=== PATIENT | female | born 1950 | race Caucasian/White ===

== ENCOUNTER 2017-09-15 10:00 | Outpatient (RCR) | payer MEDICARE ==
--- NOTE | 2017-07-09 13:16 | ONCOLOGY FOLLOW UP NOTE ---
EVENT DATE: July 07, 2017 CHIEF COMPLAINT Fatigue, weakness. HISTORY OF PRESENT ILLNESS Lucy is a very pleasant 66-year-old female who I met for the first time on June 25, during her hospitalization at the [facility] in [place], [place]. She was admitted at that time with encephalopathy. She was noted to have a large mass in the right frontal lobe on brain MRI dated June 13, 2017. This appeared to extend into the corpus callosum. There is a mass in the left parietal lobe and a mass in the right cerebellum. Primary differential consideration initially was glioblastoma multiforme, multifocal. There was also a small cystic lesion noted in the right occipital lobe that was suspicious for a fourth focus of tumor. She subsequently underwent a CT scan of the chest, abdomen and pelvis on June 14. This revealed a 15 x 13 mm nodule in the left upper lobe, with consideration for a primary pulmonary malignancy or metastatic disease. There were a few additional pulmonary micro nodules within the left upper lobe and nodular densities along the inferior right major fissure. There borderline prominent mediastinal and hilar lymph nodes. There were small right and trace left pleural effusions, but no evidence of metastatic disease outside of the chest. 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 The patient had a port placed during that hospitalization, she was newly diagnosed with atrial fibrillation at that time, as well. She did have a fairly extended length of stay, and due to the need for further physical therapy and recuperation, she was transferred recently to the extended care floor at [facility]. During that time, she has been undergoing whole brain radiation, and she reports that she has three days left. She has not been up and around much. She denies pain and fever, however. Her appetite has been pretty good. Staff has noted occasional confusion. REVIEW OF SYSTEMS Difficult, but otherwise negative, and all systems were reviewed. PAST MEDICAL HISTORY 1. Diabetes mellitus, type 2. 2. Hypertension. 3. Obstructive sleep apnea. 4. History of smoking. PAST SURGICAL HISTORY Patient is status post hysterectomy. SOCIAL HISTORY Patient is currently , and she lives in [place] with her . She was smoking at the time of her admission to the [facility], roughly two packs per day, and had done so for about 50 years. She had been drinking about 10 glasses of wine per week. There is no history of illicit drug use. FAMILY HISTORY There is a history of myocardial infarction in both her mother and her father. CURRENT MEDICATIONS 1. Vitamin E. 2. Vitamin C. 3. Garlic tablet. 4. Multivitamin. 5. Metoprolol. 6. Metformin. 7. Lisinopril. 8. Levothyroxine. 9. Loperamide. 10. Cardura. 11. Breo Ellipta. ALLERGIES STATINS AND HMG-COA REDUCTASE INHIBITORS. VITAL SIGNS Patient is afebrile, vital signs are stable. PHYSICAL EXAMINATION GENERAL: Patient is alert and oriented times three, in no apparent distress sitting in the hospital room chair. She is quite pleasant and interactive. HEENT: Exam reveals anicteric sclerae. NEUROLOGIC: Exam is grossly nonfocal, although I did not test her gait today. SKIN: Exam reveals no concerning rash or lesions. The rest of the physical exam is deferred for extensive discussion today. LABS, IMAGING, PATHOLOGY See history of present illness. ASSESSMENT AND PLAN Metastatic small cell lung carcinoma. I had a good visit with Lucy at bedside today. We were accompanied by the cancer center staff, as well as the patient' s hospitalist, and her . We spent a good deal of time discussing how things having going during her convalescence. She does seem to be making some progress functionally. She has three more days of whole brain radiation left. There are potential plans for her to return home tomorrow. We spent a great deal of time today discussing palliative chemotherapy, which had been the plan at the time of her discharge from [facility] in [place], [place]. We likely will move forward with palliative carboplatin and etoposide , and we did discuss any concerns about distance between [place] and [place], and the schedule needed to follow this chemotherapy protocol. There are no particular concerns in this regard, with the exception of bad weather and road conditions. The patient's performance status does seem to be improving to the point where she can tolerate chemotherapy. She will begin chemotherapy in the next one to two weeks. She has already had a port placed. Her chemotherapy will be palliative in nature. We discussed the priorities of longevity and improved/maintained quality of life, and she has expressed understanding. I will plan to see her back in the next month when I return to [facility]. The patient and her had several further questions for me today, and I believe I answered all of their questions to their satisfaction. STACEY
--- NOTE | 2017-07-12 13:39 | ONC Progress Note - NP.Halsey ---
Patient History Date of Service Jul 12, 2017 Reason For Visit/HPI Patient is seen in the clinic today for education prior to starting chemotherapy with the top aside and carboplatin for her stage IV small cell lung cancer. Patient was found to have brain metastasis and completed radiation therapy for whole brain treatment today. Patient reports that she is confused regarding her medications at home and has asked for assistance through the clinic. She reports having mild back discomfort thought to be related from lying on the radiation treatment table and inactivity. She will try to do more physical activity and has been referred for physical therapy. Problem List (1) Brain metastases (2) Small cell lung cancer (3) HTN (hypertension) (4) DM (diabetes mellitus) (5) Hypothyroidism (6) Prolonged QT interval (7) PAROXYSMAL ATRIAL FIBRILLATION Oncology History I'm days a pleasant 66-year-old female who was hospitalized at [facility] in [facility] on 06/25/2017. She was admitted at that time for encephalopathy. She was noted to have a large mass in the right frontal lobe on the brain MRI dated 06/13/2017. This appeared to extend into the corpus colostrum. There is a mass in the left parietal lobe and a mass in the right cerebellum. There is also a small cystic lesion noted in the right septal lobe that was suspicious for a 4th focus of tumor. She underwent a CT scan of the chest abdomen and pelvis on June 14. This revealed a 15 x 13 mm nodule in the left upper lobe, with consideration for a primary pulmonary malignancy or metastatic disease. There were a few additional pulmonary micro nodules within the left upper lobe and nodular densities along the inferior right major fissure. There borderline prominent mediastinal and hilar lymph nodes. There were small right and trace left pleural effusions, but no evidence of metastatic disease outside of the chest. 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 Patient had a port placed during hospitalization and was diagnosed with atrial fibrillation at that time. She had an extended lengthy stay due to the need for physical therapy. She was then transferred to [facility] [place], [place]. Repleted radiation therapy whole brain treatment starting on 06-29 with completion on 07/12/2017 to a therapeutic dose of 3000 cGy. Patient was on dexamethasone 12 mg 10 days with the tapering dose to 8 mg 10 days and further tapering of 4 mg 10 days. Psychosocial History Social History Patient is currently , she lives in [facility] with her . 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 Alcohol History She had been drinking about 10 glasses of wine per week prior to her diagnosis Recreational Drug History There is no history of illicit drug use Smoking History: No (patient stopped smoking that they're diagnosis of lung cancer May 2017) Smoking Status: Current: Every Day Smoker, Heavy Tobacco Smoker Medications and Allergies Active Scripts Nicotine (NICOTINE PATCH) 1 Each Patch.td24, 14 MG TD QDAY, #30 PATCH.24H 1 Refill Prov:MILTON SMITH MD 07/07/17 Metoprolol Tartrate (METOPROLOL TARTRATE) 50 Mg Tab, 50 MG PO BID for Blood Pressure, #60 TAB 1 Refill Prov:MILTON SMITH MD 07/07/17 Levetiracetam (LEVETIRACETAM) 500 Mg Tablet, 500 MG PO Q12H, #60 TAB 1 Refill Prov:MILTON SMITH MD 07/07/17 Insulin Lispro (HUMALOG) 100 Unit/1 Ml Vial, 2-10 UNIT SUBQ SS, #1 VIAL 1 Refill For blood glucose: 150-200, give 2 units 201-250, give 4 units 251-300, give 6 units 301-350, give 8 units 351 or greater, give 10 units For blood glucose over 400, give 10 units and call your healthcare provider. for blood sugar less than 50, drink juice and call your healthcare provider. Prov:MILTON SMITH MD 07/07/17 Insulin Glargine,Hum.rec.anlog (LANTUS SOLOSTAR) 100 Unit/1 Ml Insuln.pen, 16 UNIT SUBQ QHS, #1 BOX Prov:MILTON SMITH MD 07/07/17 Hydralazine Hcl (HYDRALAZINE HCL) 25 Mg Tablet, 100 MG PO TID for Blood Pressure , #120 TAB 1 Refill Prov:MILTON SMITH MD 07/07/17 Doxazosin Mesylate (DOXAZOSIN MESYLATE) 2 Mg Tablet, 8 MG PO QHS for Blood Pressure, #120 TAB 1 Refill Prov:MILTON SMITH MD 07/07/17 Dexamethasone (DEXAMETHASONE) 1 Mg Tab, 2 MG PO QDAY, #20 TAB Take until otherwise instructed by Cancer Center. Prov:MILTON SMITH MD 07/07/17 Dexamethasone (DEXAMETHASONE) 1 Mg Tab, 2 MG PO Q12H@0600,1800, #40 TAB Take from 07/10 through end of day 07/19 then taper. Prov:MILTON SMITH MD 07/07/17 Dexamethasone (DEXAMETHASONE) 1 Mg Tab, 2 MG PO Q8H, #10 TAB Take through 07/09 then taper. Prov:MILTON SMITH MD 07/07/17 Amlodipine Besylate (AMLODIPINE BESYLATE) 5 Mg Tablet, 10 MG PO QDAY for Blood Pressure, #30 TAB 1 Refill Prov:MILTON SMITH MD 07/07/17 Reported Medications Ubidecarenone (COQ-10) 100 Mg Capsule, 200 MG PO BID, CAPSULE 07/07/17 Turmeric Root Extract (Turmeric) 538 Mg Capsule, 500 MG PO DAILY 07/07/17 Triamcinolone Acetonide 0.1% Oint 15 Gm Tube (TRIAMCINOLONE ACETONIDE 0.1% 15 GM TUBE) 15 Gm Oint...g., 15 GM TP BID Y for PRN, TUBE 05/19/17 Oxygen (OXYGEN) Inha, 3.5 L INH, L 3.5 L CPAP 05/19/17 Oxygen (OXYGEN) Inha, 3 L INH, L 05/19/17 Vitamin E Mixed (VITAMIN E) Unknown Strength Tablet, PO QDAY 05/19/17 Ascorbic Acid (VITAMIN C) Unknown Strength Tablet, PO DAILY, TAB 05/19/17 Garlic (GARLIC) 1 Each Tablet, 1 EACH PO DAILY 05/19/17 Multivitamin (DAILY MULTIPLE VITAMIN) 1 Each Tablet, 1 TAB PO DAILY 05/19/17 Metformin Hcl (METFORMIN HCL) 500 Mg Tablet, 2 TAB PO BID, TAB 05/19/17 Lisinopril (LISINOPRIL) 20 Mg Tablet, 40 MG PO QDAY, TAB 05/19/17 Levothyroxine Sodium (LEVOTHYROXINE SODIUM) 50 Mcg Tablet, 50 MCG PO QDAY, TAB 05/19/17 Loperamide HCl (Imodium A-D) Unknown Strength Capsule, PRN 05/19/17 Estropipate (ESTROPIPATE) 1.5 Mg Tablet, 1.5 MG PO QDAY for 90 Days Take 1 pill by mouth daily for 90 days 05/19/17 Discontinued Reported Medications Metoprolol Tartrate (METOPROLOL TARTRATE) 100 Mg Tablet, 1 TAB PO BID for 90 Days, TAB Take 1 pill by mouth twice daily for 90 days 05/19/17 Doxazosin Mesylate (CARDURA) 4 Mg Tablet, 4 MG PO QHS for 90 Days Take for 1 pill at bedtime for 90 days 05/19/17 Fluticasone/Vilanterol 100/25 Mcg/Inh (BREO ELLIPTA 100/25 MCG) 1 Each Aer.pow.ba, 1 INH INH PRN, INH 05/19/17 Allergies: Coded Allergies: Kmphwkd-Kcl-Qqc Reductase Inhibitor (Verified Allergy, Unknown, 05/19/17) Review of System/Physical Exam Review of Systems All Systems Reviewed/Normal: Yes, Except as Noted Hematologic: Positive for Fatigue, Positive for Weakness Neurologic: Other (patient has some generalized confusion and difficulty with thought process and memory recall) Physical Exam Vital Signs Temperature: Pulse: BP Systolic: BP Diastolic: Respiratory Rate: O2 SAT: O2 Delivery: Height (inches) 67.00 Weight lb: 212 Weight oz: Weight Kg (Maury): Pain: ECOG Score: 2 General: Stable, Well Developed, Well Nourished, Not In Acute Distress Psychiatric: Mood appears normal, Affect appears normal, Other (evidence of thought process confusion and memory recall. Patient repeats her questions multiple times.) Chemo Education Chemotherapy Education: Patient is seen today for education regarding chemotherapy with a top deciding carboplatin for her stage IV small cell lung cancer with known evidence of metastatic disease to the brain status post radiation therapy whole brain area The treatment schedule and associated appointments were discussed and reviewed. A print out will be given to the patient. The intent for treatment is palliative Consent for treatment was completed prior to receiving treatment. Mechanism of action and associated side effects of the top aside and carboplatin and premedications were discussed. The patient is at increased risk for infection related to bone marrow suppression with chemotherapy. Signs and symptoms of infection were reviewed with recommendation of calling the clinic if fever, chills or a temperature of 100.5 or greater is experienced. Regular monitoring of blood work will be completed. The patient is at increased risk of nausea and vomiting related to chemotherapy. Home antiemetics were reviewed with a schedule of when to take them. Script (s) for Zofran were sent electronically to [facility]. Patient was not prescribed Ativan at this time due to her confusion. Increased bowel movements or diarrhea may occur. The use of Imodium was reviewed and encouraged to have on hand. Dehydration from decreased intake, nausea or diarrhea could also occur. Side effects of dehydration were reviewed and hydration will be given as needed. Self-care strategies to minimize any symptoms from treatment were taught and written material was given for further review at home. The strategies included : dietary modifications for nausea, diarrhea, fatigue and/or mouth sores, exercise and resting for fatigue, hydration for dehydration, and skin care for dry skin reactions. In addition, safety measures for IV chemotherapy to prevent teratogenic side effects to others was reviewed in detail to include good hand washing, double flushing, and what to do during sexual intercourse. Education book was given to patient to review at home. At this time patient is undecided of when to start treatment. She has the option of starting next Wednesday or the following Wednesday. She will call the clinic and schedule. The above information will be reviewed with the patient and family members as needed. Assessment and Plan Assessment & Plan Patient is a pleasant 66-year-old female who was diagnosed with metastatic small cell lung carcinoma in May 2017. Patient completed whole brain radiation therapy to 3000 cGy on 07/12/2017. Patient continues on a tapering dose of steroids. She was started on insulin due to elevated blood sugars thought to be related to dexamethasone. She also has a sliding scale. Patient was educated regarding sliding scale and had a use a glucometer last Wednesday, however reports that they couldn't get the glucometer to work. She is going to have a provider in [facility] help her with this. She reports that she is confused on her medications and when to take them and how to take them. A print out was given to her reviewing her medications. It was suggested that she bring all of her medications into the clinic and a calendar could be made for her, she did not do this today. She reports that she may ask for assistance by a provider in [facility] where she will drive back to [place] in the next day or 2. Her sister in law is with her today. She may be able to help her with her medications. Patient is scheduled to start chemotherapy with the top aside and carboplatin given on days 1, 2 and 3 every 21 days. Patient was given the option to start next Wednesday or the following Wednesday, July 28, she will call the clinic. Education regarding side effects, management of side effects, treatment plan, and schedule was reviewed with patient and [id number] today. Patient verbalized understanding and [id number] verbalized understanding. Patient signed consent. I do believe that patient will need further education after receiving chemotherapy and possibly ongoing education due to her confusion at this time and ability to remember things. I believe all questions were answered to their satisfaction today. I personally spent a total of 45 minutes. Of that 40 minutes was counseling/ coordination of patient's care. See my note above for details. Copies to: MARSHALL WHITTAKER MD, NANCY J BRICK AND TILE MAKING MACHINE OPERATOR-BC, ONC Jul 12, 2017 13:39
--- NOTE | 2017-07-14 15:36 | Oncology Note ---
Patient was called on 07-13-18 x 2 and a message was left and again today with a message left to inquire if she received assistance with her medications and sliding scale of her insulin. She had told the nurses that she was confused regarding her medications. I had reviewed them with her and printed out her medications and Keena GALINDO underlined each one on Wednesday the . I then met with her on Wednesday the and reviewed the medications and recommended that she go to the [facility] and have them assist her with a calendar since she did not bring in her medications to the clinic in [place]. I had also offered to see her in the [place] clinic with all her medications at any time, she just needed to call the clinic and be placed on the schedule. I have been unable to contact her and have left messages. ZEINA FONTAINE TANDEM MILL ROLLER-BC, ONC Jul 14, 2017 15:36
[2017-07-28 10:15] LABS: PLATELET COUNT, AUTOMATED 356 K/uL (150-450)
[2017-07-28 10:21] VITALS: BP 149/67
[2017-07-28] MEDS: LIDOCAINE/SOD BICARB 8.4% SYR ID PRN (10:30)
[2017-07-28] MEDS: NS(*) 0.9% 500 ML BAG 500 ML IV PRN (10:30)
[2017-07-28] MEDS: HEPARIN FLSH (PORT) 500 UN/5ML IVP PRN (10:30)
[2017-07-28] MEDS: DEXAMETHASONE SOD PHOS 10MG/ML IVP PRN (11:30)
[2017-07-29] MEDS: DEXAMETHASONE SOD PHOS 10MG/ML IVP PRN (10:23)
[2017-07-29 10:42] VITALS: BP 138/60
[2017-07-29] MEDS: NS(*) 0.9% 500 ML BAG 500 ML IV PRN (10:44)
[2017-07-29] MEDS: LIDOCAINE/SOD BICARB 8.4% SYR ID PRN (10:44)
[2017-07-29] MEDS: HEPARIN FLSH (PORT) 500 UN/5ML IVP PRN (10:45)
--- NOTE | 2017-07-29 11:12 | ONC Progress Note - NP.Halsey ---
Patient History Date of Service Jul 29, 2017 Reason For Visit/HPI Patient is seen in the clinic with her for cycle 1 day 2 of chemotherapy with etoposide and carboplatin for her stage IV small cell lung cancer. Patient has completed radiation therapy to the whole brain for metastasis. Patient was hospitalized on extended care throughout her radiation therapy treatment. She was discharged at home on oral steroids with a tapering dose. Patient was started on insulin due to elevated blood sugar levels possibly related to steroid therapy. Patient continues on insulin long-acting at night and a sliding scale in the morning. She reports that her levels have ranged from 120 up to 313. Patient has completed Decadron taper and is no longer on Decadron therapy with the exception of premedications prior to chemotherapy. Patient was also discharged on several new medications for her blood pressure such as cardura and and hydralazine. Spouse reports that patient has run out of both of these prescriptions and has not been on them for approximately 2 days. Blood pressure today is 138/60. I will recommend patient to hold these medications as she is following with Dr. Maynard on August 02. She will be in the clinic tomorrow for chemotherapy and we can monitor her blood pressure tomorrow as well. Overall patient is feeling relatively well today she denies any nausea or vomiting, she had diarrhea yesterday but did not take Imodium. She has no diarrhea today. She was tired after her cycle 1 of chemotherapy but reports that she tolerated it well. She has no shortness of breath. Patient continues on oxygen continuous. She has some mild discomfort in her back and she does have a wound on her bottom. I have written an order for wound consult and they should visit with her today. Problem List (1) Wound abscess (2) Hypothyroidism (3) HTN (hypertension) (4) DM (diabetes mellitus) (5) Prolonged QT interval (6) PAROXYSMAL ATRIAL FIBRILLATION (7) Small cell lung cancer (8) Brain metastases Oncology History Lucy is a pleasant 66-year-old female who was hospitalized at [facility] in [facility] on 06/25/2017. She was admitted at that time for encephalopathy. She was noted to have a large mass in the right frontal lobe on the brain MRI dated 06/13/2017. This appeared to extend into the corpus colostrum. There is a mass in the left parietal lobe and a mass in the right cerebellum. There is also a small cystic lesion noted in the right septal lobe that was suspicious for a 4th focus of tumor. She underwent a CT scan of the chest abdomen and pelvis on June 14. This revealed a 15 x 13 mm nodule in the left upper lobe, with consideration for a primary pulmonary malignancy or metastatic disease. There were a few additional pulmonary micro nodules within the left upper lobe and nodular densities along the inferior right major fissure. There borderline prominent mediastinal and hilar lymph nodes. There were small right and trace left pleural effusions, but no evidence of metastatic disease outside of the chest. 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 Patient had a port placed during hospitalization and was diagnosed with atrial fibrillation at that time. She had an extended lengthy stay due to the need for physical therapy. She was then [place] [facility] [place] Repleted radiation therapy whole brain treatment starting on 06-29 with completion on 07/12/2017 to a therapeutic dose of 3000 cGy. Patient was on dexamethasone 12 mg 10 days with the tapering dose to 8 mg 10 days and further tapering of 4 mg 10 days. Chemotherapy with carboplatin and etoposide started on 07/28/2017 given on days 1, 2, 3 every 21 day cycle Psychosocial History Social History Patient is currently , she lives in [facility] with her . 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 Alcohol History She had been drinking about 10 glasses of wine per week prior to her diagnosis Recreational Drug History There is no history of illicit drug use Smoking History: No (patient stopped smoking that they're diagnosis of lung cancer May 2017) Smoking Status: Current: Every Day Smoker, Heavy Tobacco Smoker Medications and Allergies Active Scripts Ondansetron (ZOFRAN ODT) 8 Mg Tab.rapdis, 8 MG PO Q12H, #30 TAB 1 Refill Prov:ZEINA FONTAINE-BC, ONC 07/29/17 Nicotine (NICOTINE PATCH) 1 Each Patch.td24, 14 MG TD QDAY, #30 PATCH.24H 1 Refill Prov:ZEINA FONTAINE-CARMEN, ONC 07/29/17 Levetiracetam (LEVETIRACETAM) 500 Mg Tablet, 500 MG PO Q12H, #60 TAB 1 Refill Prov:ZEINA FONTAINE-CARMEN, ONC 07/29/17 Metoprolol Tartrate (METOPROLOL TARTRATE) 50 Mg Tab, 50 MG PO BID for Blood Pressure, #60 TAB 1 Refill Prov:MILTON APPLE MD 07/07/17 Insulin Lispro (HUMALOG) 100 Unit/1 Ml Vial, 2-10 UNIT SUBQ SS, #1 VIAL 1 Refill For blood glucose: 150-200, give 2 units 201-250, give 4 units 251-300, give 6 units 301-350, give 8 units 351 or greater, give 10 units For blood glucose over 400, give 10 units and call your healthcare provider. for blood sugar less than 50, drink juice and call your healthcare provider. Prov:MILTON APPLE MD 07/07/17 Insulin Glargine,Hum.rec.anlog (LANTUS SOLOSTAR) 100 Unit/1 Ml Insuln.pen, 16 UNIT SUBQ QHS, #1 BOX Prov:MILTON APPLE MD 07/07/17 Reported Medications Ubidecarenone (COQ-10) 100 Mg Capsule, 200 MG PO BID, CAPSULE 07/07/17 Turmeric Root Extract (Turmeric) 538 Mg Capsule, 500 MG PO DAILY 07/07/17 Triamcinolone Acetonide 0.1% Oint 15 Gm Tube (TRIAMCINOLONE ACETONIDE 0.1% 15 GM TUBE) 15 Gm Oint...g., 15 GM TP BID Y for PRN, TUBE 05/19/17 Oxygen (OXYGEN) Inha, 3.5 L INH, L 3.5 L CPAP 05/19/17 Oxygen (OXYGEN) Inha, 3 L INH, L 05/19/17 Vitamin E Mixed (VITAMIN E) Unknown Strength Tablet, PO QDAY 05/19/17 Ascorbic Acid (VITAMIN C) Unknown Strength Tablet, PO DAILY, TAB 05/19/17 Garlic (GARLIC) 1 Each Tablet, 1 EACH PO DAILY 05/19/17 Multivitamin (DAILY MULTIPLE VITAMIN) 1 Each Tablet, 1 TAB PO DAILY 05/19/17 Metformin Hcl (METFORMIN HCL) 500 Mg Tablet, 2 TAB PO BID, TAB 05/19/17 Lisinopril (LISINOPRIL) 20 Mg Tablet, 40 MG PO QDAY, TAB 05/19/17 Levothyroxine Sodium (LEVOTHYROXINE SODIUM) 50 Mcg Tablet, 50 MCG PO QDAY, TAB 05/19/17 Loperamide HCl (Imodium A-D) Unknown Strength Capsule, PRN 05/19/17 Estropipate (ESTROPIPATE) 1.5 Mg Tablet, 1.5 MG PO QDAY for 90 Days Take 1 pill by mouth daily for 90 days 05/19/17 Discontinued Scripts Hydralazine Hcl (HYDRALAZINE HCL) 25 Mg Tablet, 100 MG PO TID for Blood Pressure , #120 TAB 1 Refill Prov:MILTON APPLE MD 07/07/17 Doxazosin Mesylate (DOXAZOSIN MESYLATE) 2 Mg Tablet, 8 MG PO QHS for Blood Pressure, #120 TAB 1 Refill Prov:MILTON APPLE MD 07/07/17 Dexamethasone (DEXAMETHASONE) 1 Mg Tab, 2 MG PO QDAY, #20 TAB Take until otherwise instructed by Cancer Center. Prov:MILTON APPLE MD 07/07/17 Dexamethasone (DEXAMETHASONE) 1 Mg Tab, 2 MG PO Q12H@0600,1800, #40 TAB Take from 07/10 through end of day 07/19 then taper. Prov:MILTON APPLE MD 07/07/17 Dexamethasone (DEXAMETHASONE) 1 Mg Tab, 2 MG PO Q8H, #10 TAB Take through 07/09 then taper. Prov:MILTON APPLE MD 07/07/17 Amlodipine Besylate (AMLODIPINE BESYLATE) 5 Mg Tablet, 10 MG PO QDAY for Blood Pressure, #30 TAB 1 Refill Prov:MILTON APPLE MD 07/07/17 Allergies: Coded Allergies: Slnqhaf-Pcf-Djz Reductase Inhibitor (Verified Allergy, Unknown, 05/19/17) Review of System/Physical Exam Review of Systems All Systems Reviewed/Normal: Yes, Except as Noted Respiratory: Positive for Shortness of Breath Gastrointestinal: Diarrhea Hematologic: Positive for Fatigue, Positive for Weakness Musculoskeletal: Positive for Muscle Pain, Positive for Bone Pain Neurologic: Other (patient appears to be able to comprehend however is often confused) Skin: Positive for Other (wound on her bottom) Physical Exam Vital Signs Temperature: 97.4 Pulse: 63 BP Systolic: 138 BP Diastolic: 60 Respiratory Rate: 16 O2 SAT: 97 O2 Delivery: Height (inches) 67.00 Weight lb: 212 Weight oz: Weight Kg (Maury): Pain: 0 ECOG Score: 2 (Patient requires assistance with ambulation, decision making, and home medications.) General: Stable, Well Developed, Well Nourished, Not In Acute Distress HEENT: No Trauma, No Icterus, No Mucositis, No Oral Thrush Neck: Supple Lungs: Clear to Auscultation (all lung alvarez are distant) Heart: Regular Rate, Regular Rhythm, No Gallops Abdomen: Soft and Nontender, No Hepatosplenomegaly, No Masses Extremities: No Edema Lymphadenopathy: No Cervical Psychiatric: Mood appears normal, Affect appears normal, Other Skin: No Skin Rashes, Other (wound was not assessed as wound care management will evaluate and treat) Diagnostic Studies Diagnostic Studies Laboratory Laboratory Tests 07/28/17 10:10 Laboratory Tests 07/28/17 10:10: White Blood Count 11.2, Red Blood Count 3.51, Hemoglobin 11.9, Hematocrit 34.4, Mean Corpuscular Volume 98.0, Mean Corpuscular Hemoglobin 34.0, Mean Corpuscular Hemoglobin Concent 34.7, Red Cell Distribution Width 13.5, Platelet Count 356, Mean Platelet Volume 6.9, Neutrophils (%) (Auto) , Lymphocytes (%) ( Auto) , Monocytes (%) (Auto) , Eosinophils (%) (Auto) , Basophils (%) (Auto) , Nucleated RBC Relative Count (auto) , Neutrophils # (Auto) , Lymphocytes # (Auto ) , Monocytes # (Auto) , Eosinophils # (Auto) , Basophils # (Auto) , Nucleated RBC Absolute Count (auto) , Neutrophils % (Manual) 69, Band Neutrophils % 0, Lymphocytes % (Manual) 16, Atypical Lymphocytes % 0, Monocytes % (Manual) 8, Eosinophils % (Manual) 0, Basophils % (Manual) 0, Metamyelocytes % 2, Myelocytes % 5, Peripheral Blood Smear Yes, Sodium Level 128, Potassium Level 4.3, Chloride Level 92, Carbon Dioxide Level 27, Blood Urea Nitrogen 16, Creatinine 0.50, Glomerular Filtration Rate Calc > 60.0, Random Glucose 101, Calcium Level 9.6, Total Bilirubin 0.7, Aspartate Amino Transf (AST/SGOT) 27, Alanine Aminotransferase (ALT/SGPT) 95, Alkaline Phosphatase 103, Total Protein 5.9, Albumin 3.4 Assessment and Plan Assessment & Plan 1. Patient is a pleasant 66-year-old female who was diagnosed with metastatic small cell lung carcinoma in May 2017. Patient completed whole brain radiation therapy to 3000 cGy on 07/12/2017. She started chemotherapy with etoposide and carboplatin given on days 12 and 3 every 21 days yesterday. She is here today for cycle 1 day 2. She is tolerating treatment at this time well without any side effects. She does have Zofran at home for nausea. Patient will have a repeat MRI of the brain and is requesting to have that done in [place] with an open MRI due to her claustrophobia approximately one month out from treatment and will follow with radiation oncology to review those results. Patient will continue with weekly CBC and CMP for monitoring for neutropenia. She will return in 21 days for cycle 2 of chemotherapy. 2. Hypertension. Patient previously was on metoprolol, lisinopril, and Dr. Apple had added hydralazine 3 times a day and Cardura daily at bedtime for management while patient was in the hospital. Patient has not had these 2 medications in the last 2-3 days. Blood pressure is currently 138/60. Patient will be in the clinic tomorrow for an blood pressure will be monitored again. I did not refill these prescriptions as patient is following with August 02 and can discuss if patient should continue. 3. Diabetes. Patient previously on oral metformin 500 mg twice daily. Well on Decadron patient was started on insulin at night and a sliding scale during the day. Her levels have ranged between 120 and up to 313. Patient is no longer on Decadron therapy other than every 21 days used as a premed prior to chemotherapy. Patient will follow with primary care regarding management of insulin. 4. Wound care. Patient has a wound on her bottom and an order for wound care management and evaluation has been sent. They should follow with the patient today. 5. Back pain. Patient has lower back pain. Currently she reports that her symptoms remain stable pain is a 3 out of 10. Patient does take Tylenol as needed. 6. Neutropenia. Patient is currently receiving chemotherapy and if her absolute neutrophil count drops below 1000 she may receive Neulasta. We will continue to monitor labs weekly. Patient will follow with primary care on Wednesday. I personally spent a total of 35 minutes. Of that 35 minutes was counseling/ coordination of patient's care. See my note above for details. Copies to: TARAN MAYNARD MD, NANCY J [employer], ONC Jul 29, 2017 11:12
[2017-07-29 17:15] VITALS: BP 145/59
[2017-07-30] MEDS: NS(*) 0.9% 500 ML BAG 500 ML IV PRN (09:30)
[2017-07-30] MEDS: LIDOCAINE/SOD BICARB 8.4% SYR ID PRN (09:30)
[2017-07-30] MEDS: DEXAMETHASONE SOD PHOS 10MG/ML IVP PRN (10:01)
[2017-07-30 10:11] VITALS: BP 123/57
[2017-07-30] MEDS: HEPARIN FLSH (PORT) 500 UN/5ML IVP PRN (12:10)
[2017-09-08 13:54] LABS: PLATELET COUNT, AUTOMATED 317 K/uL (150-450)
--- NOTE | 2017-09-08 14:08 | ONC Progress Note - NP.Halsey ---
Patient History Date of Service Sep 08, 2017 Reason For Visit/HPI Patient is seen in the clinic today with her for follow-up. She completed 1 cycle of carboplatin and eat top aside given on , 07/29 and 11/2016. Patient had previously completed whole brain radiation for metastasis and was hospitalized during her radiation treatment on extended care. Post discharge she was on tapering dose of steroids and insulin due to her elevated blood sugars related to steroid therapy. Post chemotherapy patient was noted to have ulcerations on her bottom that were not healing requiring wound care management. Patient then was placed in the [facility] to provide daily wound care management. Patient was discharged from the [facility] approximately 1 week ago under the care of her . He reports over the last week that she has been able to assist with fixing simple meals, getting up to go to the bathroom with minimal assistance, and holding a conversation relatively well however she did have word retrieval recall difficulty. In addition she had episodes of not knowing who she was, where she was, inability to answer questions or to give a full sentence. These episodes would come and go. She has spent quite a bit of time sleeping. She has been able to sort Cris ornaments yesterday and is prepared to decorating the tree tomorrow. Unfortunately upon her arrival today she was unable to get out of the car safely , her legs became weak and she slid down to her bottom. The nurses from the cancer center were able to assist her up and put her in a wheelchair. It is reported that she did not hit any part of her body and that there was no area that experienced trauma. In 1st seeing her in the exam room she was very quiet and lethargic, unable to tell me her name, date of , or who her was but she did smile at him indicating that she didn't know him. After leaving the room to order lab draw and coming back into the room she was much more alert and oriented and could tell me who her was by his name. He still could not tell me her name or date of . In review with her this is much of how she has been with the off and on changes over the last 4 weeks. But overall he feels that she is improving in strength and inability. Problem List (1) Brain metastases (2) Small cell lung cancer Oncology History Lucy is a pleasant 66-year-old female who was hospitalized at [facility] in [facility] on 06/25/2017. She was admitted at that time for encephalopathy. She was noted to have a large mass in the right frontal lobe on the brain MRI dated 06/13/2017. This appeared to extend into the corpus colostrum. There is a mass in the left parietal lobe and a mass in the right cerebellum. There is also a small cystic lesion noted in the right septal lobe that was suspicious for a 4th focus of tumor. She underwent a CT scan of the chest abdomen and pelvis on June 14. This revealed a 15 x 13 mm nodule in the left upper lobe, with consideration for a primary pulmonary malignancy or metastatic disease. There were a few additional pulmonary micro nodules within the left upper lobe and nodular densities along the inferior right major fissure. There borderline prominent mediastinal and hilar lymph nodes. There were small right and trace left pleural effusions, but no evidence of metastatic disease outside of the chest. 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 Patient had a port placed during hospitalization and was diagnosed with atrial fibrillation at that time. She had an extended lengthy stay due to the need for physical therapy. She was then transferred to [facility] extended care. Repeated radiation therapy whole brain treatment starting on 06-29 with completion on 07/12/2017 to a therapeutic dose of 3000 cGy. Patient was on dexamethasone 12 mg 10 days with the tapering dose to 8 mg 10 days and further tapering of 4 mg 10 days then further tapered and discontinued Chemotherapy with carboplatin and etoposide started on 07/28/2017 given on days 1, 2, 3 every 21 day cycle Psychosocial History Social History Patient is currently , she lives in [facility] with her . 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 Alcohol History She had been drinking about 10 glasses of wine per week prior to her diagnosis Recreational Drug History There is no history of illicit drug use Smoking History: No Smoking Status: Current: Every Day Smoker, Heavy Tobacco Smoker Medications and Allergies Active Scripts Levalbuterol Hcl (LEVALBUTEROL HCL) 1.25 Mg/3 Ml Vial.neb, 1.25 MG NEB Q2HR Y for SHORTNESS OF BREATH for 30 Days, Prov:STEPH GUNDERSON MD 08/18/17 Paroxetine Hcl (PAROXETINE HCL) 20 Mg Tablet, 20 MG PO QDAY for 30 Days, Prov:STEPH GUNDERSON MD 08/18/17 Sodium Chloride (SALINE NASAL SPRAY) 30 Ml [place], 0 ML NA PRN Y for dryness for 30 Days, SPRAY Prov:STEPH GUNDERSON MD 08/18/17 Pantoprazole Sodium (PANTOPRAZOLE SODIUM) 40 Mg Tablet.dr, 40 MG PO BID for 30 Days, Prov:STEPH GUNDERSON MD 08/18/17 Melatonin (MELATONIN) 3 Mg Tablet, 3 MG PO QHS for 30 Days, Prov:STEPH GUNDERSON MD 08/18/17 Hydrochlorothiazide (HYDROCHLOROTHIAZIDE) 25 Mg Tablet, 25 MG PO QDAY for 30 Days, Prov:STEPH GUNDERSON MD 08/18/17 Dexamethasone (DEXAMETHASONE) 1 Mg Tab, 2 MG PO DAILY for 7 Days, TAB stop after 7 days Prov:STEPH GUNDERSON MD 08/18/17 Acetaminophen (ACETAMINOPHEN) 500 Mg Tablet, 1000 MG PO Q8H Y for PAIN for 1 Day , Prov:STEPH GUNDERSON MD 08/18/17 Insulin Glargine,Hum.rec.anlog (LANTUS SOLOSTAR) 100 Unit/1 Ml Insuln.pen, 30 UNIT SUBQ QHS for 30 Days, Prov:STEPH GUNDERSON MD 08/18/17 Levetiracetam (LEVETIRACETAM) 500 Mg Tablet, 500 MG PO Q12H, #60 TAB 1 Refill Prov:ZEINA FONTAINE MANAGER BOOK-BC, ONC 07/29/17 Metoprolol Tartrate (METOPROLOL TARTRATE) 50 Mg Tab, 50 MG PO BID for Blood Pressure, #60 TAB 1 Refill Prov:MILTON APPLE MD 07/07/17 Insulin Lispro (HUMALOG) 100 Unit/1 Ml Vial, 2-10 UNIT SUBQ SS, #1 VIAL 1 Refill For blood glucose: 150-200, give 2 units 201-250, give 4 units 251-300, give 6 units 301-350, give 8 units 351 or greater, give 10 units For blood glucose over 400, give 10 units and call your healthcare provider. for blood sugar less than 50, drink juice and call your healthcare provider. Prov:MILTON APPLE MD 07/07/17 Reported Medications Oxygen (OXYGEN) Inha, 3.5 L INH, L 3.5 L CPAP 05/19/17 Multivitamin (DAILY MULTIPLE VITAMIN) 1 Each Tablet, 1 TAB PO DAILY 05/19/17 Levothyroxine Sodium (LEVOTHYROXINE SODIUM) 50 Mcg Tablet, 50 MCG PO QDAY, TAB 05/19/17 Loperamide HCl (Imodium A-D) Unknown Strength Capsule, PRN 05/19/17 Estropipate (ESTROPIPATE) 1.5 Mg Tablet, 1.5 MG PO QDAY for 90 Days Take 1 pill by mouth daily for 90 days 05/19/17 Allergies: Coded Allergies: Ribheli-Gsb-Zcy Reductase Inhibitor (Verified Allergy, Unknown, 05/19/17) Review of System/Physical Exam Review of Systems Constitutional: Positive for Appetite/Weight Change (reported to be stable) Cardiovascular: Denies Edema, Denies Palpitations Respiratory: Denies Cough, Denies Expectoration, Denies Hemoptysis, Denies Shortness of Breath HEENT: No Nasal Discharge, No Sore Throat, No Mouth Ulcers Gastrointestinal: Diarrhea (episodes of diarrhea with occasional incontinence, no episodes of bleeding), No Nausea, No Vomitting, No Constipation, No Swallowing Difficulties, No Abdominal Pain Genitourinary: Denies Hematuria, Positive for Other (no evidence of bleeding) Endocrine: Positive for Diabetes Hematologic: Positive for Fatigue, Positive for Weakness, Denies Bruising, Denies Bleeding Musculoskeletal: Denies Muscle Pain, Denies Joint Pain, Denies Bone Pain Psychiatric: Other (houses with her today), No Anxiety, No Depression Skin: Positive for Other (wound on her bottom is not completely healed at this time), Denies Skin Rash, Denies Lumps, Denies Erythema Physical Exam Vital Signs Temperature: 98.6 Pulse: 55 BP Systolic: 123 BP Diastolic: 57 Respiratory Rate: 16 O2 SAT: 96 O2 Delivery: Height (inches) 67.00 Weight lb: 214 Weight oz: Weight Kg (Maury): Pain: 0 ECOG Score: 3 General: Stable, Well Developed, Well Nourished HEENT: No Mucositis, No Oral Thrush Neck: Supple Heart: Regular Rate, Regular Rhythm Abdomen: Soft and Nontender, No Hepatosplenomegaly Extremities: No Cyanosis, No Edema, Other (patient is unable to lift her finger to her nose, she has 1+ laundry folder of the hands bilaterally added 3+ strength. She can move her feet although is unable to coordinate to put her feet on 2 the wheelchair for rest without assistance. She is unsafe to ambulate on her own. I did not have her stand and assess her ambulation.) Lymphadenopathy: No Cervical Psychiatric: Mood appears normal, Affect appears normal, Other (patient is not alert and oriented to person place or time. She is lethargic off and on. She has significant difficulty with word retrieval. She can answer yes and no questions however it is difficult to detect if they are correct answers or incorrect answers) Skin: No Skin Rashes, Other (wound was not assessed as wound care management will evaluate and treat) Diagnostic Studies Diagnostic Studies Laboratory Item Value Date Time White Blood Count 6.5 k/uL 09/08/17 1340 Red Blood Count 2.57 M/uL L 09/08/17 1340 Hemoglobin 8.5 g/dL *L 09/08/17 1340 Hematocrit 24.9 % *L 09/08/17 1340 Mean Corpuscular Volume 96.5 fL H 09/08/17 1340 Red Cell Distribution Width 17.7 % H 09/08/17 1340 Neutrophils # (Auto) 4.5 K/uL 09/08/17 1340 Sodium Level 135 mmol/L L 09/08/17 1340 Creatinine 1.60 mg/dl H 09/08/17 1340 Alkaline Phosphatase 219 U/L H 09/08/17 1340 Albumin 3.4 g/dl L 09/08/17 1340 Laboratory Tests 07/28/17 10:10: Neutrophils % (Manual) 69, Band Neutrophils % 0, Lymphocytes % (Manual) 16, Atypical Lymphocytes % 0, Monocytes % (Manual) 8, Eosinophils % (Manual) 0, Basophils % (Manual) 0, Metamyelocytes % 2, Myelocytes % 5, Peripheral Blood Smear Yes 09/08/17 13:40: Assessment and Plan Assessment & Plan 1. Patient is a pleasant 66-year-old female who was diagnosed with metastatic small cell lung carcinoma in May 2017. Patient completed whole brain radiation therapy to 3000 cGy on 07/12/2017. She started chemotherapy with etoposide and carboplatin given on days 1 2 and 3 every 21 days on to 2016. She tolerated treatment relatively well with minimal side effects. Patient has not completed further treatment due to being placed in a [facility] facility for wound care management. She did have a repeat MRI of the brain which showed stable disease to resolution and no evidence of new disease. This report should be printed and in her paper chart. 2. Hypertension. Patient previously was on metoprolol, lisinopril, and Dr. Apple had added hydralazine 3 times a day and Cardura daily at bedtime for management while patient was in the hospital. Blood pressure is being managed by primary care. It was low today at 97/41. We will continue to monitor with her follow-up visits. 3. Diabetes. Patient previously on oral metformin 500 mg twice daily. Well on Decadron patient was started on insulin at night and a sliding scale during the day. Her levels have ranged between 120 and up to 313. Patient is no longer on Decadron therapy other than every 21 days used as a premed prior to chemotherapy. Spouse reports the patient is no longer on insulin therapy other then the long-acting once a day. This is managed by primary care. 4. Wound care. Patient has received wound care management to her bottom with improvement over the last 2 weeks. Patient has been in the [facility] facility. It is reported that she continues to have 2 small areas that are not completely healed but the is able to manage those at home. These were not assessed today. 5. Back pain. Patient has lower back pain. Currently she reports that her symptoms remain stable pain is a 3 out of 10. Patient does take Tylenol as needed. 6. Hemoglobin of 8.5 noted on labs today. I will repeat labs in 1 week and evaluate. Patient and spouse deny any episodes of bleeding. Patient may require blood transfusion. Plan: Patient will follow in 1 week with a CBC and CMP Patient will follow with Dr. Burkett in September. Chemotherapy will remain on hold until patient's symptoms recover and her wound is totally healed. Discussion regarding hospice care has not been initiated at this time. I did discuss with that we would not do chemotherapy until patient's cognition and performance status improved if it was going to improve. He verbalized understanding. Patient will need monthly port flushes for port maintenance Follow with primary care as scheduled for medication management I personally spent a total of 35 minutes. Of that 30 minutes was counseling/ coordination of patient's care. See my note above for details. Copies to: GHADA CASTILLO MD, NANCY J MANAGER BOOK-BC, ONC Sep 08, 2017 14:08
[~2017-09-15] VITALS: Ht 170.2 cm; Wt 91.7 kg
[~2017-09-15 10:00] MED LIST: ACET-2043 PO; ALTEPLASE RECOMB 2 MG VIAL IVP PRN; AMLO-96 PO; ASCO-182 PO; ASPI-1471 PO; CARBOPLATIN IVPB ONE; CYCL10TA29 PO; DEX1 PO; DEXTROSE 5%(*) 100 ML BAG 100 ML IVPB PRN; DOXA2TAB58 PO; DOXA4TAB57 PO; ESTR1.2525 PO; ETOPOSIDE IV ONE; FLUT1AER INH; FOSAPREPITANT DIM 150 MG/5 ML 150 MG in NS(*) 0.9% 250 ML BAG 245 ML IVPB PRN; GARL1CAP15 PO; GARL1TAB9 PO; HYDR-2966 PO; HYDR25TA66 PO; INSU100I30 SUBQ; INSU100V24 SUBQ; LEVA1.2513 NEB; LEVE500T73 PO; LEVO50TA86 PO; LISI-374 PO; LISI20TA29 PO; LOPE2CAP15; MAG355OR20 PO; MELA3TAB31 PO; METF-410 PO; METF-420 PO; METO-253 PO; METO-257 PO; MULT-865 PO; NICO1PAT87 TD; NICOTINE 14 MG/24 HR PATCH TD SCH; NS 0.9% IV ONE; NS 0.9% IVPB ONE; NS(*) 0.9% 100 ML BAG 100 ML IVPB PRN; ONDA8TAB94 PO; OXYGENHOME INH; PALONOSETRON 0.25 MG/5 ML VIAL IVP PRN; PANT40TA65 PO; PARO-46 PO; PATCH REMOVAL 1 EA TP SCH; SIMV-59 PO; SODI30SP6; TRIA15OI20 TP; TURM538C PO; UBID100C48 PO; VIT1TABL PO; VITA-200 PO; VITA100T4 PO; WATER STERILE 10 ML VIAL IVP PRN; [UNRECOGNIZED DRUG - CODE] PO
[2017-09-15 10:44] LABS: PLATELET COUNT, AUTOMATED 273 K/uL (150-450)
--- NOTE | 2017-09-15 13:08 | ONC Progress Note - NP.Halsey ---
Patient History Date of Service Sep 15, 2017 Reason For Visit/HPI Patient is seen in the clinic today with her for follow-up. She completed 1 cycle of carboplatin and etoposide given on , 07/29 and 2016. Since that time she has been in the shelter for wound care management and upon discharge had been significantly confused. Last week she was unable to ambulate initially and did not know person or place. After some time, her ability changed completely and she could ambulate and answer questions. She is back for review of CBC today because her Hgb was low. Fortunately it is improved today and she does not need a transfusion. Her reports that she is scheduled to follow with primary care provider tomorrow to review insulin medication, blood pressure medication and to start with physical therapy. Today she is alert and oriented to person and place, date. She has been up fixing a simple lunch over the last three days. Her wound on her bottom is almost healed. She is interested in restarting chemotherapy after [place] and New Years. Her Hgb will have to recover. Oncology History Lucy is a pleasant 66-year-old female who was hospitalized at [facility] in [facility] on 06/25/2017. She was admitted at that time for encephalopathy. She was noted to have a large mass in the right frontal lobe on the brain MRI dated 06/13/2017. This appeared to extend into the corpus colostrum. There is a mass in the left parietal lobe and a mass in the right cerebellum. There is also a small cystic lesion noted in the right septal lobe that was suspicious for a 4th focus of tumor. She underwent a CT scan of the chest abdomen and pelvis on June 14. This revealed a 15 x 13 mm nodule in the left upper lobe, with consideration for a primary pulmonary malignancy or metastatic disease. There were a few additional pulmonary micro nodules within the left upper lobe and nodular densities along the inferior right major fissure. There borderline prominent mediastinal and hilar lymph nodes. There were small right and trace left pleural effusions, but no evidence of metastatic disease outside of the chest. 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 Patient had a port placed during hospitalization and was diagnosed with atrial fibrillation at that time. She had an extended lengthy stay due to the need for physical therapy. She was then [facility] to [facility] extended care. Repeated radiation therapy whole brain treatment starting on 06-29 with completion on 07/12/2017 to a therapeutic dose of 3000 cGy. Patient was on dexamethasone 12 mg 10 days with the tapering dose to 8 mg 10 days and further tapering of 4 mg 10 days then further tapered and discontinued Chemotherapy with carboplatin and etoposide started on 07/28/2017 given on days 1, 2, 3 every 21 day cycle x 1 cycle and then treatment has been held d/t wound management, shelter placement, confusion and fatigue, Low H&H. Psychosocial History Social History Patient is currently , she lives in [facility] with her . 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 Alcohol History She had been drinking about 10 glasses of wine per week prior to her diagnosis Recreational Drug History There is no history of illicit drug use Smoking History: No Smoking Status: Current: Every Day Smoker, Heavy Tobacco Smoker Medications and Allergies Active Scripts Levalbuterol Hcl (LEVALBUTEROL HCL) 1.25 Mg/3 Ml Vial.neb, 1.25 MG NEB Q2HR Y for SHORTNESS OF BREATH for 30 Days, Prov:STEPH GUNDERSON MD 08/18/17 Paroxetine Hcl (PAROXETINE HCL) 20 Mg Tablet, 20 MG PO QDAY for 30 Days, Prov:STEPH GUNDERSON MD 08/18/17 Sodium Chloride (SALINE NASAL SPRAY) 30 Ml [place], 0 ML NA PRN Y for dryness for 30 Days, SPRAY Prov:STEPH GUNDERSON MD 08/18/17 Pantoprazole Sodium (PANTOPRAZOLE SODIUM) 40 Mg Tablet.dr, 40 MG PO BID for 30 Days, Prov:STEPH GUNDERSON MD 08/18/17 Melatonin (MELATONIN) 3 Mg Tablet, 3 MG PO QHS for 30 Days, Prov:STEPH GUNDERSON MD 08/18/17 Hydrochlorothiazide (HYDROCHLOROTHIAZIDE) 25 Mg Tablet, 25 MG PO QDAY for 30 Days, Prov:STEPH GUNDERSON MD 08/18/17 Dexamethasone (DEXAMETHASONE) 1 Mg Tab, 2 MG PO DAILY for 7 Days, TAB stop after 7 days Prov:STEPH GUNDERSON MD 08/18/17 Acetaminophen (ACETAMINOPHEN) 500 Mg Tablet, 1000 MG PO Q8H Y for PAIN for 1 Day , Prov:STEPH GUNDERSON MD 08/18/17 Insulin Glargine,Hum.rec.anlog (LANTUS SOLOSTAR) 100 Unit/1 Ml Insuln.pen, 30 UNIT SUBQ QHS for 30 Days, Prov:STEPH GUNDERSON MD 08/18/17 Levetiracetam (LEVETIRACETAM) 500 Mg Tablet, 500 MG PO Q12H, #60 TAB 1 Refill Prov:ZEINA FONTAINE OYSTER GROWER-BC, ONC 07/29/17 Metoprolol Tartrate (METOPROLOL TARTRATE) 50 Mg Tab, 50 MG PO BID for Blood Pressure, #60 TAB 1 Refill Prov:MILTON APPLE MD 07/07/17 Insulin Lispro (HUMALOG) 100 Unit/1 Ml Vial, 2-10 UNIT SUBQ SS, #1 VIAL 1 Refill For blood glucose: 150-200, give 2 units 201-250, give 4 units 251-300, give 6 units 301-350, give 8 units 351 or greater, give 10 units For blood glucose over 400, give 10 units and call your healthcare provider. for blood sugar less than 50, drink juice and call your healthcare provider. Prov:MILTON APPLE MD 07/07/17 Reported Medications Oxygen (OXYGEN) Inha, 3.5 L INH, L 3.5 L CPAP 05/19/17 Multivitamin (DAILY MULTIPLE VITAMIN) 1 Each Tablet, 1 TAB PO DAILY 05/19/17 Levothyroxine Sodium (LEVOTHYROXINE SODIUM) 50 Mcg Tablet, 50 MCG PO QDAY, TAB 05/19/17 Loperamide HCl (Imodium A-D) Unknown Strength Capsule, PRN 05/19/17 Estropipate (ESTROPIPATE) 1.5 Mg Tablet, 1.5 MG PO QDAY for 90 Days Take 1 pill by mouth daily for 90 days 05/19/17 Allergies: Coded Allergies: Humdkoz-Hyj-Qoe Reductase Inhibitor (Verified Allergy, Unknown, 05/19/17) Review of System/Physical Exam Review of Systems All Systems Reviewed/Normal: Yes, Except as Noted Constitutional: Positive for Appetite/Weight Change (improved) Hematologic: Positive for Fatigue, Positive for Weakness Psychiatric: Other (confusion off and on) Skin: Positive for Other (wound on her bottom is not completely healed at this time- home care daily ), Denies Skin Rash, Denies Lumps, Denies Erythema Physical Exam Vital Signs Temperature: 98.6 Pulse: 55 BP Systolic: 123 BP Diastolic: 57 Respiratory Rate: 16 O2 SAT: 96 O2 Delivery: Height (inches) 67.00 Weight lb: 214 Weight oz: Weight Kg (Maury): Pain: 0 ECOG Score: 2 General: Stable, Well Developed, Well Nourished, Not In Acute Distress Lungs: Clear to Auscultation Heart: Regular Rate, Regular Rhythm Abdomen: Soft and Nontender, No Hepatosplenomegaly Lymphadenopathy: No Cervical Psychiatric: Mood appears normal, Affect appears normal, Other (some confusion. Patient is very convincing that she is alert and oriented. ) Skin: No Skin Rashes, Other (wound on her bottom grade 1 with erythema 2cm from central ulceration. ) Diagnostic Studies Diagnostic Studies Laboratory Laboratory Tests 09/15/17 10:26 Laboratory Tests 07/28/17 10:10: Neutrophils % (Manual) 69, Band Neutrophils % 0, Lymphocytes % (Manual) 16, Atypical Lymphocytes % 0, Monocytes % (Manual) 8, Eosinophils % (Manual) 0, Basophils % (Manual) 0, Metamyelocytes % 2, Myelocytes % 5, Peripheral Blood Smear Yes 09/15/17 10:26: White Blood Count 7.8, Red Blood Count 2.62, Hemoglobin 8.7, Hematocrit 25.4, Mean Corpuscular Volume 96.8, Mean Corpuscular Hemoglobin 33.0, Mean Corpuscular Hemoglobin Concent 34.1, Red Cell Distribution Width 17.3, Platelet Count 273, Mean Platelet Volume 6.6, Neutrophils (%) (Auto) 73.5, Lymphocytes (% ) (Auto) 17.5, Monocytes (%) (Auto) 5.6, Eosinophils (%) (Auto) 2.0, Basophils ( %) (Auto) 1.4, Nucleated RBC Relative Count (auto) 0.0, Neutrophils # (Auto) 5.7 , Lymphocytes # (Auto) 1.4, Monocytes # (Auto) 0.4, Eosinophils # (Auto) 0.2, Basophils # (Auto) 0.1, Nucleated RBC Absolute Count (auto) 0.00, Sodium Level 134, Potassium Level 4.5, Chloride Level 102, Carbon Dioxide Level 23, Blood Urea Nitrogen 11, Creatinine 0.90, Glomerular Filtration Rate Calc > 60.0, Random Glucose 104, Calcium Level 9.5, Total Bilirubin 0.6, Aspartate Amino Transf (AST/SGOT) 30, Alanine Aminotransferase (ALT/SGPT) 42, Alkaline Phosphatase 160, Total Protein 6.3, Albumin 3.2 Assessment and Plan Assessment & Plan 1. Patient is a pleasant 66-year-old female who was diagnosed with metastatic small cell lung carcinoma in May 2017. Patient completed whole brain radiation therapy to 3000 cGy on 07/12/2017. She started chemotherapy with etoposide and carboplatin given on days 1 2 and 3 every 21 days on 2016. She tolerated treatment relatively well with minimal side effects. Patient has not completed further treatment due to being placed in a shelter facility for wound care management. She did have a repeat MRI of the brain which showed stable disease to resolution and no evidence of new disease. This report should be printed and in her paper chart. 2. Hypertension. Patient previously was on metoprolol, lisinopril, and Dr. Apple had added hydralazine 3 times a day and Cardura daily at bedtime for management while patient was in the hospital. Blood pressure is being managed by primary care. It was low today last week at 97/41 and today 132/65. We will continue to monitor with her follow-up visits. 3. Diabetes. Patient previously on oral metformin 500 mg twice daily. Well on Decadron patient was started on insulin at night and a sliding scale during the day. Her levels have ranged between 120 and up to 313. Patient is no longer on Decadron therapy other than every 21 days used as a premed prior to chemotherapy. Spouse reports the patient is no longer on insulin therapy other then the long-acting once a day. This is managed by primary care. Blood sugars are ranging 150. Insulin is 1-2 units daily. 4. Wound care. Patient has received wound care management to her bottom with improvement. Patient has been in the shelter facility. She continues to have a grade 1 ulceration x 2 and erythema surrounding. 5. Back pain. Patient has lower back pain. Currently she reports that her symptoms remain stable pain is a 2 out of 10. Patient does take Tylenol as needed. 6. Hemoglobin of 8.5 last week and 8.7 today. I will repeat labs prior her next office visit with Dr. Tipton in September. Plan: CBC and CMP in 3 weeks. Patient will follow with Dr. Burkett in September. Chemotherapy will remain on hold until patient's symptoms recover and her wound is totally healed. Discussion regarding hospice care has not been initiated at this time. I did discuss with that we would not do chemotherapy until patient's cognition and performance status improved if it was going to improve. He verbalized understanding. Patient would like to resume treatment. Patient will need monthly port flushes for port maintenance Follow with primary care as scheduled for medication management I personally spent a total of 25 minutes. Of that 20 minutes was counseling/ coordination of patient's care. See my note above for details. Copies to: GHADA CASTILLO MD, NANCY J OYSTER GROWER-BC, ONC Sep 15, 2017 13:08
[2017-09-15] MEDS: HEPARIN FLSH (PORT) 500 UN/5ML IVP PRN (15:46)
[2017-09-15] MEDS: LIDOCAINE/SOD BICARB 8.4% SYR ID PRN (15:47)
[2017-09-15 15:56] VITALS: BP 132/65
== END 2017-10-04 ==
LOC: ONC 10:00
PROVIDERS: ATTEND Internal Medicine Medical Oncology
DX: Z51.11 Encounter for antineoplastic chemotherapy (principal); D70.1 Agranulocytosis secondary to cancer chemotherapy; C34.90 Malignant neoplasm of unspecified part of unspecified bronchus or lung; C79.31 Secondary malignant neoplasm of brain; L89.309 Pressure ulcer of unspecified buttock, unspecified stage; I10 Essential (primary) hypertension; E11.9 Type 2 diabetes mellitus without complications; M54.5 Low back pain; Z99.81 Dependence on supplemental oxygen; Z87.891 Personal history of nicotine dependence; Z92.3 Personal history of irradiation; Z79.4 Long term (current) use of insulin
CPT/HCPCS: 36591; 85025; 96125; 96367; 96375; 96413; 96415; A9270; G0463; J1100; J1453; J1642; J2469; J7040; J7050; J9045; J9181; 82040; 82247; 82310; 82374; 82435; 82565; 82947; 84075; 84132; 84155; 84295; 84450; 84460; 84520; 99212

== ENCOUNTER 2017-12-22 10:28 | Outpatient (RCR) | payer MEDICARE ==
[2017-10-06 12:52] VITALS: BP 95/45
[2017-10-06 13:06] VITALS: BP 95/45
[2017-10-06 13:08] LABS: PLATELET COUNT, AUTOMATED 335 K/uL (150-450)
[2017-10-06] MEDS: NS(*) 0.9% 500 ML BAG 500 ML IV PRN (14:04)
[2017-10-06] MEDS: LIDOCAINE/SOD BICARB 8.4% SYR ID PRN (14:05)
[2017-10-06] MEDS: HEPARIN FLSH (PORT) 500 UN/5ML IVP PRN (14:06)
[2017-10-06 16:35] VITALS: BP 123/52
--- NOTE | 2017-10-06 16:43 | RADIOLOGY IMAGING REPORT ---
[place] [facility] [place] Lucy Peralta : 1950 MR: [id number] V: [id number] EXAM DATE: ORDERING PHYSICIAN: SIS ALANIZ TECHNOLOGIST: Location: [facility] Patient: Lucy Peralta : 1950 Visit/Account:[id number] Date of Sevice: 10/06/2017 EXAMINATION: CT chest, abdomen, and pelvis with IV contrast HISTORY: History of CA. Cough. TECHNIQUE: Axial CT images of the chest, abdomen, and pelvis were obtained with IV contrast, with c oronal and sagittal 2D reconstructed images. One of the following dose optimization techniques was utilized in the performance of this exam: Autom ated exposure control; adjustment of the mA and/or kV according to the patient's size; or use of an i terative reconstruction technique. Specific details can be referenced in the facility's radiology C T exam operational policy. Contrast: 75 mL of IV Isovue-370. COMPARISON: 06/14/2017 from [facility]. FINDINGS: Chest: Lungs and pleura: Stable nodule along the posterior margin of the left upper lobe abutting the fissu re, measuring 1.3 x 1.5 cm (series 6, image 198). The previously noted 2-3 mm nodule located more sup eriorly in the left upper lobe is no longer visualized. No other discrete pulmonary nodule or mass on either side. The central airways are patent. Prior bilateral pleural effusions have resolved, as has the prior nodularity along the right major fissure which may have been related to fluid in the fissu re. No pleural effusion on the current exam. No pneumothorax. Mediastinum and veronica: Small hiatal hernia. Heart, aorta, and great vessels: Normal caliber thoracic aorta. Vascular calcifications, including c oronary artery calcifications. Normal heart size. No pericardial effusion. Right IJ central venous po rt, with tip near the cavoatrial junction. Chest lymph node assessment: No enlarged hilar or mediastinal lymph nodes. Previously noted borderli ne precarinal and left hilar lymph nodes have decreased in size measuring 7 mm at the precarinal leve l and 7 mm at the left hilum. No new or progressive adenopathy. Bones: No acute osseous findings or suspicious focal osseous lesions. Scattered degenerative changes along the spine. Chest wall: Negative. Lower neck: Negative. Abdomen/pelvis: Liver: Negative. Gallbladder and bile ducts: Negative. Spleen: Negative. Pancreas: Negative. Adrenal glands: Negative. Kidneys: Negative. No hydronephrosis or urinary calculi. Bowel and peritoneum: The small bowel and colon are unremarkable. No localized bowel wall thickening . No free fluid or free intraperitoneal air. Pelvic structures: Hysterectomy. No adnexal mass by CT. Lymph node assessment: Negative. Vessels: Scattered vascular calcifications. Normal caliber abdominal aorta. Musculoskeletal: Degenerative changes along the lumbar spine, greatest at the lumbosacral interspac e. No suspicious focal osseous lesions by CT. Body wall: Negative. IMPRESSION: 1. Stable 1.5 cm nodule in the left upper lobe posteriorly abutting the fissure. 2. No other evidence of new or progressive malignancy in the chest, abdomen, or pelvis. 3i. Prior small pleural effusions have resolved and previously noted borderline left hilar and medias tinal lymph nodes have decreased in size. Report Dictated By: Jamshid Brown MD at 10/06/2017 4:16 PM Report E-Signed By: Jamshid Brown MD at 10/06/2017 4:39 PM WSN:[id number]
--- NOTE | 2017-10-06 20:53 | ONCOLOGY FOLLOW UP NOTE ---
EVENT DATE: October 06, 2017 REASON FOR FOLLOWUP Metastatic small cell lung carcinoma. CHIEF COMPLAINT Fatigue, weakness in her legs. INTERIM HISTORY Lucy returns to clinic for a follow-up visit today. She is accompanied by her . Since our last outpatient visit, the patient in general has not been doing particularly well. She has had hospitalizations, as well as rehabilitation stays. She has had ongoing weakness, fatigue, and periodic confusion that has been fairly difficult to anticipate and manage. She has been seen several times by Lindsey Bhagat, nurse practitioner. She has received only one cycle of palliative chemotherapy (carboplatin and etoposide given in early July). After her chemotherapy, she began to have more significant problems with the general symptoms noted above. Since that time, chemotherapy has been held, and she has been receiving supportive care to the best of our ability, as she lives in [place]. Today, the patient complains of ongoing fatigue and weakness in her legs. Her endurance is not particularly good. She is able to get around in the house, but she does get tired quickly. She reports some ongoing pain in her neck and upper back. This tends to get worse when she is up and around, as opposed to at rest. She reports no chest pain or productive cough. She does get winded with exertion. Her appetite has been fair. She reports that her legs at times feel weak, but she has not recently had any traumatic falls. Lucy expresses understanding that today's visit is to discuss whether or not chemotherapy should be a part of her ongoing treatment plan, or whether best supportive care would be a better option. She and her are here to discuss this further. REVIEW OF SYSTEMS Otherwise negative, and all systems are reviewed. PAST MEDICAL HISTORY 1. Diabetes mellitus, type 2. 2. Hypertension. 3. Obstructive sleep apnea. 4. History of smoking. ONCOLOGY HISTORY Please see history of present illness. PAST SURGICAL HISTORY Patient is status post hysterectomy. SOCIAL HISTORY Patient is currently , and she lives in [place] with her . She was smoking at the time of her admission to the [facility], roughly two packs per day, and had done so for about 50 years. She had been drinking about 10 glasses of wine per week. There is no history of illicit drug use. FAMILY HISTORY There is a history of myocardial infarction in both her mother and her father. CURRENT MEDICATIONS 1. Levalbuterol. 2. Paroxetine. 3. Saline nasal spray. 4. Protonix. 5. Melatonin. 6. Hydrochlorothiazide. 7. Dexamethasone. 8. Acetaminophen. 9. Insulin. 10. Levetiracetam. 11. Metoprolol. 12. Multivitamin. 13. Levothyroxine. 14. Loperamide. 15. Estropipate. ALLERGIES STATINS, HMG-COA REDUCTASE INHIBITORS. VITAL SIGNS Temperature is 98.2, blood pressure 95/45, heart rate is 56, respirations 16, oxygen saturation is 93% on room air. Weight is 86 kg. PHYSICAL EXAMINATION GENERAL: Patient is alert and oriented times three, in no apparent distress sitting in her wheelchair. She is in good spirits today, and she is more interactive than I have seen her at any point in the past. HEENT: Exam reveals anicteric sclerae. No significant oropharyngeal lesions. NEUROLOGIC: Exam is grossly nonfocal, although I did not test her gait today. EXTREMITIES: Edema of the bilateral lower extremities, but no clubbing or cyanosis. SKIN: Exam reveals no concerning rash or lesions. LABORATORY STUDIES Reviewed per the [facility] record. She remains with a moderate anemia. IMAGING MRI of the brain performed recently in [place] reveals significant improvement in the appearance of her prior met metastatic lesions in the brain, but with a small, but improved, persistent lesion in the right cerebellum. She has had no follow-up CT scan to assess response to prior chemotherapy. ASSESSMENT AND PLAN Extensive stage small cell lung carcinoma. I had a lengthy and in-depth visit with Lucy and her today. Symptomatically, it does seem that she has made a bit of progress from prior. Her performance status is still borderline, however. She seems to have somewhat of a different opinion about receiving further chemotherapy than her . She at this point is not entirely opposed to entertaining the idea of trying chemotherapy again, but she does appreciate the level of toxicity and complexity that came along with her first cycle. Her on the other hand does seem to be quite in favor of having her try chemotherapy again. We discussed conceptually the idea of performance status and how arguably her performance status does stand a chance to improve with chemotherapy, given the nature of the cancer. There is also a chance that she had clinical benefit/response from only one cycle of chemotherapy, but she has not yet had a follow-up CT scan to confirm or refute this. I have recommended that she have a CT scan of the chest, abdomen and pelvis to reassess the status of her small cell cancer. The findings on her prior MRI of the brain post radiation therapy are indeed encouraging. Beyond being sure that she is at least minimally medically fit to consider chemotherapy, I do think it will be important for her and her family members, namely her , to try to gain common ground on what is best for her moving forward. The patient understands that the ultimate decision to try chemotherapy again, if reasonable based on her clinical status, is her choice, but that ideally it would be quite beneficial for her and her family members to be of like mind. They agreed to discuss things amongst themselves. I will plan to have the patient follow up in the next one to two weeks. She will work with Physical Therapy ongoing in the meantime to try to regain some strength. If her CT scan shows some improvement, and she has had no worsening in her performance status, I do think we can consider dose reduced chemotherapy, technically her second cycle. I do think a substantial reduction in dose will be needed, and I likely would reduce the doses of both carboplatin and etoposide by 50%. The patient and her had several further questions for me today, and I believe I answered all of their questions to their satisfaction about the potential prospect of chemotherapy in the near future. We moved on to also discuss that involving hospice will be quite mobley if the decision is made to not receive chemotherapy. We discussed hospice services in detail. We will try to help the patient and her family look into what types of services are available to them in [place]. I spent a total of 45 minutes of time face to face with the patient and her today, and 40 minutes of this was spent in direct counseling and coordination of care. STACEY
[2017-10-20 13:55] VITALS: BP 103/59
--- NOTE | 2017-10-20 15:45 | ONC Progress Note - NP.Halsey ---
Patient History Date of Service Oct 20, 2017 Reason For Visit/HPI Patient is seen in the clinic today with her for review of recent CT scan for review of her metastatic small cell lung carcinoma. Since the last visit patient has participated in physical therapy and reports that she is able to walk across the small room using a cane unassisted. She continues to feel weak and fatigued and has occasional episodes of confusion. Recent wound on her buttock is reported to be almost completely healed. She is no longer receiving wound care management. He continues to have stable pain in her back and neck which has been long-standing. Does tire quickly. Patient followed with Dr. Alaniz on 10/06/2017 and from that visit to today shares that she is getting stronger and feeling better. CT scan of the chest abdomen and pelvis was reviewed with patient today in detail and films were reviewed. The report indicates that she has a stable 1.5 cm nodule in the left upper lobe, no evidence of new or progressive malignancy in the chest abdomen or pelvis, small pleural effusions have resolved and borderline left hilar and mediastinal lymph nodes have decreased in size. She denies any cough. She is eating well. She does have a fullness in her ears bilaterally. Problem List (1) Small cell lung cancer (2) Brain metastases Oncology History Lucy is a pleasant 66-year-old female who was hospitalized at [facility] in [facility] on 06/25/2017. She was admitted at that time for encephalopathy. She was noted to have a large mass in the right frontal lobe on the brain MRI dated 06/13/2017. This appeared to extend into the corpus colostrum. There is a mass in the left parietal lobe and a mass in the right cerebellum. There is also a small cystic lesion noted in the right septal lobe that was suspicious for a 4th focus of tumor. She underwent a CT scan of the chest abdomen and pelvis on June 14. This revealed a 15 x 13 mm nodule in the left upper lobe, with consideration for a primary pulmonary malignancy or metastatic disease. There were a few additional pulmonary micro nodules within the left upper lobe and nodular densities along the inferior right major fissure. There borderline prominent mediastinal and hilar lymph nodes. There were small right and trace left pleural effusions, but no evidence of metastatic disease outside of the chest. 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 Patient had a port placed during hospitalization and was diagnosed with atrial fibrillation at that time. She had an extended lengthy stay due to the need for physical therapy. She was then transferred to [facility]. Repeated radiation therapy whole brain treatment starting on 06-29 with completion on 07/12/2017 to a therapeutic dose of 3000 cGy. Patient was on dexamethasone 12 mg 10 days with the tapering dose to 8 mg 10 days and further tapering of 4 mg 10 days then further tapered and discontinued Chemotherapy with carboplatin and etoposide started on 07/28/2017 given on days 1, 2, 3 every 21 day cycle x 1 cycle and then treatment has been held d/t wound management, alf placement, confusion and fatigue, Low H&H. Reinitiation of chemotherapy with carboplatin and etoposide scheduled for 2017 at a 50% dose reduction Psychosocial History Social History Patient is currently , and she lives in [place] with her . She was smoking at the time of her admission to the [facility], roughly two packs per day, and had done so for about 50 years. She had been drinking about 10 glasses of wine per week. There is no history of illicit drug use. Smoking History: Yes Smoking Status: Current: Every Day Smoker, Heavy Tobacco Smoker Medications and Allergies Active Scripts Levalbuterol Hcl (LEVALBUTEROL HCL) 1.25 Mg/3 Ml Vial.neb, 1.25 MG NEB Q2HR Y for SHORTNESS OF BREATH for 30 Days, Prov:STEPH GUNDERSON MD 08/18/17 Paroxetine Hcl (PAROXETINE HCL) 20 Mg Tablet, 20 MG PO QDAY for 30 Days, Prov:STEPH GUNDERSON MD 08/18/17 Sodium Chloride (SALINE NASAL SPRAY) 30 Ml [place], 0 ML NA PRN Y for dryness for 30 Days, SPRAY Prov:STEPH GUNDERSON MD 08/18/17 Pantoprazole Sodium (PANTOPRAZOLE SODIUM) 40 Mg Tablet.dr, 40 MG PO BID for 30 Days, Prov:STEPH GUNDERSON MD 08/18/17 Melatonin (MELATONIN) 3 Mg Tablet, 3 MG PO QHS for 30 Days, Prov:STEPH GUNDERSON MD 08/18/17 Hydrochlorothiazide (HYDROCHLOROTHIAZIDE) 25 Mg Tablet, 25 MG PO QDAY for 30 Days, Prov:STEPH GUNDERSON MD 08/18/17 Dexamethasone (DEXAMETHASONE) 1 Mg Tab, 2 MG PO DAILY for 7 Days, TAB stop after 7 days Prov:STEPH GUNDERSON MD 08/18/17 Acetaminophen (ACETAMINOPHEN) 500 Mg Tablet, 1000 MG PO Q8H Y for PAIN for 1 Day , Prov:STEPH GUNDERSON MD 08/18/17 Insulin Glargine,Hum.rec.anlog (LANTUS SOLOSTAR) 100 Unit/1 Ml Insuln.pen, 30 UNIT SUBQ QHS for 30 Days, Prov:STEPH GUNDERSON MD 08/18/17 Levetiracetam (LEVETIRACETAM) 500 Mg Tablet, 500 MG PO Q12H, #60 TAB 1 Refill Prov:ZEINA FONTAINE LIFE SCIENTIST-BC, ONC 07/29/17 Metoprolol Tartrate (METOPROLOL TARTRATE) 50 Mg Tab, 50 MG PO BID for Blood Pressure, #60 TAB 1 Refill Prov:MILTON SMITH MD 07/07/17 Insulin Lispro (HUMALOG) 100 Unit/1 Ml Vial, 2-10 UNIT SUBQ SS, #1 VIAL 1 Refill For blood glucose: 150-200, give 2 units 201-250, give 4 units 251-300, give 6 units 301-350, give 8 units 351 or greater, give 10 units For blood glucose over 400, give 10 units and call your healthcare provider. for blood sugar less than 50, drink juice and call your healthcare provider. Prov:MILTON SMITH MD 07/07/17 Reported Medications Oxygen (OXYGEN) Inha, 3.5 L INH, L 3.5 L CPAP 05/19/17 Multivitamin (DAILY MULTIPLE VITAMIN) 1 Each Tablet, 1 TAB PO DAILY 05/19/17 Levothyroxine Sodium (LEVOTHYROXINE SODIUM) 50 Mcg Tablet, 50 MCG PO QDAY, TAB 05/19/17 Loperamide HCl (Imodium A-D) Unknown Strength Capsule, PRN 05/19/17 Estropipate (ESTROPIPATE) 1.5 Mg Tablet, 1.5 MG PO QDAY for 90 Days Take 1 pill by mouth daily for 90 days 05/19/17 Allergies: Coded Allergies: Yikrgqg-Wqo-Euy Reductase Inhibitor (Verified Allergy, Unknown, 05/19/17) Review of System/Physical Exam Review of Systems All Systems Reviewed/Normal: Yes, Except as Noted Respiratory: Positive for Shortness of Breath HEENT: Other (fullness in the ears bilaterally) Hematologic: Positive for Fatigue Musculoskeletal: Positive for Bone Pain (active pain) Skin: Positive for Other (alopecia) Physical Exam Vital Signs Temperature: 97.0 Pulse: 98 BP Systolic: 103 BP Diastolic: 59 Respiratory Rate: 16 O2 SAT: 92 O2 Delivery: Height (inches) 67.00 Weight lb: 214 Weight oz: Weight Kg (Maury): Pain: 5 ECOG Score: 2 (Patient is currently in a wheelchair) General: Stable, Well Developed, Well Nourished, Not In Acute Distress HEENT: No Mucositis, Other (your exam completed with noted bilateral ear wax without blockage of the ear canal) Neck: Supple Lungs: Clear to Auscultation Heart: Regular Rate, Regular Rhythm, No Gallops Abdomen: Soft and Nontender, No Hepatosplenomegaly, No Masses Extremities: No Edema, Other (patient is weak, bilateral lower extremity) Psychiatric: Mood appears normal, Affect appears normal, Other (spouse is with her today and they commonly discussed the pros and cons of chemotherapy.) Skin: No Skin Rashes, No Bruising, No Purpura, Other Diagnostic Studies Diagnostic Studies Laboratory Laboratory Tests 10/06/17 13:02 Laboratory Tests 10/06/17 13:02: White Blood Count 5.7, Red Blood Count 2.77, Hemoglobin 9.2, Hematocrit 27.2, Mean Corpuscular Volume 98.1, Mean Corpuscular Hemoglobin 33.1, Mean Corpuscular Hemoglobin Concent 33.7, Red Cell Distribution Width 17.3, Platelet Count 335, Mean Platelet Volume 6.8, Neutrophils (%) (Auto) 59.4, Lymphocytes (% ) (Auto) 27.1, Monocytes (%) (Auto) 9.4, Eosinophils (%) (Auto) 1.4, Basophils ( %) (Auto) 2.7, Nucleated RBC Relative Count (auto) 0.0, Neutrophils # (Auto) 3.4 , Lymphocytes # (Auto) 1.6, Monocytes # (Auto) 0.5, Eosinophils # (Auto) 0.1, Basophils # (Auto) 0.2, Nucleated RBC Absolute Count (auto) 0.00, Sodium Level 136, Potassium Level 4.3, Chloride Level 104, Carbon Dioxide Level 21, Blood Urea Nitrogen 13, Creatinine 0.90, Glomerular Filtration Rate Calc > 60.0, Random Glucose 99, Calcium Level 9.0, Total Bilirubin 0.5, Aspartate Amino Transf (AST/SGOT) 64, Alanine Aminotransferase (ALT/SGPT) 48, Alkaline Phosphatase 149, Total Protein 6.6, Albumin 3.3 Assessment and Plan Assessment & Plan Patient has an history of extensive stage small cell lung cancer with metastatic disease to the brain. Patient is status post treatment to the brain with radiation therapy. MRI of the brain completed at the imaging center in [facility] on 08/27/2017 indicated significant interval improvement of hemorrhagic metastatic lesions involving the right frontal lobe and anterior medial left occipital lobe. Improved but persistent small enhancing lesions of the right cerebellar hemisphere. No new metastatic disease when compared to previous exam. CT chest abdomen and pelvis completed on 10/06/2017 shows stable 1.5 cm nodule of the left upper lobe and no evidence of new or progressive disease. Patient would like to resume chemotherapy in approximately 2 weeks. Pros and cons of treatment were discussed and reviewed with patient and spouse today. Patient feels like she would like to try to see if she can control the disease at this time. She is encouraged with the proposed 50% dose reduction of chemotherapy. She reports that previously she tolerated chemotherapy without significant side effects other than neutropenia leading to hospitalization. At this time patient is not wanting to seek care with hospice or end-of-life. She verbalized understanding and that her disease may not be curable and that hospice may be appropriate in the future. Patient will continue with physical therapy although she reports that it causes fatigue she is getting stronger. Plan of care: Patient have a repeat MRI in November for continued evaluation of node metastatic disease. She will follow with radiation oncology to review. Obtain new orders for chemotherapy of carboplatin and etoposide at a 50% dose reduction. Schedule patient to start chemotherapy in 2 weeks per their request. Continue physical therapy. Follow with provider with cycle 2 of chemotherapy. I personally spent a total of 30 minutes. Of that 30 minutes was counseling/ coordination of patient's care. See my note above for details. Copies to: SIS ALANIZ MD, NANCY J LIFE SCIENTIST-BC, ONC Oct 20, 2017 15:45
[2017-11-10 11:56] VITALS: BP 108/41
[2017-11-10] MEDS: LIDOCAINE/SOD BICARB 8.4% SYR ID PRN (12:12)
[2017-11-10] MEDS: NS(*) 0.9% 500 ML BAG 500 ML IV PRN (12:13)
--- NOTE | 2017-11-10 13:11 | ONC Progress Note - NP.Halsey ---
Patient History Date of Service Nov 10, 2017 Reason For Visit/HPI Patient is seen in the clinic today with her scheduled for cycle 1 of Etoposide and Carboplatin 50% dose reduced. Today she reports loss of appetite and has had a 10 pound weight loss since her last office visit, ringing in the ears, she has had a sore throat, cough 2 weeks with expectation, she was started on amoxicillin 5 days ago 875 mg twice daily through primary care provider with minimal change in her symptoms, diarrhea 1-2 times daily currently taking Imodium 2-3 tablets daily for management, occasional headaches and weakness and fatigue. Patient shares that she fell 2-3 weeks ago and hit her head a couple times. Occasionally she has some double vision but feels that this is resolving. She has bruising on her coccyx and her right wrist has continued pain and limited mobility. She was scheduled to follow with Dr. Panda radiation oncology yesterday but did not come to her appointment. She is scheduled for an MRI of brain for ongoing monitoring in November. Problem List (1) Brain metastases (2) Small cell lung cancer Oncology History Lucy is a pleasant 66-year-old female who was hospitalized at [facility] in [facility] on 06/25/2017. She was admitted at that time for encephalopathy. She was noted to have a large mass in the right frontal lobe on the brain MRI dated 06/13/2017. This appeared to extend into the corpus colostrum. There is a mass in the left parietal lobe and a mass in the right cerebellum. There is also a small cystic lesion noted in the right septal lobe that was suspicious for a 4th focus of tumor. She underwent a CT scan of the chest abdomen and pelvis on June 14. This revealed a 15 x 13 mm nodule in the left upper lobe, with consideration for a primary pulmonary malignancy or metastatic disease. There were a few additional pulmonary micro nodules within the left upper lobe and nodular densities along the inferior right major fissure. There borderline prominent mediastinal and hilar lymph nodes. There were small right and trace left pleural effusions, but no evidence of metastatic disease outside of the chest. 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 Patient had a port placed during hospitalization and was diagnosed with atrial fibrillation at that time. She had an extended lengthy stay due to the need for physical therapy. She was then transferred to [facility]. Repeated radiation therapy whole brain treatment starting on 06-29 with completion on 07/12/2017 to a therapeutic dose of 3000 cGy. Patient was on dexamethasone 12 mg 10 days with the tapering dose to 8 mg 10 days and further tapering of 4 mg 10 days then further tapered and discontinued Chemotherapy with carboplatin and etoposide started on 07/28/2017 given on days 1, 2, 3 every 21 day cycle x 1 cycle and then treatment has been held d/t wound management, longterm placement, confusion and fatigue, Low H&H. MRI of the brain completed on 08/27/2017 shows significant interval improvement in metastatic lesions involving the right frontal lobe and anterior medial left occipital lobe. There is improved but persistent small enhancing lesion in the right cerebellar hemisphere. No new metastatic disease. Reinitiation of chemotherapy with carboplatin and etoposide scheduled for 2017 at a 50% dose reduction was postponed due to URI. Psychosocial History Social History Patient is currently , and she lives in [place] with her . She was smoking at the time of her admission to the [facility], roughly two packs per day, and had done so for about 50 years. She had been drinking about 10 glasses of wine per week. There is no history of illicit drug use. Smoking History: Yes Smoking Status: Current: Every Day Smoker, Heavy Tobacco Smoker Medications and Allergies Active Scripts Levalbuterol Hcl (LEVALBUTEROL HCL) 1.25 Mg/3 Ml Vial.neb, 1.25 MG NEB Q2HR Y for SHORTNESS OF BREATH for 30 Days, Prov:STEPH GUNDERSON MD 08/18/17 Paroxetine Hcl (PAROXETINE HCL) 20 Mg Tablet, 20 MG PO QDAY for 30 Days, Prov:STEPH GUNDERSON MD 08/18/17 Sodium Chloride (SALINE NASAL SPRAY) 30 Ml [place], 0 ML NA PRN Y for dryness for 30 Days, SPRAY Prov:STEPH GUNDERSON MD 08/18/17 Pantoprazole Sodium (PANTOPRAZOLE SODIUM) 40 Mg Tablet.dr, 40 MG PO BID for 30 Days, Prov:STEPH GUNDERSON MD 08/18/17 Melatonin (MELATONIN) 3 Mg Tablet, 3 MG PO QHS for 30 Days, Prov:STEPH GUNDERSON MD 08/18/17 Hydrochlorothiazide (HYDROCHLOROTHIAZIDE) 25 Mg Tablet, 25 MG PO QDAY for 30 Days, Prov:STEPH GUNDERSON MD 08/18/17 Dexamethasone (DEXAMETHASONE) 1 Mg Tab, 2 MG PO DAILY for 7 Days, TAB stop after 7 days Prov:STEPH GUNDERSON MD 08/18/17 Acetaminophen (ACETAMINOPHEN) 500 Mg Tablet, 1000 MG PO Q8H Y for PAIN for 1 Day , Prov:STEPH GUNDERSON MD 08/18/17 Insulin Glargine,Hum.rec.anlog (LANTUS SOLOSTAR) 100 Unit/1 Ml Insuln.pen, 30 UNIT SUBQ QHS for 30 Days, Prov:SETPH GUNDERSON MD 08/18/17 Levetiracetam (LEVETIRACETAM) 500 Mg Tablet, 500 MG PO Q12H, #60 TAB 1 Refill Prov:ZEINA FONTAINE CLERICAL ASSIGNER-BC, ONC 07/29/17 Metoprolol Tartrate (METOPROLOL TARTRATE) 50 Mg Tab, 50 MG PO BID for Blood Pressure, #60 TAB 1 Refill Prov:MILTON SMITH MD 07/07/17 Insulin Lispro (HUMALOG) 100 Unit/1 Ml Vial, 2-10 UNIT SUBQ SS, #1 VIAL 1 Refill For blood glucose: 150-200, give 2 units 201-250, give 4 units 251-300, give 6 units 301-350, give 8 units 351 or greater, give 10 units For blood glucose over 400, give 10 units and call your healthcare provider. for blood sugar less than 50, drink juice and call your healthcare provider. Prov:MILTON SMITH MD 07/07/17 Reported Medications Oxygen (OXYGEN) Inha, 3.5 L INH, L 3.5 L CPAP 05/19/17 Multivitamin (DAILY MULTIPLE VITAMIN) 1 Each Tablet, 1 TAB PO DAILY 05/19/17 Levothyroxine Sodium (LEVOTHYROXINE SODIUM) 50 Mcg Tablet, 50 MCG PO QDAY, TAB 05/19/17 Loperamide HCl (Imodium A-D) Unknown Strength Capsule, PRN 05/19/17 Estropipate (ESTROPIPATE) 1.5 Mg Tablet, 1.5 MG PO QDAY for 90 Days Take 1 pill by mouth daily for 90 days 05/19/17 Allergies: Coded Allergies: Xrzlmrl-Heg-Ssz Reductase Inhibitor (Verified Allergy, Unknown, 05/19/17) Review of System/Physical Exam Review of Systems All Systems Reviewed/Normal: Yes, Except as Noted Constitutional: Positive for Appetite/Weight Change (decreased appetite with weight loss), Positive for Recent Infection (currently on amoxicillin 875 mg 5 days) Respiratory: Positive for Cough, Positive for Expectoration, Positive for Shortness of Breath, Positive for Wheezing, Positive for Other HEENT: Tinnitus, Sore Throat Gastrointestinal: Diarrhea (taking Imodium 2-3 tablets daily) Hematologic: Positive for Fatigue, Positive for Weakness Musculoskeletal: Positive for Joint Pain, Positive for Bone Pain (right wrist status post fall 2 weeks ago) Skin: Positive for Other (alopecia) Physical Exam Vital Signs Temperature: 97.3 Pulse: 64 BP Systolic: 108 BP Diastolic: 41 Respiratory Rate: 16 O2 SAT: 90 O2 Delivery: Height (inches) 67.00 Weight lb: 214 Weight oz: Weight Kg (Maury): Pain: 8 ECOG Score: 2 General: Stable, Well Developed, Well Nourished, Not In Acute Distress, Other ( patient is weak and fatigued, has difficulty repositioning in the chair. She has a loose productive cough which increases with deep breathing) HEENT: No Trauma, No Conjunctivitis, No Mucositis, No Oral Thrush Neck: Supple Lungs: Not Clear to Auscultation (bilateral inspiratory wheezing and right upper and lower expiratory rhales) Heart: Regular Rate, Regular Rhythm, No Gallops, No Murmurs Abdomen: Soft and Nontender, No Hepatosplenomegaly, Other (bowel sounds are active) Extremities: No Cyanosis, No Clubbing, No Edema, Other (tenderness in the right wrist with decreased range of motion in all directions, mild edema over the lateral aspect of the wrist, tenderness to palpation) Lymphadenopathy: No Cervical Psychiatric: Mood appears normal, Affect appears normal, Other (spouse is with her today) Skin: No Skin Rashes, No Bruising, No Purpura, Other Diagnostic Studies Diagnostic Studies Laboratory Laboratory Tests 11/10/17 11:50 Laboratory Tests 10/06/17 13:02: Red Blood Count 2.77, Mean Corpuscular Volume 98.1, Mean Corpuscular Hemoglobin 33.1, Mean Corpuscular Hemoglobin Concent 33.7, Red Cell Distribution Width 17.3 , Mean Platelet Volume 6.8, Monocytes (%) (Auto) 9.4, Eosinophils (%) (Auto) 1.4 , Basophils (%) (Auto) 2.7, Nucleated RBC Relative Count (auto) 0.0, Monocytes # (Auto) 0.5, Eosinophils # (Auto) 0.1, Basophils # (Auto) 0.2, Nucleated RBC Absolute Count (auto) 0.00 11/10/17 11:50: White Blood Count 10.8, Hemoglobin 10.1, Hematocrit 30.2, Platelet Count 295, Neutrophils (%) (Auto) 72.9, Lymphocytes (%) (Auto) 16.2, Neutrophils # (Auto) 7.9, Lymphocytes # (Auto) 1.7, Sodium Level 131, Potassium Level 5.0, Chloride Level 103, Carbon Dioxide Level 16, Blood Urea Nitrogen 20, Creatinine 1.10, Glomerular Filtration Rate Calc 49.4, Random Glucose 92, Calcium Level 8.4, Total Bilirubin 0.4, Aspartate Amino Transf (AST/SGOT) 30, Alanine Aminotransferase (ALT/SGPT) 34, Alkaline Phosphatase 120, Total Protein 6.5, Albumin 3.0 Radiology MRI of the brain on 08/27/2017 reviewed today. Wrist to view completed today is a normal image. Chest x-ray completed today shows no finding of infiltrate, lymphadenopathy or pleural effusion, no findings of a fracture, right internal jugular vein port catheter tip is near the cavoatrial junction. Assessment and Plan Assessment & Plan Patient has an history of extensive stage small cell lung cancer with metastatic disease to the brain. Patient is status post treatment to the brain with radiation therapy. MRI of the brain completed at the imaging center in [facility] on 08/27/2017 indicated significant interval improvement of hemorrhagic metastatic lesions involving the right frontal lobe and anterior medial left occipital lobe. Improved but persistent small enhancing lesions of the right cerebellar hemisphere. No new metastatic disease when compared to previous exam. CT chest abdomen and pelvis completed on 10/06/2017 shows stable 1.5 cm nodule of the left upper lobe and no evidence of new or progressive disease. MRI of the brain completed on 08/27/2017 shows significant interval improvement in metastatic lesions involving the right frontal lobe and anterior medial left occipital lobe. There is improved but persistent small enhancing lesion in the right cerebellar hemisphere. No new metastatic disease. Patient is scheduled to resume chemotherapy at a 50% dose reduction with carboplatin and Etoposide. She presents today with cough, sore throat, diarrhea , recent fall, currently on antibiotics, sore wrist. White count is elevated at 10.8 with an absolute neutrophil count of 7900. Chest x-ray today shows no evidence of new disease and no pneumonia please see above for documentation. Wrist x-ray is unremarkable. After reviewing with patient I believe it is in her best interest to postpone chemotherapy for 2 weeks to allow time for her current upper respiratory symptoms to resolve and diarrhea to resolve. Patient agrees with plan of care and will complete prescribed antibiotics. Previous discussion regarding end-of-life care with hospice has been reviewed. Patient verbalized understanding that disease is not curable and that hospice may be appropriate in the future. At this time she would like to continue with chemotherapy. Plan: Patient is due for a repeat MRI for continued evaluation. She was scheduled to see Dr. Panda yesterday but did not make the appointment. Chemotherapy with carboplatin and etoposide at a 50% dose reduction to start in 2 weeks. Continue physical therapy. Follow with provider with cycle 2 of chemotherapy. I personally spent a total of 30 minutes. Of that 30 minutes was counseling/ coordination of patient's care. See my note above for details. Copies to: GHADA CASTILLO MD, NANCY J CLERICAL ASSIGNER-BC, ONC Nov 10, 2017 13:11
--- NOTE | 2017-11-10 13:52 | RADIOLOGY IMAGING REPORT ---
FACILITY: [facility] [place] PATIENT NAME: Lucy Peralta : 1950 MR: [id number] V: [id number] EXAM DATE: ORDERING PHYSICIAN: ZEINA FONTAINE TECHNOLOGIST: [place] [facility] [place] P[place] : 1950 Visit/Account:[id number] Date of Sevice: 11/10/2017 CHEST PA AND LAT HISTORY: Cough. COMPARISON: Chest x-ray August 12, 2017. FINDINGS: Cardiomediastinal contours: Normal Lungs and pleura: There is no finding of an infiltrate, lymphadenopathy or pleural effusion. Bones/soft tissues: There are no findings of a fracture. Catheters: The right internal jugular vein chest port catheter tip is at or near the cavoatrial junct ion. IMPRESSION: 1. No active disease in chest. 2. Stable position of right internal jugular vein chest port. Report Dictated By: Herson England MD at 11/10/2017 1:47 PM Report E-Signed By: Herson England MD at 11/10/2017 1:48 PM WSN:[email or web address]
--- NOTE | 2017-11-10 13:58 | RADIOLOGY IMAGING REPORT ---
FACILITY: [facility] PATIENT NAME: Lucy Peralta : 1950 MR: [id number] V: [id number] EXAM DATE: ORDERING PHYSICIAN: ZEINA FONTAINE TECHNOLOGIST: Location: [facility] Patient: Lucy Peralta : 1950 Visit/Account:[id number] Date of Sevice: 11/10/2017 WRIST RIGHT 2 VIEW History: Right wrist pain. Patient status post fall. Comparison study: None. Findings: There is no fracture or dislocation involving the right wrist. There are no findings of c hondrocalcinosis to suggest arthropathy. IMPRESSION: Normal images of the right wrist. Report Dictated By: Herson England MD at 11/10/2017 1:48 PM Report E-Signed By: Herson England MD at 11/10/2017 1:52 PM WSN:[id number]
[2017-11-10 14:49] VITALS: BP 115/58
[2017-11-10] MEDS: HEPARIN FLSH (PORT) 500 UN/5ML IVP PRN (14:51)
[2017-11-24 10:42] VITALS: BP 123/50
[2017-11-24] MEDS: NS(*) 0.9% 500 ML BAG 500 ML IV PRN (10:48)
[2017-11-24] MEDS: LIDOCAINE/SOD BICARB 8.4% SYR ID PRN (10:48)
[2017-11-24] MEDS: HEPARIN FLSH (PORT) 500 UN/5ML IVP PRN (10:49)
[2017-11-24] MEDS: DEXAMETHASONE SOD PHOS 10MG/ML IVP PRN (12:24)
[2017-11-24 15:43] VITALS: BP 117/52
[2017-11-25 11:01] VITALS: BP 143/61
[2017-11-25] MEDS: NS(*) 0.9% 500 ML BAG 500 ML IV PRN (11:16)
[2017-11-25] MEDS: LIDOCAINE/SOD BICARB 8.4% SYR ID PRN (11:16)
[2017-11-25] MEDS: DEXAMETHASONE SOD PHOS 10MG/ML IVP PRN (11:22)
[2017-11-25 13:22] VITALS: BP 153/69
[2017-11-25] MEDS: HEPARIN FLSH (PORT) 500 UN/5ML IVP PRN (13:41)
[2017-11-26] MEDS: DEXAMETHASONE SOD PHOS 10MG/ML IVP PRN (11:46)
[2017-11-26] MEDS: LIDOCAINE/SOD BICARB 8.4% SYR ID PRN (11:46)
[2017-11-26] MEDS: NS(*) 0.9% 500 ML BAG 500 ML IV PRN (11:47)
[2017-11-26 11:49] VITALS: BP 97/53
[2017-11-26 14:05] VITALS: BP 132/60
[2017-11-26] MEDS: HEPARIN FLSH (PORT) 500 UN/5ML IVP PRN (14:12)
[2017-12-15 11:46] VITALS: BP 103/74
--- NOTE | 2017-12-16 18:35 | ONCOLOGY FOLLOW UP NOTE ---
EVENT DATE: December 15, 2017 REASON FOR FOLLOWUP Extensive stage small cell lung carcinoma. CHIEF COMPLAINT Fatigue, right ear pain, hearing loss. INTERIM HISTORY Lucy returns to clinic for a follow-up visit today. She is accompanied by her . Since our last visit, she has received her second (delayed) cycle of palliative carboplatin and etoposide for her small cell lung cancer. She had a 50% dose reduction in both carboplatin and etoposide infusions. Overall, the chemotherapy with the dose reduction seemed to go much better than her first attempt several months ago. She has nonetheless had a difficult time. She reports ongoing fatigue and generalized weakness. She does walk around the house using her walker, but she is not getting out of the house much at all. She is in a wheelchair today for convenience. She reports ongoing right ear pain, and she has been taking Augmentin for about a week. The ear has been draining, as well. She has not noticed a lot of improvement with the Augmentin. She denies fever. She has had no sore throat or dysphagia. She denies sinus congestion. She has had no new shortness of breath or chest pain. She does have an occasional modestly productive cough without hemoptysis. Her appetite is good, and her weight has been relatively stable. She has had no new bowel or bladder symptoms. REVIEW OF SYSTEMS Otherwise negative, and all systems were reviewed. PAST MEDICAL HISTORY 1. Diabetes mellitus, type 2. 2. Hypertension. 3. Obstructive sleep apnea. 4. History of smoking. PAST SURGICAL HISTORY Patient is status post hysterectomy. SOCIAL HISTORY Patient is currently , and she lives in [place] with her . She was [facility], roughly two packs per day, and had done so for about 50 years. She had been drinking about 10 glasses of wine per week. There is no history of illicit drug use. FAMILY HISTORY There is a history of myocardial infarction in both her mother and her father. CURRENT MEDICATIONS 1. Levalbuterol. 2. Paroxetine. 3. Saline nasal spray. 4. Protonix. 5. Melatonin. 6. Hydrochlorothiazide. 7. Dexamethasone. 8. Acetaminophen. 9. Insulin. 10. Levetiracetam. 11. Metoprolol. 12. Multivitamin. 13. Levothyroxine. 14. Loperamide. 15. Estropipate. 16. Augmentin. VITAL SIGNS Temperature is 97, blood pressure 103/74, heart rate is 90, respirations 16, oxygen saturation is 94% on room air. Weight is 77.3 kg. PHYSICAL EXAMINATION GENERAL: Patient is alert and oriented times three, in no apparent distress sitting in the exam room chair. She is quite pleasant and interactive. HEENT: Exam reveals anicteric sclerae. She has a normal tympanic membrane on the left, but on the right there is clear drainage and what appears to be some pus behind the tympanic membrane. She has no palpable cervical lymphadenopathy. NEUROLOGIC: Exam is grossly nonfocal, although she is generally weak and I did not test her gait today. EXTREMITIES: Exam reveals some edema of the bilateral lower extremities, but no erythema or tenderness to palpation. LABORATORY STUDIES Reviewed per the [facility] record. IMAGING Recent MRI of the brain shows further improvement in previously treated metastatic lesions and no new lesions in the brain. ASSESSMENT AND PLAN Extensive stage small cell lung cancer. Lucy has received her second cycle of palliative carboplatin and etoposide, all of her chemotherapy with 50% dose reduction. In general, it does seem that she tolerated the chemotherapy much better than she had her first cycle, which was full dose. Unfortunately, she does appear to have an otitis media that has not responded well to Augmentin. I have written her a prescription for cefuroxime today. I tried to contact her primary care provider today, Dr. English, but I was unsuccessful. I have informed the patient to call Dr. English if she does not have improvement in her symptoms in the next few days. I do think we need to delay her chemotherapy due to this infection. We will have her return to clinic in about one week for reassessment. If there is no further improvement with the antibiotic change, we may have to have her visit with ENT. In general, her performance status has been remarkably stable, although she is not at all active. She is maintaining her weight and hydration. Pain seems to be controlled, and nausea was not particularly problematic with her chemo. If we do move forward with chemotherapy in the next one to two weeks, we will continue with carboplatin and etoposide at a 50% dose reduction. I will plan to see her back in clinic in the next month here at my [facility] clinic. STACEY
[~2017-12-22] VITALS: Ht 170.2 cm; Wt 77.3 kg
[~2017-12-22 10:28] MED LIST changes: +D5W VISIV IV ONE; +HYDR100T5 PO; +IOPAMIDOL 76% 75 ML INFUS BTL 75 ML ONE; -NICOTINE 14 MG/24 HR PATCH TD SCH; +NS 0.9% 50 ML VIAL 50 ML ONE; -NS 0.9% IV ONE; -PATCH REMOVAL 1 EA TP SCH; +PEGFILGRASTIM 6 MG/0.6 ML KIT SUBQ ONE
[2017-12-22 10:47] VITALS: BP 80/56
[2017-12-22] MEDS ORDERED: CEFU250T11 PO (10:50)
[2017-12-22] MEDS ORDERED: CORED RIGHT EAR (13:40)
[2017-12-22] MEDS ORDERED: CEF300 PO (13:40)
[2017-12-22] MEDS ORDERED: CEFT1VIA57 IM (14:41)
--- NOTE | 2017-12-22 19:16 | ONCOLOGY FOLLOW UP NOTE ---
EVENT DATE: December 22, 2017 REASON FOR FOLLOWUP Extensive stage small cell lung carcinoma, concern for otitis media. CHIEF COMPLAINT Fatigue, right ear pain and drainage. INTERIM HISTORY Lucy returns to clinic for a follow-up visit today. She is accompanied by her . Since our last visit, she has been feeling about the same. She had taken the antibiotic that I prescribed a week ago, but her right ear continues to hurt, and it continues to drain. The hearing in her left ear has improved after "popping" her ear. She has had ongoing decrease in hearing in the right ear, however. She reports no fever. She denies shortness of breath at rest. She does have some ongoing joint aches and pains. She has had no new/ productive cough, no hemoptysis. Her appetite has actually been fairly good, and her weight has been stable. She reports no new bowel or bladder symptoms. REVIEW OF SYSTEMS Otherwise negative, and all systems were reviewed. PAST MEDICAL HISTORY 1. Diabetes mellitus, type 2. 2. Hypertension. 3. Obstructive sleep apnea. 4. History of smoking. PAST SURGICAL HISTORY Patient is status post hysterectomy. SOCIAL HISTORY Patient is currently , and she lives in [place] with her . She was smoking at the time of her admission to the [facility], roughly two packs per day, and had done so for about 50 years. She had been drinking about 10 glasses of wine per week. There is no history of illicit drug use. FAMILY HISTORY There is a history of myocardial infarction in both her mother and her father. CURRENT MEDICATIONS 1. Levalbuterol. 2. Paroxetine. 3. Saline nasal spray. 4. Protonix. 5. Melatonin. 6. Hydrochlorothiazide. 7. Dexamethasone. 8. Acetaminophen. 9. Insulin. 10. Levetiracetam. 11. Metoprolol. 12. Multivitamin. 13. Levothyroxine. 14. Loperamide. 15. Estropipate. 16. Ceftin. VITAL SIGNS Temperature is 97.0, blood pressure 80/56, heart rate is 64, respirations 16, oxygen saturation is 95% on room air. PHYSICAL EXAMINATION GENERAL: Patient is alert and oriented times three, in no apparent distress sitting in her wheelchair. She is in good spirits and quite interactive. HEENT: Exam reveals anicteric sclerae. NEUROLOGIC: Exam is grossly nonfocal, although I did not test her gait today. SKIN: Exam reveals no concerning rash or lesion. EXTREMITIES: Exam reveals some edema of the lower extremities, without erythema or tenderness to palpation. LABORATORY STUDIES AND IMAGING Reviewed per the [facility] record. ASSESSMENT AND PLAN 1. Extensive stage small cell lung carcinoma. I had a good visit with Lucy and her today. Symptomatically she continues to do fairly well, all things considered. She does continue to have right ear pain and drainage, and I am concerned that she is not responding to her second antibiotic now. She has received both Augmentin and Ceftin. As discussed, I would be in favor of having her continue with palliative chemotherapy, but I am concerned for this persistent otitis media. I did speak with Dr. Brown's nurse in the ENT clinic today. Dr. Brown has been kind enough to add the patient on to his busy schedule at 1:00 p.m. We will be sure that Lucy makes it there for that appointment. As discussed with the patient and her today, plans for further chemotherapy will depend on findings at the time of her ENT evaluation. Presumably, she will be ready to proceed with chemotherapy in one week. If her performance status and labs allow, and if the infection seems to be on its way to clearing, I would be in favor of her receiving dose-reduced carboplatin and etoposide, as she had during her most recent cycle. I will plan to see the patient back in my clinic during my next visit to [facility]. 2. Hypotension. The patient is asymptomatic in this regard today. We reviewed her medications. She is on several antihypertensives. I have recommended that she stop her lisinopril for now, and we will recheck her blood pressure when she returns in one week. The patient agrees to do so. MTDD
[2018-01-03] MEDS ORDERED: CIPDEXPT RIGHT EAR (14:42)
[2018-01-03] MEDS ORDERED: CEFT1VIA57 IM ×2 (15:27→15:30)
== END 2018-01-03 ==
LOC: ONC 10:28
PROVIDERS: ATTEND Internal Medicine Medical Oncology
DX: Z51.11 Encounter for antineoplastic chemotherapy (principal); C34.90 Malignant neoplasm of unspecified part of unspecified bronchus or lung; D70.1 Agranulocytosis secondary to cancer chemotherapy; C79.31 Secondary malignant neoplasm of brain; R53.83 Other fatigue; L89.309 Pressure ulcer of unspecified buttock, unspecified stage; I10 Essential (primary) hypertension; G47.33 Obstructive sleep apnea (adult) (pediatric); E11.9 Type 2 diabetes mellitus without complications; D64.9 Anemia, unspecified; R53.1 Weakness; R60.0 Localized edema; M54.2 Cervicalgia; M54.5 Low back pain; Z99.81 Dependence on supplemental oxygen; Z87.891 Personal history of nicotine dependence; Z92.3 Personal history of irradiation; Z79.4 Long term (current) use of insulin; Z92.21 Personal history of antineoplastic chemotherapy; Z79.899 Other long term (current) drug therapy; M25.531 Pain in right wrist
CPT/HCPCS: 71046; 71260; 73100; 74177; 85025; 85027; 96360; 96367; 96372; 96375; 96413; 96417; G0463; J1100; J1453; J1642; J2469; J2505; J7040; J7050; J7060; J9045; J9181; Q9967; 72193; 74160; 82040; 82247; 82310; 82374; 82435; 82565; 82947; 84075; 84132; 84155; 84295; 84450; 84460; 84520; 99212

== ENCOUNTER → 2018-01-12 | Outpatient (CLI) | payer MEDICARE ==
[~2018-01-12] MED LIST changes: -ALTEPLASE RECOMB 2 MG VIAL IVP PRN; -CARBOPLATIN IVPB ONE; +CEF300 PO; +CEFT1VIA57 IM; +CEFU250T11 PO; +CIPDEXPT RIGHT EAR; +CIPR-214 PO; +CORED RIGHT EAR; -D5W VISIV IV ONE; -DEXTROSE 5%(*) 100 ML BAG 100 ML IVPB PRN; -ETOPOSIDE IV ONE; -FOSAPREPITANT DIM 150 MG/5 ML 150 MG in NS(*) 0.9% 250 ML BAG 245 ML IVPB PRN; -IOPAMIDOL 76% 75 ML INFUS BTL 75 ML ONE; -NS 0.9% 50 ML VIAL 50 ML ONE; -NS 0.9% IVPB ONE; -NS(*) 0.9% 100 ML BAG 100 ML IVPB PRN; -PALONOSETRON 0.25 MG/5 ML VIAL IVP PRN; -PEGFILGRASTIM 6 MG/0.6 ML KIT SUBQ ONE; -WATER STERILE 10 ML VIAL IVP PRN
== END ==
LOC: LAB 13:37
PROVIDERS: ATTEND Otolaryngology
DX: H66.90 Otitis media, unspecified, unspecified ear (principal); B96.20 Unspecified Escherichia coli [E. coli] as the cause of diseases classified elsewhere
CPT/HCPCS: 87071; 87077; 87186

== ENCOUNTER 2018-01-27 15:08 | Emergency (ER) | payer MEDICARE ==
[~2018-01-27 15:08] MED LIST changes: +SULF-198 PO; +TOBROD RIGHT EAR
--- NOTE | 2018-01-27 16:01 | ER Report ---
History and Physical Time Seen By MD: 15:30 HPI/ROS CHIEF COMPLAINT: Fall, head injury, slurring speech HISTORY OF PRESENT ILLNESS: Patient is a 67-year-old female coming by EMS, who presents the ED with complaint of fall last night and slurring speech today. Patient states that she was walking with a cane in her house and stumbled and hit her head. She states that she hit the top of her head and noticed a bruise. She states that it was painful but states that is no longer painful now. She was having a little bit of neck pain when she fell asleep last night. She denies any chest or pelvis pain. She denies any other pain. She denies any numbness, tingling, nausea, vomiting, vision changes. This morning her called EMS because he was noticing that she was having some slurring speech and slight confusion. EMS did come and evaluate the patient and noted that her blood sugar was in the 30s and did give her an amp of D50 and her speech improved. She was taken to the ER for further evaluation. 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 She is on palliative chemotherapy. Patient states that she had to delay her chemotherapy treatment due to a ear infection of her right ear. She did see ENT yesterday for this and has been placed on antibiotics. She states that she does not take her blood sugars usually prior to giving herself insulin. She states that she did not check her blood sugar yesterday but did give herself insulin last night. Patient states that she had half of a chocolate milkshake today but has had no other food. REVIEW OF SYSTEMS: Constitutional: No fever, no chills. Eyes: No discharge. ENT: See history of present illness. No sore throat. Cardiovascular: No chest pain, no palpitations. Respiratory: No cough, no shortness of breath. Gastrointestinal: No abdominal pain, no vomiting. Genitourinary: No hematuria. Musculoskeletal: See history of present illness. No back pain. Skin: No rashes. Neurological: See history of present illness. Allergies: Coded Allergies: Lmbcueh-Ipx-Whu Reductase Inhibitor (Verified Allergy, Unknown, 01/27/18) Home Meds Active Scripts Tobramycin/Dexamethasone (TOBRADEX EYE DROPS) 5 Ml Susp, 4 DROP RIGHT EAR BID for 14 Days, #1 BOT 1 Refill Prov:JAMSHID CABRERA JR, MD 01/26/18 Sulfamethoxazole/Trimet 800-160 Mg Tab (BACTRIM DS TABLET) 1 Each Tablet, 1 TAB PO Q12H for 14 Days, #28 TAB Prov:JAMSHID CABRERA JR, MD 01/26/18 Ciprofloxacin Hcl (CIPROFLOXACIN HCL) 500 Mg Tablet, 1 TAB PO BID, #28 TAB Prov:JAMSHID CABRERA JR, MD 01/13/18 Ciprofloxacin/Dexamethasone 0.3%-0.1% Otic Gunderson (CIPRODEX 0.3%-0.1% OTIC SUSP) 7.5 Ml Soln, 5 DROP RIGHT EAR BID for 14 Days, #1 BOT 1 Refill Prov:JAMSHID CABRERA JR, MD 01/13/18 Levalbuterol Hcl (LEVALBUTEROL HCL) 1.25 Mg/3 Ml Vial.neb, 1.25 MG NEB Q2HR Y for SHORTNESS OF BREATH for 30 Days, Prov:STEPH GUNDERSON MD 08/18/17 Paroxetine Hcl (PAROXETINE HCL) 20 Mg Tablet, 20 MG PO QDAY for 30 Days, Prov:STEPH GUNDERSON MD 08/18/17 Sodium Chloride (SALINE NASAL SPRAY) 30 Ml [place], 0 ML NA PRN Y for dryness for 30 Days, SPRAY Prov:STEPH GUNDERSON MD 08/18/17 Pantoprazole Sodium (PANTOPRAZOLE SODIUM) 40 Mg Tablet.dr, 40 MG PO BID for 30 Days, Prov:STEPH GUNDERSON MD 08/18/17 Melatonin (MELATONIN) 3 Mg Tablet, 3 MG PO QHS for 30 Days, Prov:STEPH GUNDERSON MD 08/18/17 Hydrochlorothiazide (HYDROCHLOROTHIAZIDE) 25 Mg Tablet, 25 MG PO QDAY for 30 Days, Prov:STEPH GUNDERSON MD 08/18/17 Dexamethasone (DEXAMETHASONE) 1 Mg Tab, 2 MG PO DAILY for 7 Days, TAB stop after 7 days Prov:STEPH GUNDERSON MD 08/18/17 Acetaminophen (ACETAMINOPHEN) 500 Mg Tablet, 1000 MG PO Q8H Y for PAIN for 1 Day , Prov:STEPH GUNDERSON MD 08/18/17 Insulin Glargine 100 Un/Ml Pen (LANTUS SOLOSTAR PEN) 100 Unit/1 Ml Insuln.pen, 30 UNIT SUBQ QHS for 30 Days, Prov:STEPH GUNDERSON MD 08/18/17 Levetiracetam (LEVETIRACETAM) 500 Mg Tablet, 500 MG PO Q12H, #60 TAB 1 Refill Prov:ZEINA FONTAINE [employer]-BC, ONC 07/29/17 Metoprolol Tartrate (METOPROLOL TARTRATE) 50 Mg Tab, 50 MG PO BID for Blood Pressure, #60 TAB 1 Refill Prov:MILTON SMITH MD 07/07/17 Insulin Lispro 100 Un/Ml Vial (HUMALOG 100 U/ML VIAL) 100 Unit/1 Ml Vial, 2-10 UNIT SUBQ SS, #1 VIAL 1 Refill For blood glucose: 150-200, give 2 units 201-250, give 4 units 251-300, give 6 units 301-350, give 8 units 351 or greater, give 10 units For blood glucose over 400, give 10 units and call your healthcare provider. for blood sugar less than 50, drink juice and call your healthcare provider. Prov:MILTON SMITH MD 07/07/17 Reported Medications Cefuroxime Axetil (CEFUROXIME) 250 Mg Tablet, 250 MG PO BID, #20 TAB 12/22/17 Lisinopril (LISINOPRIL) 40 Mg Tablet, 40 MG PO QDAY, TAB 11/25/17 Hydralazine Hcl (HYDRALAZINE HCL) 100 Mg Tablet, 100 MG PO QDAY, TAB 11/25/17 Oxygen (OXYGEN) Inha, 3.5 L INH, L 3.5 L CPAP 05/19/17 Multivitamin (DAILY MULTIPLE VITAMIN) 1 Each Tablet, 1 TAB PO DAILY 05/19/17 Levothyroxine Sodium (LEVOTHYROXINE SODIUM) 50 Mcg Tablet, 50 MCG PO QDAY, TAB 05/19/17 Loperamide HCl (Imodium A-D) Unknown Strength Capsule, PRN 05/19/17 Estropipate (ESTROPIPATE) 1.5 Mg Tablet, 1.5 MG PO QDAY for 90 Days Take 1 pill by mouth daily for 90 days 05/19/17 Discontinued Reported Medications Lisinopril (LISINOPRIL) 20 Mg Tablet, 20 MG PO QDAY, TAB 11/25/17 Reviewed Nurses Notes: Yes Old Medical Records Reviewed: Yes Hx Smoking: Yes Smoking Status: Former Smoker Hx Substance Use Disorder: No Hx Alcohol Use: Yes Constitutional Vital Sign - Last 24 Hours 01/27/18 01/27/18 01/27/18 01/27/18 15:28 15:56 16:00 16:08 Temp 98.7 Pulse 61 64 Resp 14 B/P (MAP) 157/73 157/81 (106) 157/73 (101) Pulse Ox 100 100 O2 Delivery Nasal Cannula 01/27/18 01/27/18 01/27/18 01/27/18 16:16 16:23 16:30 16:35 Pulse 61 67 Resp 14 B/P (MAP) 147/56 (86) Pulse Ox 100 100 O2 Flow Rate 2.0 01/27/18 01/27/18 01/27/18 01/27/18 17:00 17:05 17:20 17:30 Pulse 59 64 B/P (MAP) 141/51 (81) 144/64 (90) Pulse Ox 100 100 01/27/18 01/27/18 01/27/18 01/27/18 17:35 17:50 18:00 18:05 Pulse 68 70 69 Resp 13 16 17 B/P (MAP) 129/104 (112) Pulse Ox 100 100 98 01/27/18 01/27/18 01/27/18 18:20 18:30 18:35 Pulse 78 61 B/P (MAP) 126/96 (106) Pulse Ox 100 Intake and Output 01/27/18 01/27/18 01/28/18 15:00 23:00 07:00 Output Total 525 ml Balance -525 ml Physical Exam General Appearance: The patient is alert, has no immediate need for airway protection and no signs of toxicity. Patient appears to be in no acute distress. Eyes: Pupils equal and round no pallor or injection. EOMs are full bilaterally. ENT, Mouth: Mucous membranes are moist. Respiratory: There are no retractions, lungs are clear to auscultation. Cardiovascular: Regular rate and rhythm. Gastrointestinal: Abdomen is soft and non tender, no masses, bowel sounds normal. Neurological: Cranial Nerves 2-12 intact. Skin: There is slight ecchymosis noted on the left humerus area. This area is tender to palpation. Musculoskeletal: Neck is supple non tender. C-collar is on. There is pain with palpation of the left humerus. Brachial radial pulses are 2+ with normal capillary refill. Normal sensation. Full range of motion with some pain. DIFFERENTIAL DIAGNOSIS: After history and physical exam differential diagnosis was considered for head injury including but not limited to concussion, skull fracture, intraparenchymal contusion, subarachnoid, subdural and epidural hematoma. Medical Decision Making Data Points Result Diagram: 01/27/18 1700 01/27/18 1638 Laboratory Hematology Test 01/27/18 16:38 01/27/18 17:00 01/27/18 18:01 Sodium Level 135 mmol/L (137-145) Potassium Level 5.1 mmol/L (3.5-5.0) Chloride Level 105 mmol/L (98-107) Carbon Dioxide Level 17 mmol/L (22-31) Blood Urea Nitrogen 10 mg/dl (7-18) Creatinine 1.00 mg/dl (0.52-1.04) Glomerular Filtration Rate Calc 55.0 Random Glucose 54 mg/dl (75-110) Calcium Level 9.3 mg/dl (8.4-10.2) Total Bilirubin 0.2 mg/dl (0.2-1.3) Aspartate Amino Transf (AST/SGOT) 34 U/L (0-35) Alanine Aminotransferase (ALT/SGPT) 21 U/L (0-56) Alkaline Phosphatase 85 U/L (0-126) Troponin I < 0.012 ng/ml Total Protein 6.1 gm/dl (6.3-8.2) Albumin 3.3 g/dl (3.5-5.0) Red Blood Count 2.47 M/uL (4.17-5.56) Mean Corpuscular Volume 106.6 fL (80.0-96.0) Mean Corpuscular Hemoglobin 36.3 pg (26.0-33.0) Mean Corpuscular Hemoglobin Concent 34.0 g/dL (32.0-36.0) Red Cell Distribution Width 15.2 % (11.5-14.5) Mean Platelet Volume 7.3 fL (7.2-11.1) Neutrophils (%) (Auto) 71.4 % (39.4-72.5) Lymphocytes (%) (Auto) 20.3 % (17.6-49.6) Monocytes (%) (Auto) 6.3 % (4.1-12.4) Eosinophils (%) (Auto) 1.1 % (0.4-6.7) Basophils (%) (Auto) 0.9 % (0.3-1.4) Nucleated RBC Relative Count (auto) 0.0 /100WBC Neutrophils # (Auto) 5.2 K/uL (2.0-7.4) Lymphocytes # (Auto) 1.5 K/uL (1.3-3.6) Monocytes # (Auto) 0.5 K/uL (0.3-1.0) Eosinophils # (Auto) 0.1 K/uL (0.0-0.5) Basophils # (Auto) 0.1 K/uL (0.0-0.1) Nucleated RBC Absolute Count (auto) 0.00 K/uL Peripheral Blood Smear No Y/N Whole Blood Glucose 51 mg/DL (75-110) Chemistry Test 01/27/18 16:38 01/27/18 17:00 01/27/18 18:01 Glomerular Filtration Rate Calc 55.0 Calcium Level 9.3 mg/dl (8.4-10.2) Total Bilirubin 0.2 mg/dl (0.2-1.3) Aspartate Amino Transf (AST/SGOT) 34 U/L (0-35) Alanine Aminotransferase (ALT/SGPT) 21 U/L (0-56) Alkaline Phosphatase 85 U/L (0-126) Troponin I < 0.012 ng/ml Total Protein 6.1 gm/dl (6.3-8.2) Albumin 3.3 g/dl (3.5-5.0) White Blood Count 7.2 k/uL (4.5-11.0) Red Blood Count 2.47 M/uL (4.17-5.56) Hemoglobin 8.9 g/dL (12.0-16.0) Hematocrit 26.3 % (34.0-47.0) Mean Corpuscular Volume 106.6 fL (80.0-96.0) Mean Corpuscular Hemoglobin 36.3 pg (26.0-33.0) Mean Corpuscular Hemoglobin Concent 34.0 g/dL (32.0-36.0) Red Cell Distribution Width 15.2 % (11.5-14.5) Platelet Count 247 K/uL (150-450) Mean Platelet Volume 7.3 fL (7.2-11.1) Neutrophils (%) (Auto) 71.4 % (39.4-72.5) Lymphocytes (%) (Auto) 20.3 % (17.6-49.6) Monocytes (%) (Auto) 6.3 % (4.1-12.4) Eosinophils (%) (Auto) 1.1 % (0.4-6.7) Basophils (%) (Auto) 0.9 % (0.3-1.4) Nucleated RBC Relative Count (auto) 0.0 /100WBC Neutrophils # (Auto) 5.2 K/uL (2.0-7.4) Lymphocytes # (Auto) 1.5 K/uL (1.3-3.6) Monocytes # (Auto) 0.5 K/uL (0.3-1.0) Eosinophils # (Auto) 0.1 K/uL (0.0-0.5) Basophils # (Auto) 0.1 K/uL (0.0-0.1) Nucleated RBC Absolute Count (auto) 0.00 K/uL Peripheral Blood Smear No Y/N Whole Blood Glucose 51 mg/DL (75-110) EKG/Imaging EKG Interpretation 12 lead EKG: Rhythm: Normal sinus rhythm, rate 65 bpm, bifascicular block ST segments: No acute ST changes identified. There is some T-wave inversion in V1-V3. Imaging CT Head: IMPRESSION: 1. No evidence of intracranial hemorrhage or skull fracture. 2. By CT the known mass in the inferior right frontal lobe is stable to slightly decreased in size from the most recent prior outside brain MRI, with partial calcification. No CT evidence of any new or progressive intracranial mass. 3. Mild parenchymal atrophy with chronic small vessel ischemic change. 4. New bilateral mastoid effusions with opacification of the middle ear cavities may relate to otitis media. No visualized temporal bone fracture. There is stable chronic opacification of the left sphenoid sinus. Report Dictated By: Jamshid Cbarera MD at 01/27/2018 5:24 PM Report E-Signed By: Jasmhid Cabrera MD at 01/27/2018 5:[address] C-Spine: IMPRESSION: 1. No acute osseous findings in the cervical spine. 2. Chronic degenerative changes, with moderate facet arthropathy along the mid and upper left-sided cervical facet joints. Report Dictated By: Jamshid Cabrera MD at 01/27/2018 5:40 PM Report E-Signed By: Jamshid Cabrera MD at 01/27/2018 5:43 PM CXR: IMPRESSION: Left lingular mass. No evidence of acute infiltrate or pleural effusion. Report Dictated By: Juliano López at 01/27/2018 4:42 PM Report E-Signed By: Juliano López at 01/27/2018 4:49 PM Left Humerus Xrays: IMPRESSION: No acute osseous injury Report Dictated By: Juliano López at 01/27/2018 4:49 PM Report E-Signed By: Juliano López at 01/27/2018 4:57 PM ED Course/Re-evaluation ED Course Will obtain labs, EKG, CT of the head and C-spine and chest x-ray, left humerus x-ray. Discussed all labs and imaging with patient. She does have some anemia with a hemoglobin of 8.9 which appears to be patient for her when looking through her lab work. This may be secondary to her chemotherapy treatments. So, she does have some slight hyperkalemia which again might be secondary to her chemotherapy but appears actually improved from her previous lab work. Given her history it appears that she likely did have a hypoglycemic episode that caused her slight sinus Pietsch. She has no significant intracranial hemorrhage although she does have brain metastasis which appears to be stable. She is being treated for otitis media by ENT and was just seen yesterday. She is on antibiotics for this. This was also noted on her CT of her head. She does have some hyperglycemia noted in her labs and will give her a meal today and recheck her blood sugar to ensure that this is improving. 01/27/2018 7:13:15 pm - recheck glucose is some.. Patient has been monitored for over 4 hours in the Emergency Department has not had another hypoglycemic episode. She has been given a meal which she just ate without any issue. Decision to Disposition Date: January 27, 2018 Decision to Disposition Time: 19:03 Depart Departure Latest Vital Signs Vital Signs Date Time Temp Pulse Resp B/P (MAP) Pulse Ox O2 Delivery O2 Flow Rate FiO2 01/27/18 18:35 61 100 01/27/18 18:30 126/96 (106) 01/27/18 18:05 17 01/27/18 16:16 2.0 01/27/18 15:28 98.7 Nasal Cannula Impression: Primary Impression: Hypoglycemia Additional Impressions: Small cell lung cancer Brain metastases Bilateral otitis media Anemia Condition: Improved Disposition: HOME OR SELF-CARE Patient Instructions: Hypoglycemia in a Person with Diabetes (ED) Additional Instructions: Stay well-hydrated. Monitor blood glucose closely. Make sure to check her blood glucose before giving herself insulin. If your glucose is in the normal range do not give herself insulin. Follow-up with primary care provider in one to 2 days. Should have your potassium and anemia rechecked. If having any worsening or concerning symptoms he may return to the emergency department. Problem Qualifiers Additional Impressions: Bilateral otitis media Otitis media type: suppurative Chronicity: unspecified Qualified Codes: H66.43 - Suppurative otitis media, unspecified, bilateral Anemia Anemia type: unspecified type Qualified Codes: D64.9 - Anemia, unspecified BRIANA PHILIP PA-C January 27, 2018 16:01
--- NOTE | 2018-01-27 16:14 | EKG ---
FACILITY: PATIENT NAME: TREVER CHUA : [id number] MR: [id number] V: [id number] EXAM DATE: ORDERING PHYSICIAN: BRIANA PHILIP TECHNOLOGIST: Qamar Pan Reason : Blood Pressure : / mmHG Vent. Rate : 065 BPM Atrial Rate : 326 BPM P-R Int : 000 ms QRS Dur : 140 ms QT Int : 428 ms P-R-T Axes : 000 -64 021 degrees QTc Int : 445 ms Atrial fibrillation Right bundle branch block Abnormal ECG Confirmed by VITO SMITH ([id number]) on 01/27/2018 4:49:29 PM Referred By: Confirmed By:VITO SMITH
[2018-01-27] MEDS ORDERED: EMS NS 0.9%(*) 1000 ML BAG 1,000 ML IV ONE ×2 (16:20)
--- NOTE | 2018-01-27 16:53 | RADIOLOGY IMAGING REPORT ---
FACILITY: [facility] - [place] PATIENT NAME: Lucy Peralta : 1950 MR: [id number] V: [id number] EXAM DATE: ORDERING PHYSICIAN: BRIANA PHILIP TECHNOLOGIST: Location: [facility] Patient: Lucy Peralta : 1950 Visit/Account:[id number] Date of Sevice: 01/27/2018 Study: CHEST SINGLE AP Indication: Pain Comparison study: November 10, 2017 Findings: Single AP supine chest demonstrates the presence of an implanted port within the right ches t. The tip the catheter is at the cavoatrial junction. There is an ovoid density overlying the tip of the left third rib. This finding was seen on a previou s CT scan dated 06/14/2017 and represents a parenchymal mass. There is no evidence of pleural effusion or pneumothorax. There is no evidence of acute infiltrate. IMPRESSION: Left lingular mass. No evidence of acute infiltrate or pleural effusion. Report Dictated By: Juliano López at 01/27/2018 4:42 PM Report E-Signed By: Juliano López at 01/27/2018 4:49 PM WSN:[id number]
--- NOTE | 2018-01-27 17:01 | RADIOLOGY IMAGING REPORT ---
FACILITY: [facility] - [place] PATIENT NAME: Lucy Peralta : 1950 MR: [id number] V: [id number] EXAM DATE: ORDERING PHYSICIAN: BRIANA PHILIP TECHNOLOGIST: Location: [facility] - [place] Patient: Lucy Peralta : 1950 Visit/Account:[id number] Date of Sevice: 01/27/2018 HUMERUS LEFT HISTORY: trauma, h/o lung CA COMPARISON: None FINDINGS: No humeral shaft fracture. No persistent radiopaque foreign body. There is no evidence of lytic or blastic bony lesion. The visualized soft tissues are unremarkable. IMPRESSION: No acute osseous injury Report Dictated By: Juliano López at 01/27/2018 4:49 PM Report E-Signed By: Juliano López at 01/27/2018 4:57 PM WSN:[id number]
[2018-01-27 17:06] LABS: PLATELET COUNT, AUTOMATED 247 K/uL (150-450)
--- NOTE | 2018-01-27 17:44 | RADIOLOGY IMAGING REPORT ---
[place] [facility] [place] NAME: Lucy Peralta : 1950 MR: [id number] V: [id number] EXAM DATE: ORDERING PHYSICIAN: BRIANA PHILIP TECHNOLOGIST: Location: [facility] [place] Patient: Lucy Peralta : 1950 Visit/Account:[id number] Date of Sevice: 01/27/2018 EXAMINATION: CT head without IV contrast HISTORY: Fall. Head and neck injury. Metastatic small cell lung cancer. TECHNIQUE: Axial CT images of the head were obtained from the vertex to the skull base without IV c ontrast, with coronal and sagittal 2D reconstructed images. One of the following dose optimization techniques was utilized in the performance of this exam: Autom ated exposure control; adjustment of the mA and/or kV according to the patient's size; or use of an i terative reconstruction technique. Specific details can be referenced in the facility's radiology C T exam operational policy. COMPARISON: MR brain without and with contrast 11/30/2017 from [facility]. CT head without contrast 06/18/2017 from [facility]. FINDINGS: Allowing for differences in modality, the residual mass in the inferior right frontal lobe is stable to slightly decreased in size, measuring approximately 2.7 x [address] There is partial calcifica tion of this mass. Prior mass lesions in the medial left parietal lobe and in the right cerebellum ar e not well visualized on this CT examination. There is mild age-appropriate parenchymal volume loss, with patchy low attenuation throughout the maricel p white matter, compatible with chronic small vessel ischemic change. Intracranial vascular calcifica tions. No evidence of intracranial hemorrhage or new mass effect. No midline shift or extra-axial fluid serge ections. Cain-white differentiation is maintained. The basal cisterns are patent. Stable expansion and chronic opacification of the left sphenoid sinus containing mildly hyperdense ma terial. There is mild mucosal thickening throughout the ethmoid air cells. The maxillary sinuses are unopacified. There is new opacification of mastoid air cells bilaterally with opacification of the ri ght middle ear cavity and partial opacification of the left middle ear cavity. No visualized skull fracture. Old laura hole along the superior right parietal calvarium. IMPRESSION: 1. No evidence of intracranial hemorrhage or skull fracture. 2. By CT the known mass in the inferior right frontal lobe is stable to slightly decreased in size fr om the most recent prior outside brain MRI, with partial calcification. No CT evidence of any new or progressive intracranial mass. 3. Mild parenchymal atrophy with chronic small vessel ischemic change. 4. New bilateral mastoid effusions with opacification of the middle ear cavities may relate to otitis media. No visualized temporal bone fracture. There is stable chronic opacification of the left sphen oid sinus. Report Dictated By: Jamshid Brown MD at 01/27/2018 5:24 PM Report E-Signed By: Jamshid Brown MD at 01/27/2018 5:40 PM WSN:[id number]
--- NOTE | 2018-01-27 17:47 | RADIOLOGY IMAGING REPORT ---
FACILITY[place] [facility] [place] NAME: Lucy Peralta : 1950 MR: [id number] V: [id number] EXAM DATE: ORDERING PHYSICIAN: BRIANA PHILIP TECHNOLOGIST: [place] [facility] [place] : 1950 Visit/Account:[id number] Date of Sevice: 01/27/2018 EXAMINATION: CT cervical spine without IV contrast HISTORY: Fall. TECHNIQUE: Thin axial CT images of the cervical spine were obtained without IV contrast, with sagit gwendolyn and coronal 2D reconstructed images. One of the following dose optimization techniques was utilized in the performance of this exam: Autom ated exposure control; adjustment of the mA and/or kV according to the patient's size; or use of an i terative reconstruction technique. Specific details can be referenced in the facility's radiology C T exam operational policy. COMPARISON: None. FINDINGS: The cervical spine is negative for acute fracture or subluxation. Vertebral body height is maintained . Chronic degenerative changes in the cervical spine. Disc spaces are relatively well preserved, with m ild anterior endplate osteophyte formation at C4-C5 through C6-C7. There is moderate facet arthropath y along the mid and upper left-sided cervical facet joints. There is mild chronic appearing anterolisthesis of C3 on C4 measuring 2 mm, and of C4 on C5 measuring 2 mm, related to the posterior facet arthropathy. The dens is intact. The C1 ring is intact, with normal alignment at the craniocervical junction. IMPRESSION: 1. No acute osseous findings in the cervical spine. 2. Chronic degenerative changes, with moderate facet arthropathy along the mid and upper left-sided c ervical facet joints. Report Dictated By: Jamshid Brown MD at 01/27/2018 5:40 PM Report E-Signed By: Jamshid Brown MD at 01/27/2018 5:43 PM WSN:[id number]
[2018-01-27 18:30] VITALS: BP 126/96
[2018-01-27] MEDS ORDERED: HYDR100T5 PO (20:55)
[2018-01-27] MEDS ORDERED: INSU100I30 SQ (20:55)
== END 2018-01-27 19:29 | disposition home or self-care (01) ==
LOC: ER 15:36
DX: E11.649 Type 2 diabetes mellitus with hypoglycemia without coma (principal); D64.9 Anemia, unspecified; C34.90 Malignant neoplasm of unspecified part of unspecified bronchus or lung; C79.31 Secondary malignant neoplasm of brain; H66.93 Otitis media, unspecified, bilateral; W19.XXXA Unspecified fall, initial encounter; I45.10 Unspecified right bundle-branch block; R94.31 Abnormal electrocardiogram [ECG] [EKG]; I48.91 Unspecified atrial fibrillation
CPT/HCPCS: 36416; 70450; 71045; 72125; 82040; 82247; 82310; 82374; 82435; 82565; 82947; 82948; 84075; 84132; 84155; 84295; 84450; 84460; 84484; 84520; 85025; 93005; 99284

== ENCOUNTER → 2018-02-16 | Outpatient (CLI) | payer MEDICARE ==
[~2018-02-16] MED LIST changes: +INSU100I30 SQ; -METF-410 PO; +METF-411 PO; -METF-420 PO; +METF-421 PO
--- NOTE | 2018-02-16 15:10 | RADIOLOGY IMAGING REPORT ---
FACILITY: [facility] PATIENT NAME: Lucy Peralta : 1950 MR: [id number] V: [id number] EXAM DATE: ORDERING PHYSICIAN: MABEL CABRERA TECHNOLOGIST: Location: [facility] Patient: Lucy Peralta : 1950 Visit/Account:[id number] Date of Sevice: 02/16/2018 EXAMINATION: CT Temporal Bone without IV contrast HISTORY: Right mastoiditis. Brain cancer. TECHNIQUE: Non-IV enhanced high-resolution sub-millimeter axial scans were obtained through both tem poral bones, reformatted in the coronal and sagittal plane. Exam is optimized for bone detail and is not intended for soft tissue evaluation of the posterior fossa. The rest of the brain was not imaged. One of the following dose optimization techniques was utilized in the performance of this exam: Autom ated exposure control; adjustment of the mA and/or kV according to the patient's size; or use of an i terative reconstruction technique. Specific details can be referenced in the facility's radiology C T exam operational policy. COMPARISON: Brain MRI dated 06/17/2017. FINDINGS: RIGHT TEMPORAL BONE: Mastoid segment / EAC: Completely opacified right mastoid air cells. Multiple small areas of thinnin g or dehiscence of the mastoid roof. Tympanic Membrane / Middle ear: Partially opacified tympanic cavity with no definite osseous erosion. Inner ear: Cochlea / vestibule / semicircular canals: Negative. IAC: Negative. Vestibular / cochlear aqueducts: Negative. Petrous apex: Negative. ICA / jugular bulb: Negative. Visualized skull base: Negative. LEFT TEMPORAL BONE: Mastoid segment / EAC: Completely opacified mastoid air cells with multiple small lucencies in the ma stoid roof. Tympanic Membrane / Middle ear: Partially opacified tympanic cavity with no definite osseous erosion. Inner ear: Cochlea / vestibule / semicircular canals: Negative. IAC: Negative. Vestibular / cochlear aqueducts: Negative. Petrous apex: Negative. ICA / jugular bulb: Negative. Visualized skull base: Negative. Visualized brain/soft tissues/paranasal sinuses: Opacified and expanded sphenoid sinus suspicious for mucocele. 5 mm focus of thinning or dehiscence along the superior lateral wall of the left sphenoid sinus. 1 cm defect in the floor of the sella turcica, possibly secondary to prior surgery. Stable appearance of the skull base compared with 01/27/2018. Mild mucosal thickening in the ethmoid air cell s. Stable brain parenchymal calcifications in the right frontal lobe. IMPRESSION: 1. Completely opacified bilateral mastoid air cells with partially opacified tympanic cavities. The re are multiple small lucencies in the bilateral mastoid roof which could represent thinning or dehis cence. Consider CSF leak. Otherwise no definite bone destruction to suggest an aggressive infection or tumor. 2. Stable appearance of the skull base and sphenoid sinus compared with prior exams. Report Dictated By: Matt Perkins MD at 02/16/2018 2:59 PM Report E-Signed By: Matt Perkins MD at 02/16/2018 3:08 PM WSN:[id number]
== END ==
LOC: CT 11:56
PROVIDERS: ATTEND Otolaryngology
DX: H70.91 Unspecified mastoiditis, right ear (principal)
CPT/HCPCS: 70480

== ENCOUNTER 2018-03-11 14:30 | Outpatient (RCR) | payer MEDICARE ==
[2018-03-01 14:31] VITALS: BP 104/60
[2018-03-01] MEDS: ERTAPENEM(*) 1 GM VIAL 1 GM in NS(*) 0.9% 100 ML BAG 100 ML IVPB PRN (14:38)
[2018-03-01 14:57] LABS: PLATELET COUNT, AUTOMATED 248 K/uL (150-450)
[2018-03-01] MEDS: HEPARIN FLSH (PORT) 500 UN/5ML IVP PRN (15:12)
[2018-03-01 15:16] VITALS: BP 123/64
[2018-03-02] MEDS: NS(*) 0.9% 100 ML BAG 100 ML IVPB PRN (14:32)
[2018-03-02] MEDS: ERTAPENEM(*) 1 GM VIAL 1 GM in NS(*) 0.9% 100 ML BAG 100 ML IVPB PRN (14:33)
[2018-03-02 14:34] VITALS: BP 125/66
[2018-03-03] MEDS: NS(*) 0.9% 100 ML BAG 100 ML IVPB PRN (13:23)
[2018-03-03] MEDS: ERTAPENEM(*) 1 GM VIAL 1 GM in NS(*) 0.9% 100 ML BAG 100 ML IVPB PRN (13:26)
[2018-03-03 13:27] VITALS: BP 137/62
[2018-03-03 13:59] VITALS: BP 132/62
[2018-03-03] MEDS: HEPARIN FLSH (PORT) 500 UN/5ML IVP PRN (14:13)
[2018-03-04 13:31] VITALS: BP 133/58
[2018-03-04] MEDS: ERTAPENEM(*) 1 GM VIAL 1 GM in NS(*) 0.9% 100 ML BAG 100 ML IVPB PRN (13:37)
[2018-03-04] MEDS: NS(*) 0.9% 100 ML BAG 100 ML IVPB PRN (13:37)
[2018-03-04 14:17] VITALS: BP 135/65
[2018-03-04] MEDS: HEPARIN FLSH (PORT) 500 UN/5ML IVP PRN (14:23)
[2018-03-05] MEDS: ERTAPENEM(*) 1 GM VIAL 1 GM in NS(*) 0.9% 100 ML BAG 100 ML IVPB PRN (14:15)
[2018-03-05] MEDS: NS(*) 0.9% 100 ML BAG 100 ML IVPB PRN (14:15)
[2018-03-05 14:30] VITALS: BP 117/57
[2018-03-05 15:10] VITALS: BP 114/71
[2018-03-06] MEDS: NS(*) 0.9% 100 ML BAG 100 ML IVPB PRN (14:14)
[2018-03-06] MEDS: ERTAPENEM(*) 1 GM VIAL 1 GM in NS(*) 0.9% 100 ML BAG 100 ML IVPB PRN (14:14)
[2018-03-06 14:30] VITALS: BP 128/67
[2018-03-06 15:15] VITALS: BP 136/66
[2018-03-07] MEDS: ERTAPENEM(*) 1 GM VIAL 1 GM in NS(*) 0.9% 100 ML BAG 100 ML IVPB PRN (14:17)
[2018-03-07] MEDS: NS(*) 0.9% 100 ML BAG 100 ML IVPB PRN (14:18)
[2018-03-07 14:26] VITALS: BP 128/66
[2018-03-07] MEDS: HEPARIN FLSH (PORT) 500 UN/5ML IVP PRN (15:36)
[2018-03-08] MEDS: ERTAPENEM(*) 1 GM VIAL 1 GM in NS(*) 0.9% 100 ML BAG 100 ML IVPB PRN (13:44)
[2018-03-08 13:45] VITALS: BP 164/79
[2018-03-08 14:12] LABS: PLATELET COUNT, AUTOMATED 282 K/uL (150-450)
[2018-03-08] MEDS: HEPARIN FLSH (PORT) 500 UN/5ML IVP PRN (15:08)
[2018-03-09 14:06] VITALS: BP 150/70
[2018-03-09] MEDS: NS(*) 0.9% 100 ML BAG 100 ML IVPB PRN (14:20)
[2018-03-09] MEDS: LIDOCAINE/SOD BICARB 8.4% SYR ID PRN (14:20)
[2018-03-09] MEDS: ERTAPENEM(*) 1 GM VIAL 1 GM in NS(*) 0.9% 100 ML BAG 100 ML IVPB PRN (14:21)
[2018-03-09] MEDS: HEPARIN FLSH (PORT) 500 UN/5ML IVP PRN (15:01)
[2018-03-09 15:05] VITALS: BP 149/60
[2018-03-10] MEDS: ERTAPENEM(*) 1 GM VIAL 1 GM in NS(*) 0.9% 100 ML BAG 100 ML IVPB PRN (14:28)
[2018-03-10 14:33] VITALS: BP 143/74
[2018-03-10] MEDS: HEPARIN FLSH (PORT) 500 UN/5ML IVP PRN (15:53)
[2018-03-11] MEDS: NS(*) 0.9% 100 ML BAG 100 ML IVPB PRN ×2 (13:57→15:12)
[~2018-03-11 14:30] MED LIST changes: +ALTEPLASE RECOMB 2 MG VIAL IVP PRN; +DEXTROSE 5%(*) 100 ML BAG 100 ML IVPB PRN; +NS(*) 0.9% 500 ML BAG 500 ML IV PRN; +WATER FOR INJ,STERILE 20 ML IVP PRN
[2018-03-11 15:03] VITALS: BP 119/99
[2018-03-11] MEDS: LIDOCAINE/SOD BICARB 8.4% SYR ID PRN (15:07)
[2018-03-11] MEDS: ERTAPENEM(*) 1 GM VIAL 1 GM in NS(*) 0.9% 100 ML BAG 100 ML IVPB PRN (15:13)
== END 2018-03-16 15:45 | disposition home or self-care (01) ==
LOC: SPU 14:30
PROVIDERS: ATTEND Internal Medicine
DX: H65.00 Acute serous otitis media, unspecified ear (principal); H70.90 Unspecified mastoiditis, unspecified ear
CPT/HCPCS: 85025; 85651; 86140; 96365; J1335; J1642; J7050; 82040; 82247; 82310; 82374; 82435; 82565; 82947; 84075; 84132; 84155; 84295; 84450; 84460; 84520

== ENCOUNTER 2018-03-12 11:20 | Inpatient (IN) | payer MEDICARE ==
[~2018-03-12] VITALS: Ht 170.2 cm; Wt 79.5 kg
[~2018-03-12 11:20] MED LIST changes: -ALTEPLASE RECOMB 2 MG VIAL IVP PRN; -DEXTROSE 5%(*) 100 ML BAG 100 ML IVPB PRN; -NS(*) 0.9% 500 ML BAG 500 ML IV PRN; -WATER FOR INJ,STERILE 20 ML IVP PRN
--- NOTE | 2018-03-12 11:23 | ER Report ---
History and Physical Time Seen By MD: 11: HPI/ROS CHIEF COMPLAINT: Altered mental status HISTORY OF PRESENT ILLNESS: Patient is a 67-year-old female with history of small cell lung cancer with metastasis to the brain here with progressive altered mental status for the past week. Patient is disoriented to time of evaluation, history is provided by patient's . Patient reportedly has been receiving ertapenem daily for an ear infection at the cancer center however due to altered mental status she was sent to the emergency department for evaluation. Patient is afebrile at time of evaluation. In the past she hadn' t presented with similar symptoms and was found hypoglycemic however today she has a blood sugar of 109 on evaluation. She also has a history of reported falls the last of which was approximately 2 days ago. Review of systems Limited due to patient's mental status. REVIEW OF SYSTEMS: Unable to obtain due to patient's mental status Allergies: Coded Allergies: Qzmnggh-Azh-Kzh Reductase Inhibitor (Verified Allergy, Unknown, 03/12/18) Home Meds Active Scripts Paroxetine Hcl (PAROXETINE HCL) 20 Mg Tablet, 20 MG PO QDAY for 30 Days, Prov:STEPH GUNDERSON MD 08/18/17 Dexamethasone (DEXAMETHASONE) 1 Mg Tab, 2 MG PO DAILY for 7 Days, TAB stop after 7 days Prov:STEPH GUNDERSON MD 08/18/17 Acetaminophen (ACETAMINOPHEN) 500 Mg Tablet, 1000 MG PO Q8H Y for PAIN for 1 Day , Prov:STEPH GUNDERSON MD 08/18/17 Metoprolol Tartrate (METOPROLOL TARTRATE) 50 Mg Tab, 50 MG PO BID for Blood Pressure, #60 TAB 1 Refill Prov:MILTON SMITH MD 07/07/17 Reported Medications Hydralazine Hcl (HYDRALAZINE HCL) 100 Mg Tablet, 100 MG PO TID, TAB 01/27/18 Lisinopril (LISINOPRIL) 40 Mg Tablet, 40 MG PO QDAY, TAB 11/25/17 Oxygen (OXYGEN) Inha, 3.5 L INH, L 3.5 L CPAP 05/19/17 Multivitamin (DAILY MULTIPLE VITAMIN) 1 Each Tablet, 1 TAB PO DAILY 05/19/17 Loperamide HCl (Imodium A-D) Unknown Strength Capsule, PRN 05/19/17 Estropipate (ESTROPIPATE) 1.5 Mg Tablet, 1.5 MG PO QDAY for 90 Days Take 1 pill by mouth daily for 90 days 05/19/17 Past Medical/Surgical History Cardiac ablation, hypertension, hyperlipidemia, COPD, reflux gastritis, back pain, diabetes, small cell lung cancer with metastasis to the brain, pituitary tumor removal Hx Smoking: Yes Smoking Status: Former Smoker Hx Substance Use Disorder: No Hx Alcohol Use: Yes Constitutional Vital Sign - Last 24 Hours 03/12/18 03/12/18 03/12/18 03/12/18 11:20 11:30 11:35 11:40 Temp 98.3 Pulse 82 100 86 Resp 16 21 15 B/P (MAP) 140/88 140/68 (92) Pulse Ox 94 98 94 O2 Delivery Room Air 03/12/18 03/12/18 03/12/18 03/12/18 11:45 11:50 11:55 12:00 Pulse 91 82 91 Resp 8 15 16 B/P (MAP) 152/89 (110) Pulse Ox 96 92 94 03/12/18 03/12/18 03/12/18 03/12/18 12:05 12:10 12:40 12:55 Pulse 90 77 95 85 Resp 18 14 B/P (MAP) 181/80 (113) Pulse Ox 93 93 88 88 03/12/18 03/12/18 03/12/18 03/12/18 13:00 13:10 13:15 13:30 Pulse 105 90 93 B/P (MAP) 181/76 (111) 158/75 (102) Pulse Ox 95 92 92 03/12/18 03/12/18 03/12/18 03/12/18 13:45 13:50 14:00 14:05 Pulse 91 83 77 B/P (MAP) 184/95 (124) Pulse Ox 88 92 93 03/12/1818 18 03/12/18 14:20 14:25 14:30 14:40 Pulse 89 79 82 B/P (MAP) 162/73 (102) Pulse Ox 90 94 92 18 18 03/12/18 14:55 15:00 15:10 Pulse 76 103 B/P (MAP) 165/77 (106) Pulse Ox 92 96 Physical Exam General Appearance: Confused, disoriented, no acute distress Eyes: Pupils equal and round no pallor or injection. ENT, Mouth: Mucous membranes are moist. Respiratory: There are no retractions, lungs are clear to auscultation. Cardiovascular: Regular rate and rhythm. Gastrointestinal: Abdomen is soft and non tender, no masses, bowel sounds normal. Neurological: + Confused, no extremity weakness, patient moving all extremities spontaneously Skin: Warm and dry, no rashes. Musculoskeletal: Neck is supple non tender. Extremities are nontender, nonswollen and have full range of motion. DIFFERENTIAL DIAGNOSIS: After history and physical exam differential diagnosis was considered for intracranial hemorrhage, metastatic mass effect, electrolyte imbalance, concussion, hypoglycemia, infection Medical Decision Making Data Points Result Diagram: 03/13/18 0531 03/13/18 0531 Laboratory Hematology Test 03/12/18 11:33 03/12/18 13:12 Blood Gas Puncture Site Left radial Blood Gas Patient Temperature 98.3 DEGREES Arterial Blood pH 7.50 (7.35-7.45) Arterial Blood Partial Pressure CO2 29 mmHg (32-37) Arterial Blood Partial Pressure O2 56 mmHg (60-80) Arterial Blood HCO3 23 mmol/L (20-26) Arterial Blood Oxygen Saturation 92 % (92-100) Arterial Blood Base Excess -1.0 mmol/L Gordon Test Acceptable Carboxyhemoglobin 1.0 % (< 5.0) Oxygen Liters/Minute Room air Magnesium Level 1.7 mg/dl (1.7-2.2) Total Bilirubin 0.4 mg/dl (0.2-1.3) Aspartate Amino Transf (AST/SGOT) 29 U/L (0-35) Alanine Aminotransferase (ALT/SGPT) 39 U/L (0-56) Alkaline Phosphatase 82 U/L (0-126) Ammonia < 9 UMOL/L (9-33) Troponin I 0.041 ng/ml Total Protein 6.2 g/dl (6.3-8.2) Albumin 3.4 g/dl (3.5-5.0) Serum Alcohol < 10 mg/dl Urine Color Yellow Urine Clarity Clear Urine pH 6.0 pH (4.8-9.5) Urine Specific [place] 1.011 Urine Protein Negative mg/dL (NEGATIVE) Urine Glucose (UA) Negative mg/dL (NEGATIVE) Urine Ketones Trace mg/dL (NEGATIVE) Urine Blood Negative (NEGATIVE) Urine Nitrite Negative (NEGATIVE) Urine Bilirubin Negative (NEGATIVE) Urine Urobilinogen Negative mg/dL (0.2-1.9) Urine Leukocyte Esterase Negative (NEGATIVE) Urine RBC <1 /HPF (0-2/HPF) Urine WBC 1 /HPF (0-5/HPF) Urine Squamous Epithelial Cells Moderate /LPF (</=FEW) Urine Bacteria Negative /HPF (NONE-FEW) Urine Hyaline Casts Few /LPF (NONE-FEW) Urine Mucus None /HPF (NONE-FEW) Chemistry Test 03/12/18 11:33 03/12/18 13:12 Blood Gas Puncture Site Left radial Blood Gas Patient Temperature 98.3 DEGREES Arterial Blood pH 7.50 (7.35-7.45) Arterial Blood Partial Pressure CO2 29 mmHg (32-37) Arterial Blood Partial Pressure O2 56 mmHg (60-80) Arterial Blood HCO3 23 mmol/L (20-26) Arterial Blood Oxygen Saturation 92 % (92-100) Arterial Blood Base Excess -1.0 mmol/L Gordon Test Acceptable Carboxyhemoglobin 1.0 % (< 5.0) Oxygen Liters/Minute Room air Magnesium Level 1.7 mg/dl (1.7-2.2) Total Bilirubin 0.4 mg/dl (0.2-1.3) Aspartate Amino Transf (AST/SGOT) 29 U/L (0-35) Alanine Aminotransferase (ALT/SGPT) 39 U/L (0-56) Alkaline Phosphatase 82 U/L (0-126) Ammonia < 9 UMOL/L (9-33) Troponin I 0.041 ng/ml Total Protein 6.2 g/dl (6.3-8.2) Albumin 3.4 g/dl (3.5-5.0) Serum Alcohol < 10 mg/dl Urine Color Yellow Urine Clarity Clear Urine pH 6.0 pH (4.8-9.5) Urine Specific [place] 1.011 Urine Protein Negative mg/dL (NEGATIVE) Urine Glucose (UA) Negative mg/dL (NEGATIVE) Urine Ketones Trace mg/dL (NEGATIVE) Urine Blood Negative (NEGATIVE) Urine Nitrite Negative (NEGATIVE) Urine Bilirubin Negative (NEGATIVE) Urine Urobilinogen Negative mg/dL (0.2-1.9) Urine Leukocyte Esterase Negative (NEGATIVE) Urine RBC <1 /HPF (0-2/HPF) Urine WBC 1 /HPF (0-5/HPF) Urine Squamous Epithelial Cells Moderate /LPF (</=FEW) Urine Bacteria Negative /HPF (NONE-FEW) Urine Hyaline Casts Few /LPF (NONE-FEW) Urine Mucus None /HPF (NONE-FEW) Toxicology Test 03/12/18 11:33 Serum Alcohol < 10 mg/dl Urinalysis Test 03/12/18 13:12 Urine Color Yellow Urine Clarity Clear Urine pH 6.0 pH (4.8-9.5) Urine Specific [place] 1.011 Urine Protein Negative mg/dL (NEGATIVE) Urine Glucose (UA) Negative mg/dL (NEGATIVE) Urine Ketones Trace mg/dL (NEGATIVE) Urine Blood Negative (NEGATIVE) Urine Nitrite Negative (NEGATIVE) Urine Bilirubin Negative (NEGATIVE) Urine Urobilinogen Negative mg/dL (0.2-1.9) Urine Leukocyte Esterase Negative (NEGATIVE) Urine RBC <1 /HPF (0-2/HPF) Urine WBC 1 /HPF (0-5/HPF) Urine Squamous Epithelial Cells Moderate /LPF (</=FEW) Urine Bacteria Negative /HPF (NONE-FEW) Urine Hyaline Casts Few /LPF (NONE-FEW) Urine Mucus None /HPF (NONE-FEW) ED Course/Re-evaluation ED Course Patient is a 67-year-old female here with history of metastatic lung cancer to the brain, recent falls, recent infection of the ear on ertapenem daily. Patient reportedly has had progressive altered mental status with past week per patient's . Today the patient seemed more confused which prompted ED evaluation. Patient's blood glucose was 109 time of evaluation. Patient was noted to have several unwitnessed falls, the last of which was [address] head showed no acute intracranial findings. Review of systems was limited due to patient's mental status however she seemed to be in no acute distress. I discussed the findings with the patient's who requested further inpatient care and evaluation. I discussed the patient with Dr. Galan who accepted the patient to his service. Patient was stable at time of admission. Decision to Disposition Date: Mar 12, 2018 Decision to Disposition Time: 15:00 Depart Departure Latest Vital Signs Vital Signs Date Time Temp Pulse Resp B/P (MAP) Pulse Ox O2 Delivery O2 Flow Rate FiO2 03/12/18 15:10 103 96 03/12/18 15:00 165/77 (106) 03/12/18 12:10 14 03/12/18 11:20 98.3 Room Air Impression: Primary Impression: Altered mental state Additional Impressions: Small cell lung cancer Brain metastases Condition: Condition Unchanged Disposition: Admitted from ER Problem Qualifiers AURELIA MOROCHO DO Mar 12, 2018 11:23
[2018-03-12] MEDS ORDERED: NS(*) 0.9% 1000 ML BAG 1,000 ML IV ONE (11:40)
[2018-03-12 12:04] LABS: PLATELET COUNT, AUTOMATED 262 K/uL (150-450)
--- NOTE | 2018-03-12 13:07 | RADIOLOGY IMAGING REPORT ---
FACILITY: [facility] - [place] PATIENT NAME: Lucy Peralta : 1950 MR: [id number] V: [id number] EXAM DATE: ORDERING PHYSICIAN: AURELIA MOROCHO TECHNOLOGIST: Location: [facility] [place] Patient: Lucy Peralta : 1950 Visit/Account:[id number] Date of Sevice: 03/12/2018 CHEST PA AND LAT HISTORY: Altered mental status COMPARISON: Chest x-ray 01/27/2018 FINDINGS: Cardiomediastinal contours: Normal Lungs and pleura: Normal Bones/soft tissues: Stable right internal jugular Port-A-Cath with its tip at the cavoatrial junction . Other findings: None significant IMPRESSION: 1. No acute cardiopulmonary disease. No change. Report Dictated By: Shoaib Santoyo MD at 03/12/2018 1:00 PM Report E-Signed By: Shoaib Santoyo MD at 03/12/2018 1:02 PM WSN:[email or web address]
--- NOTE | 2018-03-12 13:33 | RADIOLOGY IMAGING REPORT ---
FACILITY: [facility] - [place] PATIENT NAME: Lucy Peralta : 1950 MR: [id number] V: [id number] EXAM DATE: ORDERING PHYSICIAN: AURELIA MOROCHO TECHNOLOGIST: Location: [facility] - [place] Patient: Lucy Peralta : 1950 Visit/Account:[id number] Date of Sevice: 03/12/2018 HEAD W/O CONTRAST COMPARISON: Noncontrast brain CT 06/16/2017 from [facility] HISTORY: AMS. History of intracranial masses suspicious for metastases, areas mass biopsy obtained f rom the radiology record. TECHNIQUE: Noncontrast axial CT brain with coronal and sagittal reformats. One of the following dose optimization techniques was utilized in the performance of this exam: automated exposure control; a djustment of the mA and/or kV according to patient size; or use of iterative reconstruction technique . Specific details can be referenced in the facility's radiology CT exam operational policy. CONTRAST: None. CT BRAIN FINDINGS: CSF SPACES: Ventricles, cisterns, and sulci are appropriate for age. No hydrocephalus, extra-axial hemorrhage, or mass. No midline shift. CEREBRUM: Relatively confluent low-density throughout the cerebral white matter bilaterally, new fro m previous and presumably due to whole brain radiation. Partially calcified right inferior frontal ma ss measuring about 1.4 x 2.3 cm, significantly smaller than May 2017 where it was closer to 3.4 x 5.4 cm in size. This is probably a treated or partially treated metastasis. On the prior study the re were masses in the left occipital lobe and left basal ganglia. At the sites today there is only va poncho residual intermediate attenuation suggesting treated or nearly completely treated tumor. No new m asses are seen. No acute-appearing large vessel territory infarct appreciated by noncontrast CT. Ther e is no acute parenchymal hemorrhage. CEREBELLUM: No edema, hemorrhage, mass, acute infarction, or significant atrophy. Chronic CSF densit y focus in the right cerebellum, consistent with remote infarct. Tonsils are not low-lying. BRAINSTEM: No edema, hemorrhage, mass, acute infarction, or significant atrophy. Normal morphology and density. CALVARIUM: No lytic or blastic bone lesions. The mastoid air cells are opacified bilaterally. A righ t parietal laura hole is present with overlying plate. SINUSES: Limited views. Frontal sinuses are aplastic. There is mild ethmoid sinus mucosal thickening bilaterally. There is complete opacification of the sphenoid sinuses bilaterally. ORBITS: Limited views are unremarkable. OTHER: Negative. IMPRESSION: 1. No acute-appearing intracranial process to account for altered mental status. 2. Significant decreased size of a partially calcified right frontal lobe mass, probably a treated o r partially treated metastasis. 3. No definite residual intracranial masses elsewhere. 4. Diffuse, confluent cerebral white matter low-density bilaterally, probably related to interval ra diation therapy. Report Dictated By: Rikki Norris at 03/12/2018 1:09 PM Report E-Signed By: Rikki Norris at 03/12/2018 1:29 PM WSN:[id number]
--- NOTE | 2018-03-12 13:51 | RADIOLOGY IMAGING REPORT ---
FACILITY: [facility] PATIENT NAME: Lucy Peralta : 1950 MR: [id number] V: [id number] EXAM DATE: ORDERING PHYSICIAN: AURELIA MOROCHO TECHNOLOGIST: Location: [facility] - [place] Patient: Lucy Peralta : 1950 Visit/Account:[id number] Date of Sevice: 03/12/2018 EXAMINATION: CT Cervical spine without intravenous contrast Comparison: 01/26/2018 History: Fall. History of cancer. Procedure: Multiplanar noncontrast cervical spine CT. One of the following dose optimization techniques was utilized in the performance of this exam: Autom ated exposure control; adjustment of the mA and/or kV according to the patient's size; or use of an i terative reconstruction technique. Specific details can be referenced in the facility's radiology C T exam operational policy. FINDINGS: Visualized brain: As discussed on the head CT from the same day. Chronic opacification of the mastoid air cells. Alignment: Within normal limits and unchanged. Cranio-cervical junction: Within normal limits. Vertebral bodies: No vertebral body fracture. Posterior neural arch: Facet alignment is within normal limits with mild to moderate multilevel facet arthropathy. 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 C5 bifid spinous process with a nondisplaced fracture of the left process; although more conspicuous on today's study, this was like ly present on the prior study and is favored to be a subacute injury. No acute posterior neural arch fracture is identified. Disc spaces: Mild degenerative change most notably at C4-C5 and C5-C6. No definite spinal canal narro wing is identified although there is mild to moderate narrowing of the C3-C4 left neural foramina due to facet arthropathy and uncovertebral joint hypertrophy. Hardware: None. Soft tissues: No acute findings. Carotid atherosclerosis. Visualized upper chest: No acute findings. IMPRESSION: 1. No cervical spine acute fracture or malalignment. 2. C5 spinous process subacute nondisplaced fracture. 3. Cervical degenerative change as described above. 4. Carotid atherosclerosis. Report Dictated By: Ant Tipton MD at 03/12/2018 1:39 PM Report E-Signed By: Ant Tipton MD at 03/12/2018 1:47 PM WSN:[email or web address]
[2018-03-12] MEDS ORDERED: ERTAPENEM(*) 1 GM VIAL 1 GM in NS(*) 0.9% 100 ML ADDVANT BAG 100 ML IVPB ONE (14:10)
[2018-03-12 16:25] VITALS: BP 182/86
--- NOTE | 2018-03-12 16:25 | History & Physical ---
History of Present Illness Chief Complaint Altered Mental Status History of Present Illness Mrs. Stevenson is a 67-year-old female with PMH of HTN, Dyslipidemia, COPD former smoker and alcohol use, DM-II on Metformin 1gm bid, GERD, Chronic Back Pain, Pituitary Tumor and history of small cell lung cancer with metastasis to the brain s/p two rounds of Chemotherapy and Radiation by Dr. Tipton presented with progressive altered mental status for the past week. Patient was afebrile and disoriented in the ER, informations were gathered from patient's . Patient reportedly has been receiving ertapenem 1gm IVPB daily for total 21 days for an inner ear infection at the cancer center however due to altered mental status she was sent to the emergency department for evaluation. She has had hypoglycemic event in the past but her blood sugar was 109 on evaluation. She also has a history of reported falls and the last of which was approximately 2 days ago. Review of systems Limited due to patient's mental status. I discussed the case with the ER-MD and admitted the patient for further evaluation and management. I have discussed the case with her at length and got most of the information. History Home Meds Active Scripts Paroxetine Hcl (PAROXETINE HCL) 20 Mg Tablet, 20 MG PO QDAY for 30 Days, Prov:STEPH GUNDERSON MD 08/18/17 Dexamethasone (DEXAMETHASONE) 1 Mg Tab, 2 MG PO DAILY for 7 Days, TAB stop after 7 days Prov:STEPH GUNDERSON MD 08/18/17 Acetaminophen (ACETAMINOPHEN) 500 Mg Tablet, 1000 MG PO Q8H Y for PAIN for 1 Day , Prov:STEPH GUNDERSON MD 08/18/17 Metoprolol Tartrate (METOPROLOL TARTRATE) 50 Mg Tab, 50 MG PO BID for Blood Pressure, #60 TAB 1 Refill Prov:MILTON SMITH MD 07/07/17 Reported Medications Hydralazine Hcl (HYDRALAZINE HCL) 100 Mg Tablet, 100 MG PO TID, TAB 01/27/18 Lisinopril (LISINOPRIL) 40 Mg Tablet, 40 MG PO QDAY, TAB 11/25/17 Oxygen (OXYGEN) Inha, 3.5 L INH, L 3.5 L CPAP 05/19/17 Multivitamin (DAILY MULTIPLE VITAMIN) 1 Each Tablet, 1 TAB PO DAILY 05/19/17 Loperamide HCl (Imodium A-D) Unknown Strength Capsule, PRN 05/19/17 Estropipate (ESTROPIPATE) 1.5 Mg Tablet, 1.5 MG PO QDAY for 90 Days Take 1 pill by mouth daily for 90 days 05/19/17 Allergies: Coded Allergies: Uxkoozt-Amj-Onz Reductase Inhibitor (Verified Allergy, Unknown, 03/12/18) Hx Smoking: Yes Smoking Status: Former Smoker Caffeine Intake: Coffee Caffeine/Cups Per Day: 1 cup per day Hx Alcohol Use: Yes Hx Substance Use Disorder: No Social Drug Use: Never Review of Systems Constitutional: Other (I could not obtain much ROS) Exam Vital Signs Vital Signs Date Time Temp Pulse Resp B/P (MAP) Pulse Ox O2 Delivery O2 Flow Rate FiO2 03/12/18 15:40 80 91 03/12/18 15:30 152/71 (98) 03/12/18 12:10 14 03/12/18 11:20 98.3 Room Air General Appearance: No Acute Distress, Afebrile, Other (not fully oriented) Neuro: No Gross deficits Eyes: PERRLA Neck: No Masses Cardiovascular: Normal Rhythm & Peripheral Pulses Respiratory: No Respiratory Distress Chest: Other (R-chest port) GI: Abd Soft and Non-Tender : No CVA Tenderness Extremities: Soft and Non Tender, Warm, Edema (pedal) Medical Decision Making Data Points Result Diagram: 03/12/18 1133 03/12/18 1133 Pre-Admit Course ED Medications reviewed Medical Record Review: Yes Assessment and Plan Problems: (1) Altered mental state Status: Acute Assessment & Plan: Her AMS could be due to her underlying metastatic Lung Cancer with brain mets, other possibility could be Meningitis from her inner ear infection. I will admit her for further evaluation and management. I will resume her Ertapenem 1gm Iv q daily for the next 8 days to complete the 21 days course Neuro watch q 4 h I will start IVF NS at 100ml/h I will get THS, BMP and CBC in am I will start Oxygen to keep O2 sat >90% I will start Lovenox 40mg SQ for DVTP (2) Small cell lung cancer Status: Chronic Assessment & Plan: She will follow Dr. Tipton after the completion of her antibiotic course of 21 days for her inner ear infection (3) HTN (hypertension) Status: Chronic Assessment & Plan: I will resume her BP meds including Hydralazine, Metoprolol and Lisinopril (4) DM (diabetes mellitus) Status: Chronic Assessment & Plan: I will resume her Metformin 1gm po bid I will start Accu check q AC and HS I will start level II sliding scale with regular insulin I will start Diabetic diet Time Spent on Plan of Care: > 30 min Copies to: NEGAR MARTIN MD; MABEL CABRERA JR, MD; SIS ALANIZ MD; GHADA CASTILLO MD Venous Thromboembolism VTE Risk Physician Assess for VTE Risk: Yes Patient's VTE Risk: High VTE Diagnostic Test 2 Days Prior to Admit: No Antithrombotics Is Pt On Any Antithrombotics?: No Exam Sepsis Risk: No Definite Risk Problem Qualifiers (1) Altered mental state: Altered mental status type: disorientation Qualified Codes: R41.0 - Disorientation, unspecified (2) HTN (hypertension): Hypertension type: essential hypertension Qualified Codes: I10 - Essential ( primary) hypertension (3) DM (diabetes mellitus): Diabetes mellitus type: type 2 SUMEET MCKEON MD Mar 12, 2018 16:25
[2018-03-12] MEDS ORDERED: ONDANSETRON 4 MG/2 ML VIAL IVP PRN (16:30)
[2018-03-12] MEDS ORDERED: INSULIN HUMAN REGULAR SLIDING SCALE SC PRN (16:35)
[2018-03-12] MEDS ORDERED: metFORMIN HCL 500 MG TAB PO SCH (17:30)
[2018-03-12] MEDS: metFORMIN HCL 500 MG TAB PO SCH (17:45)
[2018-03-12] MEDS ORDERED: cloNIDine HCL 0.2 MG TDSY TD ONE (18:20)
[2018-03-12] MEDS: NS(*) 0.9% 1000 ML BAG 1,000 ML IV PRN (18:39)
[2018-03-12 20:12] VITALS: BP 162/76
[2018-03-12] MEDS ORDERED: hydrALAZINE HCL 25 MG TAB PO SCH (21:00)
[2018-03-13] VITALS (8 sets, daily range): BP systolic 141–197; BP diastolic 60–91; Ht 170.2 cm; Wt 79.5 kg
[2018-03-13] MEDS: hydrALAZINE HCL 20 MG/ML VIAL IVP PRN ×2 (01:52→06:03)
[2018-03-13] MEDS: NS(*) 0.9% 1000 ML BAG 1,000 ML IV PRN ×2 (03:51→19:33)
[2018-03-13 06:20] LABS: PLATELET COUNT, AUTOMATED 254 K/uL (150-450)
[2018-03-13] MEDS ORDERED: LISINOPRIL 20 MG TAB PO SCH (09:00)
[2018-03-13] MEDS ORDERED: ENOXAPARIN 40 MG/0.4ML SYR SC SCH (09:00)
[2018-03-13] MEDS: METOPROLOL TART 50 MG TAB PO SCH ×2 (09:48→21:40)
[2018-03-13] MEDS: metFORMIN HCL 500 MG TAB PO SCH ×2 (09:48→16:56)
--- NOTE | 2018-03-13 11:59 | Medical Nutrition Therapy ---
Nutrition Anthropometrics Height (Inches): 67.00 Height (Calculated Centimeters: 170.847018 Weight (Pounds): 167 Weight (Calculated Kilograms): 76.005 Vinicius Nutrition Score: Probably Inadequate Vinicius Nutrition Risk Score: 14 Dietary Referral Nutrition Risk Factors: Unplanned Loss >10lbs Nutrition Risk Comment: TASTE HAS BEEN POOR Physical Findings Physical Appearance: Overweight BMI 25-29 Skin Appearance Skin Appearance: Edema Edema Location Modifier: Right Edema Location: Foot Type of Edema: Degree of Edema: Gastrointestinal Symptoms GI Symtoms: Tube Present: Bowel Sounds: Recent Bowel Pattern: Stool Characteristics: Nutrition/Food History Decreased Appetite Nutritional Diagnosis Nutritional Risk Acuity 2: Head/Neck/GI Cancer Nutritional Risk Acuity 3: Weight Loss, Cancer Past Medical History: HTN, DM-II, ZENAIDA, Obesity, Hypothyroidism, UE-DVT, A.Fib, 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 Energy Requirement: 1974 (Dickey-St Jeor: Actual BW X 1.5) Protein Requirement: 76 (Actual BW Kg X 1.0) Fluid Requirement: 1974 Diet Type: Diabetic Nutrition Intervention: Cont diet as ordered Diet Comment To RSA: ADD PROTEIN POWDER TO APPROPRIATE FOODS Nutrition Monitoring & Eval Nutrition Goals: Eat 75-100% Meal RD Patient Assessment Time: [address] Assessment Type: RD Assessment Patient Nutrition Acuity: 2-Moderate Follow Up Date: Mar 16, 2018 Nutritional Comment: Pt admitted with altered mental state. Medical history of lung cancer with brain mets on chemo. Glu 111, Alb 3.4, Low H/H, Low Na/K. Metformin 1000 mg BID and Lispro SSI for T2DM treatment in hospital. Pt overwt with BMI of 26.1. Wt loss during cancer treatment - approx 51# - wt on 08/18/17 was 218# and now 167#. Receiving Diabetes diet with no reports of intake. -ELIEL VALDOVINOS Mar 13, 2018 11:59
--- NOTE | 2018-03-13 12:10 | Hospitalist Progress Note ---
Subjective Progress Notes Subjective This patient was admitted for altered mental status. She had no acute changes overnight. Patient Complains of: Cardiovascular: No: Chest Pain Respiratory: No: Shortness of Breath Physical Exam Vital Signs Date Time Temp Pulse Resp B/P (MAP) Pulse Ox O2 Delivery O2 Flow Rate FiO2 03/13/18 07:37 98.2 95 20 148/60 (89) 98 Nasal Cannula 0.5 Intake and Output 03/14/18 07:00 Intake Total 0 ml Balance 0 ml Intake Oral 0 ml # Voids 2 Cardiovascular: Regular Rate and Rhythm Result Diagram: 03/13/1853003/13/18530 Assessment and Plan Problems: (1) Altered mental state Status: Acute Assessment & Plan: She did present with altered mental status. A CT scan of the head was negative for acute pathology. It was noted that her metastatic tumor in the frontal lobe was decreased in size and she also has findings consistent with radiation therapy. She does appear to be at baseline today. (2) Otitis media Assessment & Plan: This has been on ongoing issue for her. She is followed by Dr. Brown and is receiving care home treatment with ertapenem. (3) Small cell lung cancer Status: Chronic Assessment & Plan: She is followed by Dr. Burkett in the Cancer Center. (4) HTN (hypertension) Status: Chronic Assessment & Plan: She is on chronic treatment with hydralazine, metoprolol, and lisinopril. (5) DM (diabetes mellitus) Status: Chronic Assessment & Plan: She is on chronic treatment with metformin. We have also placed her on sliding scale level #2. Exam Sepsis Risk: No Definite Risk Problem Qualifiers (1) Altered mental state: Altered mental status type: disorientation Qualified Codes: R41.0 - Disorientation, unspecified (2) HTN (hypertension): Hypertension type: essential hypertension Qualified Codes: I10 - Essential ( primary) hypertension (3) DM (diabetes mellitus): Diabetes mellitus type: type 2 ANISH WASHINGTON DO Mar 13, 2018 12:10
[2018-03-13] MEDS ORDERED: ERTAPENEM(*) 1 GM VIAL 1 GM in NS(*) 0.9% 100 ML ADDVANT BAG 100 ML IVPB SCH (14:00)
[2018-03-14] VITALS (74 sets, daily range): BP systolic 71–132; BP diastolic 34–89
[2018-03-14] MEDS ORDERED: LORazepam 2 MG/ML VIAL IVP ONE ×2 (00:35→00:50)
[2018-03-14] MEDS ORDERED: NS 0.9% IVPB ONE (01:00)
[2018-03-14] MEDS ORDERED: LORazepam 2 MG/ML VIAL IVP PRN (01:00)
[2018-03-14] MEDS ORDERED: FOSPHENYTOIN IVPB ONE (01:00)
[2018-03-14] MEDS ORDERED: [UNRECOGNIZED DRUG - OTHER] IVPB ONE (01:00)
--- NOTE | 2018-03-14 01:10 | Miscellaneous Provider Note ---
Miscellaneous Provider Note Note This patient developed seizure activity tonight. She had a seizure that lasted approximately 1 minute and abated before intervention could be taken. She was post ictal after this first event, but developed another seizure shortly thereafter. This episode also lasted approximately 1 minute. Ativan was administered after the second seizure. She has also been started on a fosphenytoin load. She does have a metastatic lesion to the frontal lobe, which is likely contributing to her seizures, but she may require a CT scan to evaluate for bleeding of other acute issues. We will load her on the Dilantin and consider imaging once she has been seizure free for a period of time. ANISH WASHINGTON DO Mar 14, 2018 01:10
[2018-03-14] MEDS ORDERED: NS(*) 0.9% 100 ML BAG 100 ML ONE (01:26)
[2018-03-14] MEDS: NS(*) 0.9% 1000 ML BAG 1,000 ML IV PRN ×3 (01:49→18:56)
[2018-03-14] MEDS ORDERED: ATROPINE SUL 0.1MG/ML 10ML SYR ONE (02:42)
--- NOTE | 2018-03-14 03:02 | Miscellaneous Provider Note ---
Miscellaneous Provider Note Note This patient developed bradycardia and hypotension several hours after her last seizure. She has been treated with atropine, which did increase her heart rate and blood pressure slightly. An EKG has been ordered. She will transfer to the ICU for further management. A CT scan of the head has also been ordered for the morning. ANISH WASHINGTON DO Mar 14, 2018 03:02
--- NOTE | 2018-03-14 03:21 | EKG ---
FACILITY: [facility] - [place] PATIENT NAME: TREVER CHUA : [id number] MR: [id number] V: [id number] EXAM DATE: ORDERING PHYSICIAN: ANISH WASHINGTON TECHNOLOGIST: RANJANA Test Reason : BRADYCARDIA Blood Pressure : / mmHG Vent. Rate : 043 BPM Atrial Rate : 125 BPM P-R Int : 000 ms QRS Dur : 162 ms QT Int : 482 ms P-R-T Axes : 000 -73 013 degrees QTc Int : 407 ms Junctional rhythm Right bundle branch block Left anterior fascicular block Bifascicular block Abnormal ECG Confirmed by ANISH WASHINGTON ([id number]) on 03/14/2018 6:18:39 AM Referred By: Confirmed By:ANISH WASHINGTON
[2018-03-14] MEDS ORDERED: ATROPINE SULFATE IVP ONE (03:40)
--- NOTE | 2018-03-14 05:26 | RADIOLOGY IMAGING REPORT ---
FACILITY: [facility] PATIENT NAME: Lucy Peralta : 1950 MR: [id number] V: [id number] EXAM DATE: ORDERING PHYSICIAN: ANISH WASHINGTON TECHNOLOGIST: Location: [facility] - [place] Patient: Lucy Peralta : 1950 Visit/Account:[id number] Date of Sevice: 03/14/[address]: Indication: Altered mental status and seizure. Technique: Contiguous axial sections were obtained from the base to the vertex without contrast enhan cement. One of the following dose optimization techniques was utilized in the performance of this exam: Autom ated exposure control; adjustment of the mA and/or kV according to the patient's size; or use of an i terative reconstruction technique. Specific details can be referenced in the facility's radiology CT exam operational policy. Comparison: 03/12/2018 Findings: There is no evidence of acute hemorrhage. A focal area of dystrophic calcification in the r ight frontal lobe appears stable. There is generalized cortical atrophy and periventricular white mat ter disease, without significant change. No new focal areas of decreased or increased attenuation are clearly identified. The size, shape, and configuration of the ventricular system are stable. There is no mass effect or m idline shift. There are stable postoperative changes in the right parietal bone. No acute skeletal deformity is shreyas ntified. There is persistent opacification of the paranasal sinuses and mastoid air cells. Impression: No acute process or significant change. Report Dictated By: Kenan Mendez MD at 03/14/2018 5:14 AM Report E-Signed By: Kenan Mendez MD at 03/14/2018 5:21 AM WSN:[id number]
[2018-03-14] MEDS: DOPamine/DEXTRO(*) 1600 MCG/ML 250 ML IV PRN ×2 (06:00→15:40)
[2018-03-14 06:18] LABS: PLATELET COUNT, AUTOMATED 253 K/uL (150-450)
[2018-03-14] MEDS ORDERED: MAGNESIUM SUL* 2 GM/50 ML IVPB 50 ML IVPB ONE (06:40)
[2018-03-14] MEDS: PANTOPRAZOLE SOD 40 MG IV VIAL IVP SCH (09:28)
[2018-03-14] MEDS: levETIRAcetam(*)500 MG/5 ML VI 500 MG in NS(*) 0.9% 100 ML BAG 100 ML IV SCH ×2 (09:36→21:33)
--- NOTE | 2018-03-14 10:41 | Hospitalist Progress Note ---
Subjective Progress Notes Subjective She is still very somnolent. No further seizure activity. Physical Exam Vital Signs Date Time Temp Pulse Resp B/P (MAP) Pulse Ox O2 Delivery O2 Flow Rate FiO2 03/14/18 08:15 72 11 115/46 (69) 96 Oxy Mask 6.0 03/14/18 07:15 98.6 Intake and Output 03/15/18 06:59 Intake Total 64 ml Output Total 15 ml Balance 49 ml IV Total 64 ml Output Urine Total 15 ml General Appearance: No Acute Distress, Other (Asleep comfortably) Neuro: Other (Awakens to painful stimuli, but not following commands.) Eyes: PERRLA ENT: Moist Mucous Membranes, Other (TM clear bilaterally. TM with possible pinpoint hole on right.) Cardiovascular: Regular Rate and Rhythm Respiratory: Clear to Auscultation Extremities: No Edema Result Diagram: 03/14/1861003/14/18610 Assessment and Plan Problems: (1) Seizure Status: Acute Assessment & Plan: She had 2 seizures yesterday. She was loaded with Fosphenytoin, but then became hypotensive and bradycardic, so was started on Dopamine. Keppra to be started IV and will stop Fosphenytoin. Repeat head CT was unchanged. Ertapenem does carry an increased seizure risk, so it has been stopped. (2) Altered mental state Status: Acute Assessment & Plan: She did present with altered mental status, which was likely related to being post-ictal from seizures. A CT scan of the head was negative for acute pathology. It was noted that her metastatic tumor in the frontal lobe was decreased in size and she also has findings consistent with radiation therapy. She did appear to be at baseline yesterday prior to the seizures. (3) Otitis media Status: Acute Assessment & Plan: Exudative type on the right and with concern of mastoiditis. Culture from the ear in December grew E. Coli. This has been on ongoing issue for her. She is followed by Dr. Brown and is receiving what appears to be a 21 day treatment with ertapenem. Today, there is no erythema or discharge from the TM. Dr. Perez (ID) recommended no further antibiotics at this time because there doesn't appear to be signs of infection and she has had almost 2 weeks of infection. (4) Small cell lung cancer Status: Chronic Assessment & Plan: She is followed by Dr. Burkett in the Cancer Center. (5) HTN (hypertension) Status: Chronic Assessment & Plan: She is on chronic treatment with hydralazine, metoprolol, and lisinopril. (6) DM (diabetes mellitus) Status: Chronic Assessment & Plan: She is on chronic treatment with metformin. We have also placed her on sliding scale level #2. Exam Sepsis Risk: No Definite Risk Problem Qualifiers (1) Altered mental state: Altered mental status type: disorientation Qualified Codes: R41.0 - Disorientation, unspecified (2) HTN (hypertension): Hypertension type: essential hypertension Qualified Codes: I10 - Essential ( primary) hypertension (3) DM (diabetes mellitus): Diabetes mellitus type: type 2 STEPH GUNDERSON MD Mar 14, 2018 10:40
--- NOTE | 2018-03-14 11:22 | Antimicrobial Stewardship Note ---
Antimicrobial Stewardship Note Note Antimicrobial Stewardship Note: TOPHER is a 67 yo F with a history of extensive stage small cell lung cancer (known brain mets s/p whole brain XRT), mastoiditis/R-ear infection on ertapenem, who presented with altered mental status and seizures. afebrile, WBC wnl, hypotension, bradycardia 01/12/18- R Otitis Media - grew ESBL e.coli, sensitive to ertapenem - failed multiple courses of antibiotics outpatient 1. Seizures- known brain mets, ertapenem can lower seizure threshold -- given ativan and loaded with fosphenytoin- resulting in hypotension and bradycardia, atropine given, started dopamine drip. Switched to keppra secondary to hypotension/bradycardia. 2. Otitis Media - On Ertapenem as an outpatient, due to seizure and lowering of seizure threshold, d/c ertapenem. Pt received 13 days of ertapenem and upon Dr. Hopkins's recommendation, all antibiotics stopped. Will follow WBC, temp, otoscopic exam done by MD. 3. Hypotension/Bradycardia- On dopamine drip, titrate to MAP of 65, was hypertensive on admission and received clonidine patch and hydralazine, became hypotensive and bradycardic s/p fosphenytoin load, despite slow infusion. Clonidine patch removed 03/14/18. Will monitor vitals and urine output. Efren Chavez, PharmD, EFREN BURT Mar 14, 2018 11:16
[2018-03-14] MEDS: INSULIN HUM LISPRO 100 UN/ML 3 ML VIAL SUBQ PRN (12:12)
[2018-03-14] MEDS ORDERED: FOSPHENYTOIN IVPB SCH (13:00)
[2018-03-14] MEDS ORDERED: [UNRECOGNIZED DRUG - OTHER] IVPB SCH (13:00)
[2018-03-14] MEDS ORDERED: NS 0.9% IVPB SCH (13:00)
--- NOTE | 2018-03-14 19:12 | RADIOLOGY IMAGING REPORT ---
FACILITY: [facility] - [place] PATIENT NAME: Lucy Peralta : 1950 MR: [id number] V: [id number] EXAM DATE: ORDERING PHYSICIAN: STEPH GUNDERSON TECHNOLOGIST: Location: [facility] Patient: Lucy Peralta : 1950 Visit/Account:[id number] Date of Sevice: 03/14/2018 Examination: CHEST SINGLE AP Comparison: 03/12/2018 and earlier. History: Hypoxia. Findings: Cardiac and hilar contour size is prominent but unchanged. Infusion port position is unchan ged. Aortic atherosclerosis. Mild chronic interstitial thickening. No new or enlarging consolidation or evidence of acute peribron chial inflammation. No pneumothorax, edema, or effusion. Osseous structures are intact. IMPRESSION: No evidence of acute cardiopulmonary disease. Report Dictated By: Ant Tipton MD at 03/14/2018 7:07 PM Report E-Signed By: Ant Tipton MD at 03/14/2018 7:08 PM WSN:[id number]
[2018-03-14 21:50] LABS: PLATELET COUNT, AUTOMATED 264 K/uL (150-450)
--- NOTE | 2018-03-14 22:48 | Miscellaneous Provider Note ---
Miscellaneous Provider Note Note The patient continues to be very somnolent. She had an episode of desaturation and was put on BIPAP. Once on BIPAP, her O2 requirements have come down considerably. After being on BIPAP, she does seem more conversant and followed some commands. She does cough and has a gag reflex. She continues to require Dopamine to maintain pressures. Item Value Date Time White Blood Count 10.7 k/uL 03/14/182136 Neutrophils (%) (Auto) 80.4 % H 03/14/182136 Neutrophils (%) (Auto) 80.3 % H 03/14/18610 White Blood Count 9.0 k/uL 03/14/18610 Arterial Blood pH 7.27 L 03/14/181899 Arterial Blood Partial Pressure CO2 46 mmHg H 03/14/181899 Arterial Blood Partial Pressure O2 238 mmHg *H 03/14/181899 Arterial Blood pH 7.26 L 03/14/182004 Arterial Blood Partial Pressure CO2 45 mmHg H 03/14/182004 Arterial Blood Partial Pressure O2 52 mmHg L 03/14/182004 Arterial Blood pH 7.32 L 03/14/182136 Arterial Blood Partial Pressure CO2 35 mmHg 03/14/182136 Arterial Blood Partial Pressure O2 80 mmHg 03/14/182136 Total Bilirubin 0.4 mg/dl 03/14/182136 Aspartate Amino Transf (AST/SGOT) 31 U/L 03/14/182136 Alanine Aminotransferase (ALT/SGPT) 30 U/L 03/14/182136 Alkaline Phosphatase 80 U/L 03/14/182136 Lactate 0.7 mmol/L 03/14/182136 C-Reactive Protein 6.2 mg/dl H 03/14/182136 The etiology of AMS, requirement for pressor support, and low tidal volumes seems to be related to the infusion of fosphenytoin and likely exacerbated by the Ativan. She is afebrile. WBC is wnl. CXR is clear. Her CRP is elevated and it was normal 6 days ago. Will recheck in the morning. CT of the head early this morning was unchanged from admission (which showed improvement in the size of all the brain mets). She might need a LP and brain MRI if symptoms don't improve. I have tried to call her on two occasions this evening but he did not answer. I left messages to call the ICU. We don't have any other numbers to contact. STEPH GUNDERSON MD Mar 14, 2018 22:48
[2018-03-15] VITALS (62 sets, daily range): BP systolic 87–151; BP diastolic 30–76
[2018-03-15] MEDS: DOPamine/DEXTRO(*) 1600 MCG/ML 250 ML IV PRN (03:30)
[2018-03-15 05:20] LABS: PLATELET COUNT, AUTOMATED 238 K/uL (150-450)
[2018-03-15] MEDS: NS(*) 0.9% 1000 ML BAG 1,000 ML IV PRN ×2 (05:24→14:04)
[2018-03-15 08:32] LABS: INR 1.07
[2018-03-15] MEDS: PANTOPRAZOLE SOD 40 MG IV VIAL IVP SCH (09:00)
[2018-03-15] MEDS: levETIRAcetam(*)500 MG/5 ML VI 500 MG in NS(*) 0.9% 100 ML BAG 100 ML IV SCH ×2 (09:02→20:38)
--- NOTE | 2018-03-15 11:12 | Hospitalist Progress Note ---
Subjective Progress Notes Subjective She will respond to tactile stimuli and will try to open her eyes to verbal stimuli. No fever. She has tolerated the BiPAP fairly well. Physical Exam Vital Signs Date Time Temp Pulse Resp B/P (MAP) Pulse Ox O2 Delivery O2 Flow Rate FiO2 03/15/18 10:37 57 03/15/18 10:30 25 114/43 (66) 99 Bi-PAP 25.0 03/15/18 07:00 97.9 03/15/18 05:15 1.0 Intake and Output 03/16/18 06:59 Intake Total 120 ml Output Total 100 ml Balance 20 ml IV Total 120 ml Output Urine Total 100 ml General Appearance: Other (somnolent on BiPAP, but does arouse to verbal and tactile stimuli) Neuro: Other (she does move all four extremities) Eyes: PERRLA ENT: Other (BiPAP full-face mask in place) Cardiovascular: Regular Rate and Rhythm Respiratory: Other (few scattered rhonchi) GI: Soft and Non-Tender (BS present) Extremities: Warm, Perfused Result Diagram: 03/15/18 0510 03/15/18 05 Item Value Date Time Prothrombin Time 14.0 seconds 03/15/18 0820 Prothromb Time International Ratio 1.07 03/15/18 0820 C-Reactive Protein 8.3 mg/dl H 03/15/18 0510 Albumin 2.8 g/dl L 03/15/18 0510 Total Protein 5.3 g/dl L 03/15/18 0510 Alkaline Phosphatase 71 U/L 03/15/18 0510 Alanine Aminotransferase (ALT/SGPT) 24 U/L 03/15/18 0510 Aspartate Amino Transf (AST/SGOT) 24 U/L 03/15/18 0510 Magnesium Level 2.1 mg/dl 03/15/18 0510 Calcium Level 7.8 mg/dl L 03/15/18 0510 Assessment and Plan Problems: (1) Seizure Status: Acute Assessment & Plan: She had 2 seizures after admission. She was loaded with Fosphenytoin, but then became hypotensive and bradycardic, so was started on Dopamine. She has now been switched to IV Keppra. Repeat head CT was unchanged. Ertapenem does carry an increased seizure risk, so it has been stopped. Will get LP for CSF analysis to evaluate for potential infectious causes or possibly small cell involvement. (2) Altered mental state Status: Acute Assessment & Plan: She did present with altered mental status, which may be related to being post-ictal from seizures. A CT scan of the head was negative for acute pathology. It was noted that her metastatic tumor in the frontal lobe was actually decreased in size and she also has findings consistent with radiation therapy. She did appear to be at/near her baseline prior to the seizures. She is still quite somnolent, but slightly improved on BiPAP. Will get LP as noted above. (3) Otitis media Status: Acute Assessment & Plan: Exudative type on the right and with concern of mastoiditis. Culture from the ear in December grew E. Coli. This has been on ongoing issue for her. She is followed by Dr. Brown and has been receiving what appears to be a 21 day treatment with ertapenem. Currently, there is no erythema or discharge from the TM. Dr. Perez (ID) recommended no further antibiotics at this time because there doesn't appear to be signs of infection and she has had almost 2 weeks of treatment. It is possible the ertapenem may have lowered her seizure threshold. (4) Small cell lung cancer Status: Chronic Assessment & Plan: She is followed by Dr. Burkett in the [facility]. (5) HTN (hypertension) Status: Chronic Assessment & Plan: She is on chronic treatment with hydralazine, metoprolol, clonidine, and lisinopril. These are currently all on hold due to hypotension. (6) DM (diabetes mellitus) Status: Chronic Assessment & Plan: She is on chronic treatment with metformin (on hold). We have placed her on sliding scale level #2. Exam Sepsis Risk: No Definite Risk Problem Qualifiers (1) Altered mental state: Altered mental status type: disorientation Qualified Codes: R41.0 - Disorientation, unspecified (2) HTN (hypertension): Hypertension type: essential hypertension Qualified Codes: I10 - Essential ( primary) hypertension (3) DM (diabetes mellitus): Diabetes mellitus type: type 2 VITO SMITH MD Mar 15, 2018 11:12
[2018-03-15] MEDS ORDERED: LORazepam 2 MG/ML VIAL IVP ONE (13:30)
[2018-03-15] MEDS: NS 0.9% IVPB SCH (16:28)
[2018-03-15] MEDS: ACYCLOVIR IVPB SCH (16:28)
[2018-03-15] MEDS: D5 1/2 NS(*) 1000 ML BAG 1,000 ML IV PRN (18:36)
[2018-03-16] VITALS (47 sets, daily range): BP systolic 105–170; BP diastolic 42–75
[2018-03-16] MEDS: NS 0.9% IVPB SCH ×4 (00:11→23:38)
[2018-03-16] MEDS: ACYCLOVIR IVPB SCH ×4 (00:11→23:38)
[2018-03-16] MEDS: D5 1/2 NS(*) 1000 ML BAG 1,000 ML IV PRN ×2 (05:38→15:51)
[2018-03-16 06:00] LABS: PLATELET COUNT, AUTOMATED 208 K/uL (150-450)
--- NOTE | 2018-03-16 06:50 | RADIOLOGY IMAGING REPORT ---
FACILITY: [facility] - [place] PATIENT NAME: Lucy Peralta : 1950 MR: [id number] V: [id number] EXAM DATE: ORDERING PHYSICIAN: VITO SMITH TECHNOLOGIST: Location: [facility] - [place] Patient: Lucy Peralta : 1950 Visit/Account:[id number] Date of Sevice: 03/16/2018 EXAMINATION: Chest radiograph HISTORY: Hypoxia COMPARISON: March 14, 2018, March 12, 2018, chest CT October 06, 2017 FINDINGS: The cardiac silhouette is normal in size. Unchanged right chest wall port with catheter tip in the lo wer SVC. No pneumothorax. Nodule projecting over the left lower lung measures 2.3 cm, this measures up to 1.5 cm on the October 06, [address] Otherwise clear lungs. No osseous abnormality. IMPRESSION: 2.3 cm left lower lung nonspecific nodule has increased in size compared to October 06, 2017 CT nory rison allowing for technique differences. A malignant nodule cannot be excluded given interval change. Recommend chest CT for further characterization to allow for more accurate comparison to prior chest CT. Report Dictated By: Melvin Shoemaker MD at 03/16/2018 6:43 AM Report E-Signed By: Melvin Shoemaker MD at 03/16/2018 6:47 AM [id number]
[2018-03-16] MEDS: KCL 20 MEQ/50 ML PREMIX 50 ML IVPB SCH ×2 (07:43→09:59)
--- NOTE | 2018-03-16 08:56 | Medical Nutrition Therapy ---
Nutrition Anthropometrics Height (Inches): 67.00 Height (Calculated Centimeters: 170.715840 Weight (Pounds): 177 Weight (Calculated Kilograms): 80.513 Vinicius Nutrition Score: Very Poor Vinicius Nutrition Risk Score: 13 Dietary Referral Nutrition Risk Factors: Unplanned Loss >10lbs Nutrition Risk Comment: TASTE HAS BEEN POOR Physical Findings Physical Appearance: Overweight BMI 25-29 Skin Appearance Skin Appearance: Edema Edema Location Modifier: Right Edema Location: Foot Type of Edema: Degree of Edema: Gastrointestinal Symptoms GI Symtoms: Tube Present: Bowel Sounds: Recent Bowel Pattern: Stool Characteristics: Nutritional Diagnosis Nutritional Risk Acuity 2: Head/Neck/GI Cancer Nutritional Risk Acuity 3: Weight Loss, Cancer Past Medical History: HTN, DM-II, ZENAIDA, Obesity, Hypothyroidism, UE-DVT, A.Fib, 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 Energy Requirement: 1974 (Mcintosh-St Jeor: Actual BW X 1.5) Protein Requirement: 76 (Actual BW Kg X 1.0) Fluid Requirement: 1974 Diet Type: Diabetic Nutrition Intervention: Cont diet as ordered Diet Comment To RSA: ADD PROTEIN POWDER TO APPROPRIATE FOODS Nutritional Support Current Enteral / Parental: Tube Feeding Tube Feeding Supplement Streng: Full Rate: Initial rate 30ml, increase rate 10ml Q6 hrs final rate 80ml Current Duration: 24 Current Calories: 2035 Current Protein: 85 Total Current Calories: 2035kcal Recommended Enteral / Parental: Tube Feeding Recommended Tube Feeding Formu: Glucerna 1cal/ml-Diabetic Tube Feeding Supplement Streng: Full Recommended Rate: initial rate 30cc, increase rate by 10cc eveyr 6 hr for 24hr Recommended Goal Rate: 80 Recommended Duration: 24 (24) Recommended Calories: 1920 Recommended Protein: 80 Total Recommended Calories: 1920 kcal Nutrition Monitoring & Eval RD Patient Assessment Time: [address] Assessment Type: RD Assessment Patient Nutrition Acuity: 2-Moderate Follow Up Date: Mar 19, 2018 Nutritional Comment: Pt admitted with altered mental state. Medical history of lung cancer with brain mets on chemo. Glu 111, Alb 3.4, Low H/H, Low Na/K. Metformin 1000 mg BID and Lispro SSI for T2DM treatment in hospital. Pt overwt with BMI of 26.1. Wt loss during cancer treatment - approx 51# - wt on 08/18/17 was 218# and now 167#. Receiving Diabetes diet with no reports of intake. -DRT 03/16 During the past few days pt has been experiencing seizures. Pt is being treated with IV Keppra. Pt has tolerated the BiPAP fairly well. Pt diet has changed from NPO to Jevity 1 tube feed. Tube feed will be begin at initial rate 30ml and increase 10ml every 6 hours, with final rate 80ml. Tube feeding will be full strength for the duration of 24 hours, providing 2035kcal and 85g protein. Tube feeding will meet 103% of the pt total calories and 111% protein. Pt bloog sugars have remained WNR, however pt may benefit from Glucerna tube feed, which will provide 1920 calories and 80g protein. Glucerna will meet 97% of her calorie needs and 95% protein. Notable labs at this time indicate low Na (133) and K+ (3). Pt has had 3# wt gain since yesterday, wt gain could be related to fluid retention. Will continue to monitor pt progress, labs and tube fed. -SIMEON GONZALEZ Mar 16, 2018 08:49
[2018-03-16] MEDS: levETIRAcetam(*)500 MG/5 ML VI 500 MG in NS(*) 0.9% 100 ML BAG 100 ML IV SCH ×2 (09:43→21:01)
[2018-03-16] MEDS: PANTOPRAZOLE SOD 40 MG IV VIAL IVP SCH (09:43)
--- NOTE | 2018-03-16 11:18 | Hospitalist Progress Note ---
Subjective Progress Notes Subjective More interactive this morning. No problems overnight. Physical Exam Vital Signs Date Time Temp Pulse Resp B/P (MAP) Pulse Ox O2 Delivery O2 Flow Rate FiO2 03/16/18 10:30 98.6 97 16 157/64 (95) 94 Oxy Mask 0.5 03/16/18 01:30 25.0 Intake and Output 03/17/18 06:59 Intake Total 312 ml Output Total 600 ml Balance -288 ml IV Total 312 ml Output Urine Total 600 ml # Bowel Movements 1 General Appearance: No Acute Distress Neuro: Other (Eyes closed, but opens eyes to voice. Answering questions. Knows she is in the hospital. Doesn't know date.) Cardiovascular: Regular Rate and Rhythm Respiratory: Clear to Auscultation Result Diagram: 03/16/1851403/16/18514 Assessment and Plan Problems: (1) Seizure Status: Acute Assessment & Plan: She had 2 seizures after admission. She was loaded with Fosphenytoin, but then became hypotensive and bradycardic, so was started on Dopamine (which was stopped on 03/15 at 1700). She has now been switched to IV Keppra. Repeat head CT was unchanged. Ertapenem does carry an increased seizure risk, so it has been stopped. LP for CSF analysis done on 03/15 to evaluate for potential infectious causes or possibly small cell involvement. CSF was normal except an elevated protein. Now on acyclovir until PCR results come back. (2) Altered mental state Status: Acute Assessment & Plan: She did present with altered mental status, which may be related to being post-ictal from seizures. A CT scan of the head was negative for acute pathology. It was noted that her metastatic tumor in the frontal lobe was actually decreased in size and she also has findings consistent with radiation therapy. She did appear to be at/near her baseline prior to the seizures. She was still quite somnolent, but improving on BiPAP. See above. (3) Anemia Status: Acute Assessment & Plan: No evidence of bleeding. Will check another Hgb today. (4) Otitis media Status: Acute Assessment & Plan: Exudative type on the right and with concern of mastoiditis. Culture from the ear in December grew E. Coli. This has been on ongoing issue for her. She is followed by Dr. Brown and has been receiving what appears to be a 21 day treatment with ertapenem. Currently, there is no erythema or discharge from the TM. Dr. Perez (ID) recommended no further antibiotics at this time because there doesn't appear to be signs of infection and she has had almost 2 weeks of treatment. It is possible the ertapenem may have lowered her seizure threshold. (5) Small cell lung cancer Status: Chronic Assessment & Plan: She is followed by Dr. Burkett in the [facility]. (6) HTN (hypertension) Status: Chronic Assessment & Plan: She is on chronic treatment with hydralazine, metoprolol, clonidine, and lisinopril. These are currently all on hold due to hypotension. (7) DM (diabetes mellitus) Status: Chronic Assessment & Plan: She is on chronic treatment with metformin (on hold). We have placed her on sliding scale level #2. Exam Sepsis Risk: No Definite Risk Problem Qualifiers (1) Altered mental state: Altered mental status type: disorientation Qualified Codes: R41.0 - Disorientation, unspecified (2) HTN (hypertension): Hypertension type: essential hypertension Qualified Codes: I10 - Essential ( primary) hypertension (3) DM (diabetes mellitus): Diabetes mellitus type: type 2 STEPH GUNDERSON MD Mar 16, 2018 11:17
[2018-03-16 13:16] LABS: PLATELET COUNT, AUTOMATED 223 K/uL (150-450)
--- NOTE | 2018-03-16 17:30 | EKG ---
FACILITY: [facility] - [place] PATIENT NAME: TREVER CHUA : [id number] MR: [id number] V: [id number] EXAM DATE: ORDERING PHYSICIAN: STEPH GUNDERSON TECHNOLOGIST: Test Reason : TACHYCARDIA Blood Pressure : / mmHG Vent. Rate : 107 BPM Atrial Rate : 107 BPM P-R Int : 174 ms QRS Dur : 152 ms QT Int : 396 ms P-R-T Axes : 086 266 001 degrees QTc Int : 528 ms Sinus tachycardia Right bundle branch block Abnormal ECG When compared with ECG of 14-MAR-2018 02:31, Sinus rhythm has replaced Junctional rhythm Vent. rate has increased BY 64 BPM Inverted T waves have replaced nonspecific T wave abnormality in Anterior leads QT has lengthened Confirmed by STEPH GUNDERSON ([id number]) on 03/16/2018 5:54:24 PM Referred By: SARAH Confirmed By:STEPH GUNDERSON
[2018-03-16] MEDS: INSULIN HUM LISPRO 100 UN/ML 3 ML VIAL SUBQ PRN (18:06)
[2018-03-16] MEDS: METOPROLOL TART 50 MG TAB PO SCH (21:01)
[2018-03-17] VITALS (24 sets, daily range): BP systolic 125–187; BP diastolic 56–104
[2018-03-17 05:40] LABS: PLATELET COUNT, AUTOMATED 214 K/uL (150-450)
[2018-03-17] MEDS: ACETAMINOPHEN 325 MG TAB PO PRN ×2 (06:17→13:45)
[2018-03-17] MEDS: NS 0.9% IVPB SCH ×3 (08:17→23:30)
[2018-03-17] MEDS: ACYCLOVIR IVPB SCH ×3 (08:17→23:30)
[2018-03-17] MEDS: METOPROLOL TART 50 MG TAB PO SCH ×2 (08:43→20:37)
--- NOTE | 2018-03-17 09:21 | SLP BEDSIDE SWALLOW EVALUATION ---
INITIAL SPEECH THERAPY EVALUATION REPORT Cognitive Communication Assessment Patient Name: Marguerite Brown Date of Evaluation: 03/17/2018 Patient : 1950 Clinician: Candida Zhou M.S., [facility] Treatment Dx: dysphagia BACKGROUND The pt is a 67 year old female who presented to the ED on 03/12 with altered mental status. Pt w/ complex medical hx, including small cell lung cancer w/ metastasis to the brain, COPD, HTN, DM II, GERD, repeated falls, otitis media w / concern for mastoiditis, and pituitary tumor. She has experienced two seizures s/p admission to [facility], and continues w/ AMS. CT head scan was negative for acute pathology. The pt was referred for ST assessment to analyze swallow structure and function in order to assist in making appropriate diet recommendations with decreased risk for respiratory compromise. Primary Medical Diagnosis: Seizure, small cell lung cancer w/ brain mets Pain Scale (0-10): Patient w/ no reports of pain. Appears comfortable. LOC / Participation: Intermittently alert, pleasantly confused, cooperative. Follows instructions: Yes; increased difficulty noted w/ multi-level commands. Orientation: oriented to self, disoriented to location, temporal, and situational concepts. Some possible hallucinations noted (talking to "cat"). SPEECH Articulation of speech sounds at word, sentence, and conversational level is imprecise with slurred consonant production. This may be related to altered mental status and medication regimen. Further assessment is warranted if speech sound errors continue. COGNITIVE LINGUISTIC ASSESSMENT Pt was inappropriate for participation in formal assessment measures at this time. She remains highly disoriented with variable level of alertness, confabulatory comments, and difficulty responding to direct questions. Further assessment may be warranted if underlying cognitive communicative deficits persist following clearance in altered mental status. DISCOURSE SKILLS Functional Not Functional Intermittent INITIATION: Gains attention X Greets others X Asks questions X TOPIC : Responds to Qs X Clarification X Elaboration X EYE CONTACT X CONVERSATION: Interrupts X Speaking turns X NONVERBAL: Nods to acknowledge X Gets attention X DYSPHAGIA Sialorrhea: No Xerostomia: No Hygiene: WFL Supplemental Oxygen Use: No O2 use during evaluation procedures. Respiratory Rate: Normal COPD Dx: Yes. Former smoker. Pain with Swallow: Lingual pain 2/2 lesion resulting from bite down during seizure. Oropharyngeal Structure and Function: Oromotor exam was notable for slowed, laborious movements, decreased coordination, and mild, generalized weakness of oral musculature. Pt w/ full dentition. Hyolaryngeal elevation and excursion were mildly delayed and diminished to palpation. Administered PO trials of thin liquids via straw, pureed solids, mixed consistencies, and soft solids. Pt was also observed w/ medication administration paired w/ thin liquids via straw. Pt unable to self-feed d/t weakness and discoordination w/ difficulty grasping cups and utensils and inability to accurately deliver material to opened oral cavity. Oral phase was characterized by disorganized mastication, incomplete bolus formation, and delayed a-p transit. Pt appeared to initiate swallow prior to complete mastication of material. Minimal post-swallow residue was also observed. Pharyngeally, pt exhibited 1-2 second swallow delay and single cough following trial of soft solids. This may be 2/2 incomplete mastication of material, w/ pt reports of solid textures sticking in throat. Remainder of PO trials were tolerated w/ no overt s/sx of aspiration, including large, successive sips of thin liquids via straw. Small pill was administered via RN and chased w/ thin liquids; tolerated w/ no significant difficulty. Some belching was noted throughout evaluation procedures, in addition to motions toward esophageal hiatus. Pt w/ pmhx of GERD. Overall, pt presents with mild to moderate oropharyngeal dysphagia largely 2/2 generalized weakness, decreased organization and coordination of oropharyngeal musculature, and decreased timing of swallow sequence. Prognosis for improvement is good as altered mental status subsides. Aspiration Risk: minimally elevated risk 2/2 altered mental status and cough response with soft solid textures. Provided education to RN w/ pt present re: diet modification recommendations, minimization of environmental distractions, and need for supervision/feeding w/ meals. 1. Diet: dysphagia II, thin liquids. 2. Medications: Whole, ok with thin liquids as tolerated. 3. Compensatory Techniques: upright positioning during PO intake, small bites/ sips, one at a time, minimize environmental distractions. 4. Supervision with meals/snacks: 1:1 supervision. Pt requires total assistance for feeding. RECOMMENDATIONS 1. ST daily to analyze diet tolerance, provide compensatory strategy training for minimization of aspiration risk, and determine diet upgrades as appropriate. 2. Further cognitive linguistic and speech assessment as appropriate. PROGNOSIS: Good. High PLOF. PLAN OF CARE Short Term Goals 1. Patient and caregivers will receive ongoing education re: safe swallow precautions, diet modification recommendations, and compensatory techniques, and will provide verbal/visual demonstration of comprehension with 80% accuracy , min cues. 2. Patient will participate in food/liquid trials with ST to advance diet as indicated for safe oral intake. 3. Patient will complete further cognitive linguistic assessment to assist in discharge planning and develop recommendations for safer eturn to prior living environment. Mcfp Goals 1. The patient will safely and efficiently tolerate regular diet and thin liquids with independent implementation of safe swallow strategies and minimized s/s of dysphagia. Thank you for this referral. Please call [phone] Candida Zhou M.S., [facility] [*] STACE[place]
[2018-03-17] MEDS: PANTOPRAZOLE SOD 40 MG IV VIAL IVP SCH (09:37)
[2018-03-17] MEDS: levETIRAcetam(*)500 MG/5 ML VI 500 MG in NS(*) 0.9% 100 ML BAG 100 ML IV SCH ×2 (09:40→20:37)
[2018-03-17] MEDS: KCL 20 MEQ/50 ML PREMIX 50 ML IV SCH ×2 (10:40→12:13)
--- NOTE | 2018-03-17 11:23 | Hospitalist Progress Note ---
Subjective Progress Notes Subjective The patient is awake and alert this am. She denies pain. Physical Exam Vital Signs Date Time Temp Pulse Resp B/P (MAP) Pulse Ox O2 Delivery O2 Flow Rate FiO2 03/17/18 08:00 77 03/17/18 08:00 98.0 14 177/80 (112) 94 Room Air 03/17/18 03:31 0.5 03/16/18 01:30 25.0 Intake and Output 03/18/18 07:00 Intake Total 0 ml Output Total 350 ml Balance -350 ml Intake Oral 0 ml Output Urine Total 350 ml General Appearance: Alert, Awake, No Acute Distress Neuro: Other (Some difficulty with word finding and understanding during interview.) Eyes: PERRLA Cardiovascular: Regular Rate and Rhythm Respiratory: Clear to Auscultation GI: Soft and Non-Tender Extremities: Warm, Perfused Psych: Appropriate Mood & Affect Result Diagram: 03/17/18 0510 03/17/18 0510 Item Value Date Time Lactate Dehydrogenase 335 U/L 03/17/18 0510 Iron Level 29 ug/dl L 03/17/18 0510 Total Iron Binding Capacity 150 ug/dl L 03/17/18 0510 Percent Iron Saturation 19.3 % 03/17/18 0510 C-Reactive Protein 15.1 mg/dl H 03/17/18 0510 Total Bilirubin 0.3 mg/dl 03/17/18 0510 Aspartate Amino Transf (AST/SGOT) 19 U/L 03/17/18 0510 Alanine Aminotransferase (ALT/SGPT) 24 U/L 03/17/18 0510 Alkaline Phosphatase 80 U/L 03/17/18 0510 Total Protein 4.6 g/dl L 03/17/18 0510 Albumin 2.4 g/dl L 03/17/18 0510 Calcium Level 8.3 mg/dl L 03/17/18 0510 Absolute Reticulocyte Count 0.0273 10^6/uL 03/17/18 0510 Percent Reticulocyte Count 1.08 % 03/17/18 0510 Corrected Reticulocyte % 0.65 % 03/17/18 0510 Assessment and Plan Problems: (1) Seizure Status: Acute Assessment & Plan: She had 2 seizures after admission. She was loaded with Fosphenytoin, but then became hypotensive and bradycardic, so was started on Dopamine (which was stopped on 03/15 at 1700). She is now on IV Keppra. Repeat head CT was unchanged. Ertapenem does carry an increased seizure risk, so it has been stopped. LP for CSF analysis done on 03/15 to evaluate for potential infectious causes or possibly small cell involvement. CSF was normal except an elevated protein. CSF culture no growth to date. CSF pathology nondiagnostic. Now on acyclovir until PCR results come back. (2) Altered mental state Status: Acute Assessment & Plan: She did present with altered mental status, which may be related to being post-ictal from seizures. A CT scan of the head was negative for acute pathology. It was noted that her metastatic tumor in the frontal lobe was actually decreased in size and she also has findings consistent with radiation therapy. She was initially somnolent due to medications and her postictal state. She appears to be at/near her baseline at this point. (3) Anemia Status: Acute Assessment & Plan: No evidence of bleeding. Anemia work up in progress. Hemoglobin improved today. (4) Otitis media Status: Acute Assessment & Plan: Exudative type on the right and with concern of mastoiditis. Culture from the ear in December grew E. Coli. This has been on ongoing issue for her. She is followed by Dr. Brown and has been receiving what appears to be a 21 day treatment with ertapenem. Currently, there is no erythema or discharge from the TM and no tenderness over her mastoid bone. Dr. Perez (ID) recommended no further antibiotics at this time because there doesn't appear to be signs of infection and she has had almost 2 weeks of treatment. It is possible the ertapenem may have lowered her seizure threshold. (5) Small cell lung cancer Status: Chronic Assessment & Plan: She is followed by Dr. Burkett in the [facility]. (6) HTN (hypertension) Status: Chronic Assessment & Plan: She is on chronic treatment with hydralazine, metoprolol, clonidine, and lisinopril. She is currently on metoprolol, hydralazine and lisinopril with hold parameters. Continue to monitor and adjust as needed. (7) DM (diabetes mellitus) Status: Chronic Assessment & Plan: She is on chronic treatment with metformin (on hold). We have placed her on sliding scale level #2. Time Spent on Plan of Care: < 30 min Exam Sepsis Risk: No Definite Risk Problem Qualifiers (1) Altered mental state: Altered mental status type: disorientation Qualified Codes: R41.0 - Disorientation, unspecified (2) HTN (hypertension): Hypertension type: essential hypertension Qualified Codes: I10 - Essential ( primary) hypertension (3) DM (diabetes mellitus): Diabetes mellitus type: type 2 MILTON SMITH MD Mar 17, 2018 11:22
[2018-03-17] MEDS: D5 1/2 NS(*) 1000 ML BAG 1,000 ML IV PRN (12:15)
[2018-03-17] MEDS: hydrALAZINE HCL 25 MG TAB PO SCH ×2 (13:45→20:38)
[2018-03-18] VITALS (15 sets, daily range): BP systolic 115–192; BP diastolic 47–88
[2018-03-18 05:46] LABS: PLATELET COUNT, AUTOMATED 234 K/uL (150-450)
[2018-03-18] MEDS: ACYCLOVIR IVPB SCH (07:49)
[2018-03-18] MEDS: NS 0.9% IVPB SCH (07:49)
[2018-03-18] MEDS: hydrALAZINE HCL 25 MG TAB PO SCH ×3 (09:33→20:53)
[2018-03-18] MEDS: levETIRAcetam 500 MG TAB PO SCH ×2 (09:33→20:51)
[2018-03-18] MEDS: METOPROLOL TART 50 MG TAB PO SCH ×2 (09:33→20:51)
[2018-03-18] MEDS: LISINOPRIL 20 MG TAB PO SCH (09:33)
[2018-03-18] MEDS: PANTOPRAZOLE SOD 40 MG TABEC PO SCH (09:33)
--- NOTE | 2018-03-18 10:20 | Hospitalist Progress Note ---
Subjective Progress Notes Subjective This patient was admitted for weakness, but then she had seizures and hypotension. She had no acute changes overnight. Patient Complains of: Cardiovascular: No: Chest Pain Respiratory: No: Shortness of Breath Physical Exam Vital Signs Date Time Temp Pulse Resp B/P (MAP) Pulse Ox O2 Delivery O2 Flow Rate FiO2 03/18/18 08:27 77 03/18/18 08:27 96 Oxy Mask 1.0 03/18/18 08:00 98.0 15 175/72 (106) 03/16/18 01:30 25.0 Neuro: No Gross deficits Cardiovascular: Regular Rate and Rhythm Respiratory: Clear to Auscultation Extremities: No Edema Integumentary: No Cyanosis Result Diagram: 03/18/18 0535 03/18/18 0535 Item Value Date Time Gram Stain - Final Resulted 03/15/18 1345 Cerebrospinal Fluid Assessment and Plan Problems: (1) Seizure Status: Acute Assessment & Plan: She had 2 seizures after admission. She was loaded with Fosphenytoin, but then became hypotensive and bradycardic. She is now on treatment with Keppra, and has remained seizure free. She did have a spinal tap and her CSF culture was negative. (2) Altered mental state Status: Acute Assessment & Plan: She did present with altered mental status, which may be related to being post-ictal from seizures. A CT scan of the head was negative for acute pathology. It was noted that her metastatic tumor in the frontal lobe was actually decreased in size and she also has findings consistent with radiation therapy. (3) Anemia Status: Acute Assessment & Plan: She has had a chronic anemia over the last year. Iron studies seem to indicate that this is an anemia of chronic disease. (4) Otitis media Status: Acute Assessment & Plan: Exudative type on the right and with concern of mastoiditis. Culture from the ear in December grew E. Coli. This has been on ongoing issue for her. She is followed by Dr. Brown and has been receiving what appears to be a 21 day treatment with ertapenem. Currently, there is no erythema or discharge from the TM and no tenderness over her mastoid bone. Dr. Perez (ID) recommended no further antibiotics at this time. (5) Small cell lung cancer Status: Chronic Assessment & Plan: She is [facility]. (6) HTN (hypertension) Status: Chronic Assessment & Plan: She is on chronic treatment with hydralazine, metoprolol, clonidine, and lisinopril. She is currently on metoprolol, hydralazine and lisinopril with hold parameters. (7) DM (diabetes mellitus) Status: Chronic Assessment & Plan: She is on chronic treatment with metformin (on hold). We have placed her on sliding scale level #2. Exam Sepsis Risk: No Definite Risk Problem Qualifiers (1) Altered mental state: Altered mental status type: disorientation Qualified Codes: R41.0 - Disorientation, unspecified (2) HTN (hypertension): Hypertension type: essential hypertension Qualified Codes: I10 - Essential ( primary) hypertension (3) DM (diabetes mellitus): Diabetes mellitus type: type 2 ANISH WASHINGTON DO Mar 18, 2018 10:20
[2018-03-18] MEDS: INSULIN HUM LISPRO 100 UN/ML 3 ML VIAL SUBQ PRN (12:13)
[2018-03-18] MEDS: D5 1/2 NS(*) 1000 ML BAG 1,000 ML IV PRN (13:38)
[2018-03-19 05:41] LABS: PLATELET COUNT, AUTOMATED 236 K/uL (150-450)
[2018-03-19 07:50] VITALS: BP 142/93
[2018-03-19] MEDS: levETIRAcetam 500 MG TAB PO SCH ×2 (09:10→20:55)
[2018-03-19] MEDS: PANTOPRAZOLE SOD 40 MG TABEC PO SCH (09:10)
[2018-03-19] MEDS: METOPROLOL TART 50 MG TAB PO SCH ×2 (09:11→20:55)
[2018-03-19] MEDS: LISINOPRIL 20 MG TAB PO SCH (09:11)
[2018-03-19] MEDS: hydrALAZINE HCL 25 MG TAB PO SCH ×3 (09:11→20:54)
[2018-03-19 11:06] VITALS: BP 167/77
--- NOTE | 2018-03-19 11:25 | Hospitalist Progress Note ---
Subjective Progress Notes Subjective She is awake and alert. She converses very well. She is unsure as to day and date. She is able to correctly state her date of . Physical Exam Vital Signs Date Time Temp Pulse Resp B/P (MAP) Pulse Ox O2 Delivery O2 Flow Rate FiO2 03/19/18 11:06 97.8 70 18 167/77 (107) 97 Room Air 03/18/18 21:02 0.5 03/16/18 01:30 25.0 Intake and Output 03/20/18 07:00 Intake Total 236 ml Balance 236 ml Intake Oral 236 ml # Bowel Movements 1 General Appearance: Alert, Awake Neuro: Other (generalized weakness, but no obvious focal deficits) ENT: Other (cushingoid facies/right external canal and TM appear grossly normal and left has some adherent cerumen) Cardiovascular: Regular Rate and Rhythm Respiratory: Clear to Auscultation GI: Soft and Non-Tender Extremities: Warm, Perfused Integumentary: Generalized Fragile Skin Result Diagram: 03/19/18 0502 03/19/18 0502 Assessment and Plan Problems: (1) Seizure Status: Acute Assessment & Plan: She had 2 seizures after admission. She was loaded with Fosphenytoin, but then became hypotensive and bradycardic. She is now on treatment with Keppra, and has remained seizure free. She did have a spinal tap and her CSF culture was negative. (2) Altered mental state Status: Acute Assessment & Plan: She did present with altered mental status, which may be related to being post-ictal from seizures. A CT scan of the head was negative for acute pathology. It was noted that her metastatic tumor in the frontal lobe was actually decreased in size and she also has findings consistent with radiation therapy. She is much improved today as compared to when I saw her last (03/15). She is still rather weak and will probably need some ongoing rehabilitative therapy. (3) Anemia Status: Acute Assessment & Plan: She has had a chronic anemia over the last year. Iron studies seem to indicate that this is an anemia of chronic disease. (4) Otitis media Status: Acute Assessment & Plan: Exudative type on the right and with concern of mastoiditis. Culture from the ear in December grew E. Coli. This has been on ongoing issue for her. She is followed by Dr. Brown and had been receiving what appears to be a 21 day treatment with ertapenem. Currently, there is no erythema or discharge from the TM and no tenderness over her mastoid bone. Dr. Perez (ID) recommended no further antibiotics at this time. (5) Small cell lung cancer Status: Chronic Assessment & Plan: She is followed by Dr. Burkett in the [facility]. (6) HTN (hypertension) Status: Chronic Assessment & Plan: She is on chronic treatment with hydralazine, metoprolol, clonidine, and lisinopril. She is currently on metoprolol, hydralazine and lisinopril with hold parameters. (7) DM (diabetes mellitus) Status: Chronic Assessment & Plan: She is on chronic treatment with metformin (on hold). We have placed her on sliding scale level #2. Exam Sepsis Risk: No Definite Risk Problem Qualifiers (1) Altered mental state: Altered mental status type: disorientation Qualified Codes: R41.0 - Disorientation, unspecified (2) HTN (hypertension): Hypertension type: essential hypertension Qualified Codes: I10 - Essential ( primary) hypertension (3) DM (diabetes mellitus): Diabetes mellitus type: type 2 VITO SMITH MD Mar 19, 2018 11:25
--- NOTE | 2018-03-19 11:31 | Medical Nutrition Therapy ---
Nutrition Anthropometrics Height (Inches): 67.00 Height (Calculated Centimeters: 170.534854 Weight (Pounds): 180 Weight (Calculated Kilograms): 81.647 Vinicius Nutrition Score: Probably Inadequate Vinicius Nutrition Risk Score: 16 Dietary Referral Nutrition Risk Factors: Unplanned Loss >10lbs Nutrition Risk Comment: TASTE HAS BEEN POOR Physical Findings Physical Appearance: Overweight BMI 25-29 Skin Appearance Skin Appearance: Edema Edema Location Modifier: Right Edema Location: Foot Type of Edema: Degree of Edema: Gastrointestinal Symptoms GI Symtoms: Tube Present: Bowel Sounds: Recent Bowel Pattern: Stool Characteristics: Nutritional Diagnosis Nutritional Risk Acuity 2: Head/Neck/GI Cancer Nutritional Risk Acuity 3: Weight Loss, Cancer Past Medical History: HTN, DM-II, ZENAIDA, Obesity, Hypothyroidism, UE-DVT, A.Fib, 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 Energy Requirement: 1974 (Cotton-St Jeor: Actual BW X 1.5) Protein Requirement: 76 (Actual BW Kg X 1.0) Fluid Requirement: 1974 Diet Type: Dysphagia Stage 3 Nutrition Intervention: Cont diet as ordered Diet Comment To RSA: ADD PROTEIN POWDER TO APPROPRIATE FOODS Nutrition Monitoring & Eval RD Patient Assessment Time: [address] Assessment Type: RD Re-Assessment Patient Nutrition Acuity: 2-Moderate Follow Up Date: Mar 23, 2018 Nutritional Comment: Pt admitted with altered mental state. Medical history of lung cancer with brain mets on chemo. Glu 111, Alb 3.4, Low H/H, Low Na/K. Metformin 1000 mg BID and Lispro SSI for T2DM treatment in hospital. Pt overwt with BMI of 26.1. Wt loss during cancer treatment - approx 51# - wt on 08/18/17 was 218# and now 167#. Receiving Diabetes diet with no reports of intake. -DRT 03/16 During the past few days pt has been experiencing seizures. Pt is being treated with IV Keppra. Pt has tolerated the BiPAP fairly well. Pt diet has changed from NPO to Jevity 1 tube feed. Tube feed will be begin at initial rate 30ml and increase 10ml every 6 hours, with final rate 80ml. Tube feeding will be full strength for the duration of 24 hours, providing 2035kcal and 85g protein. Tube feeding will meet 103% of the pt total calories and 111% protein. Pt bloog sugars have remained WNR, however pt may benefit from Glucerna tube feed, which will provide 1920 calories and 80g protein. Glucerna will meet 97% of her calorie needs and 95% protein. Notable labs at this time indicate low Na (133) and K+ (3). Pt has had 3# wt gain since yesterday, wt gain could be related to fluid retention. Will continue to monitor pt progress, labs and tube fed. -MT 03/19 [employer] eval indicated need for dysphagia 2 diet. Currently recieving speech therapy daily and diet was advanced to dysphagia 3 on 03/18. Intake ranging from 75-100% of most meals and suppl, with occasional refusal of meals. Notable labs include very low H/H, Na 134, BUN 6, glc 109-157, CRP 16.4 (03/18), Vit B12 146 (03/17), phos 2.4 (03/16), Mg 1.8 (03/17). Wt is 179# which is up 5.5# from admission. Will cont to monitor and encourage intake.-LISBETH ST Mar 19, 2018 11:31
[2018-03-19 14:35] VITALS: BP 155/81
[2018-03-19 19:03] VITALS: BP 184/79
[2018-03-19 23:13] VITALS: BP 157/77
[2018-03-20 03:40] VITALS: BP 142/44
[2018-03-20 07:02] LABS: PLATELET COUNT, AUTOMATED 258 K/uL (150-450)
[2018-03-20 07:39] VITALS: BP 121/60
[2018-03-20 08:43] VITALS: BP 136/65
[2018-03-20] MEDS: levETIRAcetam 500 MG TAB PO SCH ×2 (09:49→20:38)
[2018-03-20] MEDS: PANTOPRAZOLE SOD 40 MG TABEC PO SCH (09:49)
[2018-03-20] MEDS: LISINOPRIL 20 MG TAB PO SCH (09:50)
[2018-03-20] MEDS: METOPROLOL TART 50 MG TAB PO SCH ×2 (09:50→20:38)
[2018-03-20] MEDS: hydrALAZINE HCL 25 MG TAB PO SCH ×3 (09:51→20:38)
--- NOTE | 2018-03-20 10:52 | Hospitalist Progress Note ---
Subjective Progress Notes Subjective No concerns from the patient. Staff reporting that the patient slept a lot of the day, yesterday. Physical Exam Vital Signs Date Time Temp Pulse Resp B/P (MAP) Pulse Ox O2 Delivery O2 Flow Rate FiO2 03/20/18 09:59 93 Nasal Cannula 0.5 03/20/18 08:43 98.1 66 16 136/65 (88) Intake and Output 03/21/18 07:00 Intake Total 236 ml Balance 236 ml Intake Oral 236 ml General Appearance: Alert, Awake, No Acute Distress Neuro: No Gross deficits (Knows year and why she is in the hospital. She was off one month.) Result Diagram: 03/20/1851503/20/18515 Assessment and Plan Problems: (1) Seizure Status: Acute Assessment & Plan: She had 2 seizures after admission. She was loaded with Fosphenytoin, but then became hypotensive and bradycardic. Ertapenem was stopped (which she had been receiving as an outpatient). She is now on treatment with Keppra, and has remained seizure free. She did have a spinal tap and her CSF culture was negative. (2) Altered mental state Status: Acute Assessment & Plan: She did present with altered mental status, which may be related to being post-ictal from seizures. A CT scan of the head was negative for acute pathology. It was noted that her metastatic tumor in the frontal lobe was actually decreased in size and she also has findings consistent with radiation therapy. She improving daily. She is still rather weak and will probably need some ongoing rehabilitative therapy. (3) Anemia Status: Acute Assessment & Plan: Improving. She has had a chronic anemia over the last year. Iron studies seem to indicate that this is an anemia of chronic disease. (4) Otitis media Status: Acute Assessment & Plan: Exudative type on the right and with concern of mastoiditis. Culture from the ear in December grew E. Coli. This has been on ongoing issue for her. She is followed by Dr. Brown and had been receiving what appears to be a 21 day treatment with ertapenem. Currently, there is no erythema or discharge from the TM and no tenderness over her mastoid bone. Dr. Perez (ID) recommended no further antibiotics at this time. However, her CRP continues to increase and it was normal on 03/08. Will follow. (5) Small cell lung cancer Status: Chronic Assessment & Plan: She is followed by [facility]ett [facility]. (6) HTN (hypertension) Status: Chronic Assessment & Plan: She is on chronic treatment with hydralazine, metoprolol, clonidine, and lisinopril. She is currently on metoprolol, hydralazine and lisinopril with hold parameters. (7) DM (diabetes mellitus) Status: Chronic Assessment & Plan: She is on chronic treatment with metformin (on hold). We have placed her on sliding scale level #2. Exam Sepsis Risk: No Definite Risk Problem Qualifiers (1) Altered mental state: Altered mental status type: disorientation Qualified Codes: R41.0 - Disorientation, unspecified (2) HTN (hypertension): Hypertension type: essential hypertension Qualified Codes: I10 - Essential ( primary) hypertension (3) DM (diabetes mellitus): Diabetes mellitus type: type 2 STEPH GUNDERSON MD Mar 20, 2018 10:52
[2018-03-20 13:59] VITALS: BP 150/71
[2018-03-20 14:40] VITALS: BP 150/71
[2018-03-20 20:33] VITALS: BP 143/67
[2018-03-21 03:29] VITALS: BP 115/48
[2018-03-21 07:24] VITALS: BP 149/62
[2018-03-21] MEDS: PANTOPRAZOLE SOD 40 MG TABEC PO SCH (08:48)
[2018-03-21] MEDS: levETIRAcetam 500 MG TAB PO SCH (08:48)
[2018-03-21] MEDS: METOPROLOL TART 50 MG TAB PO SCH (08:49)
[2018-03-21] MEDS: hydrALAZINE HCL 25 MG TAB PO SCH (08:49)
[2018-03-21] MEDS: LISINOPRIL 20 MG TAB PO SCH (08:50)
[2018-03-21 08:54] VITALS: BP 154/67
[2018-03-21] MEDS ORDERED: VANCOMYCIN HCL 125 MG CAPSULE PO SCH (09:00)
--- NOTE | 2018-03-21 09:55 | Hospitalist Progress Note ---
Subjective Progress Notes Subjective This patient was admitted for altered mental status. She had no acute events overnight. Patient Complains of: Cardiovascular: No: Chest Pain Respiratory: No: Shortness of Breath Physical Exam Vital Signs Date Time Temp Pulse Resp B/P (MAP) Pulse Ox O2 Delivery O2 Flow Rate FiO2 03/21/18 08:54 66 154/67 (96) 03/21/18 07:25 97 Nasal Cannula 0.5 03/21/18 07:24 97.5 14 Intake and Output 03/22/18 07:00 # Voids 1 # Bowel Movements 1 Cardiovascular: Regular Rate and Rhythm Respiratory: Clear to Auscultation Extremities: No Edema Integumentary: No Cyanosis Result Diagram: 03/20/1851503/20/18515 Item Value Date Time Clostridium Difficile Toxin A & B Negative 03/20/181999 Clostridium difficile Antigen Positive 03/20/181999 Assessment and Plan Problems: (1) Seizure Status: Acute Assessment & Plan: She had 2 seizures after admission. She was loaded with Fosphenytoin, but then became hypotensive and bradycardic. Ertapenem was stopped (which she had been receiving as an outpatient). She is now on treatment with Keppra, and has remained seizure free. She did have a spinal tap and her CSF culture was negative. (2) Altered mental state Status: Acute Assessment & Plan: She did present with altered mental status, which may be related to being post-ictal from seizures. A CT scan of the head was negative for acute pathology. It was noted that her metastatic tumor in the frontal lobe was actually decreased in size and she also has findings consistent with radiation therapy. (3) Anemia Status: Acute Assessment & Plan: She has had a chronic anemia over the last year. Iron studies seem to indicate that this is an anemia of chronic disease. (4) Otitis media Status: Acute Assessment & Plan: Exudative type on the right and with concern of mastoiditis. Culture from the ear in December grew E. Coli. This has been on ongoing issue for her. She is followed by Dr. Brown and had been receiving what appears to be a 21 day treatment with ertapenem. Currently, there is no erythema or discharge from the TM and no tenderness over her mastoid bone. Dr. Perez (ID) recommended no further antibiotics at this time. (5) Small cell lung cancer Status: Chronic Assessment & Plan: She is followed by Dr[facility]ett [facility]. (6) HTN (hypertension) Status: Chronic Assessment & Plan: She is on chronic treatment with hydralazine, metoprolol, clonidine, and lisinopril. She is currently on metoprolol, hydralazine and lisinopril with hold parameters. (7) DM (diabetes mellitus) Status: Chronic Assessment & Plan: She is on chronic treatment with metformin (on hold). We have placed her on sliding scale level #2. (8) C. difficile diarrhea Assessment & Plan: She has been having diarrhea over the last several days. Testing for C. difficile was positive for antigen, but negative for toxin. She has been started on oral vancomycin and repeat C. difficile testing has been ordered. Exam Sepsis Risk: No Definite Risk Problem Qualifiers (1) Altered mental state: Altered mental status type: disorientation Qualified Codes: R41.0 - Disorientation, unspecified (2) HTN (hypertension): Hypertension type: essential hypertension Qualified Codes: I10 - Essential ( primary) hypertension (3) DM (diabetes mellitus): Diabetes mellitus type: type 2 ANISH WASHINGTON DO Mar 21, 2018 09:55
[2018-03-21] MEDS ORDERED: HEPARIN FLSH (PORT) 500 UN/5ML ONE (10:27)
--- NOTE | 2018-03-21 10:43 | Hospitalist Depart ---
Discharge Summary Reason for Hosp/Final Diag: (1) Seizure Status: Acute Hospital Course & Plan: She had 2 seizures after admission. She was loaded with Fosphenytoin, but then became hypotensive and bradycardic. Ertapenem was stopped (which she had been receiving as an outpatient). She is now on treatment with Keppra, and has remained seizure free. She did have a spinal tap and her CSF culture was negative. (2) Altered mental state Status: Acute Hospital Course & Plan: She did present with altered mental status, which may be related to being post-ictal from seizures. A CT scan of the head was negative for acute pathology. It was noted that her metastatic tumor in the frontal lobe was actually decreased in size and she also has findings consistent with radiation therapy. (3) Anemia Status: Acute Hospital Course & Plan: She has had a chronic anemia over the last year. Iron studies seem to indicate that this is an anemia of chronic disease. (4) Otitis media Status: Acute Hospital Course & Plan: Exudative type on the right and with concern of mastoiditis. Culture from the ear in December grew E. Coli. This has been on ongoing issue for her. She is followed by Dr. Brown and had been receiving what appears to be a 21 day treatment with ertapenem. Currently, there is no erythema or discharge from the TM and no tenderness over her mastoid bone. Dr. Perez (ID) recommended no further antibiotics at this time. (5) Small cell lung cancer Status: Chronic Hospital Course & Plan: She is followed by [facility]ett [facility]. (6) HTN (hypertension) Status: Chronic Hospital Course & Plan: She is on chronic treatment with hydralazine, metoprolol, clonidine, and lisinopril. She is currently on metoprolol, hydralazine and lisinopril with hold parameters. (7) DM (diabetes mellitus) Status: Chronic Hospital Course & Plan: She is on chronic treatment with metformin (on hold). We have placed her on sliding scale level #2. (8) C. difficile diarrhea Hospital Course & Plan: She has been having diarrhea over the last several days. Testing for C. difficile was positive for antigen, but negative for toxin. She has been started on oral vancomycin and repeat C. difficile testing has been ordered. Departure Latest Vital Signs Vital Signs 6/20/18 03/21/18 03/21/18 03/21/18 03/21/18 01:30 07:24 07:25 08:54 10:17 Temp 97.5 Pulse 66 Resp 14 B/P (MAP) 154/67 (96) Pulse Ox 97 O2 Delivery Nasal Cannula O2 Flow Rate 0.5 FiO2 25.0 Weight (Pounds): 175 Weight (Ounces): 3.0 Result Diagram: 03/20/1851503/20/18515 Condition: Improved Discharge: [facility] PT/OT Follow Up For: PT Evaluation and Treat, OT Evaluation and Treat Discharge Instructions Home Meds Active Scripts Paroxetine Hcl (PAROXETINE HCL) 20 Mg Tablet, 20 MG PO QDAY for 30 Days, Prov:STEPH GUNDERSON MD 08/18/17 Dexamethasone (DEXAMETHASONE) 1 Mg Tab, 2 MG PO DAILY for 7 Days, TAB stop after 7 days Prov:STEPH GUNDERSON MD 08/18/17 Acetaminophen (ACETAMINOPHEN) 500 Mg Tablet, 1000 MG PO Q8H Y for PAIN for 1 Day , Prov:STEPH GUNDERSON MD 08/18/17 Metoprolol Tartrate (METOPROLOL TARTRATE) 50 Mg Tab, 50 MG PO BID for Blood Pressure, #60 TAB 1 Refill Prov:MILTON SMITH MD 07/07/17 Reported Medications Hydralazine Hcl (HYDRALAZINE HCL) 100 Mg Tablet, 100 MG PO TID, TAB 01/27/18 Lisinopril (LISINOPRIL) 40 Mg Tablet, 40 MG PO QDAY, TAB 11/25/17 Oxygen (OXYGEN) Inha, 3.5 L INH, L 3.5 L CPAP 05/19/17 Multivitamin (DAILY MULTIPLE VITAMIN) 1 Each Tablet, 1 TAB PO DAILY 05/19/17 Loperamide HCl (Imodium A-D) Unknown Strength Capsule, PRN 05/19/17 Estropipate (ESTROPIPATE) 1.5 Mg Tablet, 1.5 MG PO QDAY for 90 Days Take 1 pill by mouth daily for 90 days 05/19/17 Diet: Diabetic Activity: As Tolerated, With Walker Special Instructions: Dysphagia Stage 3 Diet Takes pills one at a time with water Ulceration to L tongue Venous Thromboembolism Antithrombotics Is Pt On Any Antithrombotics?: No Problem Qualifiers (1) Altered mental state: Altered mental status type: disorientation Qualified Codes: R41.0 - Disorientation, unspecified (2) HTN (hypertension): Hypertension type: essential hypertension Qualified Codes: I10 - Essential ( primary) hypertension (3) DM (diabetes mellitus): Diabetes mellitus type: type 2 ANISH WASHINGTON DO Mar 21, 2018 10:43
== END 2018-03-21 10:45 | DRG 101 ==
LOC: ER 11:29 → INTOOBSV 15:18 → MED 15:18 → OBSVTOIN 03-14 → ICU 03-14 03:03 → MED 03-18 14:35
PROVIDERS: ADMIT Specialist; ATTEND Specialist
PROC: 009U3ZX Drainage of Spinal Canal, Percutaneous Approach, Diagnostic (ICD-10-PCS; principal; 2018-03-15)
DX: R56.9 Unspecified convulsions (principal); C79.31 Secondary malignant neoplasm of brain; C34.90 Malignant neoplasm of unspecified part of unspecified bronchus or lung; A04.72 Enterocolitis due to Clostridium difficile, not specified as recurrent; T42.0X5A Adverse effect of hydantoin derivatives, initial encounter; Y92.230 Patient room in hospital as the place of occurrence of the external cause; I95.2 Hypotension due to drugs; R00.1 Bradycardia, unspecified; D63.0 Anemia in neoplastic disease; I10 Essential (primary) hypertension; E11.9 Type 2 diabetes mellitus without complications; H66.91 Otitis media, unspecified, right ear; H70.91 Unspecified mastoiditis, right ear; E78.5 Hyperlipidemia, unspecified; J44.9 Chronic obstructive pulmonary disease, unspecified; K21.9 Gastro-esophageal reflux disease without esophagitis; D64.9 Anemia, unspecified; G89.29 Other chronic pain; Z79.4 Long term (current) use of insulin; Z87.891 Personal history of nicotine dependence; Z92.21 Personal history of antineoplastic chemotherapy; Z92.3 Personal history of irradiation; Z88.8 Allergy status to other drugs, medicaments and biological substances; Z99.81 Dependence on supplemental oxygen
CPT/HCPCS: 36415; 36416; 36600; 70450; 71045; 71046; 72125; 80320; 81001; 82040; 82140; 82247; 82310; 82330; 82374; 82375; 82435; 82565; 82607; 82746; 82803; 82945; 82947; 82948; 83010; 83540; 83550; 83605; 83615; 83630; 83735; 84075; 84100; 84132; 84155; 84157; 84295; 84443; 84450; 84460; 84484; 84520; 85025; 85045; 85610; 86140; 87045; 87070; 87205; 87324; 87327; 87449; 87529; 87899; 88104; 89050; 93005; 94660; 97162; 97166; A4353; C9113; G0378; J0133; J0360; J0461; J1265; J1335; J1642; J1650; J1953; J2060; J3475; J3480; J7030; J7050; Q2009

== ENCOUNTER 2018-03-21 10:45 | Inpatient (IN) | payer MEDICARE ==
[2018-03-13 11:36] VITALS: Ht 170.2 cm; Wt 78.0 kg
[~2018-03-21] VITALS: Ht 170.2 cm; Wt 78.0 kg
--- NOTE | 2018-03-21 12:10 | PT ECF NOTE ---
Type of Note: Initial Note Primary Medical Diagnosis: Altered Mental Status, Seizures Physical Therapy Evaluation Date:03/11/18 SUBJECTIVE: Prior Hospitalization: 03/12/18-03/21/18 Prior Level of Function: Valerie with RW Prior Living Status: Single level house, Spouse Community Services: Support adequate, pt resides in [place], [place] and utilizes services of the [facility] Home Accessibility: 2 Stairs Equipment Owned: Front wheeled walker Medical Complications/Past Medical History: HTN, Dyslipidemia, COPD former smoker and alcohol use, DM-II on Metformin 1gm bid, GERD, Chronic Back Pain, Pituitary Tumor and history of small cell lung cancer with metastasis to the brain s/p two rounds of Chemotherapy and Radiation by Dr. Tipton Psychosocial Support: Supportive Pain Scale (0-10): No pain at rest, mild pain of L) foot with ambulation OBJECTIVE: Strength: Right Lower Extremity: DF: 4/5 Knee flexion: 4/5 Knee extension: 4/5 Hip flexion: 3+/5 Left Lower Extremity: DF: 4/5 Knee flexion: 4/5 Knee extension: 4/5 Hip flexion: 3+/5 ROM: WNL Sensation: WNL Other Neuro findings: Non noted Bed Mobility: Pt up in chair, not tested with initial evaluation Transfers: MinAx1 with RW, verbal cues for sequencing Gait: CGA 2x30' with RW Stairs: NT Gait Speed (0.6m/second cannot function independently): 0.18 m/sec ASSESSMENT: PT/OT ECF co eval complete. Pt requires verbal cues to push up from chair instead of pulling up on walker as well as foot placement prior to initiating STS transfer. Pt able to rise to stand with Luisito x1 with cues required to reach back prior to sitting. Pt's main complaint is pain of the dorsum of the L) foot with ambulation. Pt tolerated ambulation 2x30' with use of RW and chair follow. Pt demonstrates fair dynamic balance with turns in room and no LOB noticed. Gait speed measured as 0.18 m/sec, indicating need for interventions to reduce fall risk. Pt is appropriate to ambulate to/from bathroom with nursing staff as tolerated. Pt will benefit from skilled PT services in order to increase independence with functional mobility and decrease need of assistance from others to increase safety with d/c home. Problem List/Current Limitations: Pain Decreased activity reginaldo Decreased strength Decreased balance Generalized weakness Decreased problem solving Short Term Goals: 1: Pt to complete bed mobility with Valerie and HOB flat. 2: Pt to complete transfers with Valerie and least restrictive AD 3: Pt to ambulate 150' with SBA and least restrictive AD 4: Pt to asc/desc 2 stairs with railing and SBA 5: Pt to demonstrate increased gait speed to indicate an improvement in function. Financial Systems Director Goals: Pt to d/c home with assistance from and increased independence Patient Goals: "I want to go home and walk with my walker" Rehabilitation Prognosis: Good Barriers for Discharge: Deconditioning, multiple co-morbidities PLAN: The patient will benefit from skilled physical therapy services 5 times per week for 2 weeks including: Therapeutic Exercise Therapeutic Activities Transfer Training Gait Training Stair Training Manual Therapy Safety Training Neuromuscular Re-educ. Pt/Caregiver Training Bed Mobility Thank you for this referral. If you have any questions, concerns, or comments about this report or plan, please contact me at . Mari Bishop, PT, DPT MTDD
[2018-03-21] MEDS ORDERED: INSULIN HUM LISPRO 100 UN/ML 3 ML VIAL SUBQ PRN (12:18)
[2018-03-21] MEDS ORDERED: ACETAMINOPHEN 325 MG TAB PO PRN (12:18)
--- NOTE | 2018-03-21 12:25 | OT ECF NOTE ---
Type of Note: Initial Note Primary Medical Diagnosis: [facility] Occupational Therapy Evaluation Date: 03-21-18 SUBJECTIVE: Prior Hospitalization: [facility] medical/ICU from 03/12/18 to 03/21/18. Prior Level of Function: Assistance from spouse for some ADL's and cooking. Prior Living Status: Single level house Spouse Community Services: Support adequate Home Accessibility: All needs on one level Equipment Owned: Front wheeled walker Rollator Cane Bath Chair Medical Complications/Past Medical History: Please refer to chart for extensive medical history. Psychosocial Support: Supportive . Pain Scale (0-10): 2/10 in dorsal aspect of left foot. OBJECTIVE: Strength: MMT: Right Left Shoulder Flexion [*] [*] Elbow Flexion [*] [*] Wrist Extension [*] [*] Nursery Worker [*] [*] (5= normal, 4= good, 3= fair, 2= poor, 1= trace) ROM: WFL Functional Transfer: Assistive Device: Front wheeled walker Gait belt Transfer Ability: Minimum assistance 2-person assist- (to perform sit to stand transfer) ADL: Upper body dressing: Assistive device: Upper body dressing ability: N/T Lower body dressing: Assistive device: Lower body dressing ability: N/T Toileting: Assistive device: Toileting ability: N/T Grooming/hygiene: Assistive device: Grooming ability: N/T Bathing: Assistive device: Bathing ability: N/T Standardized Assessment: Fabiola Index of Activities of Daily Living- Pt. scored 10/20 on this Index upon initial evaluation. ASSESSMENT: Pt. is a 67 year old female diagnosed presenting to ER with altered mental status and history of: HTN, Dyslipidemia, COPD former smoker and alcohol use, DM-II on Metformin 1gm bid, GERD, Chronic Back Pain, Pituitary Tumor and history of small cell lung cancer with metastasis to the brain s/p two rounds of Chemotherapy and Radiation. Pt. was admitted to [facility] medical on and was transferred to ICU following two seizures. Pt. resides in [place], [place], with her supportive and was d/c to [facility] for further rehab to increase independence in transfers and ADL's prior to returning home. Prior to [facility] admission, pt. required some assistance with ADL and cooking activities at home. Pt. does rely upon her for transportation to all doctors appointments in [place]. Problem List/Current Limitations: Pain Decreased activity reginaldo Decreased strength Short Term Goals: 1. Pt. to perform toileting activities with Mod I. 2. Pt. to perform showering activities with Min A. 3. Pt. to improve Fabiola Index of ADL score by 2 points. 4. Pt. to perform g/h activities with [place]. 5. Pt. to perform dressing activities with Min A. Control Equipment Electrician Goals: Return to home. Patient Goals: Return to home. Rehabilitation Prognosis: Good Barriers to Discharge: Medical prognosis PLAN: The patient will benefit from skilled occupational therapy services 5 times per week for 2 weeks including: Ther ex ADL training Safety training Ther act IADL training Transfer training Adaptive equip training Bed mobility Thank you for this referral. If you have any questions, concerns, or comments about this report or plan, please contact me at . Maxine Clark OTR/L Occupational Therapist STACEY
[2018-03-21] MEDS: VANCOMYCIN HCL 125 MG CAPSULE PO SCH ×3 (13:39→21:05)
[2018-03-21 14:40] VITALS: BP 176/62
[2018-03-21] MEDS: hydrALAZINE HCL 25 MG TAB PO SCH ×2 (14:43→21:05)
--- NOTE | 2018-03-21 15:46 | Consultant Pharmacy Review ---
Special Forces Officer Review Medication Review Do All Mecications have a Diag: Yes Beers Criteria Medication 2014 Sliding Scale Insulin: Slidin Scale Insulin (DM TYPE 2) Proton Pump Inhibitors: Pantoprazole (HX OF REFLUX) Other General Cautions No drug interactions at this time. Patient is on several antihypertensives with administration parameters. Patient is also taking Vanco PO for c-diff infection. Pneumococcal Vaccine HX Pneumo Vac ([id number]): Yes Notified? Notified?: No KARINA FERGUSON Mar 21, 2018 15:46
--- NOTE | 2018-03-21 15:56 | Medical Nutrition Therapy ---
Nutrition Anthropometrics Height (Inches): 67 Weight (Pounds): 177 BMI: 28 Vinicius Nutrition Score: Vinicius Nutrition Risk Score: Dietary Referral Nutrition Risk Factors: Unplanned Loss >10lbs Nutrition Risk Comment: TASTE HAS BEEN POOR Physical Findings Physical Appearance: Overweight BMI 25-29 Skin Appearance Skin Appearance: Edema Edema Location Modifier: Edema Location: Type of Edema: Degree of Edema: Gastrointestinal Symptoms GI Symtoms: Tube Present: Bowel Sounds: Recent Bowel Pattern: Stool Characteristics: Nutritional Diagnosis Nutritional Risk Acuity 2: Head/Neck/GI Cancer Nutritional Risk Acuity 3: Weight Loss, Cancer Past Medical History: HTN, DM-II, ZENAIDA, Obesity, Hypothyroidism, UE-DVT, A.Fib, 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 Energy Requirement: 1557 (Hariss Bendict Adj BMI >27.5) Protein Requirement: 80 (1kg/kg Act. BW ) Fluid Requirement: 2406 (30ml/kg ) Diet Type: Dysphagia Stage 3 Nutrition Intervention: Encourage intake, HS snack, Incr diet as tolerated Diet Comment To RSA: OFFER NUTRITION SUPPLEMENT AND ADD PROTEIN POWDER TO APPROPRIATE FOODS Nutrition Monitoring & Eval Nutrition Goals: Eat 50-100% Meal RD Patient Assessment Time: [address] Assessment Type: RD Assessment Patient Nutrition Acuity: 2-Moderate Follow Up Date: Mar 29, 2018 Nutritional Comment: 03/21 Pt was transferred from med/surg to [facility] for weakness, altered mental status and seizures. Pt is working with PT to regain her strength. Pt is on dysphagia 3 diet with no intake wt was (218) in Jul 2017. Unknown causes of wt loss during that duration. Possible cause could be pt was diagnosed with small cell lung cancer. Provide documented since floor transfer. Per nurses note pt has had 10% wt loss. Pt had stated wt (175) and stated she had lost 10# in the past month. Pt was (167) upon admitting and discharged at (175) her usual wt. Pt did have +1 edema. Pt nutrition supplement to ensure pt meets calories needs, along with adding protein powered to appropriate foods. Pt has low alb (2.3), Vitamin B12 (146), BUN (6), and Na (134). Will continue to monitor pt progress, labs and encourage intake. -SIMEON GONZALEZ Mar 21, 2018 12:36
[2018-03-21 20:30] VITALS: BP 120/58
[2018-03-21] MEDS: METOPROLOL TART 50 MG TAB PO SCH (20:58)
[2018-03-21] MEDS: levETIRAcetam 500 MG TAB PO SCH (21:05)
[2018-03-22 07:35] VITALS: BP 142/84
[2018-03-22] MEDS: LISINOPRIL 20 MG TAB PO SCH (09:30)
[2018-03-22] MEDS: levETIRAcetam 500 MG TAB PO SCH ×2 (09:30→21:15)
[2018-03-22] MEDS: VANCOMYCIN HCL 125 MG CAPSULE PO SCH ×4 (09:31→21:15)
[2018-03-22] MEDS: METOPROLOL TART 50 MG TAB PO SCH ×2 (09:31→21:14)
[2018-03-22] MEDS: PANTOPRAZOLE SOD 40 MG TABEC PO SCH (09:34)
[2018-03-22] MEDS: hydrALAZINE HCL 25 MG TAB PO SCH ×3 (09:34→21:15)
[2018-03-22 13:17] VITALS: BP 156/86
[2018-03-22 16:45] VITALS: BP 158/78
[2018-03-23 08:40] VITALS: BP 117/72
[2018-03-23] MEDS: METOPROLOL TART 50 MG TAB PO SCH ×2 (09:00→20:53)
[2018-03-23] MEDS: LISINOPRIL 20 MG TAB PO SCH (09:00)
[2018-03-23] MEDS: hydrALAZINE HCL 25 MG TAB PO SCH ×3 (09:00→20:53)
[2018-03-23] MEDS: levETIRAcetam 500 MG TAB PO SCH ×2 (09:51→20:53)
[2018-03-23] MEDS: PANTOPRAZOLE SOD 40 MG TABEC PO SCH (09:51)
[2018-03-23] MEDS: VANCOMYCIN HCL 125 MG CAPSULE PO SCH ×4 (09:51→20:53)
[2018-03-23 13:36] VITALS: BP 138/76
--- NOTE | 2018-03-23 15:10 | Hospitalist Progress Note ---
Physical Exam Vital Signs Date Time Temp Pulse Resp B/P (MAP) Pulse Ox O2 Delivery O2 Flow Rate FiO2 03/23/18 13:36 138/76 (96) 03/23/18 11:06 93 Room Air 03/23/18 08:40 98.6 66 18 Intake and Output 03/24/18 07:00 Intake Total 560 ml Balance 560 ml Intake Oral 560 ml # Voids 1 # Bowel Movements 4 Assessment and Plan Problems: (1) Seizure Status: Acute Assessment & Plan: She had 2 seizures after admission. She was loaded with Fosphenytoin, but then became hypotensive and bradycardic. Ertapenem was stopped (which she had been receiving as an outpatient). She is now on treatment with Keppra, and has remained seizure free. She did have a spinal tap and her CSF culture was negative. Her Paxil has been held as it can be associated with seizures rarely. (2) Altered mental state Status: Acute Assessment & Plan: She did present with altered mental status, which may be related to being post-ictal from seizures. A CT scan of the head was negative for acute pathology. It was noted that her metastatic tumor in the frontal lobe was actually decreased in size and she also has findings consistent with radiation therapy. (3) Anemia Status: Acute Assessment & Plan: She has had a chronic anemia over the last year. Iron studies seem to indicate that this is an anemia of chronic disease. (4) Otitis media Status: Acute Assessment & Plan: Exudative type on the right and with concern of mastoiditis. Culture from the ear in December grew E. Coli. This has been on ongoing issue for her. She is followed by Dr. Brown and had been receiving what appears to be a 21 day treatment with ertapenem. Currently, there is no erythema or discharge from the TM and no tenderness over her mastoid bone. Dr. Perez (ID) recommended no further antibiotics at this time. (5) Small cell lung cancer Status: Chronic Assessment & Plan: She is followed by Dr. Burkett in the Cancer Center. (6) HTN (hypertension) Status: Chronic Assessment & Plan: She is on chronic treatment with hydralazine, metoprolol, clonidine, and lisinopril. She is currently on metoprolol, hydralazine and lisinopril with hold parameters. BPs have been reasonable overall with a few high readings and she has missed many doses due to the BP parameters. Continue to monitor. (7) DM (diabetes mellitus) Status: Chronic Assessment & Plan: She is on chronic treatment with metformin which has been held. Her blood sugars have been mostly controlled. We have placed her on sliding scale level #2. She has only required 2 u per SS since transfer to [facility]. (8) C. difficile diarrhea Status: Acute Assessment & Plan: She developed diarrhea and testing for C. difficile was positive. She was started on oral vancomycin. Time Spent on Plan of Care: < 30 min Problem Qualifiers (1) HTN (hypertension): Hypertension type: essential hypertension Qualified Codes: I10 - Essential ( primary) hypertension MILTON SMITH MD Mar 23, 2018 15:10
[2018-03-23 16:25] VITALS: BP 140/60
[2018-03-24] MEDS: LISINOPRIL 20 MG TAB PO SCH (09:00)
[2018-03-24 09:55] VITALS: BP 122/70
[2018-03-24] MEDS: levETIRAcetam 500 MG TAB PO SCH ×2 (10:03→20:22)
[2018-03-24] MEDS: PANTOPRAZOLE SOD 40 MG TABEC PO SCH (10:03)
[2018-03-24] MEDS: hydrALAZINE HCL 25 MG TAB PO SCH ×3 (10:03→20:05)
[2018-03-24] MEDS: METOPROLOL TART 50 MG TAB PO SCH ×2 (10:03→20:05)
[2018-03-24] MEDS: VANCOMYCIN HCL 125 MG CAPSULE PO SCH ×4 (10:05→20:22)
[2018-03-24 14:24] VITALS: BP 142/70
[2018-03-24 17:20] VITALS: BP 110/50
[2018-03-24 20:06] VITALS: BP 110/48
[2018-03-25] MEDS: LISINOPRIL 20 MG TAB PO SCH (09:00)
[2018-03-25 10:23] VITALS: BP 128/72
[2018-03-25] MEDS: METOPROLOL TART 50 MG TAB PO SCH ×2 (10:45→20:17)
[2018-03-25] MEDS: levETIRAcetam 500 MG TAB PO SCH ×2 (10:45→20:16)
[2018-03-25] MEDS: hydrALAZINE HCL 25 MG TAB PO SCH ×3 (10:45→20:17)
[2018-03-25] MEDS: VANCOMYCIN HCL 125 MG CAPSULE PO SCH ×4 (10:45→20:17)
[2018-03-25] MEDS: PANTOPRAZOLE SOD 40 MG TABEC PO SCH (10:45)
--- NOTE | 2018-03-25 14:00 | HISTORY AND PHYSICAL ---
DATE OF ADMISSION: March 21, 2018 Reason for Hosp/Final Diag: (1) Seizure Status: Acute Hospital Course & Plan: She had 2 seizures after admission. She was loaded with Fosphenytoin, but then became hypotensive and bradycardic. Ertapenem was stopped (which she had been receiving as an outpatient). She is now on treatment with Keppra, and has remained seizure free. She did have a spinal tap and her CSF culture was negative. (2) Altered mental state Status: Acute Hospital Course & Plan: She did present with altered mental status, which may be related to being post-ictal from seizures. A CT scan of the head was negative for acute pathology. It was noted that her metastatic tumor in the frontal lobe was actually decreased in size and she also has findings consistent with radiation therapy. (3) Anemia Status: Acute Hospital Course & Plan: She has had a chronic anemia over the last year. Iron studies seem to indicate that this is an anemia of chronic disease. (4) Otitis media Status: Acute Hospital Course & Plan: Exudative type on the right and with concern of mastoiditis. Culture from the ear in December grew E. Coli. This has been on ongoing issue for her. She is followed by Dr. Brown and had been receiving what appears to be a 21 day treatment with ertapenem. Currently, there is no erythema or discharge from the TM and no tenderness over her mastoid bone. Dr. Perez (ID) recommended no further antibiotics at this time. (5) Small cell lung cancer Status: Chronic Hospital Course & Plan: She is followed by Dr. Burkett in the Cancer Center. (6) HTN (hypertension) Status: Chronic Hospital Course & Plan: She is on chronic treatment with hydralazine, metoprolol, clonidine, and lisinopril. She is currently on metoprolol, hydralazine and lisinopril with hold parameters. (7) DM (diabetes mellitus) Status: Chronic Hospital Course & Plan: She is on chronic treatment with metformin (on hold). We have placed her on sliding scale level #2. (8) C. difficile diarrhea Hospital Course & Plan: She has been having diarrhea over the last several days. Testing for C. difficile was positive for antigen, but negative for toxin. She has been started on oral vancomycin and repeat C. difficile testing has been ordered. Departure Latest Vital Signs Vital Signs 03/16/18 03/21/18 03/21/18 03/21/18 03/21/18 01:30 07:24 07:25 08:54 10:17 Temp 97.5 Pulse 66 Resp 14 B/P (MAP) 154/67 (96) Pulse Ox 97 O2 Delivery Nasal Cannula O2 Flow Rate 0.5 FiO2 25.0 Weight (Pounds): 175 Weight (Ounces): 3.0 Result Diagram: 03/20/1851503/20/18515 Condition: Improved [facility] Follow Up For: PT Evaluation and Treat, OT Evaluation and Treat Discharge Instructions Home Meds Active Scripts Paroxetine Hcl (PAROXETINE HCL) 20 Mg Tablet, 20 MG PO QDAY for 30 Days, Prov:STEPH GUNDERSON MD 08/18/17 Dexamethasone (DEXAMETHASONE) 1 Mg Tab, 2 MG PO DAILY for 7 Days, TAB stop after 7 days Prov:STEPH GUNDERSON MD 08/18/17 Acetaminophen (ACETAMINOPHEN) 500 Mg Tablet, 1000 MG PO Q8H Y for PAIN for 1 Day , Prov:STEPH GUNDERSON MD 08/18/17 Metoprolol Tartrate (METOPROLOL TARTRATE) 50 Mg Tab, 50 MG PO BID for Blood Pressure, #60 TAB 1 Refill Prov:MILTON SMITH MD 07/07/17 Reported Medications Hydralazine Hcl (HYDRALAZINE HCL) 100 Mg Tablet, 100 MG PO TID, TAB 01/27/18 Lisinopril (LISINOPRIL) 40 Mg Tablet, 40 MG PO QDAY, TAB 11/25/17 Oxygen (OXYGEN) Inha, 3.5 L INH, L 3.5 L CPAP 05/19/17 Multivitamin (DAILY MULTIPLE VITAMIN) 1 Each Tablet, 1 TAB PO DAILY 05/19/17 Loperamide HCl (Imodium A-D) Unknown Strength Capsule, PRN 05/19/17 Estropipate (ESTROPIPATE) 1.5 Mg Tablet, 1.5 MG PO QDAY for 90 Days Take 1 pill by mouth daily for 90 days 05/19/17 Diet: Diabetic Activity: As Tolerated, With Walker Special Instructions: Dysphagia Stage 3 Diet Takes pills one at a time with water Ulceration to L tongue Venous Thromboembolism Antithrombotics Is Pt On Any Antithrombotics?: No Problem Qualifiers (1) Altered mental state: Altered mental status type: disorientation Qualified Codes: R41.0 - Disorientation, unspecified (2) HTN (hypertension): Hypertension type: essential hypertension Qualified Codes: I10 - Essential ( primary) hypertension (3) DM (diabetes mellitus): Diabetes mellitus type: type 2 ANISH WASHINGTON DO Mar 21, 2018 10:43 <Electronically signed by ANISH WASHINGTON DO> D/ [id number] LEAH/PAT CC: H&P ADDENDUM The above issues are resolving. Patient requires senior living care and/or skilled rehabilitation. Patient is ready for transfer to [facility]. Any change in condition is described below. STACEY
[2018-03-25 16:37] VITALS: BP 128/58
[2018-03-25 20:10] VITALS: BP 130/54
[2018-03-26] MEDS: LISINOPRIL 20 MG TAB PO SCH (10:20)
[2018-03-26] MEDS: levETIRAcetam 500 MG TAB PO SCH ×2 (10:20→21:40)
[2018-03-26] MEDS: PANTOPRAZOLE SOD 40 MG TABEC PO SCH (10:20)
[2018-03-26] MEDS: VANCOMYCIN HCL 125 MG CAPSULE PO SCH ×4 (10:20→21:40)
[2018-03-26] MEDS: METOPROLOL TART 50 MG TAB PO SCH ×2 (10:20→21:40)
[2018-03-26] MEDS: hydrALAZINE HCL 25 MG TAB PO SCH ×3 (10:21→21:40)
[2018-03-26 13:30] VITALS: BP 134/52
[2018-03-26 17:00] VITALS: BP 168/62
[2018-03-26 20:40] VITALS: BP 136/62
[2018-03-27 01:27] VITALS: BP 158/64
[2018-03-27] MEDS: PANTOPRAZOLE SOD 40 MG TABEC PO SCH (10:00)
[2018-03-27] MEDS: VANCOMYCIN HCL 125 MG CAPSULE PO SCH ×4 (10:01→21:38)
[2018-03-27] MEDS: METOPROLOL TART 50 MG TAB PO SCH ×2 (10:02→21:38)
[2018-03-27] MEDS: levETIRAcetam 500 MG TAB PO SCH ×2 (10:02→21:38)
[2018-03-27] MEDS: LISINOPRIL 20 MG TAB PO SCH (10:02)
[2018-03-27] MEDS: hydrALAZINE HCL 25 MG TAB PO SCH ×3 (10:03→21:38)
[2018-03-27 12:08] VITALS: BP 130/66
[2018-03-27] MEDS ORDERED: PANT40TA65 PO (13:30)
[2018-03-27] MEDS ORDERED: VANC125C3 PO (13:30)
[2018-03-27] MEDS ORDERED: HYDR100T5 PO (13:30)
[2018-03-27] MEDS ORDERED: LEVE500T73 PO (13:30)
--- NOTE | 2018-03-27 13:31 | Hospitalist Depart ---
Discharge Summary Reason for Hosp/Final Diag: (1) Seizure Status: Acute Hospital Course & Plan: The patient was admitted with altered mental status. She had 2 seizures after admission. She was loaded with Fosphenytoin, but then became hypotensive and bradycardic. Ertapenem was stopped (which she had been receiving as an outpatient) due to seizure threshold lowering propensity. She was then placed on treatment with Keppra, and remained seizure free. She did have a spinal tap and her CSF studies and culture were negative. Her Paxil was discontinued as it can rarely (<1%) be associated with seizures. (2) Altered mental state Status: Acute Hospital Course & Plan: She did present with altered mental status, which was felt to be related to being post-ictal from seizures. A CT scan of the head was negative for acute pathology. It was noted that her metastatic tumor in the frontal lobe was actually decreased in size and she also had findings consistent with radiation therapy. (3) Anemia Status: Acute Hospital Course & Plan: She has had a chronic anemia over the last year. Iron studies indicate that this is an anemia of chronic disease. (4) Otitis media Status: Acute Hospital Course & Plan: The patient had an exudative type otitis media on the right and with concern of mastoiditis. Culture from the ear in December grew E. Coli. This had been on ongoing issue for her. She had been followed by Dr. Brown and had been receiving what appeared to be a 21 day treatment with ertapenem. There was no erythema or discharge from the TM and no tenderness over her mastoid bone during her inpatient stay. Dr. Perez (ID) recommended no further antibiotics. (5) Small cell lung cancer Status: Chronic Hospital Course & Plan: The patient has known metastatic small cell carcinoma. She is followed by Dr. Burkett in the Cancer Center. (6) HTN (hypertension) Status: Chronic Hospital Course & Plan: She had been on chronic treatment with hydralazine, metoprolol and lisinopril as an outpatient. She was continued on metoprolol, hydralazine (decreased to 50mg tid) and lisinopril with hold parameters during her hospital stay. BPs were reasonable overall on this regimen. (7) DM (diabetes mellitus) Status: Chronic Hospital Course & Plan: She had been on chronic treatment with metformin and insulin which were held during her hospital stay. Her blood sugars were nicely controlled on no medications. She was placed on sliding scale insulin, level #2 , and only required 2 units of insulin while on ECF. (8) C. difficile diarrhea Status: Acute Hospital Course & Plan: She developed diarrhea and testing for C. difficile was positive. She was treated with oral vancomycin. Departure Weight (Pounds): 172 Weight (Ounces): 8.0 Item Value Date Time Clostridium Difficile Toxin A & B Positive 03/21/18 1535 Clostridium difficile Antigen Positive 03/21/18 1535 Whole Blood Glucose 85 mg/DL 03/26/18 1017 Whole Blood Glucose 122 mg/DL H 03/26/18 1336 Whole Blood Glucose 92 mg/DL 03/26/18 1731 Whole Blood Glucose 111 mg/DL H 03/26/18 2139 Whole Blood Glucose 86 mg/DL 03/27/18 0757 Condition: Improved Discharge: Home, Self Care Time Spent: < 30 min Discharge Instructions Home Meds Active Scripts Pantoprazole Sodium (PANTOPRAZOLE SODIUM) 40 Mg Tablet.dr, 40 MG PO QDAY, #30 TAB Prov:MILTON SMITH MD 03/27/18 Levetiracetam (LEVETIRACETAM) 500 Mg Tablet, 500 MG PO BID, #60 TAB Prov:MILTON SMITH MD 03/27/18 Vancomycin Hcl (VANCOMYCIN HCL) 125 Mg Capsule, 125 MG PO QID, #12 CAPSULE Prov:MILTON SMITH MD 03/27/18 Hydralazine Hcl (HYDRALAZINE HCL) 100 Mg Tablet, 50 MG PO TID, #45 TAB Prov:MILTON SMITH MD 03/27/18 Dexamethasone (DEXAMETHASONE) 1 Mg Tab, 2 MG PO DAILY for 7 Days, TAB stop after 7 days Prov:STEPH GUNDERSON MD 08/18/17 Acetaminophen (ACETAMINOPHEN) 500 Mg Tablet, 1000 MG PO Q8H Y for PAIN for 1 Day , Prov:STEPH GUNDERSON MD 08/18/17 Metoprolol Tartrate (METOPROLOL TARTRATE) 50 Mg Tab, 50 MG PO BID for Blood Pressure, #60 TAB 1 Refill Prov:MILTON SMITH MD 07/07/17 Reported Medications Levothyroxine Sodium (LEVOTHYROXINE SODIUM) 50 Mcg Tablet, 1 TAB PO DAILY 03/27/18 Lisinopril (LISINOPRIL) 40 Mg Tablet, 40 MG PO QDAY, TAB 11/25/17 Oxygen (OXYGEN) Inha, 3.5 L INH, L 3.5 L CPAP 05/19/17 Multivitamin (DAILY MULTIPLE VITAMIN) 1 Each Tablet, 1 TAB PO DAILY 05/19/17 Loperamide HCl (Imodium A-D) Unknown Strength Capsule, PRN 05/19/17 Estropipate (ESTROPIPATE) 1.5 Mg Tablet, 1.5 MG PO QDAY for 90 Days Take 1 pill by mouth daily for 90 days 05/19/17 Discontinued Reported Medications Insulin Glargine 100 Un/Ml Pen (LANTUS SOLOSTAR PEN) 100 Unit/1 Ml Insuln.pen 03/27/18 Metformin Hcl (METFORMIN HCL) 1,000 Mg Tablet 03/27/18 Hydralazine Hcl (HYDRALAZINE HCL) 100 Mg Tablet, 100 MG PO TID, TAB 01/27/18 Discontinued Scripts Paroxetine Hcl (PAROXETINE HCL) 20 Mg Tablet, 20 MG PO QDAY for 30 Days, Prov:STEPH GUNDERSON MD 08/18/17 Follow up Referrals: Oncology @ [facility] Diet: Regular Activity: As Tolerated Special Instructions: Follow up with the Cancer Center as previously recommended. Follow up with Dr. Castillo in 1-2 weeks. Copies to: GHADA CASTILLO MD Problem Qualifiers (1) HTN (hypertension): Hypertension type: essential hypertension Qualified Codes: I10 - Essential ( primary) hypertension MILTON SMITH MD Mar 27, 2018 13:31
[2018-03-27] MEDS ORDERED: METF-421 (14:17)
[2018-03-27] MEDS ORDERED: LEVO50TA86 PO (14:30)
[2018-03-27] MEDS ORDERED: INSU100I30 (14:37)
[2018-03-27 20:20] VITALS: BP 120/52
[2018-03-28] MEDS ORDERED: LEVOTHYROXINE SOD 0.05 MG TAB PO SCH (06:00)
[2018-03-28 08:01] VITALS: BP 130/74
[2018-03-28] MEDS: METOPROLOL TART 50 MG TAB PO SCH (09:27)
[2018-03-28] MEDS: PANTOPRAZOLE SOD 40 MG TABEC PO SCH (09:27)
[2018-03-28] MEDS: VANCOMYCIN HCL 125 MG CAPSULE PO SCH (09:27)
[2018-03-28] MEDS: LISINOPRIL 20 MG TAB PO SCH (09:27)
[2018-03-28] MEDS: levETIRAcetam 500 MG TAB PO SCH (09:27)
[2018-03-28] MEDS: hydrALAZINE HCL 25 MG TAB PO SCH (09:28)
--- NOTE | 2018-03-28 11:00 | PT ECF NOTE ---
Type of Note: Discharge Summary Primary Medical Diagnosis: Altered Mental Status, Seizures Physical Therapy Discharge Date: 03/28/18 SUBJECTIVE: Prior Hospitalization: 03/12/18-03/21/18 Prior Level of Function: Mika with RW Prior Living Status: Single level house, Spouse Community Services: Support adequate, pt resides in [place], [place] and utilizes services of the [facility] Home Accessibility: 2 Stairs Equipment Owned: Front wheeled walker, gait belt, bed rail Medical Complications/Past Medical History: HTN, Dyslipidemia, COPD former smoker and alcohol use, DM-II on Metformin 1gm bid, GERD, Chronic Back Pain, Pituitary Tumor and history of small cell lung cancer with metastasis to the brain s/p two rounds of Chemotherapy and Radiation by Dr. Tipton Psychosocial Support: Supportive Pain Scale (0-10): No pain at rest OBJECTIVE: Strength: (not re-tested at time of d/c as the patient elected to d/c home prior to final PT visit) Right Lower Extremity: DF: 4/5 Knee flexion: 4/5 Knee extension: 4/5 Hip flexion: 3+/5 Left Lower Extremity: DF: 4/5 Knee flexion: 4/5 Knee extension: 4/5 Hip flexion: 3+/5 ROM: WNL Sensation: WNL Other Neuro findings: Non noted Bed Mobility: Mika with bed rail Transfers: SBA with RW Gait: SBA with RW x350' with RW Stairs: up/down platform stair with RW and SBA Gait Speed (0.6m/second cannot function independently): NT at time of discharge, as the patient elected to d/c home prior to final PT visits ASSESSMENT: The patient was made good progress towards functional goals and is likely near her baseline level of functional mobility. It is recommended that she utilize a RW for all functional mobility and have her present for stair negotiation. PT recommends that the patient continue with skilled OP PT upon d/c home as there is no [facility] services available in [place], [place]. The patient and her spouse are agreeable to this recommendation. Problem List/Current Limitations: Decreased activity reginaldo Decreased strength Decreased balance Generalized weakness Decreased problem solving Short Term Goals: (partially met as noted below) 1: Pt to complete bed mobility with Mika and HOB flat. (met) 2: Pt to complete transfers with Mika and least restrictive AD 3: Pt to ambulate 150' with SBA and least restrictive AD (met) 4: Pt to asc/desc 2 stairs with railing and SBA (met) 5: Pt to demonstrate increased gait speed to indicate an improvement in function. Alf Goals: Pt to d/c home with assistance from and increased independence (met) Patient Goals: "I want to go home and walk with my walker" (met) Rehabilitation Prognosis: Good Barriers for Discharge: Deconditioning, multiple co-morbidities PLAN: The patient will discharge home with assistance from spouse and use of RW. It is recommended that she utilize OP PT services upon d/c home. Thank you for this referral. If you have any questions, concerns, or comments about this report or plan, please contact me at . Mari Bishop, PT, DPT MTDD
--- NOTE | 2018-03-28 11:12 | OT ECF NOTE ---
Type of Note: Discharge Note Primary Medical Diagnosis: [facility] Occupational Therapy Evaluation Date: 03-21-18 SUBJECTIVE: Prior Hospitalization: [facility] medical/ICU from 03/12/18 to 03/21/18. Prior Level of Function: Assistance from spouse for some ADL's and cooking. Prior Living Status: Single level house Spouse Community Services: Support adequate Home Accessibility: All needs on one level Equipment Owned: Front wheeled walker Rollator Cane Bath Chair Medical Complications/Past Medical History: Please refer to chart for extensive medical history. Psychosocial Support: Supportive . Pain Scale (0-10): 2/10 in dorsal aspect of left foot. OBJECTIVE: Strength: MMT: Right Left Shoulder Flexion [*] [*] Elbow Flexion [*] [*] Wrist Extension [*] [*] Commercial Leasing Agent [*] [*] (5= normal, 4= good, 3= fair, 2= poor, 1= trace) ROM: WFL Functional Transfer: Assistive Device: Front wheeled walker Transfer Ability: Modified Independent ADL: Upper body dressing: Assistive device: None Upper body dressing ability: Independent Lower body dressing: Assistive device: Slab Lifting Engineer Lower body dressing ability: Set-up/SBA Toileting: Assistive device: Raised toilet seat Toileting ability: Modified Independent Grooming/hygiene: Assistive device: None Grooming ability: Modified Independent Bathing: Assistive device: Shower chair Bathing ability: SBA Standardized Assessment: Fabiola Index of Activities of Daily Living- Pt. scored 10/20 on this Index upon initial evaluation. 19/20 upon discharge (03/28/18). ASSESSMENT: Pt. is a 67 year old female diagnosed presenting to ER with altered mental status and history of: HTN, Dyslipidemia, COPD former smoker and alcohol use, DM-II on Metformin 1gm bid, GERD, Chronic Back Pain, Pituitary Tumor and history of small cell lung cancer with metastasis to the brain s/p two rounds of Chemotherapy and Radiation. Pt. was admitted to [facility] medical on and was transferred to ICU following two seizures. Pt. resides in [place], with her supportive and was d/c to [facility] for further rehab to increase independence in transfers and ADL's prior to returning home. Prior to [facility] admission, pt. required some assistance with ADL and cooking activities at home. Pt. does rely upon her for transportation to all doctors appointments in [place]. Pt has met all skilled OT goals. Problem List/Current Limitations: Pain Decreased activity tolerance Decreased strength Short Term Goals: 1. Pt. to perform toileting activities with Mod I. GOAL MET 2. Pt. to perform showering activities with Min A.GOAL MET 3. Pt. to improve Fabiola Index of ADL score by 2 points.GOAL MET 4. Pt. to perform g/h activities with [place]. GOAL MET 5. Pt. to perform dressing activities with Min A. GOAL MET Detention Goals: Return to home. Patient Goals: Return to home. Rehabilitation Prognosis: Good Barriers to Discharge: Medical prognosis PLAN: The patient will discharge home with continued assist from spouse for ADLs /IADLs. Physical therapy recommending outpatient PT. Thank you for this referral. If you have any questions, concerns, or comments about this report or plan, please contact me at . Yasmine Zhou MS, OTR/L Occupational Therapist [facility]
== END 2018-03-28 10:30 | disposition home or self-care (01) | DRG 101 ==
LOC: ECF 10:45
PROVIDERS: ADMIT Family Medicine; ATTEND Family Medicine
DX: R56.9 Unspecified convulsions (principal); C79.31 Secondary malignant neoplasm of brain; C34.90 Malignant neoplasm of unspecified part of unspecified bronchus or lung; A04.72 Enterocolitis due to Clostridium difficile, not specified as recurrent; D64.9 Anemia, unspecified; D63.0 Anemia in neoplastic disease; I10 Essential (primary) hypertension; E11.9 Type 2 diabetes mellitus without complications; H70.91 Unspecified mastoiditis, right ear; H66.91 Otitis media, unspecified, right ear; Z79.4 Long term (current) use of insulin; Z87.891 Personal history of nicotine dependence; Z92.21 Personal history of antineoplastic chemotherapy; Z88.8 Allergy status to other drugs, medicaments and biological substances
CPT/HCPCS: 36416; 82948; 87324; 87449; 97161; 97165

== ENCOUNTER → 2018-04-19 | Outpatient (CLI) | payer MEDICARE ==
[2018-03-13 11:36] VITALS: BMI 26.1
[~2018-04-19] MED LIST changes: +INSU100I30; +IOPAMIDOL 76% 100 ML INFUS BTL 100 ML ONE; +METF-421; -SIMV-59 PO; +SIMV-63 PO; +VANC125C3 PO
--- NOTE | 2018-04-19 15:16 | RADIOLOGY IMAGING REPORT ---
FACILITY: [facility] PATIENT NAME: Lucy Peralta : 1950 MR: [id number] V: [id number] EXAM DATE: ORDERING PHYSICIAN: SIS ALANIZ TECHNOLOGIST: Location: [facility] Patient: Lucy Peralta : 1950 Visit/Account:[id number] Date of Sevice: 04/19/2018 EXAMINATION: Head CT without IV contrast Head CT with IV contrast HISTORY: Lung and brain cancer follow-up TECHNIQUE: Contiguous axial images were obtained from the skull base to the vertex before and after IV contrast. Sagittal and coronal reformatted images are also submitted. Dose Lowering Technique One of the following dose optimization techniques was utilized in the performance of this exam: Autom ated exposure control; adjustment of the mA and/or kV according to the patient's size; or use of an i terative reconstruction technique. Specific details can be referenced in the facility's radiology C T exam operational policy. CONTRAST: 75 mL of IV Isovue-370 COMPARISON: March 14, 2018 FINDINGS: Brain volume: Mild diffuse cortical atrophy Ventricles: Normal. Acute ischemic changes: None. Hemorrhage: None. Masses / edema: Again noted is the partially calcified mass in the right frontal lobe. This is seen to better advantage on today's postcontrast images when compared to the earlier noncontrast images. The enhancing component is larger than the calcified component and measures 3.1 x 1.5 x 1.9 cm and e xtends to the floor of the anterior cranial fossa on the right. There is a small amount of surroundi ng white matter edema although no significant mass effect. Enhancement: As described above Cain-white: Negative. White matter: Confluent areas of decreased attenuation throughout the periventricular white matter a ppears some are to the prior study likely related to chronic microischemic changes. Vessels: Negative. Extra-axial: Negative. Calvarium / scalp: Post surgical changes of the right parietal bone again seen Skull base / visualized face: Negative. Visualized sinuses / orbits: Expansile soft tissue lesion in the sphenoid sinus is again seen appear ing similar to the prior study small amount of fluid is identified in the ethmoid air cells and fluid again noted in the mastoid air cells IMPRESSION: Again noted is a partially calcified mass in the right frontal lobe which is seen to better advantage on today's postcontrast images and extends to the floor the anterior cranial fossa. Calcified compo nent appears relatively unchanged when compared the prior study although due to lack of contrast on t he prior head CTs direct comparison of the enhancing component is not possible. Expansile mass in the sphenoid sinus appears some are to the prior study possibly a mucocele Probable chronic microischemic changes in periventricular white matter Postsurgical changes of the right parietal bone Report Dictated By: Patty Goff MD at 04/19/2018 2:58 PM Report E-Signed By: Patty Goff MD at 04/19/2018 3:12 PM WSN:[email or web address]
--- NOTE | 2018-04-19 17:23 | RADIOLOGY IMAGING REPORT ---
FACILITY: [facility] PATIENT NAME: Lucy Peralta : 1950 MR: [id number] V: [id number] EXAM DATE: ORDERING PHYSICIAN: SIS ALANIZ TECHNOLOGIST: Location: [facility] [place], [place] Patient: Lucy Peralta : 1950 Visit/Account:[id number] Date of Sevice: 04/19/2018 CHEST/AB/PELV W/WO CONTRAST HISTORY: Lung and brain cancer ADDITIONAL HISTORY: None. TECHNIQUE: Pre and post administration of IV contrast axial images acquired through the chest abdome n and pelvis during the portal venous phase. Coronal and sagittal reformatting was also performed. D ose Lowering Technique One of the following dose optimization techniques was utilized in the performance of this exam: Autom ated exposure control; adjustment of the mA and/or kV according to the patient's size; or use of an i terative reconstruction technique. Specific details can be referenced in the facility's radiology C T exam operational policy. CONTRAST: 75 mL Isovue-370 COMPARISON: October 06, 2017 FINDINGS: CHEST: Lungs/Pleura: Spiculated mass along the posterior margin of the left upper lobe abutting the major f issure has increased in size and now measures 2.3 x 1.9 cm as opposed to 1.3 x 1.5 cm previously. There is a stable 2 mm subpleural nodule posterior aspect of the left lower lobe best seen on image 1 85 of series 12 3 mm subpleural nodule anterior aspect left upper lobe best seen on image 104 has remained stable 2 mm subpleural nodule posterior medial aspect right lower lobe best seen on image [address] able No evidence of pleural effusions Mediastinum/lymph nodes: Negative. Heart/vessels: Moderate to severe coronary artery calcifications. There is an implanted right IJ po rt distal tip in the superior vena cava Bones/soft tissues: No aggressive appearing bone lesions ABDOMEN AND PELVIS: Hepatobiliary: Area of decreased attenuation adjacent to the falciform ligament is likely an area of focal fatty attenuation Spleen: Negative. Pancreas: Negative. Adrenals: Negative. Kidneys ureters and bladder : Kidneys appear unremarkable. Bladder wall is mildly thickened although may be related to underdistention with urine. Genitalia: Severely atrophic uterus versus hysterectomy GI: Small hiatal hernia Vessels/spaces/nodes: At least moderate vascular calcifications in the abdominal aorta and branch ve ssels Bones/soft tissues: Spondylotic changes of the thoracal lumbar spine. No aggressive appearing bone lesions are seen Additional findings: None pertinent. IMPRESSION: Spiculated mass along the posterior margin of the left upper lobe abutting the major fissure has incr eased in size as detailed above Stable micronodules as described above No other evidence of metastatic disease at this time Report Dictated By: Patty Goff MD at 04/19/2018 5:05 PM Report E-Signed By: Patty Goff MD at 04/19/2018 5:19 PM WSN:[email or web address]
== END ==
LOC: CT 11:43
PROVIDERS: ATTEND Internal Medicine Medical Oncology
DX: C34.90 Malignant neoplasm of unspecified part of unspecified bronchus or lung (principal); I70.0 Atherosclerosis of aorta; I25.10 Atherosclerotic heart disease of native coronary artery without angina pectoris; Z95.828 Presence of other vascular implants and grafts; K44.9 Diaphragmatic hernia without obstruction or gangrene; M47.896 Other spondylosis, lumbar region; C71.9 Malignant neoplasm of brain, unspecified; Z98.890 Other specified postprocedural states
CPT/HCPCS: 70470; 71270; 74178; Q9967

== ENCOUNTER 2018-04-26 12:03 | Outpatient (RCR) | payer MEDICARE ==
[2018-03-13 11:36] VITALS: BMI 26.1
[~2018-04-26 12:03] MED LIST changes: -IOPAMIDOL 76% 100 ML INFUS BTL 100 ML ONE
[2018-04-27] MEDS ORDERED: GARL1TAB9 PO (09:37)
[2018-04-27] MEDS ORDERED: VITA400T2 PO (09:37)
[2018-04-27] MEDS ORDERED: LOPE2CAP15 PO (09:37)
[2018-04-27] MEDS ORDERED: AMLO-99 PO (09:37)
[2018-04-27] MEDS ORDERED: ASCO-182 PO (09:37)
[2018-04-27] MEDS ORDERED: UBID100C48 PO (09:37)
[2018-04-27] MEDS ORDERED: LACT1CAP4 PO (09:37)
== END 2018-04-28 14:08 | disposition home or self-care (01) ==
LOC: RAON 12:03
PROVIDERS: ATTEND Radiology Radiation Oncology
DX: Z51.0 Encounter for antineoplastic radiation therapy (principal); C34.92 Malignant neoplasm of unspecified part of left bronchus or lung; C79.31 Secondary malignant neoplasm of brain; Z79.899 Other long term (current) drug therapy; R53.83 Other fatigue; E66.9 Obesity, unspecified
CPT/HCPCS: 99213

== ENCOUNTER 2018-04-27 11:38 | Outpatient (RCR) | payer MEDICARE ==
[2018-03-13 11:36] VITALS: BMI 26.1
[2018-04-14 15:28] VITALS: BP 112/63
--- NOTE | 2018-04-14 21:43 | ONCOLOGY FOLLOW UP NOTE ---
EVENT DATE: April 14, 2018 REASON FOR FOLLOWUP Extensive stage small-cell lung carcinoma. CHIEF COMPLAINT Fatigue, back pain. INTERIM HISTORY Lucy returns to clinic for a followup visit today. She is accompanied by her . It has been quite some time since we have been able to visit in the clinic. She has once again been hospitalized, most recently for seizure activity. Some medication changes were made, and she has had no further evidence of seizure activity. She has returned home. She has also finished intravenous antibiotics for her E. coli otitis media. She has had no return of ear pain or drainage. She reports eating okay, but that her appetite is not particularly good. She has had ongoing back pain and other arthralgias that have not changed significantly. She reports no worsened shortness of breath. She tends to spend about 90% of her time during the waking hours either in a recliner or in bed. She occasionally will be able to get up to make herself some food, but she is getting more and more help around the house for her activities of daily living. REVIEW OF SYSTEMS Otherwise negative in all systems reviewed. PAST MEDICAL HISTORY 1. Diabetes mellitus, type 2. 2. Hypertension. 3. Obstructive sleep apnea. 4. History of smoking. PAST SURGICAL HISTORY Patient is status post hysterectomy. SOCIAL HISTORY Patient is currently , and she lives in [place] with her . She was smoking at the time of her admission to the [facility], roughly two packs per day, and had done so for about 50 years. She had been drinking about 10 glasses of wine per week. There is no history of illicit drug use. FAMILY HISTORY There is a history of myocardial infarction in both her mother and her father. CURRENT MEDICATIONS 1. Pantoprazole. 2. Levetiracetam. 3. Oral vancomycin. 4. Hydralazine. 5. Levothyroxine. 6. Lisinopril. 7. Tylenol p.r.n. 8. Metoprolol. 9. Multivitamin. 10. Loperamide p.r.n. 11. Estropipate. VITAL SIGNS Temperature is 97.3, blood pressure 112/63, heart rate is 73, respirations 16, oxygen saturation is 93% on room air. PHYSICAL EXAMINATION GENERAL: Patient is alert and oriented times three, no apparent distress, sitting in her wheelchair. She is able to communicate fairly well today, but her thought processes are historical, at times repetitive, but usually not difficult to follow. HEENT: Anicteric sclerae. NEUROLOGIC: Grossly nonfocal otherwise, but I did not test her gait today. EXTREMITIES: Edema of the bilateral lower extremities. SKIN: No concerning rash or lesion. LABORATORY STUDIES AND IMAGING Reviewed per the [facility] record. ASSESSMENT AND PLAN Extensive stage small-cell lung carcinoma. I visited with Lucy and her today. We spent time today discussing her recent hospitalization for seizure activity. She was also diagnosed with Clostridium difficile colitis. She had also recently been dealing with Escherichia coli otitis media, requiring intravenous antibiotics. Lucy has had a tremendous amount happening with her health, but remarkably, she has again been able to return home. As discussed, it has been quite some time since we have assessed the status of her underlying small-cell lung cancer. Due to the aggressive nature of this cancer , I would anticipate that any additional imaging would show evidence of progression. We discussed the merits of a CT scan of the chest, abdomen, and pelvis as well as brain imaging. The patient is interested in knowing the status of her cancer, as is her . She is not able to tolerate MRI. For this reason, we will move forward with contrast-enhanced CT scan of the head as well as the chest, abdomen, and pelvis. I will plan to see her back in clinic after her imaging is complete. This scan, as discussed at length today with repeated statements, will be more to just assess the status of her cancer and assist with prognosis. She is not a candidate for palliative systemic chemotherapy as her performance status is not where it needs to be. We discussed that if and when there is evidence of progression of her small-cell lung cancer, the goal of treatment will be for palliation and comfort. The patient and her had several additional questions for me today, and I believe I answered all their questions to their satisfaction. I spent a total of 30 minutes of time [id number] with them today, and 25 minutes of this was spent in direct counseling and coordination of care. STACEY
[2018-04-19] MEDS: HEPARIN FLSH (PORT) 500 UN/5ML IVP PRN ×2 (12:30→14:00)
[~2018-04-27 11:38] MED LIST changes: +ALTEPLASE RECOMB 2 MG VIAL IVP PRN; +AMLO-99 PO; +DEXTROSE 5%(*) 100 ML BAG 100 ML IVPB PRN; +LACT1CAP4 PO; +LIDOCAINE/SOD BICARB 8.4% SYR ID PRN; +LOPE2CAP15 PO; +NS(*) 0.9% 100 ML BAG 100 ML IVPB PRN; +NS(*) 0.9% 500 ML BAG 500 ML IV PRN; +VITA400T2 PO; +WATER FOR INJ,STERILE 20 ML IVP PRN
[2018-04-27 12:00] VITALS: BP 105/52
--- NOTE | 2018-04-27 22:02 | ONCOLOGY FOLLOW UP NOTE ---
EVENT DATE: April 27, 2018 REASON FOR FOLLOWUP Extensive stage small-cell lung carcinoma, general disability. CHIEF COMPLAINT Fatigue, back and neck pain. INTERIM HISTORY Lucy returns to clinic for a followup visit today. She is accompanied by her . Since our last visit, she has undergone re-imaging with a CT scan of the brain as well as chest, abdomen, and pelvis. They are here to review the results. The patient does not report a significant amount of improvement since our last visit, but her does report that he has noticed some modest and encouraging mold insert changer time. She is now interacting a little bit more with friends and family, and as an example, she played a few games of Real Time Translation the other night with visitors. She reports ongoing neck and back pain. She feels generally weak and tired. Her appetite has been fair, however. She has been maintaining her hydration and nutrition. She reports no new bowel or bladder symptoms. REVIEW OF SYSTEMS Otherwise negative, and all systems were reviewed. PAST MEDICAL HISTORY 1. Diabetes mellitus type 2. 2. Hypertension. 3. Obstructive sleep apnea. 4. History of smoking. PAST SURGICAL HISTORY Patient is status post hysterectomy. SOCIAL HISTORY Patient is currently , and she lives in [place] with her . She was smoking at the time of her admission to the [facility], roughly two packs per day, and had done so for about 50 years. She had been drinking about 10 glasses of wine per week. There is no history of illicit drug use. FAMILY HISTORY There is a history of myocardial infarction in both her mother and her father. CURRENT MEDICATIONS 1. Pantoprazole. 2. Levetiracetam. 3. Oral vancomycin. 4. Hydralazine. 5. Levothyroxine. 6. Lisinopril. 7. Tylenol p.r.n. 8. Metoprolol. 9. Multivitamin. 10. Loperamide p.r.n. 11. Estropipate. VITAL SIGNS Temperature is 96.8, blood pressure 105/52, heart rate is 62, respirations 16, oxygen saturation is 97% on room air. PHYSICAL EXAMINATION GENERAL: Patient is alert and oriented times three, in no apparent distress, sitting in the exam room chair. She is a bit more interactive and crisp today. HEENT: Anicteric sclerae. NEUROLOGIC: Grossly nonfocal, although she is generally weak. EXTREMITIES: Some edema of the bilateral lower extremities, but no erythema or tenderness to palpation. LABORATORY STUDIES Reviewed per the [facility] record. IMAGING CT scan of the chest, abdomen, and pelvis performed on April 19, 2018, reveals a spiculated mass along the posterior margin of the left upper lobe abutting the major fissure, increased in size. Current measurement of this lesion is 2.3 x 1.9 cm, whereas prior it was 1.3 x 1.5 cm. There are otherwise stable micronodules in the lungs, and no other evidence of metastatic disease. CT scan of the head performed on April 19 reveals a partially calcified mass in the right frontal lobe. Calcified component appears relatively unchanged when compared to prior. Expansile mass in the sphenoid sinus is similar to prior, possibly a mucocele. Probable chronic microischemic changes in the periventricular white matter and postsurgical changes of right parietal bone. ASSESSMENT AND PLAN Extensive stage small-cell lung cancer. I had a good visit with Lucy and today. We spent time reviewing the results of her recent imaging studies of the chest, abdomen, and pelvis, as well as the head. Lucy has had general stability of her small-cell lung cancer despite minimal therapy over time. We discussed that there is evidence of some progression of the left upper lobe mass, but that the mass itself has only grown about 1 cm since September. Her disease is otherwise stable. She and her were generally happy to hear this. I have reiterated today that her performance status, although she has arguably had some very modest improvements since our last visit , is not suitable to receive cytotoxic chemotherapy. She recently met with Dr. Panda in Radiation Oncology, and it has been decided to hold off on radiation therapy to the left upper lobe lesion for the time being given lack of symptoms and her overall poor performance status. We spent some more time today discussing her recent pattern in terms of recurrent hospitalizations for acute illness and lack of general significant improvement in her overall wellbeing that would allow for chemotherapy. Although I am somewhat skeptical, this could certainly change. The patient does seem to be somewhat more motivated today to become more active. She does seem to be eating well. With further discussion, we have planned to meet again in about two months to assess whether or not she has made progress to again consider treatment. If this has not occurred, I do think that another discussion about the merits of hospice care would be in order independent of imaging findings. The patient and her had several additional questions for me today. I believe I answered all their questions to their satisfaction. I spent a total of 30 minutes of time [id number] with the patient and her today, and 25 minutes of this was spent in direct counseling and coordination of care. STACEY
== END 2018-04-28 14:39 | disposition home or self-care (01) ==
LOC: ONC 11:38
PROVIDERS: ATTEND Internal Medicine Medical Oncology
DX: C34.90 Malignant neoplasm of unspecified part of unspecified bronchus or lung (principal); C79.31 Secondary malignant neoplasm of brain; R53.83 Other fatigue; M54.9 Dorsalgia, unspecified; E11.9 Type 2 diabetes mellitus without complications; I10 Essential (primary) hypertension; G47.33 Obstructive sleep apnea (adult) (pediatric); Z87.891 Personal history of nicotine dependence; M54.2 Cervicalgia
CPT/HCPCS: 36591; G0463; J1642; 70470; 71270; 74178; 82040; 82247; 82310; 82374; 82435; 82565; 82947; 84075; 84132; 84155; 84295; 84450; 84460; 84520; 99212; Q9967

== ENCOUNTER → 2018-06-03 | Outpatient (CLI) | payer MEDICARE ==
[2018-03-13 11:36] VITALS: BMI 26.1
[~2018-06-03] MED LIST changes: -ALTEPLASE RECOMB 2 MG VIAL IVP PRN; +AMLO-111 PO; +AMLO-113 PO; -AMLO-96 PO; -AMLO-99 PO; -CEFT1VIA57 IM; +CEFT1VIA63 IM; -DEXTROSE 5%(*) 100 ML BAG 100 ML IVPB PRN; -LIDOCAINE/SOD BICARB 8.4% SYR ID PRN; -METF-411 PO; -METF-421; -METF-421 PO; +METF-450 PO; +METF-452; +METF-452 PO; -NS(*) 0.9% 100 ML BAG 100 ML IVPB PRN; -NS(*) 0.9% 500 ML BAG 500 ML IV PRN; -WATER FOR INJ,STERILE 20 ML IVP PRN
== END ==
LOC: AUD 14:57
PROVIDERS: ATTEND Otolaryngology
DX: H90.3 Sensorineural hearing loss, bilateral (principal)
CPT/HCPCS: 92557; 92570

== ENCOUNTER 2018-06-08 15:08 | Inpatient (IN) | payer MEDICARE ==
[~2018-06-08] VITALS: Ht 170.2 cm; Wt 75.4 kg
--- NOTE | 2018-06-08 15:25 | ER Report ---
History and Physical Time Seen By MD: 15:20 Hx. of Stated Complaint: Pt states she lost her balance and hell incurring L hip injury at apprxl 11:30 a.m. called EMS an hour later when found. Pt received Versed 1 mg, Zofran 4 mg, and fentanyl 250 mcg of fentanyl via EMS. HPI/ROS CHIEF COMPLAINT: Left hip pain HISTORY OF PRESENT ILLNESS: Patient is a 67 year female unwitnessed mechanical fall from standing just prior to presentation resulting in an obvious left hip deformity that she hit her head with no loss of consciousness denies any chest pain back pain abdominal pain patient has a history of breast cancer with metastatic brain lesions patient denies at this time having pain other than in the left hip patient has no additional complaints time of presentation REVIEW OF SYSTEMS: Respiratory: No cough, no dyspnea. Cardiovascular: No chest pain, no palpitations. Gastrointestinal: No vomiting, no abdominal pain. Musculoskeletal: Left hip pain Remainder of the 14 system rev: Yes Allergies: Coded Allergies: Gksauef-Vpw-Nof Reductase Inhibitor (Verified Allergy, Unknown, 06/08/18) Home Meds Active Scripts Pantoprazole Sodium (PANTOPRAZOLE SODIUM) 40 Mg Tablet.dr, 40 MG PO QDAY, #30 TAB Prov:MILTON SMITH MD 03/27/18 Levetiracetam (LEVETIRACETAM) 500 Mg Tablet, 500 MG PO BID, #60 TAB Prov:MILTON SMITH MD 03/27/18 Acetaminophen (ACETAMINOPHEN) 500 Mg Tablet, 1000 MG PO Q8H PRN for PAIN for 1 Day, Prov:STEPH GUNDERSON MD 08/18/17 Metoprolol Tartrate (METOPROLOL TARTRATE) 50 Mg Tab, 50 MG PO BID for Blood Pressure, #60 TAB 1 Refill Prov:MILTON SMITH MD 07/07/17 Reported Medications Lactobacillus Acidophilus (PROBIOTIC) 1 Each Capsule, 1 EACH PO DAILY, CAPSULE 04/27/18 Ubidecarenone (COQ-10) 100 Mg Capsule, 200 MG PO DAILY, CAPSULE 04/27/18 Ascorbic Acid (VITAMIN C) 500 Mg Tablet, 500 MG PO DAILY, TAB 04/27/18 Vitamin E Acid Succinate (VITAMIN E) 400 Unit Tablet, 500 UNIT PO DAILY 04/27/18 Garlic (GARLIC) 1 Each Tablet, 1 EACH PO DAILY 04/27/18 Amlodipine Besylate (AMLODIPINE BESYLATE) 10 Mg Tablet, 1 TAB PO QDAY, TAB 04/27/18 Levothyroxine Sodium (LEVOTHYROXINE SODIUM) 50 Mcg Tablet, 1 TAB PO DAILY 03/27/18 Lisinopril (LISINOPRIL) 40 Mg Tablet, 20 MG PO QDAY, TAB 11/25/17 Oxygen (OXYGEN) Inha, 3.5 L INH, L 3.5 L CPAP 05/19/17 Multivitamin (DAILY MULTIPLE VITAMIN) 1 Each Tablet, 1 TAB PO DAILY 05/19/17 Loperamide HCl (Imodium A-D) Unknown Strength Capsule, PRN 05/19/17 Estropipate (ESTROPIPATE) 1.5 Mg Tablet, 1.5 MG PO QDAY for 90 Days Take 1 pill by mouth daily for 90 days 05/19/17 Reviewed Nurses Notes: Yes Old Medical Records Reviewed: Yes Hx Smoking: Yes Smoking Status: Former Smoker Hx Substance Use Disorder: No Hx Alcohol Use: Yes Constitutional Vital Sign - Last 24 Hours 06/08/18 15:13 Temp 97.5 Pulse 64 Resp 14 B/P (MAP) 157/108 Pulse Ox 96 O2 Delivery Room Air Physical Exam General Appearance: [The patient is alert, has no immediate need for airway protection and no current signs of toxicity.] No apparent distress Eyes: Pupils equal and round no injection. Respiratory: Chest is non tender, lungs are clear to auscultation. Cardiac: regular rate and rhythm [ ] Gastrointestinal: Abdomen is soft and non tender, no masses, bowel sounds normal. Musculoskeletal: Left hip examination shows shortened externally rotated with pain at with palpation to the femoral head and neck area neurovascularly intact otherwise unremarkable exam Neck is supple and non tender. Extremities have full range of motion and are non tender. Skin: No rashes or lesions. [ ] DIFFERENTIAL DIAGNOSIS: After history and physical exam differential diagnosis was considered for left hip fracture Medical Decision Making Data Points Result Diagram: 06/08/18 1335 06/08/18 1335 Laboratory Hematology Test 06/08/18 13:35 06/08/18 15:35 Red Blood Count 3.57 M/uL (4.17-5.56) Mean Corpuscular Volume 96.7 fL (80.0-96.0) Mean Corpuscular Hemoglobin 33.2 pg (26.0-33.0) Mean Corpuscular Hemoglobin Concent 34.4 g/dL (32.0-36.0) Red Cell Distribution Width 14.2 % (11.5-14.5) Mean Platelet Volume 7.5 fL (7.2-11.1) Neutrophils (%) (Auto) 84.2 % (39.4-72.5) Lymphocytes (%) (Auto) 9.8 % (17.6-49.6) Monocytes (%) (Auto) 5.7 % (4.1-12.4) Eosinophils (%) (Auto) 0.1 % (0.4-6.7) Basophils (%) (Auto) 0.2 % (0.3-1.4) Nucleated RBC Relative Count (auto) 0.0 /100WBC Neutrophils # (Auto) 9.9 K/uL (2.0-7.4) Lymphocytes # (Auto) 1.1 K/uL (1.3-3.6) Monocytes # (Auto) 0.7 K/uL (0.3-1.0) Eosinophils # (Auto) 0.0 K/uL (0.0-0.5) Basophils # (Auto) 0.0 K/uL (0.0-0.1) Nucleated RBC Absolute Count (auto) 0.00 K/uL Sodium Level 123 mmol/L (137-145) Potassium Level 4.0 mmol/L (3.5-5.0) Chloride Level 89 mmol/L (98-107) Carbon Dioxide Level 22 mmol/L (22-31) Blood Urea Nitrogen 24 mg/dl (7-18) Creatinine 0.90 mg/dl (0.52-1.04) Glomerular Filtration Rate Calc > 60.0 Random Glucose 150 mg/dl (75-110) Calcium Level 8.8 mg/dl (8.4-10.2) Total Bilirubin 0.8 mg/dl (0.2-1.3) Aspartate Amino Transf (AST/SGOT) 28 U/L (0-35) Alanine Aminotransferase (ALT/SGPT) 30 U/L (0-56) Alkaline Phosphatase 62 U/L (0-126) Troponin I < 0.012 ng/ml Total Protein 7.1 g/dl (6.3-8.2) Albumin 4.3 g/dl (3.5-5.0) Prothrombin Time 12.5 seconds (12.0-14.4) Prothromb Time International Ratio 0.94 Activated Partial Thromboplast Time 25 seconds (23-35) Chemistry Test 06/08/18 13:35 06/08/18 15:35 White Blood Count 11.7 k/uL (4.5-11.0) Red Blood Count 3.57 M/uL (4.17-5.56) Hemoglobin 11.9 g/dL (12.0-16.0) Hematocrit 34.5 % (34.0-47.0) Mean Corpuscular Volume 96.7 fL (80.0-96.0) Mean Corpuscular Hemoglobin 33.2 pg (26.0-33.0) Mean Corpuscular Hemoglobin Concent 34.4 g/dL (32.0-36.0) Red Cell Distribution Width 14.2 % (11.5-14.5) Platelet Count 264 K/uL (150-450) Mean Platelet Volume 7.5 fL (7.2-11.1) Neutrophils (%) (Auto) 84.2 % (39.4-72.5) Lymphocytes (%) (Auto) 9.8 % (17.6-49.6) Monocytes (%) (Auto) 5.7 % (4.1-12.4) Eosinophils (%) (Auto) 0.1 % (0.4-6.7) Basophils (%) (Auto) 0.2 % (0.3-1.4) Nucleated RBC Relative Count (auto) 0.0 /100WBC Neutrophils # (Auto) 9.9 K/uL (2.0-7.4) Lymphocytes # (Auto) 1.1 K/uL (1.3-3.6) Monocytes # (Auto) 0.7 K/uL (0.3-1.0) Eosinophils # (Auto) 0.0 K/uL (0.0-0.5) Basophils # (Auto) 0.0 K/uL (0.0-0.1) Nucleated RBC Absolute Count (auto) 0.00 K/uL Glomerular Filtration Rate Calc > 60.0 Calcium Level 8.8 mg/dl (8.4-10.2) Total Bilirubin 0.8 mg/dl (0.2-1.3) Aspartate Amino Transf (AST/SGOT) 28 U/L (0-35) Alanine Aminotransferase (ALT/SGPT) 30 U/L (0-56) Alkaline Phosphatase 62 U/L (0-126) Troponin I < 0.012 ng/ml Total Protein 7.1 g/dl (6.3-8.2) Albumin 4.3 g/dl (3.5-5.0) Prothrombin Time 12.5 seconds (12.0-14.4) Prothromb Time International Ratio 0.94 Activated Partial Thromboplast Time 25 seconds (23-35) Coagulation Test 06/08/18 15:35 Prothrombin Time 12.5 seconds Prothromb Time International Ratio 0.94 Activated Partial Thromboplast Time 25 seconds ED Course/Re-evaluation ED Course 67-year-old female history of breast cancer metastatic lesions to the brain is an intertrochanteric left femoral neck fracture I will be admitted today she also is hyponatremic hypochloremic this is been resuscitated with IV fluids patient will be admitted under the hospitalist with Dr. Broderick orthopedics on consult also reached out to our anesthesiology update them S to the status of the patient Decision to Disposition Date: Jun 08, 2018 Decision to Disposition Time: 16:18 Depart Departure Latest Vital Signs Vital Signs Date Time Temp Pulse Resp B/P (MAP) Pulse Ox O2 Delivery O2 Flow Rate FiO2 06/08/18 15:13 97.5 64 14 157/108 96 Room Air Impression: Primary Impression: Hyponatremia Additional Impression: Femoral neck fracture Condition: Improved Disposition: Admitted from ER Referrals: GHADA CASTILLO MD (PCP) Problem Qualifiers LARA SMITH MD Jun 08, 2018 15:25
[2018-06-08 15:31] LABS: PLATELET COUNT, AUTOMATED 264 K/uL (150-450)
[2018-06-08] MEDS: NS(*) 0.9% 1000 ML BAG 1,000 ML IV ONE ×2 (15:45→15:55)
[2018-06-08] MEDS ORDERED: NS(*) 0.9% 1000 ML BAG 1,000 ML IV ONE (15:46)
[2018-06-08 15:52] LABS: INR 0.94
--- NOTE | 2018-06-08 16:09 | RADIOLOGY IMAGING REPORT ---
FACILITY: [facility] - [place], [place] PATIENT NAME: Lucy Peralta : 1950 MR: [id number] V: [id number] EXAM DATE: ORDERING PHYSICIAN: LARA SMITH TECHNOLOGIST: Location: [facility] [place] Patient: Lucy Peralta : 1950 Visit/Account:[id number] Date of Sevice: 06/08/2018 CHEST SINGLE AP Indication: Trauma.. Comparison: 03/16/2018. Findings: Cardiomediastinal silhouette and pulmonary vessels within normal limits. Right Port-A-Cath is in plac e with the tip in SVC. There is no focal infiltrate or lobar consolidation. No pneumothorax or pleural effusion. Stable left midlung nodule. No new nodules. Upper abdomen is unremarkable. No acute bony abnormality. IMPRESSION: 1. No acute cardiopulmonary process. No indication of thoracic trauma. 2. Stable left lung nodule. Report Dictated By: Kenneth Ramirez at 06/08/2018 4:03 PM Report E-Signed By: Kenneth Ramirez at 06/08/2018 4:05 PM WSN:[id number]
--- NOTE | 2018-06-08 16:14 | RADIOLOGY IMAGING REPORT ---
FACILITY: [facility] - [place] PATIENT NAME: Lucy Peralta : 1950 MR: [id number] V: [id number] EXAM DATE: ORDERING PHYSICIAN: LARA SMITH TECHNOLOGIST: Location: [facility] Patient: Lucy Peralta : 1950 Visit/Account:[id number] Date of Sevice: 06/08/2018 HIP LEFT HISTORY: Trauma ADDITIONAL HISTORY: None. COMPARISON: None. FINDINGS: AP view the pelvis and frog-leg view of the left hip was obtained. There is an impacted, minimally d isplaced subcapital fracture of the left hip. Femoral head remains in articulation with the acetabul um. There is no right hip fracture. Pelvic ring is intact. No pubic ramus fracture noted. No bony lesions are identified. IMPRESSION: Impacted subcapital fracture of the left hip. Report Dictated By: Lizzie Glaser MD at 06/08/2018 4:09 PM Report E-Signed By: Lizzie Glaser MD at 06/08/2018 4:11 PM [id number]
[2018-06-08] MEDS ORDERED: MORPHINE 4 MG/ML SDV IVP ONE (16:15)
--- NOTE | 2018-06-08 16:25 | EKG ---
FACILITY: [facility] - [place] PATIENT NAME: TREVER CHUA : [id number] MR: [id number] V: [id number] EXAM DATE: ORDERING PHYSICIAN: LARA SMITH TECHNOLOGIST: JULIETH Test Reason : ER Blood Pressure : / mmHG Vent. Rate : 061 BPM Atrial Rate : 061 BPM P-R Int : 182 ms QRS Dur : 158 ms QT Int : 442 ms P-R-T Axes : 058 -58 055 degrees QTc Int : 444 ms Sinus rhythm Right bundle branch block Abnormal ECG Similar to previous EKGs Confirmed by VITO SMITH ([id number] on 06/08/2018 7:05:07 PM Referred By: LUIS Confirmed By:VITO SMITH
--- NOTE | 2018-06-08 16:58 | RADIOLOGY IMAGING REPORT ---
FACILITY: [facility] PATIENT NAME: Lucy Peralta : 1950 MR: [id number] V: [id number] EXAM DATE: ORDERING PHYSICIAN: LARA SMITH TECHNOLOGIST: Location: [facility] Patient: Lucy Peralta : 1950 Visit/Account:[id number] Date of Sevice: 06/08/2018 CT Head without contrast Indication: Fall. Comparison: 04/19/2018. Technique: Axial CT images were obtained through the brain from the skull base to the vertex without administration of IV contrast. Reformatted coronal and sagittal images were also obtained. One of the following dose optimization techniques was utilized in the performance of this exam: autom ated exposure control; adjustment of the mA and/or kV according to the patient's size; or use of an i terative reconstruction technique. Specific details can be referenced in the facility's radiology CT exam operational policy. Findings: No intracranial bleed, midline shift, mass effect, extra-axial fluid collection or hydrocephalus. The inferior right frontal lobe again shows a ill-defined mildly hyperdense and partially calcified mass measuring at least 3.2 x 2.4 cm. This appears not significantly changed given the difference in posi tioning from the previous examination. There does not appear to be any significant sequelae. This heather ears to abut up against the meningeal surface on the coronal images when compared to the previous exa m. No other appreciable lesions. Age-related cerebral atrophy. Periventricular white matter ischemic changes consistent small vessel d isease which appears similar. Cain/white matter differentiation appears normal. Mild bilateral internal sales al carotid artery calcifications. Bony structures show no fractures or lesions. Previous craniotomy to the superior right skull. The le ft sphenoid sinus continues shows expansile with increased density within the sinus which is opacifie d. This appears to be unchanged from 06/29/2017 and measures approximately 1.5 x 1.7 cm. There is cont inued opacification the right sphenoid sinus. The remaining sinuses visualized are clear. There is fl uid seen in both mastoid air cells which are unchanged. IMPRESSION: 1. No acute intracranial abnormality. Continued senescent changes. 2. Stable appearing partially calcified mass in the inferior right temporal lobe. In correlation to o ther exam is not significantly changed. Unsure if this is a partially calcified meningioma or a paren chymal tumor. No appreciable sequelae. 3. Continued chronic expansion of the left sphenoid sinus with increased density within the sinus. Th is likely chronic sinus disease possibly chronic cyst/polyp or mucocele. Report Dictated By: Kenneth Ramirez at 06/08/2018 4:43 PM Report E-Signed By: Kenneth Ramirez at 06/08/2018 4:54 PM WSN:[id number]
[2018-06-08 17:10] VITALS: BP 167/75
[2018-06-08] MEDS ORDERED: NS(*) 0.9% 1000 ML BAG 1,000 ML IV PRN (18:07)
[2018-06-08] MEDS ORDERED: INFLUENZA VIRUS VAC 0.5ML SYR IM ONLY ONE (18:10)
[2018-06-08] MEDS: MORPHINE 2 MG/ML SYR IVP PRN ×2 (18:19→21:14)
--- NOTE | 2018-06-08 18:36 | History & Physical ---
History of Present Illness Chief Complaint Left hip pain History of Present Illness 67yo female with extensive PMHx including metastatic small cell lung cancer which has been "relatively stable" per medical oncology (Dr. Tipton). She had a fall at home earlier today and sustained a left femoral neck fracture. She reports walking to the bathroom when she felt off balance and fell to the floor. She denied any CP/SOB/palpitations/focal weakness. She was evaluated in the ER and found to have the fracture. Her labs were remarkable for a sodium of 123. Her BUN was also slightly elevated. Her EKG shows RBBB, which is unchanged. Her CXR shows the left lung nodule/mass to be unchanged. Her CT scan of the brain, likewise, shows the unchanged calcified mass in right temporal lobe. She has no history of bleeding or clotting problems. She has no history of difficulties with anesthesia. She does have a history of type 2 DM managed with diet and a seizure disorder on Keppra. History Problems: (1) Hypothyroidism Status: Chronic (2) PAROXYSMAL ATRIAL FIBRILLATION Status: Chronic (3) Otitis media Status: Chronic (4) Seizure Status: Chronic (5) HTN (hypertension) Status: Chronic (6) DM (diabetes mellitus) Status: Chronic (7) Small cell lung cancer Status: Chronic (8) Brain metastases Status: Chronic Home Meds Active Scripts Pantoprazole Sodium (PANTOPRAZOLE SODIUM) 40 Mg Tablet., 40 MG PO QDAY, #30 TAB Prov:MILTON SMITH MD 03/27/18 Levetiracetam (LEVETIRACETAM) 500 Mg Tablet, 500 MG PO BID, #60 TAB Prov:MILTON SMITH MD 03/27/18 Acetaminophen (ACETAMINOPHEN) 500 Mg Tablet, 1000 MG PO Q8H PRN for PAIN for 1 Day, Prov:STEPH GUNDERSON MD 08/18/17 Metoprolol Tartrate (METOPROLOL TARTRATE) 50 Mg Tab, 50 MG PO BID for Blood Pressure, #60 TAB 1 Refill Prov:MILTON SMITH MD 07/07/17 Reported Medications Lactobacillus Acidophilus (PROBIOTIC) 1 Each Capsule, 1 EACH PO DAILY, CAPSULE 04/27/18 Ubidecarenone (COQ-10) 100 Mg Capsule, 200 MG PO HS, CAPSULE 04/27/18 Ascorbic Acid (VITAMIN C) 500 Mg Tablet, 500 MG PO HS, TAB 04/27/18 Vitamin E Acid Succinate (VITAMIN E) 400 Unit Tablet, 500 UNIT PO HS 04/27/18 Garlic (GARLIC) 1 Each Tablet, 1 EACH PO DAILY 04/27/18 Amlodipine Besylate (AMLODIPINE BESYLATE) 10 Mg Tablet, 1 TAB PO QDAY, TAB 04/27/18 Levothyroxine Sodium (LEVOTHYROXINE SODIUM) 50 Mcg Tablet, 1 TAB PO DAILY 03/27/18 Lisinopril (LISINOPRIL) 40 Mg Tablet, 20 MG PO QDAY, TAB 11/25/17 Oxygen (OXYGEN) Inha, 3.5 L INH, L 3.5 L CPAP 05/19/17 Multivitamin (DAILY MULTIPLE VITAMIN) 1 Each Tablet, 1 TAB PO DAILY 05/19/17 Loperamide HCl (Imodium A-D) Unknown Strength Capsule, PRN 05/19/17 Estropipate (ESTROPIPATE) 1.5 Mg Tablet, 1.5 MG PO QDAY for 90 Days Take 1 pill by mouth daily for 90 days 05/19/17 Allergies: Coded Allergies: Yuoovlu-Eff-Ygo Reductase Inhibitor (Verified Allergy, Unknown, 06/08/18) Hx Smoking: Yes Smoking Status: Former Smoker Caffeine Intake: Coffee Caffeine/Cups Per Day: 1 cup per day Hx Alcohol Use: No Hx Substance Use Disorder: No Social Drug Use: Never Review of Systems Constitutional: No Fever, No Chills ENT: Hearing Loss Cardiovascular: No Chest Pain, No Palpitations Respiratory: No Shortness of Breath Genitourinary: No Dysuria Musculoskeletal: Pain, Impaired Mobility Exam Vital Signs Vital Signs Date Time Temp Pulse Resp B/P (MAP) Pulse Ox O2 Delivery O2 Flow Rate FiO2 06/08/18 17:10 100 Nasal Cannula 2.0 06/08/18 17:10 99.2 65 20 167/75 (105) General Appearance: Other (Somwhat somnolent due to pain medication, but she does awaken and answer questions) Neuro: No Gross deficits Eyes: PERRLA ENT: Other (Cushingoid appearance) Neck: Other (short/thick) Cardiovascular: Regular Rate and Rhythm Respiratory: Clear to Auscultation Chest: No Tenderness, Other ([place]) GI: Abd Soft and Non-Tender : No CVA Tenderness Extremities: Warm, Perfused Integumentary: Generalized Fragile Skin Medical Decision Making Data Points Result Diagram: 06/08/18 1335 06/08/18 1335 Item Value Date Time Albumin 4.3 g/dl 06/08/18 1335 Total Protein 7.1 g/dl 06/08/18 1335 Troponin I < 0.012 ng/ml 06/08/18 1335 Alkaline Phosphatase 62 U/L 06/08/18 1335 Alanine Aminotransferase (ALT/SGPT) 30 U/L 06/08/18 1335 Aspartate Amino Transf (AST/SGOT) 28 U/L 06/08/18 1335 Total Bilirubin 0.8 mg/dl 06/08/18 1335 Calcium Level 8.8 mg/dl 06/08/18 1335 Urine Mucus None /HPF 06/08/18 1616 Urine Bacteria Few /HPF 06/08/18 1616 Urine Squamous Epithelial Cells None /LPF 06/08/18 1616 Urine WBC <1 /HPF 06/08/18 1616 Urine RBC <1 /HPF 06/08/18 1616 Urine Leukocyte Esterase Negative 06/08/18 1616 Urine Urobilinogen Negative mg/dL 06/08/18 1616 Urine Bilirubin Negative 06/08/18 1616 Urine Nitrite Negative 06/08/18 1616 Urine Blood Negative 06/08/18 1616 Urine Ketones Negative mg/dL 06/08/18 1616 Urine Glucose (UA) Negative mg/dL 06/08/18 1616 Urine Protein Negative mg/dL 06/08/18 1616 Urine Specific [place] 1.013 06/08/18 1616 Urine pH 5.0 pH 06/08/18 1616 Urine Clarity Clear 06/08/18 1616 Urine Color Yellow 06/08/18 1616 Prothrombin Time 12.5 seconds 06/08/18 1535 Prothromb Time International Ratio 0.94 06/08/18 1535 Activated Partial Thromboplast Time 25 seconds 06/08/18 1535 EKG / Imaging Imaging PATIENT NAME: Lucy Peralta : 1950 MR: [id number] V: [id number] EXAM DATE: ORDERING PHYSICIAN: LARA SMITH TECHNOLOGIST: Location: [facility] Patient: Lucy Peralta : 1950 Visit/Account:[id number] Date of Sevice: 06/08/2018 CT Head without contrast Indication: Fall. Comparison: 04/19/2018. Technique: Axial CT images were obtained through the brain from the skull base to the vertex without administration of IV contrast. Reformatted coronal and sagittal images were also obtained. One of the following dose optimization techniques was utilized in the performance of this exam: automated exposure control; adjustment of the mA and/or kV according to the patient's size; or use of an iterative reconstruction technique. Specific details can be referenced in the facility's radiology CT exam operational policy. Findings: No intracranial bleed, midline shift, mass effect, extra-axial fluid collection or hydrocephalus. The inferior right frontal lobe again shows a ill-defined mildly hyperdense and partially calcified mass measuring at least 3.2 x 2.4 cm. This appears not significantly changed given the difference in positioning from the previous examination. There does not appear to be any significant sequelae. This appears to abut up against the meningeal surface on the coronal images when compared to the previous exam. No other appreciable lesions. Age-related cerebral atrophy. Periventricular white matter ischemic changes consistent small vessel disease which appears similar. Cain/white matter differentiation appears normal. Mild bilateral internal carotid artery calcifications. Bony structures show no fractures or lesions. Previous craniotomy to the superior right skull. The left sphenoid sinus continues shows expansile with increased density within the sinus which is opacified. This appears to be unchanged from 06/29/2017 and measures approximately 1.5 x 1.7 cm. There is cont inued opacification the right sphenoid sinus. The remaining sinuses visualized are clear. There is fluid seen in both mastoid air cells which are unchanged. IMPRESSION: 1. No acute intracranial abnormality. Continued senescent changes. 2. Stable appearing partially calcified mass in the inferior right temporal lobe. In correlation to other exam is not significantly changed. Unsure if this is a partially calcified meningioma or a parenchymal tumor. No appreciable sequelae. 3. Continued chronic expansion of the left sphenoid sinus with increased density within the sinus. This likely chronic sinus disease possibly chronic cyst/polyp or mucocele. Report Dictated By: Kenneth Ramirez at 06/08/2018 4:43 PM Report E-Signed By: Kenneth Ramirez at 06/08/2018 4:54 PM WSN:[id number] PATIENT NAME: Lucy Peralta : 1950 MR: [id number] V: [id number] EXAM DATE: ORDERING PHYSICIAN: LARA SMITH TECHNOLOGIST: Location: [facility] Patient: Lucy Peralta : 1950 Visit/Account:[id number] Date of Sevice: 06/08/2018 CHEST SINGLE AP Indication: Trauma.. Comparison: 03/16/2018. Findings: Cardiomediastinal silhouette and pulmonary vessels within normal limits. Right Port-A-Cath is in place with the tip in SVC. There is no focal infiltrate or lobar consolidation. No pneumothorax or pleural effusion. Stable left midlung nodule. No new nodules. Upper abdomen is unremarkable. No acute bony abnormality. IMPRESSION: 1. No acute cardiopulmonary process. No indication of thoracic trauma. 2. Stable left lung nodule. Report Dictated By: Kenneth Ramirez at 06/08/2018 4:03 PM Report E-Signed By: Kenneth Ramirez at 06/08/2018 4:05 PM WSN:[id number] PATIENT NAME: Lucy Peralta : 1950 MR: [id number] V: [id number] EXAM DATE: ORDERING PHYSICIAN: LARA SMITH TECHNOLOGIST: Location: [facility] Patient: Lucy Peralta : 1950 Visit/Account:[id number] Date of Sevice: 06/08/2018 HIP LEFT HISTORY: Trauma ADDITIONAL HISTORY: None. COMPARISON: None. FINDINGS: AP view the pelvis and frog-leg view of the left hip was obtained. There is an impacted, minimally displaced subcapital fracture of the left hip. Femoral head remains in articulation with the acetabulum. There is no right hip fracture. Pelvic ring is intact. No pubic ramus fracture noted. No bony lesions are identified. IMPRESSION: Impacted subcapital fracture of the left hip. Report Dictated By: Lizzie Glaser MD at 06/08/2018 4:09 PM Report E-Signed By: Lizzie Glaser MD at 06/08/2018 4:11 PM WSN:[facility] Assessment and Plan Problems: (1) Femoral neck fracture Status: Acute Assessment & Plan: She will certainly be at increased risk for surgical repair due to her small cell lung cancer, diminished functional status, type 2 DM, hyponatremia. Her malignancy has been deemed "relatively stable" by her oncologist with little change in the past 8 months, so it is reasonable to assume she has a life expectancy of at least 6 months or more. We will need to see if can improve her electrolytes/hyponatremia prior to surgery. She will also need DVT prophylaxis post-op. (2) Hyponatremia Status: Acute Assessment & Plan: She received IV saline infusion in the ER. Will need to recheck her labs to see where her sodium is at this point. She could easily have an SIADH syndrome as the cause. (3) Hypothyroidism Status: Chronic Assessment & Plan: Continue replacement. (4) HTN (hypertension) Status: Chronic Assessment & Plan: Will continue her usual regimen with metoprolol, amlodipine, lisinopril with hold parameters. (5) DM (diabetes mellitus) Status: Chronic Assessment & Plan: Continue ADA diet, watch glucoses and use SSI as needed. (6) Small cell lung cancer Status: Chronic Assessment & Plan: She has been receiving her care through [facility] with Dr. Tipton. (7) Seizure Status: Chronic Assessment & Plan: She has been managed with Keppra 500mg PO BID. Will continue same regimen. Venous Thromboembolism Antithrombotics Is Pt On Any Antithrombotics?: No (surgery planned within next 24 hours) Exam Sepsis Risk: No Definite Risk VITO SMITH MD Jun 08, 2018 18:36
[2018-06-08 19:32] VITALS: BP 148/58
[2018-06-08] MEDS ORDERED: METOPROLOL TART 50 MG TAB PO SCH (21:00)
[2018-06-08] MEDS: levETIRAcetam 500 MG TAB PO SCH (21:13)
[2018-06-08 22:12] VITALS: BP 133/62
[2018-06-09 02:34] VITALS: BP 158/54
[2018-06-09] MEDS: MORPHINE 2 MG/ML SYR IVP PRN ×3 (02:37→10:05)
[2018-06-09 05:49] LABS: PLATELET COUNT, AUTOMATED 216 K/uL (150-450)
[2018-06-09] MEDS: LEVOTHYROXINE SOD 0.05 MG TAB PO SCH (05:55)
[2018-06-09] MEDS ORDERED: FUROSEMIDE 20 MG/2 ML VIAL IVP ONE (07:45)
[2018-06-09] MEDS: levETIRAcetam 500 MG TAB PO SCH ×2 (08:34→21:01)
[2018-06-09] MEDS: METOPROLOL TART 50 MG TAB PO SCH ×2 (09:00→21:00)
[2018-06-09] MEDS ORDERED: LISINOPRIL 20 MG TAB PO SCH (09:00)
[2018-06-09] MEDS ORDERED: amLODIPine BESYL(*) 5 MG TAB PO SCH (09:00)
[2018-06-09] MEDS: PANTOPRAZOLE SOD 40 MG TABEC PO SCH (09:00)
[2018-06-09 09:32] VITALS: BP 137/53
[2018-06-09] MEDS ORDERED: ACETAMINOPHEN(*)1000 MG/100 ML 100 ML IVPB PRN (10:00)
[2018-06-09] MEDS ORDERED: ROPIVACAINE 0.2% 20 ML VIAL ONE (10:15)
[2018-06-09] MEDS ORDERED: LIDOCAINE/SOD BICARB 8.4% SYR ONE (10:43)
[2018-06-09 11:07] VITALS: Ht 170.2 cm; Wt 75.4 kg
[2018-06-09] MEDS: SODIUM CHLORIDE 1 GR TAB PO SCH ×2 (12:35→17:29)
[2018-06-09] MEDS ORDERED: IBUPROFEN 200 MG TAB PO PRN (14:00)
--- NOTE | 2018-06-09 14:27 | Medical Nutrition Therapy ---
Nutrition Anthropometrics Height (Inches): 67.00 Height (Calculated Centimeters: 170.118658 Weight (Pounds): 166 Weight (Calculated Kilograms): 75.296 Vinicius Nutrition Score: Probably Inadequate Vinicius Nutrition Risk Score: 14 Dietary Referral Nutrition Risk Factors: Unplanned Loss >10lbs Nutrition Risk Comment: TASTE HAS BEEN POOR. On Dysphagia III diet. Physical Findings Physical Appearance: Overweight BMI 25-29 Skin Appearance Skin Appearance: Edema Edema Location Modifier: Edema Location: Type of Edema: Degree of Edema: Gastrointestinal Symptoms GI Symtoms: Tube Present: Bowel Sounds: Recent Bowel Pattern: Stool Characteristics: Nutritional Diagnosis Nutritional Risk Acuity 2: Head/Neck/GI Cancer Nutritional Risk Acuity 3: Cancer Past Medical History: Hx of hypothroidism, afib, otitis media, seizures, HTN, DM, sm cell lung cancer, and brain metastasis. Nutritional Acuity: 2-Moderate Nutrition Diagnosis: Increased Nutrient Needs Nutrition Etiology: Physiological Causes Nutrition Problem/Etiology/Sym: Increased nutirent needs, as related to physiological causes, as evidenced by weight loss of > 10lbs in unknown time frame, likely due to cancer treatment. Energy Requirement: 1700 ([place], AF- 1.3) Protein Requirement: 60 (.8g/kg) Fluid Requirement: 1700 (1ml/kcal) Diet Type: NPO (Nothing by Mouth), Fluid Restricted Nutrition Intervention: Incr diet as tolerated Diet Comment To [facility]: OFFER NUTR SUPPLEMENT ONCE DIET ADVANCES Nutrition Monitoring & Eval RD Patient Assessment Time: [address] Assessment Type: RD Assessment Patient Nutrition Acuity: 2-Moderate Follow Up Date: Jun 14, 2018 Nutritional Comment: 06/09. Admitted for left hip pain. Pt is being treated for femoral neck fx and hyponatremia. Currently on NPO and fluid restricted diet. Pt has hx of DM and is receiving 1-5 units humalog SUBQ. Noted pt has unplanned weight loss >10 lbs, likely due to cancer treatment. Undetermined time frame for weight loss. Notable labs include: elevated WBC 11.5, potassium 5.1, BUN 19, and random BG 258. Low labs include: RBC 3.31, Hgb 11, Hct 31, sodium 120. Pt is 67in, 166lbs, and has a overweight BMI of 26. Recommend 1700 kcal and 60 g protein each day. Increase diet as tolerated. Offer nutritional supplement once diet advances. JORDANALETHA HARGROVE Jun 09, 2018 13:01
[2018-06-09 14:43] VITALS: BP 143/73
--- NOTE | 2018-06-09 16:19 | Hospitalist Progress Note ---
Subjective Progress Notes Subjective 67F admitted for hyponatremia and L hip Fx. Sleepy this am, AAOx3 Patient Complains of: Neurological: No: Syncope, Weakness, Slurred Speech Cardiovascular: No: Chest Pain, Palpitations Respiratory: No: Cough, Congestion Musculoskeletal: Pain Physical Exam Vital Signs Date Time Temp Pulse Resp B/P (MAP) Pulse Ox O2 Delivery O2 Flow Rate FiO2 06/09/18 14:43 99.4 68 16 143/73 (96) 95 06/09/18 09:32 Room Air 06/09/18 02:34 0.5 Intake and Output 06/09/18 07:00 Output Total 1800 ml Balance -1800 ml Output Urine Total 1800 ml General Appearance: Alert, Awake, No Acute Distress Neuro: No Gross deficits Eyes: PERRLA ENT: Normal Cardiovascular: Normal Rhythm & Peripheral Pulses Respiratory: No Respiratory Distress GI: Soft and Non-Tender Extremities: Warm, Pulses, Other (L hip pain) Integumentary: Skin Intact without Lesion / Mass Psych: Alert & Oriented X3 (sleepy) Result Diagram: 06/09/18 0518 06/09/18 1038 Assessment and Plan Problems: (1) Femoral neck fracture Status: Acute Assessment & Plan: She will certainly be at increased risk for surgical repair due to her small cell lung cancer, diminished functional status, type 2 DM, hyponatremia. Her malignancy has been deemed "relatively stable" by her oncologist with little change in the past 8 months, so it is reasonable to assume she has a life expectancy of at least 6 months or more. We will need to see if can improve her electrolytes/hyponatremia prior to surgery. She will also need DVT prophylaxis post-op. Plan for surgery tomorrow if Na is improved. (2) Hyponatremia Status: Acute Assessment & Plan: She received IV saline infusion in the ER. 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 (3) Hypothyroidism Status: Chronic Assessment & Plan: Continue replacement. (4) HTN (hypertension) Status: Chronic Assessment & Plan: Will continue her usual regimen with metoprolol, amlodipine, lisinopril with hold parameters. (5) DM (diabetes mellitus) Status: Chronic Assessment & Plan: Continue ADA diet, watch glucoses and use SSI as needed. (6) Small cell lung cancer Status: Chronic Assessment & Plan: She has been receiving her care through [facility] with Dr. Tipton. (7) Seizure Status: Chronic Assessment & Plan: She has been managed with Keppra 500mg PO BID. Will continue same regimen. Exam Sepsis Risk: No Definite Risk LEDBETTER EDEN MARTINEZ DO Jun 09, 2018 16:19
[2018-06-09] MEDS: LIDOCAINE 5% PATCH TP SCH (16:32)
[2018-06-09] MEDS: HYDROmorphone HCL 2 MG/ML SDV IVP PRN ×2 (18:05→22:44)
[2018-06-09 19:40] VITALS: BP 107/68
[2018-06-09] MEDS: PATCH REMOVAL 1 EA TP SCH (21:00)
[2018-06-09] MEDS: INSULIN HUM LISPRO 100 UN/ML 3 ML VIAL SUBQ PRN (21:22)
[2018-06-09 22:45] VITALS: BP 100/44
[2018-06-10] VITALS (15 sets, daily range): BP systolic 106–158; BP diastolic 40–88
[2018-06-10] MEDS: LEVOTHYROXINE SOD 0.05 MG TAB PO SCH (06:00)
[2018-06-10] MEDS ORDERED: NS 3% 500 ML BAG 100 ML IV ONE (08:05)
--- NOTE | 2018-06-10 08:19 | Hospitalist Progress Note ---
Subjective Progress Notes Subjective She denies any complaints this AM. She states she did have some headache yesterday, but none currently. Physical Exam Vital Signs Date Time Temp Pulse Resp B/P (MAP) Pulse Ox O2 Delivery O2 Flow Rate FiO2 06/10/18 02:12 74 14 122/51 (74) 97 Nasal Cannula 1.0 06/09/18 22:45 98.7 Intake and Output 06/10/18 07:00 Intake Total 240 ml Output Total 1475 ml Balance -1235 ml Intake Oral 240 ml Output Urine Total 1475 ml General Appearance: Other (She is somewhat somnolent, but awakens easily and answers questions. She is confused as to day/time.) Cardiovascular: Regular Rate and Rhythm Respiratory: Clear to Auscultation GI: Soft and Non-Tender Extremities: Warm, Perfused Result Diagram: 06/09/1851706/10/18532 Assessment and Plan Problems: (1) Femoral neck fracture Status: Acute Assessment & Plan: She will certainly be at increased risk for surgical repair due to her small cell lung cancer, diminished functional status, type 2 DM, hyponatremia. Her malignancy has been deemed "relatively stable" by her onco logist with little change in the past 8 months, so it is reasonable to assume she has a life expectancy of at least 6 months or more. We will need to see if can improve her electrolytes/hyponatremia prior to surgery. She will also need DVT prophylaxis post-op. Plan for surgery is on hold until Na+ is improved. (2) Hyponatremia Status: Acute Assessment & Plan: She received IV saline infusion in the ER. 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 As she has some neurologic symptoms (somnolence/mild confusion), will also give 3% saline 100mls over one hour and reassess sodium. (3) Hypothyroidism Status: Chronic Assessment & Plan: Continue replacement. (4) HTN (hypertension) Status: Chronic Assessment & Plan: Will continue her metoprolol at lower dose. Will stop amlodipine, lisinopril at this time. Monitor BPs. (5) DM (diabetes mellitus) Status: Chronic Assessment & Plan: Continue ADA diet, watch glucoses and use SSI as needed. (6) Small cell lung cancer Status: Chronic Assessment & Plan: She has been receiving her care through [facility] with Dr. Tipton. (7) Seizure Status: Chronic Assessment & Plan: She has been managed with Keppra 500mg PO BID. Will continue same regimen. Exam Sepsis Risk: No Definite Risk VITO SMITH MD Jun 10, 2018 08:19
[2018-06-10] MEDS ORDERED: DEMECLOCYCLINE HCL 300 MG TAB PO SCH (09:00)
[2018-06-10] MEDS: HYDROmorphone HCL 2 MG/ML SDV IVP PRN (09:26)
[2018-06-10] MEDS: PANTOPRAZOLE SOD 40 MG TABEC PO SCH (09:26)
[2018-06-10] MEDS: SODIUM CHLORIDE 1 GR TAB PO SCH ×3 (09:26→17:30)
[2018-06-10] MEDS: METOPROLOL TART 50 MG TAB PO SCH ×2 (09:27→21:02)
[2018-06-10] MEDS: levETIRAcetam 500 MG TAB PO SCH ×2 (09:27→21:02)
[2018-06-10] MEDS: LIDOCAINE 5% PATCH TP SCH (09:28)
[2018-06-10] MEDS ORDERED: NORMOSOL R SOLN(*) 1000 ML BAG 1,000 ML IV PRN (10:25)
[2018-06-10] MEDS ORDERED: LIDOCAINE 2% IV 100 MG/5ML SYR ONE (10:25)
[2018-06-10] MEDS ORDERED: FAMOTIDINE(*) 20MG/50ML PREMIX 50 ML IVPB SCH (10:25)
[2018-06-10] MEDS ORDERED: fentaNYL CITR 100 MCG/2 ML AMP ONE (10:25)
[2018-06-10] MEDS ORDERED: PROPOFOL EMUL(*) 10MG/ML 20 ML 20 ML ONE (10:26)
[2018-06-10] MEDS ORDERED: EPINEPHrine HCL 1 MG/ML AMP ONE (10:33)
[2018-06-10] MEDS ORDERED: ROPIVACAINE 0.2% 20 ML VIAL ONE (10:33)
[2018-06-10] MEDS ORDERED: DEXAMETHASONE SOD PHOS 10MG/ML ONE (10:34)
[2018-06-10] MEDS ORDERED: LIDOCAINE MPF 1% 5 ML VIAL ONE (10:38)
[2018-06-10] MEDS ORDERED: ceFAZolin(*) 1 GM VIAL 1 GM in NS(*) 0.9% 100 ML ADDVANT BAG 100 ML IV ONE (11:00)
[2018-06-10] MEDS ORDERED: NS(*) 0.9% 1000 ML BAG 1,000 ML IV ONE (11:05)
--- NOTE | 2018-06-10 11:10 | EKG ---
FACILITY: [facility] [place] PATIENT NAME: TREVER CHUA : [id number] MR: [id number] V: [id number] EXAM DATE: ORDERING PHYSICIAN: VITO SMITH TECHNOLOGIST: JULIETH Test Reason : PRE OP Blood Pressure : / mmHG Vent. Rate : 052 BPM Atrial Rate : 052 BPM P-R Int : 166 ms QRS Dur : 144 ms QT Int : 492 ms P-R-T Axes : 089 -36 043 degrees QTc Int : 457 ms Sinus bradycardia Left axis deviation Right bundle branch block Abnormal ECG Similar to previous EKGs Confirmed by VITO SMITH ([id number] on 06/10/2018 5:45:54 PM Referred By: SARAH Confirmed By:VITO SMITH
[2018-06-10] MEDS ORDERED: LIDOCAINE/SOD BICARB 8.4% SYR ONE (11:22)
[2018-06-10] MEDS ORDERED: GLYCOPYRROLATE 0.2MG/ML 1 ML INJ ONE (12:23)
[2018-06-10] MEDS ORDERED: ONDANSETRON 4 MG/2 ML VIAL ONE (12:45)
[2018-06-10] MEDS ORDERED: PROMETHAZINE 25 MG/ML 1 ML AMP IVP PRN (13:40)
[2018-06-10] MEDS ORDERED: MAGNESIUM CITRATE 300 ML BTL PO PRN (13:40)
[2018-06-10] MEDS ORDERED: BISACODYL 10 MG SUPP PR PRN (13:40)
[2018-06-10] MEDS ORDERED: FLUSH 10 ML SYR IVP PRN (13:40)
[2018-06-10] MEDS ORDERED: MAGNESIUM HYDROXIDE* 30ML UDCP PO PRN (13:40)
[2018-06-10] MEDS ORDERED: ONDANSETRON 4 MG/2 ML VIAL IVP PRN (13:40)
[2018-06-10] MEDS ORDERED: diphenhydrAMINE 25 MG CAP PO PRN (13:40)
--- NOTE | 2018-06-10 14:47 | RADIOLOGY IMAGING REPORT ---
FACILITY: [facility] PATIENT NAME: Lucy Peralta : 1950 MR: [id number] V: [id number] EXAM DATE: ORDERING PHYSICIAN: MEGAN ATWOOD TECHNOLOGIST: [place] [facility] [place] Patient: Lucy Peralta : 1950 Visit/Account:[id number] Date of Sevice: 06/10/2018 Exam: C-ARM FLUORO 1 HR Indication: LEFT HIP PINNING, RAD Comparison: 06/08/2018 Findings: Fluoroscopy was provided for pinning of left hip fracture. Three bone screws are present a cross the impacted subcapital fracture. Fracture fragment. Well aligned. Fluoroscopy time 67.1 seconds DOSE: DAP was 0.48156 mGy*m2. IMPRESSION: Procedural fluoroscopy Report Dictated By: Rob Mena at 06/10/2018 2:42 PM Report E-Signed By: Rob Mena at 06/10/2018 2:43 PM WSN:[id number]
[2018-06-10] MEDS: ceFAZolin(*) 1 GM VIAL 1 GM in NS(*) 0.9% 100 ML ADDVANT BAG 100 ML IVPB SCH (20:41)
[2018-06-10] MEDS: PATCH REMOVAL 1 EA TP SCH (21:00)
[2018-06-10] MEDS: INSULIN HUM LISPRO 100 UN/ML 3 ML VIAL SUBQ PRN (21:02)
[2018-06-10] MEDS: DEMECLOCYCLINE HCL 300 MG TAB PO SCH (21:02)
[2018-06-10] MEDS: ENOXAPARIN 40 MG/0.4ML SYR SC SCH (21:03)
[2018-06-11] MEDS: ceFAZolin(*) 1 GM VIAL 1 GM in NS(*) 0.9% 100 ML ADDVANT BAG 100 ML IVPB SCH ×2 (03:24→12:09)
[2018-06-11 03:31] VITALS: BP 123/79
[2018-06-11] MEDS: LEVOTHYROXINE SOD 0.05 MG TAB PO SCH (06:04)
[2018-06-11 06:08] LABS: PLATELET COUNT, AUTOMATED 197 K/uL (150-450)
[2018-06-11 07:56] VITALS: BP 143/98
[2018-06-11] MEDS: SODIUM CHLORIDE 1 GR TAB PO SCH (09:44)
[2018-06-11] MEDS: PANTOPRAZOLE SOD 40 MG TABEC PO SCH (09:44)
[2018-06-11] MEDS: LIDOCAINE 5% PATCH TP SCH ×3 (09:44→12:20)
[2018-06-11] MEDS: levETIRAcetam 500 MG TAB PO SCH ×2 (09:44→20:47)
[2018-06-11] MEDS: METOPROLOL TART 50 MG TAB PO SCH ×2 (09:45→20:47)
[2018-06-11] MEDS: DEMECLOCYCLINE HCL 300 MG TAB PO SCH ×2 (09:45→20:46)
--- NOTE | 2018-06-11 10:36 | Hospitalist Progress Note ---
Subjective Progress Notes Subjective No cp/sob. No concerns from the patient or staff. Physical Exam Vital Signs Date Time Temp Pulse Resp B/P (MAP) Pulse Ox O2 Delivery O2 Flow Rate FiO2 06/11/18 07:56 95 Nasal Cannula 0.5 06/11/18 07:56 98.6 50 16 143/98 (113) Intake and Output 06/11/18 06:59 Intake Total 1290 ml Output Total 1300 ml Balance -10 ml Intake Oral 240 ml IV Total 500 ml Other 550 ml Output Urine Total 1300 ml # Voids 1 General Appearance: Alert, Awake, No Acute Distress Result Diagram: 06/11/1852206/11/18522 Assessment and Plan Problems: (1) Femoral neck fracture Status: Acute Assessment & Plan: She had repair on 06/10. Her malignancy has been deemed "relatively stable" by her oncologist with little change in the past 8 months, so it is reasonable to assume she has a life expectancy of at least 6 months or more. Lovenox 40mg a day for DVT prophylaxis. PT to see. (2) Hyponatremia Status: Acute Assessment & Plan: She received IV saline infusion in the ER. 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 She did get 3% saline 100mls over one hour. Sodium improving at an appropriate rate. (3) Hypothyroidism Status: Chronic Assessment & Plan: Continue replacement. (4) HTN (hypertension) Status: Chronic Assessment & Plan: Will continue her metoprolol at lower dose. Will stop amlodipine, lisinopril at this time. Monitor BPs. (5) DM (diabetes mellitus) Status: Chronic Assessment & Plan: Glucose elevated to 335 o/n, but she received Dexamethasone during surgery. Continue ADA diet, watch glucoses and use SSI as needed. (6) Small cell lung cancer Status: Chronic Assessment & Plan: She has been receiving her care through [facility] with Dr. Tipton. (7) Seizure Status: Chronic Assessment & Plan: She has been managed with Keppra 500mg PO BID. Will continue same regimen. Exam Sepsis Risk: No Definite Risk STEPH GUNDERSON MD Jun 11, 2018 10:36
[2018-06-11 11:24] VITALS: BP 147/62
[2018-06-11] MEDS: INSULIN HUM LISPRO 100 UN/ML 3 ML VIAL SUBQ PRN (12:18)
[2018-06-11 15:54] VITALS: BP 140/64
[2018-06-11] MEDS ORDERED: SODIUM CHLORIDE 1 GR TAB PO SCH (16:30)
[2018-06-11 20:15] VITALS: BP 157/56
[2018-06-11] MEDS: ENOXAPARIN 40 MG/0.4ML SYR SC SCH (20:46)
[2018-06-11] MEDS: MELATONIN 3 MG TAB PO SCH (20:47)
[2018-06-11] MEDS: PATCH REMOVAL 1 EA TP SCH (20:51)
[2018-06-11 22:45] VITALS: BP 132/81
[2018-06-12 02:37] VITALS: BP 152/61
[2018-06-12] MEDS: LEVOTHYROXINE SOD 0.05 MG TAB PO SCH (05:31)
[2018-06-12 06:16] LABS: PLATELET COUNT, AUTOMATED 197 K/uL (150-450)
[2018-06-12 07:29] VITALS: BP 143/54
[2018-06-12] MEDS: METOPROLOL TART 50 MG TAB PO SCH ×2 (09:03→20:26)
[2018-06-12] MEDS: PANTOPRAZOLE SOD 40 MG TABEC PO SCH (09:04)
[2018-06-12] MEDS: levETIRAcetam 500 MG TAB PO SCH ×2 (09:04→20:26)
[2018-06-12] MEDS: SODIUM CHLORIDE 1 GR TAB PO SCH (09:04)
[2018-06-12] MEDS: DEMECLOCYCLINE HCL 300 MG TAB PO SCH ×2 (09:05→20:26)
--- NOTE | 2018-06-12 10:05 | Hospitalist Progress Note ---
Subjective Progress Notes Subjective She is awake and alert. She expresses desire to go home as soon as possible. Physical Exam Vital Signs Date Time Temp Pulse Resp B/P (MAP) Pulse Ox O2 Delivery O2 Flow Rate FiO2 06/12/18 07:30 95 Room Air 06/12/18 07:29 98.8 52 14 143/54 (83) 06/11/18 07:56 0.5 Intake and Output 06/12/18 07:00 Intake Total 350 ml Output Total 450 ml Balance -100 ml Intake Oral 240 ml IV Total 110 ml Output Urine Total 450 ml # Voids 2 # Bowel Movements 0 General Appearance: Alert, Awake Cardiovascular: Regular Rate and Rhythm Respiratory: Clear to Auscultation GI: Soft and Non-Tender Extremities: Warm Result Diagram: 06/12/18 0550 06/12/18 0550 Assessment and Plan Problems: (1) Femoral neck fracture Status: Acute Assessment & Plan: She had repair on 06/10/18. She is on Lovenox 40mg a day for DVT prophylaxis. PT working with her. She does have limited weight bearing, so her progress is somewhat slow. Will see what therapy thinks about her needs at home/safety/possible extended rehab. 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 She has improved with fluid restriction, NaCl tabs, and demeclocycline. She did get a one-time 3% saline infusion of 100mls over one hour. Sodium now appears to be improving at an appropriate rate. (3) Hypothyroidism Status: Chronic Assessment & Plan: Continue replacement. (4) HTN (hypertension) Status: Chronic Assessment & Plan: Will continue her metoprolol at lower dose. We have stopped amlodipine, lisinopril at this time. Monitor BPs. (5) DM (diabetes mellitus) Status: Chronic Assessment & Plan: Continue ADA diet, watch glucoses and use SSI as needed. (6) Small cell lung cancer Status: Chronic Assessment & Plan: She has been receiving her care through [facility] with Dr. Tipton. (7) Seizure Status: Chronic Assessment & Plan: She has been managed with Keppra 500mg PO BID. Will continue same regimen. Exam Sepsis Risk: No Definite Risk VITO SMITH MD Jun 12, 2018 10:05
[2018-06-12 11:27] VITALS: BP 151/56
[2018-06-12] MEDS: ACETAMINOPHEN 500 MG TAB PO PRN ×2 (13:59→20:26)
[2018-06-12 15:27] VITALS: BP 155/67
[2018-06-12 19:44] VITALS: BP 154/58
[2018-06-12] MEDS: MELATONIN 3 MG TAB PO SCH (20:26)
[2018-06-12] MEDS: PATCH REMOVAL 1 EA TP SCH ×3 (20:27→21:00)
[2018-06-12] MEDS: ENOXAPARIN 40 MG/0.4ML SYR SC SCH (20:40)
[2018-06-12 23:20] VITALS: BP 145/61
[2018-06-13] VITALS (7 sets, daily range): BP systolic 146–182; BP diastolic 57–77
[2018-06-13] MEDS: ACETAMINOPHEN 500 MG TAB PO PRN ×3 (03:29→20:38)
[2018-06-13] MEDS: LEVOTHYROXINE SOD 0.05 MG TAB PO SCH (05:27)
[2018-06-13 05:39] LABS: PLATELET COUNT, AUTOMATED 215 K/uL (150-450)
[2018-06-13] MEDS: LIDOCAINE 5% PATCH TP SCH (09:04)
[2018-06-13] MEDS: DEMECLOCYCLINE HCL 300 MG TAB PO SCH ×2 (09:04→20:39)
[2018-06-13] MEDS: SODIUM CHLORIDE 1 GR TAB PO SCH (09:04)
[2018-06-13] MEDS: METOPROLOL TART 50 MG TAB PO SCH ×2 (09:05→20:39)
[2018-06-13] MEDS: PANTOPRAZOLE SOD 40 MG TABEC PO SCH (09:05)
[2018-06-13] MEDS: levETIRAcetam 500 MG TAB PO SCH ×2 (09:05→20:39)
--- NOTE | 2018-06-13 09:37 | Hospitalist Progress Note ---
Subjective Progress Notes Subjective This patient was admitted for a hip fracture. She had no acute issues overnight. Patient Complains of: Cardiovascular: No: Chest Pain Respiratory: No: Shortness of Breath Physical Exam Vital Signs Date Time Temp Pulse Resp B/P (MAP) Pulse Ox O2 Delivery O2 Flow Rate FiO2 06/13/18 08:57 175/64 (101) 06/13/18 08:00 98.7 53 12 93 Room Air 06/11/18 07:56 0.5 Intake and Output 06/13/18 07:00 Intake Total 1290 ml Balance 1290 ml Intake Oral 1290 ml # Voids 5 Cardiovascular: Regular Rate and Rhythm Respiratory: Clear to Auscultation Result Diagram: 06/13/18 0514 06/13/18 0514 Assessment and Plan Problems: (1) Femoral neck fracture Status: Acute Assessment & Plan: She had repair on 06/10/18. She is on Lovenox 40mg a day for DVT prophylaxis. Physical therapy will evaluate her for discharge today. 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 She has improved with fluid restriction, NaCl tabs, and demeclocycline. She did get a one-time 3% saline infusion of 100mls over one hour. Her sodium is now stable. (3) Hypothyroidism Status: Chronic Assessment & Plan: She is on chronic treatment with Synthroid. (4) HTN (hypertension) Status: Chronic Assessment & Plan: She remains on chronic treatment with metoprolol. We restarted her amlodipine at a lower dose. (5) DM (diabetes mellitus) Status: Chronic Assessment & Plan: Continue ADA diet, watch glucoses and use SSI as needed. (6) Small cell lung cancer Status: Chronic Assessment & Plan: She has been receiving her care through [facility] with Dr. Tipton. (7) Seizure Status: Chronic Assessment & Plan: She has been managed with Keppra 500mg PO BID. Will continue same regimen. Exam Sepsis Risk: No Definite Risk Problem Qualifiers (1) HTN (hypertension): Hypertension type: essential hypertension Qualified Codes: I10 - Essential (primary) hypertension ANISH WASHINGTON DO Jun 13, 2018 09:37
[2018-06-13] MEDS ORDERED: amLODIPine BESYL(*) 5 MG TAB PO ONE (15:30)
[2018-06-13] MEDS: PATCH REMOVAL 1 EA TP SCH (20:39)
[2018-06-13] MEDS: MELATONIN 3 MG TAB PO SCH (20:39)
[2018-06-13] MEDS: ENOXAPARIN 40 MG/0.4ML SYR SC SCH (20:40)
[2018-06-14 03:09] VITALS: BP 167/63
[2018-06-14 08:53] VITALS: BP_SYST 168; BP_SYST 169; BP_DIAS 67; BP_DIAS 87
[2018-06-14] MEDS ORDERED: amLODIPine BESYL(*) 5 MG TAB PO SCH (09:00)
[2018-06-14] MEDS: METOPROLOL TART 50 MG TAB PO SCH (09:19)
[2018-06-14] MEDS: LIDOCAINE 5% PATCH TP SCH (09:19)
[2018-06-14] MEDS: PANTOPRAZOLE SOD 40 MG TABEC PO SCH (09:19)
[2018-06-14] MEDS: levETIRAcetam 500 MG TAB PO SCH (09:19)
[2018-06-14] MEDS: LEVOTHYROXINE SOD 0.05 MG TAB PO SCH (09:20)
[2018-06-14] MEDS: DEMECLOCYCLINE HCL 300 MG TAB PO SCH (09:20)
[2018-06-14] MEDS: SODIUM CHLORIDE 1 GR TAB PO SCH (09:20)
--- NOTE | 2018-06-14 10:49 | Hospitalist Progress Note ---
Subjective Progress Notes Subjective 67F admitted for hip Fx, no pinned. ARLEY overnight, working with PT/OT. Patient Complains of: Gastrointestinal: No Nausea, No Vomiting Physical Exam Vital Signs Date Time Temp Pulse Resp B/P (MAP) Pulse Ox O2 Delivery O2 Flow Rate FiO2 06/14/18 09:19 94 Room Air 06/14/18 08:53 98.7 52 16 169/87 (114) 06/11/18 07:56 0.5 Intake and Output 06/14/18 07:00 Intake Total 1130 ml Balance 1130 ml Intake Oral 1130 ml # Voids 7 # Bowel Movements 3 General Appearance: Alert, Awake, No Acute Distress Neuro: No Gross deficits Eyes: PERRLA ENT: Normal Cardiovascular: Normal Rhythm & Peripheral Pulses Respiratory: No Respiratory Distress GI: Soft and Non-Tender Extremities: Soft and Non Tender, Warm, Pulses, Perfused Integumentary: Skin Intact without Lesion / Mass Result Diagram: 06/13/18 0514 06/14/18 0957 Assessment and Plan Problems: (1) Femoral neck fracture Status: Acute Assessment & Plan: She had repair on 06/10/18. She is on Lovenox 40mg a day for DVT prophylaxis. Physical therapy will work with her today, possible d/c to ECF. 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 She has improved with fluid restriction, NaCl tabs, and demeclocycline. She did get a one-time 3% saline infusion of 100mls over one hour. Recheck Na today and tomorrow am. (3) Hypothyroidism Status: Chronic Assessment & Plan: She is on chronic treatment with Synthroid. (4) HTN (hypertension) Status: Chronic Assessment & Plan: She remains on chronic treatment with metoprolol. We restarted her amlodipine at a lower dose. (5) DM (diabetes mellitus) Status: Chronic Assessment & Plan: Continue ADA diet, watch glucoses and use SSI as needed. (6) Small cell lung cancer Status: Chronic Assessment & Plan: She has been receiving her care through [facility] with Dr. Tipton. (7) Seizure Status: Chronic Assessment & Plan: She has been managed with Keppra 500mg PO BID. Will continue same regimen. Exam Sepsis Risk: No Definite Risk Problem Qualifiers (1) HTN (hypertension): Hypertension type: essential hypertension Qualified Codes: I10 - Essential (primary) hypertension EDEN QUINN DO Jun 14, 2018 10:49
--- NOTE | 2018-06-14 11:33 | Hospitalist Depart ---
Discharge Summary Reason for Hosp/Final Diag: (1) Femoral neck fracture Status: Acute Hospital Course & Plan: She had repair on 06/10/18. She is on Lovenox 40mg a day for DVT prophylaxis. To ECF today to continue recovery. 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 She has improved with fluid restriction, NaCl tabs, and demeclocycline. She did get a one-time 3% saline infusion of 100mls over one hour. Her sodium will need recheck in am.. (3) Hypothyroidism Status: Chronic Hospital Course & Plan: She is on chronic treatment with Synthroid. (4) HTN (hypertension) Status: Chronic Hospital Course & Plan: She remains on chronic treatment with metoprolol. We restarted her amlodipine at a lower dose. (5) DM (diabetes mellitus) Status: Chronic Hospital Course & Plan: Continue ADA diet, watch glucoses and use SSI as needed. (6) Small cell lung cancer Status: Chronic Hospital Course & Plan: She has been receiving her care through [facility] with Dr. Tipton. (7) Seizure Status: Chronic Hospital Course & Plan: She has been managed with Keppra 500mg PO BID. Will continue same regimen. Departure Weight (Pounds): 166 Weight (Ounces): 2.0 Result Diagram: 06/13/1851306/13/18513 Condition: Improved [facility] Follow Up For: PT For Strengthening, PT Evaluation and Treat Discharge Instructions Home Meds Active Scripts Pantoprazole Sodium (PANTOPRAZOLE SODIUM) 40 Mg Tablet., 40 MG PO QDAY, #30 TAB Prov:MILTON SMITH MD 03/27/18 Levetiracetam (LEVETIRACETAM) 500 Mg Tablet, 500 MG PO BID, #60 TAB Prov:MILTON SMITH MD 03/27/18 Acetaminophen (ACETAMINOPHEN) 500 Mg Tablet, 1000 MG PO Q8H PRN for PAIN for 1 Day, Prov:STEPH GUNDERSON MD 08/18/17 Metoprolol Tartrate (METOPROLOL TARTRATE) 50 Mg Tab, 50 MG PO BID for Blood Pressure, #60 TAB 1 Refill Prov:MILTON SMITH MD 07/07/17 Reported Medications Lactobacillus Acidophilus (PROBIOTIC) 1 Each Capsule, 1 EACH PO DAILY, CAPSULE 04/27/18 Ubidecarenone (COQ-10) 100 Mg Capsule, 200 MG PO HS, CAPSULE 04/27/18 Ascorbic Acid (VITAMIN C) 500 Mg Tablet, 500 MG PO HS, TAB 04/27/18 Vitamin E Acid Succinate (VITAMIN E) 400 Unit Tablet, 500 UNIT PO HS 04/27/18 Garlic (GARLIC) 1 Each Tablet, 1 EACH PO DAILY 04/27/18 Amlodipine Besylate (AMLODIPINE BESYLATE) 10 Mg Tablet, 1 TAB PO QDAY, TAB 04/27/18 Levothyroxine Sodium (LEVOTHYROXINE SODIUM) 50 Mcg Tablet, 1 TAB PO DAILY 03/27/18 Lisinopril (LISINOPRIL) 40 Mg Tablet, 20 MG PO QDAY, TAB 11/25/17 Oxygen (OXYGEN) Inha, 3.5 L INH, L 3.5 L CPAP 05/19/17 Multivitamin (DAILY MULTIPLE VITAMIN) 1 Each Tablet, 1 TAB PO DAILY 05/19/17 Loperamide HCl (Imodium A-D) Unknown Strength Capsule, PRN 05/19/17 Estropipate (ESTROPIPATE) 1.5 Mg Tablet, 1.5 MG PO QDAY for 90 Days Take 1 pill by mouth daily for 90 days 05/19/17 Diet: Diabetic Activity: As Tolerated, With Walker Copies to: GHADA CASTILLO MD ; Venous Thromboembolism Antithrombotics Is Pt On Any Antithrombotics?: No (surgery planned within next 24 hours) Problem Qualifiers (1) HTN (hypertension): Hypertension type: essential hypertension Qualified Codes: I10 - Essential (primary) hypertension EDEN QUINN DO Jun 14, 2018 10:17
[2018-06-15] MEDS ORDERED: LISI20TA29 PO (14:21)
--- NOTE | 2018-07-07 10:27 | OPERATIVE REPORT 1 ---
EVENT DATE: June 10, 2018 SURGEON: Conor Atwood M.D. DRIVING TEACHER: Sloan Valero, RAOULN, HR ADMINISTRATOR PREOPERATIVE DIAGNOSIS Left femoral neck fracture. POSTOPERATIVE DIAGNOSIS Left femoral neck fracture. PROCEDURE PERFORMED Closed reduction and open reduction and internal fixation of the left hip. TOURNIQUET TIME No tourniquet time. ESTIMATED BLOOD LOSS Less than 20 cc. DESCRIPTION OF PROCEDURE The patient was brought to the operating room and placed in a traction bed with the left leg in traction. Right leg was flexed, abducted and externally rotated to get out of the way. Once we were in position, we brought fluoroscopy and under fluoroscopy we were able to reduce the femoral neck into what I felt was an appropriate anatomic direction, anatomic alignment. From here we prepped the outside using Prevail and used a large Ioban shower curtain over this area. At this point, under fluoroscopy, I made a small incision just over the greater trochanter. The skin was incised with #15 blade down to the retinaculum. The retinaculum was then sharply incised. I was able to go directly down to bone just using about a 3 cm incision. Once that was done under fluoroscopy, I used a large "Bryan gun" guide, placed pin under fluoroscopy on AP and lateral directly into the head across the neck without any difficulty and then placed two more across the neck as well, trying to get a good spread of the pins into the head both anterior, posterior, superior and inferior. Once I felt I had the pins in and the reduction appropriate, I then drilled the lateral cortex in through the fracture and then placed three 7.3 cannulated screws up into the femoral neck and into the femoral head, again checking on AP and lateral and finding to have what I felt was an appropriate alignment of the fracture with good placement of the screws and getting very good compression across the femoral neck. I then removed the guidewires and closed the retinaculum using 2- 0 Vicryl, 3-0 Monocryl in the skin and antonio. Adaptic 4x4's and big bulky dressing. Patient went to recovery with no complications. <Electronically signed by CONOR ATWOOD MD> D/ [id number] [facility]/ CC: CONOR ATWOOD MD [facility]
== END 2018-06-14 12:25 | DRG 481 ==
LOC: ER 15:14 → MED 16:29
PROVIDERS: ADMIT Internal Medicine; ATTEND Internal Medicine
PROC: 0QS704Z Reposition Left Upper Femur with Internal Fixation Device, Open Approach (ICD-10-PCS; principal; 2018-06-08)
DX: S72.012A Unspecified intracapsular fracture of left femur, initial encounter for closed fracture (principal); C34.90 Malignant neoplasm of unspecified part of unspecified bronchus or lung; C79.31 Secondary malignant neoplasm of brain; E22.2 Syndrome of inappropriate secretion of antidiuretic hormone; I48.0 Paroxysmal atrial fibrillation; E03.9 Hypothyroidism, unspecified; I10 Essential (primary) hypertension; G40.909 Epilepsy, unspecified, not intractable, without status epilepticus; E11.9 Type 2 diabetes mellitus without complications; Z87.891 Personal history of nicotine dependence; W18.39XA Other fall on same level, initial encounter; Y92.009 Unspecified place in unspecified non-institutional (private) residence as the place of occurrence of the external cause
CPT/HCPCS: 36415; 36416; 70450; 71045; 76000; 76942; 81001; 82040; 82247; 82310; 82374; 82435; 82533; 82565; 82947; 82948; 83930; 83935; 84075; 84132; 84155; 84295; 84300; 84450; 84460; 84484; 84520; 85014; 85018; 85025; 85610; 85730; 86850; 86900; 86901; 93005; 96374; 97161; 97166; 99284; J0131; J0171; J0690; J1100; J1170; J1650; J1940; J2001; J2270; J2405; J2704; J2795; J3010; J3490; J7030; J7050

== ENCOUNTER 2018-06-14 12:25 | Inpatient (IN) | payer MEDICARE ==
[2018-06-09 11:07] VITALS: Ht 170.2 cm; Wt 72.1 kg
[~2018-06-14] VITALS: Ht 170.2 cm; Wt 72.1 kg
[2018-06-14] MEDS ORDERED: IBUPROFEN 200 MG TAB PO PRN (12:51)
[2018-06-14] MEDS ORDERED: BISACODYL 10 MG SUPP PR PRN (12:51)
[2018-06-14] MEDS ORDERED: INSULIN HUM LISPRO 100 UN/ML 3 ML VIAL SUBQ PRN (12:51)
[2018-06-14] MEDS ORDERED: FLUSH 10 ML SYR IVP PRN (12:51)
[2018-06-14] MEDS ORDERED: ONDANSETRON 4 MG/2 ML VIAL IVP PRN (12:51)
[2018-06-14] MEDS ORDERED: ACETAMINOPHEN 500 MG TAB PO PRN (12:51)
[2018-06-14] MEDS ORDERED: PROMETHAZINE 25 MG/ML 1 ML AMP IVP PRN (12:51)
--- NOTE | 2018-06-14 13:08 | Consultant Pharmacy Review ---
[facility] Review Medication Review Do All Mecications have a Diag: Yes Beers Criteria Medication 2014 Anticholinergics exclude TCAs: Promethazine Sliding Scale Insulin: Slidin Scale Insulin Proton Pump Inhibitors: Pantoprazole Pain Medications: Ibuprofen Disease-Drug Interactions History of Falls/Fractures: Opioids Other General Cautions Lexicomp Interaction Analysis A = No known interaction C = Monitor therapy X = Avoid combination B = No action needed D = Consider therapy modification Drugs in this analysis: Acetaminophen; Bisacodyl; Demeclocycline; HumaLOG; Keppra; Lidoderm; Lopressor; Lovenox; Melatonin; Milk of Magnesia [OTC]; Motrin IB [OTC]; Norvasc; OxyCONTIN; Percocet; Phenergan; Protonix; Sodium Chloride; Synthroid; Zofran * Drug-Drug Interactions D Bisacodyl Milk of Magnesia [OTC] (Antacids) D Demeclocycline (Tetracyclines) Milk of Magnesia [OTC] (Antacids) Depends on Route D Demeclocycline (Tetracyclines) Milk of Magnesia [OTC] (Magnesium Salts) Depends on Route D Keppra (DUE DILIGENCE COORDINATOR Depressants) OxyCONTIN (OxyCODONE) D Keppra (DUE DILIGENCE COORDINATOR Depressants) Percocet (OxyCODONE) D Milk of Magnesia [OTC] (Magnesium Salts) Synthroid (Levothyroxine) Depends on Route D OxyCONTIN (OxyCODONE) Phenergan (DUE DILIGENCE COORDINATOR Depressants) D Percocet (OxyCODONE) Phenergan (DUE DILIGENCE COORDINATOR Depressants) C HumaLOG (Insulins) Lopressor (Beta-Blockers) C Keppra (DUE DILIGENCE COORDINATOR Depressants) Phenergan (DUE DILIGENCE COORDINATOR Depressants) C Lidoderm (Lidocaine (Topical)) Lopressor (Beta-Blockers) C Lopressor (Beta-Blockers) Motrin IB [OTC] (Nonsteroidal Anti-Inflammatory Agents) Depends on Dosage Form C Lovenox (Anticoagulants) Motrin IB [OTC] (Agents with Antiplatelet Properties) Depends on International labeling C Lovenox (Anticoagulants) Motrin IB [OTC] (Nonsteroidal Anti-Inflammatory Agents) Depends on International labeling C Melatonin Norvasc (Calcium Channel Blockers (Dihydropyridine)) C Milk of Magnesia [OTC] (Magnesium Salts) Norvasc (Calcium Channel Blockers) C Phenergan (Serotonin Modulators) Zofran (Antiemetics (5HT3 Antagonists)) B Acetaminophen OxyCONTIN (Opioid Analgesics) B Acetaminophen Percocet (Opioid Analgesics) B Acetaminophen Zofran (Antiemetics (5HT3 Antagonists)) B Lidoderm (Lidocaine (Topical)) OxyCONTIN (Opioid Analgesics) B Lidoderm (Lidocaine (Topical)) Percocet (Opioid Analgesics) B Milk of Magnesia [OTC] (Antacids) Motrin IB [OTC] (Nonsteroidal Anti- Inflammatory Agents) B Motrin IB [OTC] (Nonsteroidal Anti-Inflammatory Agents) Norvasc (Calcium Channel Blockers) B OxyCONTIN (Opioid Analgesics) Percocet (Acetaminophen) B Percocet (Acetaminophen) Zofran (Antiemetics (5HT3 Antagonists)) B Protonix (Proton Pump Inhibitors) Synthroid (Thyroid Products) Pneumococcal Vaccine HX Pneumo Vac ([id number]): Yes (07/04/2015) HX Pneumo Vac (Pneumovax): Yes (11/25/2010 and 07/09/2016) Comments Regarding the Review Patient is up to date on pneumococcal vaccinations and it is recommended that she receive an influenza vaccination when it becomes available. Monitor for falls due to Oxycontin and Percocet use. Do not exceed 3 gms of acetaminophen use in 24 hours (orders for both acetaminophen and percocet). JOSE LUIS STEVENSON Jun 14, 2018 13:08
[2018-06-14 13:26] VITALS: BP 179/59
--- NOTE | 2018-06-14 14:25 | ECF H&P BLANK ---
ECF H&P UPDATE The above acute care issues are resolving and/or stable. Patient requires fdc and/or skilled rehabilitation and is ready for admission to Extended Care. Any change in condition is described below. Chief Complaint Left hip pain History of Present Illness 67yo female with extensive PMHx including metastatic small cell lung cancer which has been "relatively stable" per medical oncology (Dr. Tipton). She had a fall at home earlier today and sustained a left femoral neck fracture. She reports walking to the bathroom when she felt off balance and fell to the floor. She denied any CP/SOB/palpitations/focal weakness. She was evaluated in the ER and found to have the fracture. Her labs were remarkable for a sodium of 123. Her BUN was also slightly elevated. Her EKG shows RBBB, which is unchanged. Her CXR shows the left lung nodule/mass to be unchanged. Her CT scan of the brain, likewise, shows the unchanged calcified mass in right temporal lobe. She has no history of bleeding or clotting problems. She has no history of difficulties with anesthesia. She does have a history of type 2 DM managed with diet and a seizure disorder on Keppra. Hip was pinned. History Problems: (1) Hypothyroidism Status: Chronic (2) PAROXYSMAL ATRIAL FIBRILLATION Status: Chronic (3) Otitis media Status: Chronic (4) Seizure Status: Chronic (5) HTN (hypertension) Status: Chronic (6) DM (diabetes mellitus) Status: Chronic (7) Small cell lung cancer Status: Chronic (8) Brain metastases Status: Chronic Home Meds Active Scripts Pantoprazole Sodium (PANTOPRAZOLE SODIUM) 40 Mg Tablet.dr, 40 MG PO QDAY, #30 TAB Prov:MILTON SMITH MD 03/27/18 Levetiracetam (LEVETIRACETAM) 500 Mg Tablet, 500 MG PO BID, #60 TAB Prov:MILTON SMITH MD 03/27/18 Acetaminophen (ACETAMINOPHEN) 500 Mg Tablet, 1000 MG PO Q8H PRN for PAIN for 1 Day, Prov:STEPH GUNDERSON MD 08/18/17 Metoprolol Tartrate (METOPROLOL TARTRATE) 50 Mg Tab, 50 MG PO BID for Blood P ressure, #60 TAB 1 Refill Prov:MILTON SMITH MD 07/07/17 Reported Medications Lactobacillus Acidophilus (PROBIOTIC) 1 Each Capsule, 1 EACH PO DAILY, CAPSULE 04/27/18 Ubidecarenone (COQ-10) 100 Mg Capsule, 200 MG PO HS, CAPSULE 04/27/18 Ascorbic Acid (VITAMIN C) 500 Mg Tablet, 500 MG PO HS, TAB 04/27/18 Vitamin E Acid Succinate (VITAMIN E) 400 Unit Tablet, 500 UNIT PO HS 04/27/18 Garlic (GARLIC) 1 Each Tablet, 1 EACH PO DAILY 04/27/18 Amlodipine Besylate (AMLODIPINE BESYLATE) 10 Mg Tablet, 1 TAB PO QDAY, TAB 04/27/18 Levothyroxine Sodium (LEVOTHYROXINE SODIUM) 50 Mcg Tablet, 1 TAB PO DAILY 03/27/18 Lisinopril (LISINOPRIL) 40 Mg Tablet, 20 MG PO QDAY, TAB 11/25/17 Oxygen (OXYGEN) Inha, 3.5 L INH, L 3.5 L CPAP 05/19/17 Multivitamin (DAILY MULTIPLE VITAMIN) 1 Each Tablet, 1 TAB PO DAILY 05/19/17 Loperamide HCl (Imodium A-D) Unknown Strength Capsule, PRN 05/19/17 Estropipate (ESTROPIPATE) 1.5 Mg Tablet, 1.5 MG PO QDAY for 90 Days Take 1 pill by mouth daily for 90 days 05/19/17 Allergies: Coded Allergies: [id number] Reductase Inhibitor (Verified Allergy, Unknown, 06/08/18) Hx Smoking: Yes Smoking Status: Former Smoker Caffeine Intake: Coffee Caffeine/Cups Per Day: 1 cup per day Hx Alcohol Use: No Hx Substance Use Disorder: No Social Drug Use: Never Review of Systems Constitutional: No Fever, No Chills ENT: Hearing Loss Cardiovascular: No Chest Pain, No Palpitations Respiratory: No Shortness of Breath Genitourinary: No Dysuria Musculoskeletal: Pain, Impaired Mobility Exam General Appearance: Other (Somwhat somnolent due to pain medication, but she d oes awaken and answer questions) Neuro: No Gross deficits Eyes: PERRLA ENT: Other (Cushingoid appearance) Neck: Other (short/thick) Cardiovascular: Regular Rate and Rhythm Respiratory: Clear to Auscultation Chest: No Tenderness, Other ([place]) GI: Abd Soft and Non-Tender : No CVA Tenderness Extremities: Warm, Perfused Integumentary: Generalized Fragile Skin Medical Decision Making Data Points Result Diagram: 06/08/18 1335 06/08/18 1335 Item Value Date Time Albumin 4.3 g/dl 06/08/18 1335 Total Protein 7.1 g/dl 06/08/18 1335 Troponin I < 0.012 ng/ml 06/08/18 1335 Alkaline Phosphatase 62 U/L 06/08/18 1335 Alanine Aminotransferase (ALT/SGPT) 30 U/L 06/08/18 1335 Aspartate Amino Transf (AST/SGOT) 28 U/L 06/08/18 1335 Total Bilirubin 0.8 mg/dl 06/08/18 1335 Calcium Level 8.8 mg/dl 06/08/18 1335 Urine Mucus None /HPF 06/08/18 1616 Urine Bacteria Few /HPF 06/08/18 1616 Urine Squamous Epithelial Cells None /LPF 06/08/18 1616 Urine WBC <1 /HPF 06/08/18 1616 Urine RBC <1 /HPF 06/08/18 1616 Urine Leukocyte Esterase Negative 06/08/18 1616 Urine Urobilinogen Negative mg/dL 06/08/18 1616 Urine Bilirubin Negative 06/08/18 1616 Urine Nitrite Negative 06/08/18 1616 Urine Blood Negative 06/08/18 1616 Urine Ketones Negative mg/dL 06/08/18 1616 Urine Glucose (UA) Negative mg/dL 06/08/18 1616 Urine Protein Negative mg/dL 06/08/18 1616 Urine Specific [place] 1.013 06/08/18 1616 Urine pH 5.0 pH 06/08/18 1616 Urine Clarity Clear 06/08/18 1616 Urine Color Yellow 06/08/18 1616 Prothrombin Time 12.5 seconds 06/08/18 1535 Prothromb Time International Ratio 0.94 06/08/18 1535 Activated Partial Thromboplast Time 25 seconds 06/08/18 1535 EKG / Imaging Imaging PATIENT NAME: Lucy Peralta : 1950 MR: [id number] V: [id number] EXAM DATE: ORDERING PHYSICIAN: LARA SMITH TECHNOLOGIST: Location: [facility] Patient: Lucy Peralta : 1950 Visit/Account:[id number] Date of Sevice: 06/08/2018 CT Head without contrast Indication: Fall. Comparison: 04/19/2018. Technique: Axial CT images were obtained through the brain from the skull base to the vertex without administration of IV contrast. Reformatted coronal and sagittal images were also obtained. One of the following dose optimization techniques was utilized in the performance of this exam: automated exposure control; adjustment of the mA and/or kV according to the patient's size; or use of an iterative reconstruction technique. Specific details can be referenced in the facility's radiology CT exam operational policy. Findings: No intracranial bleed, midline shift, mass effect, extra-axial fluid collection or hydrocephalus. The inferior right frontal lobe again shows a ill-defined mildly hyperdense and partially calcified mass measuring at least 3.2 x 2.4 cm. This appears not significantly changed given the difference in positioning from the previous examination. There does not appear to be any significant sequelae. This appears to abut up against the meningeal surface on the coronal images when compared to the previous exam. No other appreciable lesions. Age-related cerebral atrophy. Periventricular white matter ischemic changes consistent small vessel disease which appears similar. Cain/white matter differentiation appears normal. Mild bilateral internal carotid artery calcifications. Bony structures show no fractures or lesions. Previous craniotomy to the superior right skull. The left sphenoid sinus continues shows expansile with increased density within the sinus which is opacified. This appears to be unchanged from 06/29/2017 and measures approximately 1.5 x 1.7 cm. There is c ontinued opacification the right sphenoid sinus. The remaining sinuses visualized are clear. There is fluid seen in both mastoid air cells which are unchanged. IMPRESSION: 1. No acute intracranial abnormality. Continued senescent changes. 2. Stable appearing partially calcified mass in the inferior right temporal lobe. In correlation to other exam is not significantly changed. Unsure if this is a partially calcified meningioma or a parenchymal tumor. No appreciable sequelae. 3. Continued chronic expansion of the left sphenoid sinus with increased density within the sinus. This likely chronic sinus disease possibly chronic cyst/polyp or mucocele. Report Dictated By: Kenneth Ramirez at 06/08/2018 4:43 PM Report E-Signed By: Kenneth Ramirez at 06/08/2018 4:54 PM WSN:[id number] PATIENT NAME: Lucy Peralta : 1950 MR: [id number] V: [id number] EXAM DATE: ORDERING PHYSICIAN: LARA SMITH TECHNOLOGIST: Location: [facility] Patient: Lucy Peralta : 1950 Visit/Account:[id number] Date of Sevice: 06/08/2018 CHEST SINGLE AP Indication: Trauma.. Comparison: 03/16/2018. Findings: Cardiomediastinal silhouette and pulmonary vessels within normal limits. Right Port-A-Cath is in place with the tip in SVC. There is no focal infiltrate or lobar consolidation. No pneumothorax or pleural effusion. Stable left midlung nodule. No new nodules. Upper abdomen is unremarkable. No acute bony abnormality. IMPRESSION: 1. No acute cardiopulmonary process. No indication of thoracic trauma. 2. Stable left lung nodule. Report Dictated By: Kenneth Ramirez at 06/08/2018 4:03 PM Report E-Signed By: Kenneth Ramirez at 06/08/2018 4:05 PM WSN:[id number] PATIENT NAME: Lucy Peralta : 1950 MR: [id number] V: [id number] EXAM DATE: ORDERING PHYSICIAN: LARA SMITH TECHNOLOGIST: Location: [facility] Patient: Lucy Peralta : 1950 Visit/Account:[id number] Date of Sevice: 06/08/2018 HIP LEFT HISTORY: Trauma ADDITIONAL HISTORY: None. COMPARISON: None. FINDINGS: AP view the pelvis and frog-leg view of the left hip was obtained. There is an impacted, minimally displaced subcapital fracture of the left hip. Femoral head remains in articulation with the acetabulum. There is no right hip fracture. Pelvic ring is intact. No pubic ramus fracture noted. No bony lesions are identified. IMPRESSION: Impacted subcapital fracture of the left hip. Report Dictated By: Lizzie Glaser MD at 06/08/2018 4:09 PM Report E-Signed By: Lizzie Glaser MD at 06/08/2018 4:11 PM WSN:[id number] Assessment and Plan Problems: (1) Femoral neck fracture Status: Acute Assessment & Plan: Status post repair, working with PT/OT. (2) Hyponatremia Status: Acute Assessment & Plan: 2/2 SIADH, sodium improved with PO NaCl and demecycline (3) Hypothyroidism Status: Chronic Assessment & Plan: Continue replacement. (4) HTN (hypertension) Status: Chronic Assessment & Plan: Will continue her usual regimen with metoprolol, amlodipine, lisinopril with hold parameters. (5) DM (diabetes mellitus) Status: Chronic Assessment & Plan: Continue ADA diet, watch glucoses and use SSI as needed. (6) Small cell lung cancer Status: Chronic Assessment & Plan: She has been receiving her care through [facility] with Dr. Tipton. (7) Seizure Status: Chronic Assessment & Plan: She has been managed with Keppra 500mg PO BID. Will continue same regimen. Venous Thromboembolism Antithrombotics Is Pt On Any Antithrombotics?: Yes EDEN QUINN DO Jun 14, 2018 14:25
--- NOTE | 2018-06-14 15:04 | OT ECF NOTE ---
Type of Note: Initial Note Primary Medical Diagnosis: Generalized weakness s/p left hip pinning PWB L) LE 20# Occupational Therapy Evaluation Date: 06/14/18 SUBJECTIVE: Prior Hospitalization: [facility] 06/08/18 thru 06/14/18. DOS: 06/10/18. Prior Level of Function: Independent with ADLs. Assist from spouse for IADLs. Prior Living Status: Single level house Spouse Assist by family Community Services: No known needs Home Accessibility: One step into home All needs on one level Walk-in shower Shower chair Equipment Owned: Front wheeled walker Rollator Cane Wheelchair Medical Complications/Past Medical History: Please refer to EMR Psychosocial Support: Supportive spouse Pain Scale (0-10): 5/10 upon initial movement. 0/10 upon seated in chair. OBJECTIVE: Strength: MMT: Right Left Shoulder Flexion WFL WFL Elbow Flexion WFL WFL Wrist Extension WFL WFL Lay Midwife WFL WFL (5= normal, 4= good, 3= fair, 2= poor, 1= trace) ROM: Both upper extremities, WFL Sensation: Intact, No concerns Functional Transfer: Assistive Device: Front wheeled walker, Gait belt Transfer Ability: 2 person assist Minimum assistancex1 to maintain WB status Moderate assistancex1 to negotiate RW Improved adherence to PWB status when cues to bend left knee ADL: Upper body dressing: Assistive device: Upper body dressing ability: N/T Lower body dressing: Assistive device: Lower body dressing ability: N/T Toileting: Assistive device: Toileting ability: N/T Grooming/hygiene: Assistive device: Grooming ability: N/T Bathing: Assistive device: Bathing ability: N/T Standardized Assessment: Fabiola Index of Activities of Daily Livin/20 upon initial evaluation (06/14/18). ASSESSMENT: Lucy presents to [facility] with generalized weakness s/p L) hip pinning after a fall at home. Currently, she requires two person assist for stand pivot transfers with poor adherence to PWB status. At [facility], she was (I) with ADLs and assist from spouse for IADLs. She will benefit from skilled OT services to improve activity tolerance and optimize (I) with ADLs prior to discharge home. Problem List/Current Limitations: Pain Decreased activity tolerance Decreased strength Generalized weakness Poor safety awareness Short Term Goals: 1) Pt will be Min A UB/LB dressing. 2) Pt will be SBA toilet task. 3) Pt will be Independent grooming/hygiene seated. 4) Pt will be Min A shower task. 5) Pt Fabiola Index of ADLs score will improve by 2 points. 6) Pt and spouse will be educated on appropriate AE needs. Senior Living Goals: Return home with assist from spouse Patient Goals: "Be able to get to the toilet" "Return home" Rehabilitation Prognosis: Good Barriers to Discharge: Pain, Weight-bearing status PLAN: The patient will benefit from skilled occupational therapy services 5 times per week for 2 weeks including: Ther ex ADL training Safety training Ther act IADL training Transfer training Adaptive equip training Bed mobility Energy conservation Thank you for this referral. If you have any questions, concerns, or comments about this report or plan, please contact me at . Yasmine Zhou MS, OTR/L Occupational Therapist [facility]ACE[facility]
--- NOTE | 2018-06-14 15:11 | PT ECF NOTE ---
Type of Note: Initial Note Primary Medical Diagnosis: L) hip ORIF, PWB 20# L) LE Physical Therapy Evaluation Date: 06/14/18 SUBJECTIVE: Prior Hospitalization: [facility] 06/08/18- 06/14/18 Prior Level of Function: Valerie with use of RW as needed Prior Living Status: Single level house, Spouse Community Services: Support adequate Home Accessibility: 2 stairs with rails, All needs on one level Equipment Owned: Front wheeled walker, Rollator, Wheelchair Medical Complications/Past Medical History: See EMR, lung caner with brain mets Psychosocial Support: Very supportive Pain Scale (0-10): 5/10, L) hip OBJECTIVE: Strength: Right Lower Extremity: DF: 4/5 Knee flexion: 4/5 Knee extension:3+/5 Hip flexion: 3+/5 Left Lower Extremity: DF: 4/5 Knee flexion: 3+/5 Knee extension: 3/5 (no resistance applied) Hip flexion: <3/5 ROM: L) hip ROM limited by pain Sensation: WNL Other Neuro findings: None noted Bed Mobility: Luisito with HOB elevated and use of railing Transfers: MaxA x1 for walker negotiation, min-modA at L) LE to maintain WB status during stand pivot transfer with RW Gait: Pt not yet able Stairs: Pt not yet able ASSESSMENT: PT/OT ECF co eval complete. Pt completed supine to sit bed mobility with Luisito for movement of L) LE and use of railing with HOB raised. Pt able to rise to stand with CGA, requiring maxA x 1 for walker negotiation during stand pivot to chair, with Luisito at L) knee and foot to maintain WB status. Pt with improved adherence to PWB status with cues to bend L) knee today. Pt will benefit from skilled PT services in order to increase independence with functional mobility in order to facilitate safe d/c home. Pt reports that she is comfortable with discharging home at the level of stand pivot transfers to/from w/c, toilet etc. Problem List/Current Limitations: Pain Decreased WB Decreased activity reginaldo Decreased strength Decreased ROM Decreased balance Decreased problem solving Short Term Goals: 1: Pt to complete bed mobility with Valerie and HOB flat 2: Pt to complete stand pivot transfers from a variety of surfaces with Valerie, while maintaining PWB status of L) LE. 3: Pt to ambulate 5' with RW and maintenance of PWB status of L) LE. 4: Pt to self propel w/c 50 feet with multiple turns and Valerie. Intermediate Goals: Pt to discharge home with ability to maintain PWB status during functional mobility with adequate assistance in place Patient Goals: "To be able to access my house" Rehabilitation Prognosis: Fair Barriers for Discharge: High level of independence required prior to d/c home, ability to maintain PWB status PLAN: The patient will benefit from skilled physical therapy services 5 times per week for 2 weeks including: Therapeutic Exercise Therapeutic Activities Transfer Training Gait Training Stair Training Manual Therapy Safety Training Neuromuscular Re-educ. Pt/Caregiver Training Bed Mobility Thank you for this referral. If you have any questions, concerns, or comments about this report or plan, please contact me at . Mari Bishop, PT, DPT MTDD
[2018-06-14 16:45] VITALS: BP 150/62
[2018-06-14] MEDS: MELATONIN 3 MG TAB PO SCH (20:38)
[2018-06-14] MEDS: DEMECLOCYCLINE HCL 300 MG TAB PO SCH (20:38)
[2018-06-14] MEDS: levETIRAcetam 500 MG TAB PO SCH (20:38)
[2018-06-14] MEDS: METOPROLOL TART 50 MG TAB PO SCH (20:39)
[2018-06-14] MEDS: ENOXAPARIN 40 MG/0.4ML SYR SC SCH (20:40)
[2018-06-14] MEDS: PATCH REMOVAL 1 EA TP SCH (20:40)
[2018-06-15] MEDS: LEVOTHYROXINE SOD 0.05 MG TAB PO SCH (06:09)
[2018-06-15 08:00] VITALS: BP 145/65
[2018-06-15] MEDS: DEMECLOCYCLINE HCL 300 MG TAB PO SCH ×2 (08:58→20:54)
[2018-06-15] MEDS: SODIUM CHLORIDE 1 GR TAB PO SCH (08:58)
[2018-06-15] MEDS: amLODIPine BESYL(*) 5 MG TAB PO SCH (08:58)
[2018-06-15] MEDS: LIDOCAINE 5% PATCH TP SCH (08:58)
[2018-06-15] MEDS: PANTOPRAZOLE SOD 40 MG TABEC PO SCH (08:58)
[2018-06-15] MEDS: levETIRAcetam 500 MG TAB PO SCH ×2 (08:59→20:54)
[2018-06-15] MEDS: METOPROLOL TART 50 MG TAB PO SCH ×2 (09:06→20:53)
--- NOTE | 2018-06-15 09:28 | Medical Nutrition Therapy ---
Nutrition Anthropometrics Height (Inches): 67.00 Height (Calculated Centimeters: 170.992623 Weight (Pounds): 159 Weight (Calculated Kilograms): 72.348 BMI: 25 Vinicius Nutrition Score: Probably Inadequate Vinicius Nutrition Risk Score: 16 Dietary Referral Nutrition Risk Factors: Unplanned Loss >10lbs Nutrition Risk Comment: TASTE HAS BEEN POOR. On Dysphagia III diet. Physical Findings Physical Appearance: Overweight BMI 25-29 Skin Appearance Skin Appearance: Edema Edema Location Modifier: Edema Location: Type of Edema: Degree of Edema: Gastrointestinal Symptoms GI Symtoms: Tube Present: Bowel Sounds: Recent Bowel Pattern: Stool Characteristics: Nutritional Diagnosis Nutritional Risk Acuity 2: Head/Neck/GI Cancer Nutritional Risk Acuity 3: Cancer Past Medical History: Hx of hypothroidism, afib, otitis media, seizures, HTN, DM, sm cell lung cancer, and brain metastasis. Nutritional Acuity: 2-Moderate Nutrition Diagnosis: Increased Nutrient Needs Nutrition Etiology: Physiological Causes Nutrition Problem/Etiology/Sym: Increased nutrient needs, as related to physiological causes, as evidenced by femoral neck fx. Energy Requirement: 1665 ([place], AF-1.3) Protein Requirement: 72 (1g/kg) Fluid Requirement: 1800 (5ml/kg) Diet Type: Diabetic Nutrition Intervention: Cont diet as ordered, Encourage intake Nutrition Monitoring & Eval RD Patient Assessment Time: [address] Assessment Type: RD Assessment Patient Nutrition Acuity: 2-Moderate Follow Up Date: Jun 21, 2018 Nutritional Comment: 06/15. Admitted to F for PT/OT for femoral neck fx after fall. Pt has hx of T2DM, receiving 1-5 units humalog SUBQ. BG is WNL. Other notable labs include: low sodium 132, and elevated BUN 30, and creatinine 1.1. Pt is on Diabetic diet, consuming 75-100% of meals. Was noted on med floor pt had unplanned weight loss of >10lbs. March 21, 2018 pt weighed 172lbs at cancer center, then had a weight of 166lb on med floor. 3.5% weight loss in 3 months, not significant weight loss. Pt is 67in, 159lbs, and has an overweight BMI of 25. Recommend pt consumes 1665 kcal and 72g protein each day. Will cont to monitor. ALETHA MORELOS Jun 15, 2018 08:25
--- NOTE | 2018-06-15 13:56 | Hospitalist Progress Note ---
Physical Exam Vital Signs Date Time Temp Pulse Resp B/P (MAP) Pulse Ox O2 Delivery O2 Flow Rate FiO2 06/15/18 09:59 98 Room Air 06/15/18 09:03 60 06/15/18 08:00 98.5 10 145/65 (91) Intake and Output 06/15/18 07:00 Intake Total 720 ml Balance 720 ml Intake Oral 720 ml # Voids 4 Result Diagram: 06/15/18 0620 Assessment and Plan Problems: (1) Femoral neck fracture Status: Acute Assessment & Plan: She had repair on 06/10/18. She is on Lovenox 40mg a day for DVT prophylaxis. The patient was transferred to [facility] to continue recovery. She is working with therapy. 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 She has improved with fluid restriction, NaCl tabs, and demeclocycline. She did get a one-time 3% saline infusion of 100mls over one hour. Her most recent sodium level was 132 on 06/15. Will monitor periodically. (3) Hypothyroidism Status: Chronic Assessment & Plan: She is on chronic treatment with Synthroid. (4) HTN (hypertension) Status: Chronic Assessment & Plan: She remains on chronic treatment with metoprolol. We restarted her amlodipine at a lower dose. (5) DM (diabetes mellitus) Status: Chronic Assessment & Plan: Continue ADA diet, watch glucoses and use SSI as needed. (6) Small cell lung cancer Status: Chronic Assessment & Plan: She has been receiving her care through [facility] with Dr. Tipton. (7) Seizure Status: Chronic Assessment & Plan: She has been managed with Keppra 500mg PO BID. Will continue same regimen. Time Spent on Plan of Care: < 30 min MILTON SMITH MD Jun 15, 2018 13:56
[2018-06-15] MEDS ORDERED: LISI20TA29 PO (14:21)
[2018-06-15 15:40] VITALS: BP 147/63
[2018-06-15] MEDS: ENOXAPARIN 40 MG/0.4ML SYR SC SCH (20:53)
[2018-06-15] MEDS: PATCH REMOVAL 1 EA TP SCH (20:54)
[2018-06-15] MEDS: MELATONIN 3 MG TAB PO SCH (20:54)
[2018-06-16] MEDS: LEVOTHYROXINE SOD 0.05 MG TAB PO SCH (05:27)
[2018-06-16 08:25] VITALS: BP 142/57
[2018-06-16] MEDS: LIDOCAINE 5% PATCH TP SCH (08:49)
[2018-06-16] MEDS: levETIRAcetam 500 MG TAB PO SCH ×2 (08:50→20:37)
[2018-06-16] MEDS: SODIUM CHLORIDE 1 GR TAB PO SCH (08:50)
[2018-06-16] MEDS: PANTOPRAZOLE SOD 40 MG TABEC PO SCH (08:50)
[2018-06-16] MEDS: amLODIPine BESYL(*) 5 MG TAB PO SCH (08:50)
[2018-06-16] MEDS: DEMECLOCYCLINE HCL 300 MG TAB PO SCH ×2 (08:50→20:38)
[2018-06-16] MEDS: METOPROLOL TART 50 MG TAB PO SCH ×2 (08:55→20:38)
--- NOTE | 2018-06-16 11:37 | OPERATIVE REPORT 1 ---
EVENT DATE: June 10, 2018 SURGEON: Conor Marmolejo M.D. ROTOR WINDER: Sloan Valero, RAOULN, MILL LABOR SUPERVISOR PREOPERATIVE DIAGNOSIS Left femoral neck fracture. POSTOPERATIVE DIAGNOSIS Left femoral neck fracture. PROCEDURE PERFORMED Closed reduction and open reduction and internal fixation of the left hip. TOURNIQUET TIME No tourniquet time. ESTIMATED BLOOD LOSS Less than 20 cc. DESCRIPTION OF PROCEDURE The patient was brought to the operating room and placed in a traction bed with the left leg in traction. Right leg was flexed, abducted and externally rotated to get out of the way. Once we were in position, we brought fluoroscopy and under fluoroscopy we were able to reduce the femoral neck into what I felt was an appropriate anatomic direction, anatomic alignment. From here we prepped the outside using Prevail and used a large Ioban shower curtain over this area. At this point, under fluoroscopy, I made a small incision just over the greater trochanter. The skin was incised with #15 blade down to the retinaculum. The retinaculum was then sharply incised. I was able to go directly down to bone just using about a 3 cm incision. Once that was done under fluoroscopy, I used a large "Bryan gun" guide, placed pin under fluoroscopy on AP and lateral directly into the head across the neck without any difficulty and then placed two more across the neck as well, trying to get a good spread of the pins into the head both anterior, posterior, superior and inferior. Once I felt I had the pins in and the reduction appropriate, I then drilled the lateral cortex in through the fracture and then placed three 7.3 cannulated screws up into the femoral neck and into the femoral head, again checking on AP and lateral and finding to have what I felt was an appropriate alignment of the fracture with good placement of the screws and getting very good compression across the femoral neck. I then removed the guidewires and closed the retinaculum using 2- 0 Vicryl, 3-0 Monocryl in the skin and antonio. Adaptic 4x4's and big bulky dressing. Patient went to recovery with no complications. STACEY
[2018-06-16 16:15] VITALS: BP 149/62
[2018-06-16] MEDS: ENOXAPARIN 40 MG/0.4ML SYR SC SCH (20:37)
[2018-06-16] MEDS: MELATONIN 3 MG TAB PO SCH (20:38)
[2018-06-16] MEDS: PATCH REMOVAL 1 EA TP SCH (20:38)
[2018-06-17] MEDS: LEVOTHYROXINE SOD 0.05 MG TAB PO SCH (05:51)
[2018-06-17 08:40] VITALS: BP 133/63
[2018-06-17] MEDS: amLODIPine BESYL(*) 5 MG TAB PO SCH (09:12)
[2018-06-17] MEDS: DEMECLOCYCLINE HCL 300 MG TAB PO SCH ×2 (09:12→20:26)
[2018-06-17] MEDS: METOPROLOL TART 50 MG TAB PO SCH ×2 (09:12→20:26)
[2018-06-17] MEDS: SODIUM CHLORIDE 1 GR TAB PO SCH (09:13)
[2018-06-17] MEDS: levETIRAcetam 500 MG TAB PO SCH ×2 (09:13→20:26)
[2018-06-17] MEDS: PANTOPRAZOLE SOD 40 MG TABEC PO SCH (09:13)
[2018-06-17] MEDS: LIDOCAINE 5% PATCH TP SCH (09:56)
[2018-06-17 18:15] VITALS: BP 122/62
[2018-06-17] MEDS: MELATONIN 3 MG TAB PO SCH (20:26)
[2018-06-17] MEDS: PATCH REMOVAL 1 EA TP SCH (20:26)
[2018-06-17] MEDS: ENOXAPARIN 40 MG/0.4ML SYR SC SCH (20:26)
[2018-06-18] MEDS: LEVOTHYROXINE SOD 0.05 MG TAB PO SCH (05:24)
[2018-06-18 08:31] VITALS: BP 137/53
[2018-06-18] MEDS: METOPROLOL TART 50 MG TAB PO SCH ×2 (09:00→20:32)
[2018-06-18] MEDS: SODIUM CHLORIDE 1 GR TAB PO SCH (09:30)
[2018-06-18] MEDS: PANTOPRAZOLE SOD 40 MG TABEC PO SCH (09:30)
[2018-06-18] MEDS: DEMECLOCYCLINE HCL 300 MG TAB PO SCH ×2 (09:30→20:32)
[2018-06-18] MEDS: levETIRAcetam 500 MG TAB PO SCH ×2 (09:30→20:32)
[2018-06-18] MEDS: amLODIPine BESYL(*) 5 MG TAB PO SCH (09:30)
[2018-06-18] MEDS: LIDOCAINE 5% PATCH TP SCH (09:31)
[2018-06-18 17:45] VITALS: BP 150/61
[2018-06-18] MEDS: PATCH REMOVAL 1 EA TP SCH (20:32)
[2018-06-18] MEDS: MELATONIN 3 MG TAB PO SCH (20:32)
[2018-06-18] MEDS: ENOXAPARIN 40 MG/0.4ML SYR SC SCH (20:32)
[2018-06-19] MEDS: LEVOTHYROXINE SOD 0.05 MG TAB PO SCH (06:04)
[2018-06-19 07:55] VITALS: BP 142/64
[2018-06-19] MEDS: PANTOPRAZOLE SOD 40 MG TABEC PO SCH (08:32)
[2018-06-19] MEDS: levETIRAcetam 500 MG TAB PO SCH ×2 (08:32→20:44)
[2018-06-19] MEDS: DEMECLOCYCLINE HCL 300 MG TAB PO SCH ×2 (08:32→20:44)
[2018-06-19] MEDS: amLODIPine BESYL(*) 5 MG TAB PO SCH (08:33)
[2018-06-19] MEDS: METOPROLOL TART 50 MG TAB PO SCH ×3 (08:33→20:44)
[2018-06-19] MEDS: SODIUM CHLORIDE 1 GR TAB PO SCH (08:33)
[2018-06-19] MEDS: LIDOCAINE 5% PATCH TP SCH (08:36)
[2018-06-19 16:40] VITALS: BP 134/58
[2018-06-19 20:10] VITALS: BP 134/78
[2018-06-19] MEDS: MELATONIN 3 MG TAB PO SCH (20:44)
[2018-06-19] MEDS: PATCH REMOVAL 1 EA TP SCH (20:44)
[2018-06-19] MEDS: ENOXAPARIN 40 MG/0.4ML SYR SC SCH (20:45)
[2018-06-20 05:56] LABS: PLATELET COUNT, AUTOMATED 255 K/uL (150-450)
[2018-06-20] MEDS: LEVOTHYROXINE SOD 0.05 MG TAB PO SCH (05:57)
[2018-06-20 07:29] VITALS: BP 128/46
[2018-06-20] MEDS: LIDOCAINE 5% PATCH TP SCH ×2 (08:33→08:57)
[2018-06-20] MEDS: DEMECLOCYCLINE HCL 300 MG TAB PO SCH ×2 (08:33→20:17)
[2018-06-20] MEDS: levETIRAcetam 500 MG TAB PO SCH ×2 (08:34→20:17)
[2018-06-20] MEDS: PANTOPRAZOLE SOD 40 MG TABEC PO SCH (08:34)
[2018-06-20] MEDS: amLODIPine BESYL(*) 5 MG TAB PO SCH (08:34)
[2018-06-20] MEDS: SODIUM CHLORIDE 1 GR TAB PO SCH (08:34)
[2018-06-20] MEDS: METOPROLOL TART 50 MG TAB PO SCH ×2 (08:34→20:17)
--- NOTE | 2018-06-20 13:20 | Medical Nutrition Therapy ---
Nutrition Anthropometrics Height (Inches): 67.00 Height (Calculated Centimeters: 170.699237 Weight (Pounds): 159 Weight (Calculated Kilograms): 72.348 BMI: 24.9 Vinicius Nutrition Score: Probably Inadequate Vinicius Nutrition Risk Score: 15 Dietary Referral Nutrition Risk Factors: Unplanned Loss >10lbs Nutrition Risk Comment: TASTE HAS BEEN POOR. On Dysphagia III diet. Physical Findings Physical Appearance: 24.9 Skin Appearance Skin Appearance: Edema Edema Location Modifier: Both Edema Location: Foot Type of Edema: Degree of Edema: Gastrointestinal Symptoms GI Symtoms: Tube Present: Bowel Sounds: Recent Bowel Pattern: Stool Characteristics: Nutritional Diagnosis Nutritional Risk Acuity 2: Head/Neck/GI Cancer Nutritional Risk Acuity 3: Cancer Past Medical History: Hx of hypothroidism, afib, otitis media, seizures, HTN, DM, sm cell lung cancer, and brain metastasis. Nutritional Acuity: 2-Moderate Nutrition Diagnosis: Increased Nutrient Needs Nutrition Etiology: Physiological Causes Nutrition Problem/Etiology/Sym: Increased nutrient needs, as related to physiological causes, as evidenced by femoral neck fx. Energy Requirement: 1665 ([place], AF-1.3) Protein Requirement: 72 (1g/kg) Fluid Requirement: 1800 (5ml/kg) Diet Type: Diabetic Nutrition Intervention: Cont diet as ordered, Encourage intake Nutrition Monitoring & Eval RD Patient Assessment Time: [address] Assessment Type: RD Re-Assessment Patient Nutrition Acuity: 2-Moderate Follow Up Date: Jun 28, 2018 Nutritional Comment: 06/15. Admitted to F for PT/OT for femoral neck fx after fall. Pt has hx of T2DM, receiving 1-5 units humalog SUBQ. BG is WNL. Other notable labs include: low sodium 132, and elevated BUN 30, and creatinine 1.1. Pt is on Diabetic diet, consuming 75-100% of meals. Was noted on med floor pt had unplanned weight loss of >10lbs. March 21, 2018 pt weighed 172lbs at [facility], then had a weight of 166lb on med floor. 3.5% weight loss in 3 months, not significant weight loss. Pt is 67in, 159lbs, and has an overweight BMI of 25. Recommend pt consumes 1665 kcal and 72g protein each day. Will cont to monitor. MR 06/20. Pt cont to work with therapy for femoral neck fx. Pt now has acute hyponatremia, sodium levels cont to run low, 133 today. BUN cont to be elevated, 29. Pt cont to receive 1-5 units Humalog and follows a diabetic diet, consuming 50-100% of regular sized meals. No significant weight gain or loss. Will cont to monitor. MR JORDANALETHA Jun 20, 2018 08:08
[2018-06-20] MEDS ORDERED: INFLUENZA VIRUS VAC 0.5ML SYR IM ONLY ONE (14:30)
[2018-06-20 15:00] VITALS: BP 150/54
[2018-06-20] MEDS: PATCH REMOVAL 1 EA TP SCH (19:21)
[2018-06-20 20:00] VITALS: BP 143/55
[2018-06-20] MEDS: MAGNESIUM HYDROXIDE* 30ML UDCP PO PRN (20:17)
[2018-06-20] MEDS: MELATONIN 3 MG TAB PO SCH (20:17)
[2018-06-20] MEDS: ENOXAPARIN 40 MG/0.4ML SYR SC SCH (20:19)
[2018-06-21] MEDS: LEVOTHYROXINE SOD 0.05 MG TAB PO SCH (06:41)
[2018-06-21 07:30] VITALS: BP 137/73
[2018-06-21] MEDS: METOPROLOL TART 50 MG TAB PO SCH ×2 (09:00→20:53)
[2018-06-21] MEDS: LIDOCAINE 5% PATCH TP SCH (09:00)
[2018-06-21] MEDS: SODIUM CHLORIDE 1 GR TAB PO SCH (09:25)
[2018-06-21] MEDS: DEMECLOCYCLINE HCL 300 MG TAB PO SCH ×2 (09:25→20:53)
[2018-06-21] MEDS: levETIRAcetam 500 MG TAB PO SCH ×2 (09:25→20:53)
[2018-06-21] MEDS: amLODIPine BESYL(*) 5 MG TAB PO SCH (09:26)
[2018-06-21] MEDS: PANTOPRAZOLE SOD 40 MG TABEC PO SCH (09:26)
[2018-06-21] MEDS: MAGNESIUM HYDROXIDE* 30ML UDCP PO PRN (09:27)
[2018-06-21 16:40] VITALS: BP 128/60
[2018-06-21] MEDS: PATCH REMOVAL 1 EA TP SCH (20:53)
[2018-06-21] MEDS: MELATONIN 3 MG TAB PO SCH (20:53)
[2018-06-21] MEDS: ENOXAPARIN 40 MG/0.4ML SYR SC SCH (20:53)
[2018-06-22] VITALS (20 sets, daily range): BP systolic 122–162; BP diastolic 53–68
[2018-06-22] MEDS: LEVOTHYROXINE SOD 0.05 MG TAB PO SCH (05:46)
[2018-06-22] MEDS: LIDOCAINE 5% PATCH TP SCH (08:58)
[2018-06-22] MEDS: levETIRAcetam 500 MG TAB PO SCH ×2 (08:58→21:07)
[2018-06-22] MEDS: DEMECLOCYCLINE HCL 300 MG TAB PO SCH ×2 (08:58→21:07)
[2018-06-22] MEDS: PANTOPRAZOLE SOD 40 MG TABEC PO SCH (08:59)
[2018-06-22] MEDS: amLODIPine BESYL(*) 5 MG TAB PO SCH (08:59)
[2018-06-22] MEDS: METOPROLOL TART 50 MG TAB PO SCH ×2 (08:59→21:07)
[2018-06-22] MEDS: SODIUM CHLORIDE 1 GR TAB PO SCH (08:59)
--- NOTE | 2018-06-22 13:21 | RADIOLOGY IMAGING REPORT ---
FACILITY: [facility] PATIENT NAME: Lucy Peralta : 1950 MR: [id number] V: [id number] EXAM DATE: ORDERING PHYSICIAN: MEGAN ATWOOD TECHNOLOGIST: Location: [facility] Patient: Lucy Peralta : 1950 Visit/Account:[id number] Date of Sevice: 06/22/2018 Exam type: HIP LEFT AP History: Recent surgery, fall today, pain Comparison: Intraoperative views left hip June 10, 2018. Findings: Again noted are three orthopedic screws transfixing the subcapital fracture of the left hip appears s imilar in alignment compared to the prior study. No new fracture seen. Skin antonio project over th e lateral aspect the left hip IMPRESSION: 1. As above Report Dictated By: Patty Goff MD at 06/22/2018 1:14 PM Report E-Signed By: Patty Goff MD at 06/22/2018 1:17 PM WSN:[email or web address]
--- NOTE | 2018-06-22 15:08 | Hospitalist Progress Note ---
Subjective Progress Notes Subjective The patient had a fall last evening and has a new skin tear to her R elbow. She hit her head but has no pain or symptoms related to this today. Physical Exam Vital Signs Date Time Temp Pulse Resp B/P (MAP) Pulse Ox O2 Delivery O2 Flow Rate FiO2 06/22/18 14:15 98.0 49 16 148/68 (94) 95 Room Air Intake and Output 06/22/18 07:00 Intake Total 1000 ml Balance 1000 ml Intake Oral 1000 ml # Voids 9 # Bowel Movements 7 General Appearance: Alert, Awake, No Acute Distress Neuro: Other (No change in mental status.) Eyes: PERRLA ENT: Normal (Head is atraumatic. No bruising. No bumps.) Cardiovascular: Other (Bradycardic, regular.) Respiratory: Clear to Auscultation GI: Soft and Non-Tender Extremities: Warm, Perfused Integumentary: Generalized Fragile Skin Psych: Appropriate Mood & Affect Result Diagram: 06/20/18 0545 06/20/1845 Assessment and Plan Problems: (1) Femoral neck fracture Status: Acute Assessment & Plan: She had repair on 06/10/18. She is on Lovenox 40mg a day for DVT prophylaxis. The patient was transferred to [facility] to continue recovery. She is working with therapy. She forgets about her weight bearing restriction and did get up on her own a couple of times. She had a fall last evening as well. X- ray shows no change in her hip repair after the fall. 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 She has improved with fluid restriction, NaCl tabs, and demeclocycline. She did get a one-time 3% saline infusion of 100mls over one hour. Her most recent sodium level was 132 on 06/15. Will monitor periodically. (3) Hypothyroidism Status: Chronic Assessment & Plan: She is on chronic treatment with Synthroid. (4) HTN (hypertension) Status: Chronic Assessment & Plan: She remains on chronic treatment with metoprolol. We restarted her amlodipine at a lower dose. (5) DM (diabetes mellitus) Status: Chronic Assessment & Plan: Continue ADA diet, watch glucoses and use SSI as needed. (6) Small cell lung cancer Status: Chronic Assessment & Plan: She has been receiving her care through [facility] with Dr. Tipton. (7) Seizure Status: Chronic Assessment & Plan: She has been managed with Keppra 500mg PO BID. Will continue same regimen. (8) Fall Status: Acute Assessment & Plan: Last evening. Bed alarm has been placed. (9) Head injury Status: Acute Assessment & Plan: Last evening. Neuro checks have been WNL. Time Spent on Plan of Care: < 30 min MILTON SMITH MD Jun 22, 2018 15:07
[2018-06-22] MEDS: PATCH REMOVAL 1 EA TP SCH (21:00)
[2018-06-22] MEDS: ENOXAPARIN 40 MG/0.4ML SYR SC SCH (21:06)
[2018-06-22] MEDS: MELATONIN 3 MG TAB PO SCH (21:06)
[2018-06-23] MEDS: LEVOTHYROXINE SOD 0.05 MG TAB PO SCH (05:48)
[2018-06-23 06:06] VITALS: BP 142/60
[2018-06-23] MEDS: SODIUM CHLORIDE 1 GR TAB PO SCH (08:45)
[2018-06-23] MEDS: LIDOCAINE 5% PATCH TP SCH (08:45)
[2018-06-23] MEDS: METOPROLOL TART 50 MG TAB PO SCH ×2 (08:46→20:46)
[2018-06-23] MEDS: DEMECLOCYCLINE HCL 300 MG TAB PO SCH ×2 (08:46→20:46)
[2018-06-23] MEDS: levETIRAcetam 500 MG TAB PO SCH ×2 (08:46→20:46)
[2018-06-23] MEDS: amLODIPine BESYL(*) 5 MG TAB PO SCH (08:46)
[2018-06-23] MEDS: PANTOPRAZOLE SOD 40 MG TABEC PO SCH (08:46)
[2018-06-23 14:03] VITALS: BP 133/53
[2018-06-23 16:35] VITALS: BP 114/58
[2018-06-23] MEDS: ENOXAPARIN 40 MG/0.4ML SYR SC SCH (20:46)
[2018-06-23] MEDS: PATCH REMOVAL 1 EA TP SCH (20:46)
[2018-06-23] MEDS: MELATONIN 3 MG TAB PO SCH (20:46)
[2018-06-24] MEDS: LEVOTHYROXINE SOD 0.05 MG TAB PO SCH (05:50)
[2018-06-24 07:53] VITALS: BP 133/60
[2018-06-24] MEDS: METOPROLOL TART 50 MG TAB PO SCH (09:00)
[2018-06-24] MEDS: SODIUM CHLORIDE 1 GR TAB PO SCH (09:12)
[2018-06-24] MEDS: LIDOCAINE 5% PATCH TP SCH (09:12)
[2018-06-24] MEDS: DEMECLOCYCLINE HCL 300 MG TAB PO SCH (09:12)
[2018-06-24] MEDS: PANTOPRAZOLE SOD 40 MG TABEC PO SCH (09:13)
[2018-06-24] MEDS: levETIRAcetam 500 MG TAB PO SCH (09:13)
[2018-06-24] MEDS: amLODIPine BESYL(*) 5 MG TAB PO SCH (09:13)
[2018-06-24] MEDS ORDERED: PER PO (11:01)
[2018-06-24] MEDS ORDERED: AMLO-111 PO (11:01)
[2018-06-24] MEDS ORDERED: OXYC20TA99 PO (11:01)
[2018-06-24] MEDS ORDERED: SODCTAB PO (11:01)
[2018-06-24] MEDS ORDERED: DEME300T9 PO (11:01)
[2018-06-24] MEDS ORDERED: METO25TA93 PO (11:01)
--- NOTE | 2018-06-24 11:40 | Hospitalist Depart ---
Discharge Summary Reason for Hosp/Final Diag: (1) Femoral neck fracture Status: Acute Hospital Course & Plan: She had repair on 06/10/18. She was on Lovenox 40mg a day for DVT prophylaxis. The patient was transferred to [facility] to continue recovery. She continued working with therapy. She forgets about her weight bearing restriction and did get up on her own a couple of times. She had a fall 06/21 as well. X-ray shows no change in her hip repair after the fall. 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 She has improved with fluid restriction, NaCl tabs, and demeclocycline. She did get a one-time 3% saline infusion of 100mls over one hour. Her most recent sodium level was 133 on 06/20. Will monitor periodically. She will follow up with her PCP next week for labs. (3) Hypothyroidism Status: Chronic Hospital Course & Plan: She is on chronic treatment with Synthroid. (4) HTN (hypertension) Status: Chronic Hospital Course & Plan: She remains on chronic treatment with metoprolol. We restarted her amlodipine at a lower dose. She will discontinue Lisinopril. (5) DM (diabetes mellitus) Status: Chronic Hospital Course & Plan: She will continue ADA diet. (6) Small cell lung cancer Status: Chronic Hospital Course & Plan: She has been receiving her care through [facility] with Dr. Tipton. (7) Seizure Status: Chronic Hospital Course & Plan: She has been managed with Keppra 500mg PO BID. Will continue same regimen. (8) Fall Status: Acute Hospital Course & Plan: See above. (9) Head injury Status: Acute Hospital Course & Plan: Neuro checks have been WNL. Departure Latest Vital Signs Vital Signs 06/24/18 07:53 Temp 98.7 Pulse 46 Resp 14 B/P (MAP) 133/60 (84) Pulse Ox 92 O2 Delivery Room Air Weight (Pounds): 159 Weight (Ounces): 8.0 Result Diagram: 06/20/1845 06/20/18544 Condition: Improved Discharge: Home, Self Care Discharge Instructions Home Meds Active Scripts Demeclocycline Hcl (DEMECLOCYCLINE HCL) 300 Mg Tablet, 300 MG PO Q12H, #60 TAB Prov:GUI CHAMPIONP 06/24/18 Oxycodone/Acetaminophen (OXYCODONE/ACETAMINOPHEN 5MG/325 MG) 5 Mg/325 Mg Tab, 1 TAB PO Q4H PRN for BREAKTHROUGH PAIN, #42 TAB Prov:GUI CHAMPION [facility] 06/24/18 Oxycodone Hcl (OXYCONTIN) 20 Mg Tab.er.12h, 20 MG PO Q12H PRN for PAIN, #14 TAB Prov:GUI CHAMPION [facility] 06/24/18 Sodium Chloride (SODIUM CHLORIDE) 1 Gm Tab, 1 GM PO DAILY, #30 TAB Prov:GUI CHAMPION [facility] 06/24/18 Metoprolol Tartrate (METOPROLOL TARTRATE) 25 Mg Tablet, 1 TAB PO BID, #60 TAB Prov:GUI CHAMPION [facility] 06/24/18 Amlodipine Besylate (AMLODIPINE BESYLATE) 5 Mg Tablet, 5 MG PO QDAY, #30 TAB Prov:GUI CHAMPION [facility] 06/24/18 Pantoprazole Sodium (PANTOPRAZOLE SODIUM) 40 Mg Tablet.dr, 40 MG PO QDAY, #30 TAB Prov:MILTON SMITH MD 03/27/18 Levetiracetam (LEVETIRACETAM) 500 Mg Tablet, 500 MG PO BID, #60 TAB Prov:MILTON SMITH MD 03/27/18 Acetaminophen (ACETAMINOPHEN) 500 Mg Tablet, 1000 MG PO Q8H PRN for PAIN for 1 Day, Prov:STEPH GUNDERSON MD 08/18/17 Reported Medications Lactobacillus Acidophilus (PROBIOTIC) 1 Each Capsule, 1 EACH PO DAILY, CAPSULE 04/27/18 Ubidecarenone (COQ-10) 100 Mg Capsule, 200 MG PO HS, CAPSULE 04/27/18 Ascorbic Acid (VITAMIN C) 500 Mg Tablet, 500 MG PO HS, TAB 04/27/18 Vitamin E Acid Succinate (VITAMIN E) 400 Unit Tablet, 500 UNIT PO HS 04/27/18 Garlic (GARLIC) 1 Each Tablet, 1 EACH PO DAILY 04/27/18 Levothyroxine Sodium (LEVOTHYROXINE SODIUM) 50 Mcg Tablet, 1 TAB PO DAILY 03/27/18 Oxygen (OXYGEN) Inha, 3.5 L INH, L 3.5 L CPAP 8/23/17 Multivitamin (DAILY MULTIPLE VITAMIN) 1 Each Tablet, 1 TAB PO DAILY 05/19/17 Loperamide HCl (Imodium A-D) Unknown Strength Capsule, PRN 05/19/17 Estropipate (ESTROPIPATE) 1.5 Mg Tablet, 1.5 MG PO QDAY for 90 Days Take 1 pill by mouth daily for 90 days 05/19/17 Discontinued Reported Medications Lisinopril (LISINOPRIL) 20 Mg Tablet, 20 MG PO BID, TAB 06/15/18 Amlodipine Besylate (AMLODIPINE BESYLATE) 10 Mg Tablet, 1 TAB PO QDAY, TAB 04/27/18 Discontinued Scripts Metoprolol Tartrate (METOPROLOL TARTRATE) 50 Mg Tab, 50 MG PO BID for Blood Pressure, #60 TAB 1 Refill Prov:MILTON SMITH MD 07/07/17 Diet: Diabetic Activity: As Tolerated Special Instructions: [facility] follow-up appointment on , June 30 arrive at 11:30 am for for your appointment at noon doctor will do xrays prior to your appointment.. Follow your weightbearing restrictions. Repostion yourself frequently to maintain skin integrity. Copies to: GHADA CASTILLO MD ; Venous Thromboembolism Antithrombotics Is Pt On Any Antithrombotics?: No GUI CHAMPION SUPERVISOR CARTOGRAPHY Jun 24, 2018 11:40
--- NOTE | 2018-06-24 13:47 | OT ECF NOTE ---
Type of Note: Discharge Note Primary Medical Diagnosis: Generalized weakness s/p left hip pinning PWB L) LE 20# Occupational Therapy Evaluation Date: 06/14/18 SUBJECTIVE: Prior Hospitalization: [facility] 06/08/18 thru 06/14/18. DOS: 06/10/18. Prior Level of Function: Independent with ADLs. Assist from spouse for IADLs. Prior Living Status: Single level house Spouse Assist by family Community Services: No known needs Home Accessibility: One step into home All needs on one level Walk-in shower Shower chair Equipment Owned: Front wheeled walker Rollator Cane Wheelchair Medical Complications/Past Medical History: Please refer to EMR Psychosocial Support: Supportive spouse Pain Scale (0-10): 8/10 upon initial movement. 0/10 supine in bed. OBJECTIVE: Strength: MMT: Right Left Shoulder Flexion WFL WFL Elbow Flexion WFL WFL Wrist Extension WFL WFL Sales Representative Health Insurance WFL WFL (5= normal, 4= good, 3= fair, 2= poor, 1= trace) ROM: Both upper extremities, WFL Sensation: Intact, No concerns Functional Transfer: Assistive Device: Front wheeled walker, Gait belt Transfer Ability: 1 person Mod-Max A to maintain PWB status, otherwise able to complete lateral and stand pivot transfers with SBA ADL: Upper body dressing: Assistive device: Set-up Upper body dressing ability: Set-up Lower body dressing: Assistive device: Utility Bag Assembler/sock aid Lower body dressing ability: 1 person Mod-Max A to maintain PWB status when standing to pull clothing over hips, otherwise able to complete LB dressing with SBA Toileting: Assistive device: Bedside commode Toileting ability: 1 person Mod-Max A to maintain PWB status when standing to pull clothing over hips, otherwise able to complete toileting with SBA Grooming/hygiene: Assistive device: Seated Grooming ability: Independent Bathing: Assistive device: Bathing ability: N/T Standardized Assessment: Fabiola Index of Activities of Daily Livin/20 upon initial evaluation (06/14/18). 08/16 upon discharge date (06/24/18). ASSESSMENT: Lucy presented to [facility] with generalized weakness s/p L) hip pinning after a fall at home. She has plateaued with OT requiring constant 1-person assist to maintain PWB status L)LE for all transfers. Pt has elected to discharge home with 24/7 caregiver assist to promote adherence to WB status. PT educated caregivers, all recommended equipment has been obtained. Unfortunately, no HH services are available in pt's home area. An UB HEP was provided. Short Term Goals: 1) Pt will be Min A UB/LB dressing. Goal not met due to PWB status 2) Pt will be SBA toilet task. Goal not met due to PWB status 3) Pt will be Independent grooming/hygiene seated. Goal met. 4) Pt will be Min A shower task. Not addressed. 5) Pt Fabiola Index of ADLs score will improve by 2 points. Goal not met. 6) Pt and spouse will be educated on appropriate AE needs. Goal met. Nurse Midwife Goals: Return home with assist from spouse Patient Goals: "Be able to get to the toilet" "Return home" Rehabilitation Prognosis: Good Barriers to Discharge: Pain, Weight-bearing status PLAN: The patient will discharge home with spouse and 24/7 caregiver assist to promote adherence to PWB status L)LE Thank you for this referral. If you have any questions, concerns, or comments about this report or plan, please contact me at . Yasmine Zhou MS, OTR/L Occupational Therapist [facility]
--- NOTE | 2018-06-24 16:29 | PT ECF NOTE ---
Type of Note: DC Summary Primary Medical Diagnosis: L) hip ORIF, PWB 20# L) LE Physical Therapy Evaluation Date: 06/14/18 SUBJECTIVE: Prior Hospitalization: [facility] 06/08/18- 06/14/18 Prior Level of Function: Valerie with use of RW as needed Prior Living Status: Single level house, Spouse Community Services: Support adequate Home Accessibility: 2 stairs with rails, All needs on one level Equipment Owned: Front wheeled walker, Rollator, Wheelchair Medical Complications/Past Medical History: See EMR, lung caner with brain mets Psychosocial Support: Very supportive Pain Scale (0-10): 5/10, L) hip OBJECTIVE: Strength: Right Lower Extremity: DF: 4/5 Knee flexion: 4/5 Knee extension:3+/5 Hip flexion: 3+/5 Left Lower Extremity: DF: 4/5 Knee flexion: 3+/5 Knee extension: 3/5 (no resistance applied) Hip flexion: <3/5 ROM: L) hip ROM limited by pain Sensation: WNL Other Neuro findings: None noted Bed Mobility: Jl with HOB elevated and use of railing Transfers: MaxA x1 for walker negotiation, min-modA at L) LE to maintain WB status during stand pivot transfer with RW ASSESSMENT: Pt has reached max potential from skilled PT due to inability to maintain weightbearing restriction independently. Pt's and hired caregivers have been trained to provide safe assistance at home. Pt has opted to DC home with 24 hour care. Problem List/Current Limitations: Pain Decreased WB Decreased activity reginaldo Decreased strength Decreased ROM Decreased balance Decreased problem solving Short Term Goals: 1: Pt to complete bed mobility with Valerie and HOB flat 2: Pt to complete stand pivot transfers from a variety of surfaces with Valerie, while maintaining PWB status of L) LE. 3: Pt to ambulate 5' with RW and maintenance of PWB status of L) LE. 4: Pt to self propel w/c 50 feet with multiple turns and Valerie. Precision Mechanical Instrument Maker Goals: Pt to discharge home with ability to maintain PWB status during functional mobility with adequate assistance in place Patient Goals: "To be able to access my house" Rehabilitation Prognosis: Fair Barriers for Discharge: High level of independence required prior to d/c home, ability to maintain PWB status PLAN: DC home with 24 hour care. Thank you for this referral. If you have any questions, concerns, or comments about this report or plan, please contact me at . Padmini Noguera, PT, DPT, GCS MTDD
== END 2018-06-24 12:15 | disposition home or self-care (01) | DRG 560 ==
LOC: ECF 12:25
PROVIDERS: ADMIT Internal Medicine; ATTEND Internal Medicine
DX: S72.012D Unspecified intracapsular fracture of left femur, subsequent encounter for closed fracture with routine healing (principal); C34.90 Malignant neoplasm of unspecified part of unspecified bronchus or lung; C79.31 Secondary malignant neoplasm of brain; E22.2 Syndrome of inappropriate secretion of antidiuretic hormone; I48.0 Paroxysmal atrial fibrillation; E03.9 Hypothyroidism, unspecified; S51.011A Laceration without foreign body of right elbow, initial encounter; G40.909 Epilepsy, unspecified, not intractable, without status epilepticus; I10 Essential (primary) hypertension; E11.9 Type 2 diabetes mellitus without complications; Z23 Encounter for immunization; W18.39XD Other fall on same level, subsequent encounter; W19.XXXA Unspecified fall, initial encounter; Y92.230 Patient room in hospital as the place of occurrence of the external cause; Z87.891 Personal history of nicotine dependence; Z92.21 Personal history of antineoplastic chemotherapy
CPT/HCPCS: 36415; 36416; 82310; 82374; 82435; 82565; 82947; 82948; 84132; 84295; 84443; 84520; 85025; 90471; 90674; 97161; 97166; J1650

== ENCOUNTER → 2018-08-12 | Day surgery (SDC) | payer MEDICARE ==
[2018-06-09 11:07] VITALS: Ht 170.2 cm; Wt 67.6 kg
[~2018-08-12] VITALS: Ht 170.2 cm; Wt 67.6 kg
[~2018-08-12] MED LIST changes: +CEFU500T10 PO; +COCAINE HCL SOLN 4% 4 ML BTL TP ONE; +DEME300T9 PO; +LIDOCAINE/SOD BICARB 8.4% SYR ID ONE; +METO25TA93 PO; +MIDAZOLAM 2 MG/2 ML VIAL IVP PRN; +MIDAZOLAM 2 MG/2 ML VIAL ONE; +NORMOSOL R SOLN(*) 1000 ML BAG 1,000 ML IV PRN; +OXYC20TA99 PO; +PER PO; +SODCTAB PO; +SODI1PAC NS; +ceFAZolin(*) 1 GM VIAL 1 GM in NS(*) 0.9% 100 ML ADDVANT BAG 100 ML IVPB ONE; +hydrALAZINE HCL 20 MG/ML VIAL ONE
[2018-08-12 09:30] VITALS: BP 146/71
--- NOTE | 2018-08-12 12:15 | OPERATIVE REPORT 1 ---
EVENT DATE: August 12, 2018 SURGEON: Jamshid Brown Jr., MD ANESTHESIOLOGIST: Vazquez Patel MD ANESTHESIA: MAC. PROCEDURE PERFORMED Left sphenoid balloon sinuplasty. PREOPERATIVE DIAGNOSIS Chronic left sphenoid sinusitis. POSTOPERATIVE DIAGNOSIS Chronic left sphenoid sinusitis. INDICATIONS Please refer to the preoperative note. DESCRIPTION OF PROCEDURE The patient was positively identified in the preoperative area. She was accompanied there by her . Risks and benefits were explained including, but not limited to, bleeding, infection, injury to the skull base, cerebrospinal fluid leak and those associated with anesthesia. She acknowledged understanding of those risks. The patient was then brought back to the operating suite, laid supine on the operating table and sedation was administered. I again revealed the patient's preoperative CT of the sinuses. This is notable for a probable mucocele on the left sphenoid. I initially decongested and anesthetized the nose with cottonoids containing cocaine solution. These were subsequently removed. Nasal endoscopy was performed. The guidewire of the Balloon Sinuplasty System was introduced through the sphenoid ostium. The balloon was deployed. This was deflated and removed. The patient was then transported in stable condition to the recovery room. ESTIMATED BLOOD LOSS Negligible. COMPLICATIONS No complications. STACE[facility]
[2018-08-12 13:05] VITALS: BP 165/76
[2018-08-12 13:29] VITALS: BP 166/98
== END ==
LOC: OR 04:04
PROVIDERS: ATTEND Otolaryngology
DX: J32.3 Chronic sphenoidal sinusitis (principal); E11.9 Type 2 diabetes mellitus without complications; I10 Essential (primary) hypertension; E78.5 Hyperlipidemia, unspecified; G47.33 Obstructive sleep apnea (adult) (pediatric); J44.9 Chronic obstructive pulmonary disease, unspecified; Z87.891 Personal history of nicotine dependence
CPT/HCPCS: 31297; 36416; 82948; C1726; C1769; C1887; J0360; J0690; J2250; J7050

== ENCOUNTER 2018-08-30 23:36 | Inpatient (IN) | payer MEDICARE ==
[2018-06-09 11:07] VITALS: Ht 170.2 cm; Wt 67.6 kg
[~2018-08-30] VITALS: Ht 170.2 cm; Wt 67.6 kg
[~2018-08-30 23:36] MED LIST changes: -COCAINE HCL SOLN 4% 4 ML BTL TP ONE; -LIDOCAINE/SOD BICARB 8.4% SYR ID ONE; -MIDAZOLAM 2 MG/2 ML VIAL IVP PRN; -MIDAZOLAM 2 MG/2 ML VIAL ONE; -NORMOSOL R SOLN(*) 1000 ML BAG 1,000 ML IV PRN; +SIMV-117 PO; -SIMV-63 PO; -ceFAZolin(*) 1 GM VIAL 1 GM in NS(*) 0.9% 100 ML ADDVANT BAG 100 ML IVPB ONE; -hydrALAZINE HCL 20 MG/ML VIAL ONE
--- NOTE | 2018-08-30 23:45 | ER Report ---
History and Physical Time Seen By MD: 23:46 HPI/ROS CHIEF COMPLAINT: Confusion, weakness HISTORY OF PRESENT ILLNESS: This is a 67-year-old female. She is here in the ER because her was concerned that she was having confusion. She also has generalized weakness. 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 At this point, she knows where she is and who she is. She feels generally weak but has no major complaints of this at this time. She denies any nausea or vomiting. She denies any chest pains. She denies any trouble breathing or shortness of breath. She always has a little trouble with her bowels but denies any acute problems with this right now. No complaints of problems urinating. No report of fevers or chills. She denies any headache at this time. She is able to tell me about her recent medical history including her sinus surgery, her hip fracture and repair, and her cancer treatments. REVIEW OF SYSTEMS: as above Allergies: Coded Allergies: Kakaxxf-Opy-Gve Reductase Inhibitor (Verified Allergy, Unknown, 06/08/18) Home Meds Active Scripts Amlodipine Besylate (AMLODIPINE BESYLATE) 5 Mg Tablet, 5 MG PO QDAY, #30 TAB Prov:GUI CHAMPION 06/24/18 Levetiracetam (LEVETIRACETAM) 500 Mg Tablet, 500 MG PO BID, #60 TAB Prov:MILTON SMITH MD 03/27/18 Acetaminophen (ACETAMINOPHEN) 500 Mg Tablet, 1000 MG PO Q8H PRN for PAIN for 1 Day, Prov:STEPH GUNDERSON MD 08/18/17 Reported Medications [paroxetine] No Conflict Check, 1 TAB 08/31/18 Sodium Chloride/Sodium Bicarb (SINUS RINSE PREMIXED PACKET) 1 Each Packet, 1 EACH NS TID, PACKET START TOMORROW 08/12/18 Lactobacillus Acidophilus (PROBIOTIC) 1 Each Capsule, 1 EACH PO DAILY, CAPSULE 04/27/18 Ubidecarenone (COQ-10) 100 Mg Capsule, 200 MG PO HS, CAPSULE 04/27/18 Ascorbic Acid (VITAMIN C) 500 Mg Tablet, 500 MG PO HS, TAB 04/27/18 Vitamin E Acid Succinate (VITAMIN E) 400 Unit Tablet, 500 UNIT PO HS 04/27/18 Garlic (GARLIC) 1 Each Tablet, 1 EACH PO DAILY 04/27/18 Levothyroxine Sodium (LEVOTHYROXINE SODIUM) 50 Mcg Tablet, 1 TAB PO DAILY 03/27/18 Oxygen (OXYGEN) Inha, 3.5 L INH, L 3.5 L CPAP 05/19/17 Multivitamin (DAILY MULTIPLE VITAMIN) 1 Each Tablet, 1 TAB PO DAILY 05/19/17 Estropipate (ESTROPIPATE) 1.5 Mg Tablet, 1.5 MG PO QDAY for 90 Days Take 1 pill by mouth daily for 90 days 05/19/17 Discontinued Reported Medications Cefuroxime Axetil (CEFUROXIME) 500 Mg Tablet, 500 MG PO BID for 7 Days, #14 TAB 08/12/18 Discontinued Scripts Pantoprazole Sodium (PANTOPRAZOLE SODIUM) 40 Mg Tablet., 40 MG PO QDAY, #30 T AB Prov:MILTON SMITH MD 03/27/18 Reviewed Nurses Notes: Yes Hx Smoking: Yes (QUIT IN 06/13) Smoking Status: Former Smoker Hx Substance Use Disorder: No Hx Alcohol Use: No Constitutional Vital Sign - Last 24 Hours 08/30/18 08/30/18 08/30/18 08/31/18 23:36 23:41 23:43 00:06 Temp 98.0 Pulse ??? 52 57 Resp 16 12 B/P (MAP) 170/84 (112) 170/84 Pulse Ox 97 100 O2 Delivery Nasal Cannula 08/31/18 08/31/18 08/31/18 08/31/18 00:07 00:10 00:20 00:30 B/P (MAP) 150/64 (92) 140/68 (92) 137/70 (92) 165/76 (105) 08/31/18 08/31/18 08/31/18 08/31/18 00:36 00:40 00:50 00:57 Pulse ??? B/P (MAP) ???/??? (1665) ???/??? (1665) 162/78 (106) Pulse Ox 99 08/31/18 08/31/18 08/31/18 08/31/18 01:00 01:06 01:10 01:20 Pulse 53 Resp 12 B/P (MAP) 148/70 (96) 150/70 (96) 150/64 (92) Pulse Ox 99 08/31/18 08/31/18 08/31/18 08/31/18 01:30 01:30 01:40 02:00 Pulse 53 53 54 Resp 10 B/P (MAP) 151/67 (95) 154/70 (98) 163/74 (103) Pulse Ox 97 08/31/18 02:30 B/P (MAP) 163/88 (113) Intake and Output 08/30/18 08/30/18 08/31/18 14:58 22:58 06:58 Output Total 100 ml Balance -100 ml Physical Exam General Appearance: The patient is alert. Appears to have normal memory. No acute distress. Non-toxic in appearance, but weak in appearance. Eyes: Pupils are equal, round. Reactive to light. No pallor, injection or icterus. Extraocular movements are intact. ENT: Mucous membranes are moist. Normal oral mucosa. Posterior oropharynx is normal. Neck: Supple and non tender. Respiratory: Lungs are clear to auscultation. Cardiovascular: Regular rate and rhythm. No murmurs, gallops or rubs. Normal capillary refill. No edema. Gastrointestinal: Abdomen is soft and non tender. Nondistended. Normal active bowel sounds. Neurological: Alert and oriented x3. Generalized weakness, non-focal exam. Skin: Warm and dry. No rashes. Musculoskeletal: Extremities are nontender. DIFFERENTIAL DIAGNOSIS: After history and physical exam, differential diagnosis was considered for generalized weakness with report of confusion. Concern for worsening of her cancer, her hyponatremia, or other metabolic or infectious process. Medical Decision Making Data Points Result Diagram: 08/31/18 0000 08/31/18 0000 Laboratory Hematology Test 08/30/18 23:50 08/31/18 00:00 08/31/18 01:44 Whole Blood Glucose 100 mg/DL (75-110) Red Blood Count 3.95 M/uL (4.17-5.56) Mean Corpuscular Volume 97.3 fL (80.0-96.0) Mean Corpuscular Hemoglobin 33.0 pg (26.0-33.0) Mean Corpuscular Hemoglobin Concent 33.9 g/dL (32.0-36.0) Red Cell Distribution Width 15.2 % (11.5-14.5) Mean Platelet Volume 8.1 fL (7.2-11.1) Neutrophils (%) (Auto) 67.9 % (39.4-72.5) Lymphocytes (%) (Auto) 22.5 % (17.6-49.6) Monocytes (%) (Auto) 7.9 % (4.1-12.4) Eosinophils (%) (Auto) 0.5 % (0.4-6.7) Basophils (%) (Auto) 1.2 % (0.3-1.4) Nucleated RBC Relative Count (auto) 0.0 /100WBC Neutrophils # (Auto) 5.5 K/uL (2.0-7.4) Lymphocytes # (Auto) 1.8 K/uL (1.3-3.6) Monocytes # (Auto) 0.6 K/uL (0.3-1.0) Eosinophils # (Auto) 0.0 K/uL (0.0-0.5) Basophils # (Auto) 0.1 K/uL (0.0-0.1) Nucleated RBC Absolute Count (auto) 0.00 K/uL Sodium Level 140 mmol/L (137-145) Potassium Level 4.2 mmol/L (3.5-5.0) Chloride Level 104 mmol/L (98-107) Carbon Dioxide Level 23 mmol/L (22-31) Blood Urea Nitrogen 16 mg/dl (7-18) Creatinine 0.90 mg/dl (0.52-1.04) Glomerular Filtration Rate Calc > 60.0 Random Glucose 113 mg/dl (75-110) Calcium Level 9.8 mg/dl (8.4-10.2) Total Bilirubin 0.7 mg/dl (0.2-1.3) Aspartate Amino Transf (AST/SGOT) 41 U/L (0-35) Alanine Aminotransferase (ALT/SGPT) 32 U/L (0-56) Alkaline Phosphatase 86 U/L (0-126) Total Protein 7.1 g/dl (6.3-8.2) Albumin 3.8 g/dl (3.5-5.0) Urine Color Yellow Urine Clarity Slightly-cloudy Urine pH 5.0 pH (4.8-9.5) Urine Specific Rocky 1.020 Urine Protein Negative mg/dL (NEGATIVE) Urine Glucose (UA) Negative mg/dL (NEGATIVE) Urine Ketones 20 mg/dL (NEGATIVE) Urine Blood Negative (NEGATIVE) Urine Nitrite Negative (NEGATIVE) Urine Bilirubin Negative (NEGATIVE) Urine Urobilinogen Negative mg/dL (0.2-1.9) Urine Leukocyte Esterase Small (NEGATIVE) Urine RBC 2 /HPF (0-2/HPF) Urine WBC 24 /HPF (0-5/HPF) Urine WBC Clumps Few /HPF Urine Squamous Epithelial Cells Many /LPF (NONE-FEW) Urine Transitional Epithelial Cells Few /LPF (NONE-FEW) Urine Bacteria Many /HPF (NONE-FEW) Urine Mucus Few /HPF (NONE-FEW) Chemistry Test 08/30/18 23:50 08/31/18 00:00 08/31/18 01:44 Whole Blood Glucose 100 mg/DL (75-110) White Blood Count 8.1 k/uL (4.5-11.0) Red Blood Count 3.95 M/uL (4.17-5.56) Hemoglobin 13.0 g/dL (12.0-16.0) Hematocrit 38.4 % (34.0-47.0) Mean Corpuscular Volume 97.3 fL (80.0-96.0) Mean Corpuscular Hemoglobin 33.0 pg (26.0-33.0) Mean Corpuscular Hemoglobin Concent 33.9 g/dL (32.0-36.0) Red Cell Distribution Width 15.2 % (11.5-14.5) Platelet Count 337 K/uL (150-450) Mean Platelet Volume 8.1 fL (7.2-11.1) Neutrophils (%) (Auto) 67.9 % (39.4-72.5) Lymphocytes (%) (Auto) 22.5 % (17.6-49.6) Monocytes (%) (Auto) 7.9 % (4.1-12.4) Eosinophils (%) (Auto) 0.5 % (0.4-6.7) Basophils (%) (Auto) 1.2 % (0.3-1.4) Nucleated RBC Relative Count (auto) 0.0 /100WBC Neutrophils # (Auto) 5.5 K/uL (2.0-7.4) Lymphocytes # (Auto) 1.8 K/uL (1.3-3.6) Monocytes # (Auto) 0.6 K/uL (0.3-1.0) Eosinophils # (Auto) 0.0 K/uL (0.0-0.5) Basophils # (Auto) 0.1 K/uL (0.0-0.1) Nucleated RBC Absolute Count (auto) 0.00 K/uL Glomerular Filtration Rate Calc > 60.0 Calcium Level 9.8 mg/dl (8.4-10.2) Total Bilirubin 0.7 mg/dl (0.2-1.3) Aspartate Amino Transf (AST/SGOT) 41 U/L (0-35) Alanine Aminotransferase (ALT/SGPT) 32 U/L (0-56) Alkaline Phosphatase 86 U/L (0-126) Total Protein 7.1 g/dl (6.3-8.2) Albumin 3.8 g/dl (3.5-5.0) Urine Color Yellow Urine Clarity Slightly-cloudy Urine pH 5.0 pH (4.8-9.5) Urine Specific Rocky 1.020 Urine Protein Negative mg/dL (NEGATIVE) Urine Glucose (UA) Negative mg/dL (NEGATIVE) Urine Ketones 20 mg/dL (NEGATIVE) Urine Blood Negative (NEGATIVE) Urine Nitrite Negative (NEGATIVE) Urine Bilirubin Negative (NEGATIVE) Urine Urobilinogen Negative mg/dL (0.2-1.9) Urine Leukocyte Esterase Small (NEGATIVE) Urine RBC 2 /HPF (0-2/HPF) Urine WBC 24 /HPF (0-5/HPF) Urine WBC Clumps Few /HPF Urine Squamous Epithelial Cells Many /LPF (NONE-FEW) Urine Transitional Epithelial Cells Few /LPF (NONE-FEW) Urine Bacteria Many /HPF (NONE-FEW) Urine Mucus Few /HPF (NONE-FEW) Urinalysis Test 08/31/18 01:44 Urine Color Yellow Urine Clarity Slightly-cloudy Urine pH 5.0 pH (4.8-9.5) Urine Specific Rocky 1.020 Urine Protein Negative mg/dL (NEGATIVE) Urine Glucose (UA) Negative mg/dL (NEGATIVE) Urine Ketones 20 mg/dL (NEGATIVE) Urine Blood Negative (NEGATIVE) Urine Nitrite Negative (NEGATIVE) Urine Bilirubin Negative (NEGATIVE) Urine Urobilinogen Negative mg/dL (0.2-1.9) Urine Leukocyte Esterase Small (NEGATIVE) Urine RBC 2 /HPF (0-2/HPF) Urine WBC 24 /HPF (0-5/HPF) Urine WBC Clumps Few /HPF Urine Squamous Epithelial Cells Many /LPF (NONE-FEW) Urine Transitional Epithelial Cells Few /LPF (NONE-FEW) Urine Bacteria Many /HPF (NONE-FEW) Urine Mucus Few /HPF (NONE-FEW) EKG/Imaging EKG Interpretation 12 lead EKG: Rhythm: Sinus rhythm, heart rate 54 [place]: Left axis QRS: Widened, right bundle branch block and left anterior fascicular block ST segments: Nonspecific, no elevation or depression Imaging HEAD W/O CONTRAST HISTORY: Confusion. Weakness. Altered mental status. History of stroke. History of metastatic lung cancer. COMPARISON: 06/08/2018 and studies dating to 06/13/2017. TECHNIQUE: Axial images were obtained from the skull base to the vertex without contrast. Sagittal and coronal reformats were performed. One of the following dose optimization techniques was utilized in the performance of this exam: Automated exposure control; adjustment of the mA and/or kV according to the patient's size; or use of an iterative reconstruction technique. Specific details can be referenced in the facility's radiology CT exam operational policy. CONTRAST: None. FINDINGS: Brain: Large mass with peripheral calcification in the inferior right frontal and right temporal lobes has increased in size. It also involves the anterior right basal ganglia. It measures 5.0 x 3.3 x 4.5 cm (sagittal image 40 and coronal images 41 and 43), previously 3.5 x 2.8 x 2.2 cm. There is new cystic/necrotic change at the medial portion of the mass (axial image 35) and the surrounding edema has significantly progressed. Mass now extends into the suprasellar cistern on the right. This mass comes close to and may contact the expansile lesion in the left sphenoid sinus (sagittal image 46 and coronal image 40). There is 10 mm right to left midline shift at the level of the inferior frontal lobes (axial image 30) that has significantly progressed. There is greater mass effect on the frontal horns of the lateral ventricles, and there is new mass effect on the temporal horn of the right lateral ventricle and on the third ventricle. There is peripheral calcification at the posterior margin of the cystic superior right cerebellar lesion. Calcification is new. This lesion measures 1.5 cm maximal diameter (sagittal image 42), previously 1.2 cm, and there is new or worsening surrounding edema. No new lesion is identified on noncontrast CT. There is diffuse low-attenuation throughout the white matter, similar to prior studies, and may be a combination of chronic microvascular ischemic change and posttreatment change. Ventricles and sulci: There is sulcal effacement in the right frontal and temporal lobes secondary to mass effect and edema. No hydrocephalus. 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 There is a laura hole at the anterior right parietal lobe. Paranasal sinuses and mastoids: There is stable expansion of the left sphenoid sinus with adjacent hyperostosis and high density material within it that may be a mucocele. There is mild to moderate mucosal thickening of the ethmoid sinuses. Frontal sinuses are not pneumatized, a developmental variant. No nasal septal deviation. Complete opacification of the right mastoid is unchanged. There is opacification of some of the inferior left mastoid air cells, unchanged. No bony erosion or periosteal reaction and these may be benign effusions. There is a small amount of fluid in the right middle ear, unchanged. Ossicles are normal. Orbits and soft tissues: Stable mild stranding in the right parietal scalp (image 49). Changes of bilateral lens/cataract surgery, unchanged. Disconjugate gaze. IMPRESSION: 1. Enlarging mass in the right frontal and temporal lobes, including the right basal ganglia, with new extension into the suprasellar cistern. There is greater surrounding edema and there is worsening midline shift, now 10 mm from right to left. 2. Interval increase in size of the cystic mass in the superior right cerebellum. There is new peripheral calcification, and there is new or worsening edema surrounding it. 3. No convincing new lesion on noncontrast head CT. . Expansile lesion in the left sphenoid sinus does not appear changed and may be a mucocele versus a polyp.5. Stable mastoid fluid and stable fluid in the right middle ear. This could be benign fluid or due to uncomplicated otomastoiditis. Findings of enlarging masses in the right frontal lobe and superior right cerebellum with worsening edema were discussed by phone with TAMARA CARDOSO on 08/31/2018 1:55 AM. Report Dictated By: Morelia Glass at 08/31/2018 1:30 AM CHEST SINGLE AP 08/31/2018 00:18 hours. HISTORY: Altered mental status. Weakness. History of stroke. COMPARISON: 06/08/2018 and studies dating to 02/21/2008. TECHNIQUE: Portable AP view of the chest. FINDINGS: Tubes/lines/hardware: Right port terminates at the upper cavoatrial junction. Pulmonary: Nodule in the left mid to lower lung field measures 3.9 (CC) by 2.6 (TV) centimeters, previously 3.4 x 2.3. Right lung is clear. There is no pneumothorax or pleural effusion. Cardiomediastinal: Cardiac and mediastinal silhouettes are within normal limits. Bones/soft tissues: No acute osseous abnormality. The visible abdomen is normal. IMPRESSION: 1. Increase in size of the left pulmonary nodule. 2. No acute cardiopulmonary process. Report Dictated By: Morelia Glass at 08/31/2018 1:25 AM ED Course/Re-evaluation Clinical Indication for ER IV: Hydration, IV Access ED Course Re-evaluation later shows increase weakness and some slurring of speech. She cannot get up to urinate. Nursing obtained a strait cath urine. CT scans of the head shows that the lesion in the brain has increased and there is a new lesion in the cerebellum as well. Labs unremarkable other than the urine which shows changes consistent with possible infection as this was a strait cath. Discussed changes with the patient and reviewed old notes from Dr. Tipton. The patient and her would like to be admitted here and have us contact Dr. Brigette arshad's office tomorrow to discuss further options. Called and discussed with Dr. Headley, who agreed to admit the patient. We did give Decadron 10mg IV here in the ER. Decision to Disposition Date: Aug 31, 2018 Decision to Disposition Time: 02:00 Depart Departure Latest Vital Signs Vital Signs Date Time Temp Pulse Resp B/P (MAP) Pulse Ox O2 Delivery O2 Flow Rate FiO2 08/31/18 02:30 163/88 (113) 08/31/18 02:00 54 10 97 08/30/18 23:43 98.0 Nasal Cannula Impression: Primary Impression: Altered mental state Additional Impressions: Small cell lung cancer Brain metastases Condition: Condition Unchanged Disposition: Admitted from ER Referrals: GHADA CASTILLO MD (PCP) Problem Qualifiers Primary Impression: Altered mental state Altered mental status type: unspecified Qualified Codes: R41.82 - Altered mental status, unspecified TAMARA CARDOSO MD Aug 30, 2018 23:45
[2018-08-31] VITALS (8 sets, daily range): BP systolic 115–199; BP diastolic 58–96
[2018-08-31 00:59] LABS: PLATELET COUNT, AUTOMATED 337 K/uL (150-450)
--- NOTE | 2018-08-31 01:33 | RADIOLOGY IMAGING REPORT ---
FACILITY: [facility] PATIENT NAME: Lucy Peralta : 1950 MR: [id number] V: [id number] EXAM DATE: ORDERING PHYSICIAN: TAMARA CARDOSO TECHNOLOGIST: [place] [facility] [place]: Lucy Peralta : 1950 Visit/Account:[id number] Date of Sevice: 08/31/2018 CHEST SINGLE AP 08/31/2018 00:18 hours. HISTORY: Altered mental status. Weakness. History of stroke. COMPARISON: 06/08/2018 and studies dating to 02/21/2008. TECHNIQUE: Portable AP view of the chest. FINDINGS: Tubes/lines/hardware: Right port terminates at the upper cavoatrial junction. Pulmonary: Nodule in the left mid to lower lung field measures 3.9 (CC) by 2.6 (TV) centimeters, prev iously 3.4 x 2.3. Right lung is clear. There is no pneumothorax or pleural effusion. Cardiomediastinal: Cardiac and mediastinal silhouettes are within normal limits. Bones/soft tissues: No acute osseous abnormality. The visible abdomen is normal. IMPRESSION: 1. Increase in size of the left pulmonary nodule. 2. No acute cardiopulmonary process. Report Dictated By: Morelia Glass at 08/31/2018 1:25 AM Report E-Signed By: Morelia Glass at 08/31/2018 1:30 AM WSN:[id number]
--- NOTE | 2018-08-31 02:07 | RADIOLOGY IMAGING REPORT ---
FACILITY: [facility] PATIENT NAME: Lucy Peralta : 1950 MR: [id number] V: [id number] EXAM DATE: ORDERING PHYSICIAN: TAMARA CARDOSO TECHNOLOGIST: Location: [facility] - [place] Patient: Lucy Peralta : 1950 Visit/Account:[id number] Date of Sevice: 08/31/2018 HEAD W/O CONTRAST HISTORY: Confusion. Weakness. Altered mental status. History of stroke. History of metastatic lung ca ncer. COMPARISON: 06/08/2018 and studies dating to 06/13/2017. TECHNIQUE: Axial images were obtained from the skull base to the vertex without contrast. Sagittal an d coronal reformats were performed. One of the following dose optimization techniques was utilized in the performance of this exam: Autom ated exposure control; adjustment of the mA and/or kV according to the patient's size; or use of an i terative reconstruction technique. Specific details can be referenced in the facility's radiology CT exam operational policy. CONTRAST: None. FINDINGS: Brain: Large mass with peripheral calcification in the inferior right frontal and right temporal lobe s has increased in size. It also involves the anterior right basal ganglia. It measures 5.0 x 3.3 x 4 .5 cm (sagittal image 40 and coronal images 41 and 43), previously 3.5 x 2.8 x 2.2 cm. There is new c ystic/necrotic change at the medial portion of the mass (axial image 35) and the surrounding edema romo s significantly progressed. Mass now extends into the suprasellar cistern on the right. This mass com es close to and may contact the expansile lesion in the left sphenoid sinus (sagittal image 46 and co balbir image 40). There is 10 mm right to left midline shift at the level of the inferior frontal lobes (axial image 30 ) that has significantly progressed. There is greater mass effect on the frontal horns of the lateral ventricles, and there is new mass effect on the temporal horn of the right lateral ventricle and on the third ventricle. There is peripheral calcification at the posterior margin of the cystic superior right cerebellar les ion. Calcification is new. This lesion measures 1.5 cm maximal diameter (sagittal image 42), previous ly 1.2 cm, and there is new or worsening surrounding edema. No new lesion is identified on noncontras t CT. There is diffuse low-attenuation throughout the white matter, similar to prior studies, and may be a combination of chronic microvascular ischemic change and posttreatment change. Ventricles and sulci: There is sulcal effacement in the right frontal and temporal lobes secondary to mass effect and edema. No hydrocephalus. 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 There is a laura hole at the anterior right parietal lobe. Paranasal sinuses and mastoids: There is stable expansion of the left sphenoid sinus with adjacent hy perostosis and high density material within it that may be a mucocele. There is mild to moderate muco allen thickening of the ethmoid sinuses. Frontal sinuses are not pneumatized, a developmental variant. No nasal septal deviation. Complete opacification of the right mastoid is unchanged. There is opacification of some of the infer ior left mastoid air cells, unchanged. No bony erosion or periosteal reaction and these may be benign effusions. There is a small amount of fluid in the right middle ear, unchanged. Ossicles are normal. Orbits and soft tissues: Stable mild stranding in the right parietal scalp (image 49). Changes of hilda ateral lens/cataract surgery, unchanged. Disconjugate gaze. IMPRESSION: 1. Enlarging mass in the right frontal and temporal lobes, including the right basal ganglia, with ne w extension into the suprasellar cistern. There is greater surrounding edema and there is worsening m idline shift, now 10 mm from right to left. 2. Interval increase in size of the cystic mass in the superior right cerebellum. There is new periph eral calcification, and there is new or worsening edema surrounding it. 3. No convincing new lesion on noncontrast head CT. . Expansile lesion in the left sphenoid sinus does not appear changed and may be a mucocele versus a polyp.5. Stable mastoid fluid and stable fluid in the right middle ear. This could be benign fluid o r due to uncomplicated otomastoiditis. Findings of enlarging masses in the right frontal lobe and superior right cerebellum with worsening e cornelius were discussed by phone with TAMARA CARDOSO on 08/31/2018 1:55 AM. Report Dictated By: Morelia Glass at 08/31/2018 1:30 AM Report E-Signed By: Morelia Glass at 08/31/2018 2:03 AM WSN:[id number]
--- NOTE | 2018-08-31 02:12 | EKG ---
FACILITY: [facility] PATIENT NAME: TREVER CHUA : [id number] MR: [id number] V: [id number] EXAM DATE: ORDERING PHYSICIAN: TAMARA CARDOSO TECHNOLOGIST: JENN Test Reason : NEURO Blood Pressure : / mmHG Vent. Rate : 054 BPM Atrial Rate : 053 BPM P-R Int : 160 ms QRS Dur : 148 ms QT Int : 484 ms P-R-T Axes : 111 -49 003 degrees QTc Int : 458 ms Sinus bradycardia Right bundle branch block Septal infarct , age undetermined Abnormal ECG When compared with ECG of 10-JUN-2018 10:53, No significant change was found Confirmed by Tramaine Lazaro ([id number]) on 08/31/2018 3:36:29 AM Referred By: Confirmed By:Tramaine Allen
[2018-08-31] MEDS ORDERED: DEXAMETHASONE SOD PHOS 10MG/ML IVP ONE (02:25)
[2018-08-31] MEDS ORDERED: paroxetine (02:42)
[2018-08-31] MEDS ORDERED: ACETAMINOPHEN 325 MG TAB PO PRN (02:55)
[2018-08-31] MEDS ORDERED: ONDANSETRON 4 MG/2 ML VIAL IVP PRN (02:55)
[2018-08-31] MEDS ORDERED: INFLUENZA VIRUS VAC 0.5ML SYR IM ONLY ONE (02:55)
[2018-08-31] MEDS ORDERED: hydrALAZINE HCL 20 MG/ML VIAL IVP PRN (03:25)
--- NOTE | 2018-08-31 03:31 | History & Physical ---
History of Present Illness Chief Complaint weakness History of Present Illness 67F with PMHx significant for non-SCLC with brain metastases, previously underwent chemotherapy and whole brain radiation, fall with hip Fx post repair. Presented with several days increased weakness and confusion. Confusion appears to have resolved in ER but still profound weakness. CT head demonstrates progression of metastatic lesion with surrounding edema and new midline 10mm shift. Admitted for IV Decadron, monitoring. Follows with Dr Burkett. History Problems: (1) Small cell lung cancer Status: Chronic (2) Brain metastases Status: Chronic (3) Femoral neck fracture Status: Chronic (4) Altered mental state Status: Resolved Home Meds Active Scripts Amlodipine Besylate (AMLODIPINE BESYLATE) 5 Mg Tablet, 5 MG PO QDAY, #30 TAB Prov:GUI [employer] 06/24/18 Levetiracetam (LEVETIRACETAM) 500 Mg Tablet, 500 MG PO BID, #60 TAB Prov:MILTON SMITH MD 03/27/18 Acetaminophen (ACETAMINOPHEN) 500 Mg Tablet, 1000 MG PO Q8H PRN for PAIN for 1 Day, Prov:STEPH GUNDERSON MD 08/18/17 Reported Medications [paroxetine] No Conflict Check, 1 TAB 08/31/18 Sodium Chloride/Sodium Bicarb (SINUS RINSE PREMIXED PACKET) 1 Each Packet, 1 EACH NS TID, PACKET START TOMORROW 08/12/18 Lactobacillus Acidophilus (PROBIOTIC) 1 Each Capsule, 1 EACH PO DAILY, CAPSULE 04/27/18 Ubidecarenone (COQ-10) 100 Mg Capsule, 200 MG PO HS, CAPSULE 04/27/18 Ascorbic Acid (VITAMIN C) 500 Mg Tablet, 500 MG PO HS, TAB 04/27/18 Vitamin E Acid Succinate (VITAMIN E) 400 Unit Tablet, 500 UNIT PO HS 04/27/18 Garlic (GARLIC) 1 Each Tablet, 1 EACH PO DAILY 04/27/18 Levothyroxine Sodium (LEVOTHYROXINE SODIUM) 50 Mcg Tablet, 1 TAB PO DAILY 03/27/18 Oxygen (OXYGEN) Inha, 3.5 L INH, L 3.5 L CPAP 05/19/17 Multivitamin (DAILY MULTIPLE VITAMIN) 1 Each Tablet, 1 TAB PO DAILY 05/19/17 Estropipate (ESTROPIPATE) 1.5 Mg Tablet, 1.5 MG PO QDAY for 90 Days Take 1 pill by mouth daily for 90 days 05/19/17 Discontinued Reported Medications Cefuroxime Axetil (CEFUROXIME) 500 Mg Tablet, 500 MG PO BID for 7 Days, #14 TAB 08/12/18 Discontinued Scripts Pantoprazole Sodium (PANTOPRAZOLE SODIUM) 40 Mg Tablet.dr, 40 MG PO QDAY, #30 TAB Prov:MILTON SMITH MD 03/27/18 Allergies: Coded Allergies: [place]-Gcb-Kxn Reductase Inhibitor (Verified Allergy, Unknown, 06/08/18) Hx Smoking: Yes (QUIT IN 06/13) Smoking Status: Former Smoker Caffeine Intake: Coffee Caffeine/Cups Per Day: 1 cup per day Hx Alcohol Use: No Hx Substance Use Disorder: No Social Drug Use: Never Review of Systems All Systems Reviewed/Normal: Yes, Except as Noted Neurological: Confusion, Weakness Exam Vital Signs Vital Signs Date Time Temp Pulse Resp B/P (MAP) Pulse Ox O2 Delivery O2 Flow Rate FiO2 08/31/18 03:12 98.1 62 16 178/96 (123) 100 Nasal Cannula 3.5 General Appearance: No Acute Distress, Afebrile Neuro: No Gross deficits (CN 2-12 intact, no focal deficits, strength 4/5 all extremities) Eyes: PERRLA (L slight ptosis) ENT: Normal Cardiovascular: Normal Rhythm & Peripheral Pulses Respiratory: No Respiratory Distress GI: Abd Soft and Non-Tender Extremities: Soft and Non Tender, Warm, Pulses, Perfused; No Edema Integumentary: Skin Intact without Lesion / Mass Psych: Appropriate Mood & Affect Medical Decision Making Data Points Result Diagram: 08/31/18 0000 08/31/18 0000 Assessment and Plan Problems: (1) Brain metastases Status: Chronic Assessment & Plan: Increasing size, edema, mass effect. Begin Decadron 4mg q6h. Plan to contact cancer center in am to discuss options. 08.14.2018 oncology notes performance status poor, not a candidate for further chemotherapy unless that improved. (2) Small cell lung cancer Status: Chronic Assessment & Plan: Metastatic, progressing. CXR demonstrates progression, brain metastases are more significantly progressed. (3) Altered mental state Status: Resolved Assessment & Plan: Resolved, symptom of increased intracranial pressure from edema. Some slowing of speech still present, unclear baseline. (4) Femoral neck fracture Status: Chronic Assessment & Plan: Post repair, likely contributing to her poor performance status. (5) HTN (hypertension) Status: Chronic Assessment & Plan: May be elevated acutely to perfuse with cerebral edema. Will not aggressively lower at this time. Continue 5mg amlodipine, PRN 10mg IV hydralazine. Venous Thromboembolism Antithrombotics Is Pt On Any Antithrombotics?: Yes Exam Sepsis Risk: No Definite Risk LEDBETTER EDEN MARTINEZ DO Aug 31, 2018 02:52
[2018-08-31] MEDS: LEVOTHYROXINE SOD 0.05 MG TAB PO SCH (05:23)
[2018-08-31] MEDS ORDERED: DEXAMETHASONE SOD 4 MG/ML VIAL IVP SCH (06:00)
[2018-08-31] MEDS: DEXAMETHASONE SOD 4 MG/ML VIAL IVP SCH ×3 (07:34→20:16)
[2018-08-31] MEDS: ENOXAPARIN 40 MG/0.4ML SYR SC SCH (09:04)
[2018-08-31] MEDS: levETIRAcetam 500 MG TAB PO SCH ×2 (09:04→20:16)
[2018-08-31] MEDS: amLODIPine BESYL(*) 5 MG TAB PO SCH (09:04)
--- NOTE | 2018-08-31 12:12 | Medical Nutrition Therapy ---
Nutrition Anthropometrics Height (Inches): 67.00 Height (Calculated Centimeters: 170.238852 Weight (Pounds): 149 Weight (Calculated Kilograms): 67.585 BMI: 23.3 Vinicius Nutrition Score: Adequate Vinicius Nutrition Risk Score: 14 Dietary Referral Nutrition Risk Factors: Unplanned Loss >10lbs Nutrition Risk Comment: TASTE HAS BEEN POOR. On Dysphagia III diet. Physical Findings Physical Appearance: WNR Skin Appearance Skin Appearance: Edema Edema Location Modifier: Edema Location: Type of Edema: Degree of Edema: Gastrointestinal Symptoms GI Symtoms: Tube Present: Bowel Sounds: Recent Bowel Pattern: Stool Characteristics: Nutrition/Food History No Significant Nutr. HX Nutritional Diagnosis Nutritional Risk Acuity 2: Head/Neck/GI Cancer Nutritional Risk Acuity 3: Cancer Past Medical History: Hx of hypothroidism, afib, otitis media, seizures, HTN, DM, sm cell lung cancer, and brain metastasis. Nutritional Acuity: 2-Moderate Nutrition Diagnosis: Increased Nutrient Needs Nutrition Etiology: Physiological Causes Nutrition Problem/Etiology/Sym: Increased Nutrient Needs related to physiological causes increasing nutrient needs, AEB by Stage 4 lung cancer with metastisis indicating increased stress and increased metabolic needs. Energy Requirement: 1850 ([place]-St Jeor: Actual BW X 1.5) Protein Requirement: 68 (Actual BW Kg X 1.0) Fluid Requirement: 1850 Diet Type: Diet as Tolerated CHARLEE/REG Nutrition Intervention: Cont diet as ordered Nutrition Monitoring & Eval Nutrition Goals: Eat 75-100% Meal RD Patient Assessment Time: [address] Assessment Type: RD Assessment Patient Nutrition Acuity: 2-Moderate Follow Up Date: Sep 02, 2018 Nutritional Comment: 08/31/18 Pt admitted with weakness. History of non-SCLC with brain metastases, previously underwent chemotherapy and whole brain radiation. Within normal wt range with BMI of 23.3. Alb 3.8, Glu 113. Expect dexamethaxone to increase glucose levels. Receiving CHARLEE with no reports of intake at present. Follow labs, intake, etc. -ELIEL VALDOVINOS Aug 31, 2018 12:12
--- NOTE | 2018-08-31 13:40 | Hospitalist Progress Note ---
Subjective Progress Notes Subjective She is awake and alert. She denies any specific complaints this AM. Physical Exam Vital Signs Date Time Temp Pulse Resp B/P (MAP) Pulse Ox O2 Delivery O2 Flow Rate FiO2 08/31/18 11:36 75 16 115/58 (77) 99 Nasal Cannula 2.0 08/31/18 07:28 97.5 Intake and Output 08/31/18 06:58 Output Total 100 ml Balance -100 ml Output Urine Total 100 ml General Appearance: Alert, Awake, Other (answers all questions, but responds slowly) Neuro: Other (generalized weakness) Cardiovascular: Regular Rate and Rhythm Respiratory: Clear to Auscultation Result Diagram: 08/31/18 0000 08/31/18 0000 Assessment and Plan Problems: (1) Brain metastases Status: Chronic Assessment & Plan: Increased size with edema and mass effect. Currently on Decadron 4mg IV q6h. Will contact [facility] to see the patient and discuss options. Her performance status is rather poor. (2) Small cell lung cancer Status: Chronic Assessment & Plan: Metastatic, progressing. Will discuss with Oncology. (3) Altered mental state Status: Resolved Assessment & Plan: Most likely due to cerebral edema. Some slowing of speech still present, but this is probably near her baseline. (4) Femoral neck fracture Status: Chronic Assessment & Plan: Post repair, likely contributing to her poor performance status. (5) HTN (hypertension) Status: Chronic Assessment & Plan: May be elevated acutely to perfuse with cerebral edema. Will not aggressively lower at this time. Continue 5mg amlodipine. Exam Sepsis Risk: No Definite Risk Problem Qualifiers (1) Altered mental state: Altered mental status type: unspecified Qualified Codes: R41.82 - Altered mental status, unspecified VITO SMITH MD Aug 31, 2018 13:40
[2018-09-01] MEDS: DEXAMETHASONE SOD 4 MG/ML VIAL IVP SCH ×3 (01:44→15:09)
[2018-09-01 03:10] VITALS: BP 135/65
[2018-09-01] MEDS: LEVOTHYROXINE SOD 0.05 MG TAB PO SCH (05:22)
[2018-09-01 06:01] LABS: PLATELET COUNT, AUTOMATED 265 K/uL (150-450)
[2018-09-01 07:15] VITALS: BP 144/60
[2018-09-01] MEDS: levETIRAcetam 500 MG TAB PO SCH ×2 (09:07→21:05)
[2018-09-01] MEDS: ENOXAPARIN 40 MG/0.4ML SYR SC SCH (09:08)
[2018-09-01] MEDS: amLODIPine BESYL(*) 5 MG TAB PO SCH (09:08)
--- NOTE | 2018-09-01 11:40 | Hospitalist Progress Note ---
Subjective Progress Notes Subjective No focal complaints. She denies n/pain. No concerns from staff. Physical Exam Vital Signs Date Time Temp Pulse Resp B/P (MAP) Pulse Ox O2 Delivery O2 Flow Rate FiO2 09/01/18 09:47 2.0 09/01/18 09:00 99 Nasal Cannula 09/01/18 07:15 98.5 60 16 144/60 (88) Intake and Output 09/01/18 07:00 Intake Total 200 ml Balance 200 ml Intake Oral 200 ml # Voids 3 General Appearance: Alert, Awake, No Acute Distress Cardiovascular: Regular Rate and Rhythm GI: Soft and Non-Tender Extremities: No Edema Result Diagram: 09/01/1852309/01/18523 Assessment and Plan Problems: (1) Brain metastases Status: Chronic Assessment & Plan: Increased size with edema and mass effect. Currently on Decadron 4mg IV q6h. Apparently, there are no more therapeutic options for her. [facility] to meet with her to discuss disposition options. (2) Small cell lung cancer Status: Chronic Assessment & Plan: Metastatic, progressing. See above. (3) Hyperglycemia Status: Acute Assessment & Plan: Certainly the steroids are exacerbating. Will check glucose AC and HS with SSI level 2 to cover. Check a HgA1c. (4) Altered mental state Status: Resolved Assessment & Plan: Most likely due to cerebral edema. Some slowing of speech still present, but this is probably near her baseline. (5) Femoral neck fracture Status: Chronic Assessment & Plan: Post repair, likely contributing to her poor performance status. (6) HTN (hypertension) Status: Chronic Assessment & Plan: Initially, elevated possibly due to cerebral edema. However, better today.. Continue 5mg amlodipine. (7) Anemia Status: Chronic Assessment & Plan: Chronic. Stable. Previously had a low iron and B12. Will follow. No evidence of bleeding. If the patient isn't going to comfort care, will do more investigation. Exam Sepsis Risk: No Definite Risk Problem Qualifiers (1) Altered mental state: Altered mental status type: unspecified Qualified Codes: R41.82 - Altered mental status, unspecified STEPH GUNDERSON MD Sep 01, 2018 11:40
[2018-09-01 15:03] VITALS: BP 161/63
[2018-09-01] MEDS: INSULIN HUM LISPRO 100 UN/ML 3 ML VIAL SUBQ PRN ×2 (16:42→21:05)
[2018-09-01 21:05] VITALS: BP 146/68
[2018-09-01] MEDS: DEXAMETHASONE 4 MG TAB PO SCH (21:05)
[2018-09-01 23:19] VITALS: BP 147/66
[2018-09-02] MEDS: DEXAMETHASONE 4 MG TAB PO SCH ×4 (02:05→20:16)
[2018-09-02 02:28] VITALS: BP 130/81
[2018-09-02 05:32] LABS: PLATELET COUNT, AUTOMATED 264 K/uL (150-450)
[2018-09-02] MEDS: LEVOTHYROXINE SOD 0.05 MG TAB PO SCH (05:54)
[2018-09-02 07:40] VITALS: BP 156/81
[2018-09-02] MEDS: ENOXAPARIN 40 MG/0.4ML SYR SC SCH (07:42)
[2018-09-02] MEDS: amLODIPine BESYL(*) 5 MG TAB PO SCH (07:43)
[2018-09-02] MEDS: INSULIN HUM LISPRO 100 UN/ML 3 ML VIAL SUBQ PRN ×2 (07:43→20:16)
[2018-09-02] MEDS: levETIRAcetam 500 MG TAB PO SCH ×2 (07:43→21:09)
--- NOTE | 2018-09-02 09:09 | Hospitalist Progress Note ---
Subjective Progress Notes Subjective This patient was admitted for weakness secondary to cancer. She had no acute events overnight. Patient Complains of: Cardiovascular: No: Chest Pain Respiratory: No: Shortness of Breath Physical Exam Vital Signs Date Time Temp Pulse Resp B/P (MAP) Pulse Ox O2 Delivery O2 Flow Rate FiO2 09/02/18 07:40 97.8 59 156/81 (106) 97 Nasal Cannula 1.5 09/02/18 02:28 16 Intake and Output 09/02/18 07:00 Intake Total 400 ml Balance 400 ml Intake Oral 400 ml # Voids 3 Cardiovascular: Regular Rate and Rhythm Respiratory: Clear to Auscultation Result Diagram: 09/02/18 0508 09/02/18 0508 Assessment and Plan Problems: (1) Brain metastases Status: Chronic Assessment & Plan: Her CT scan has shown an enlarging mass involving the right frontal, temporal, and into the right basal ganglia. Surrounding edema and mass effect were also noted. She is receiving dexamethasone for this. She will be transitioning to comfort care. (2) Small cell lung cancer Status: Chronic Assessment & Plan: Metastatic, progressing. See above. (3) Hyperglycemia Status: Acute Assessment & Plan: This is likely secondary to the steroids. She has been on sliding scale level #2, but continues to have sugars > 200. We have increased her to level #3. (4) Altered mental state Status: Resolved Assessment & Plan: Most likely due to cerebral edema. Some slowing of speech still present, but this is probably near her baseline. (5) Femoral neck fracture Status: Chronic Assessment & Plan: Post repair, likely contributing to her poor performance status. (6) HTN (hypertension) Status: Chronic Assessment & Plan: Initially, elevated possibly due to cerebral edema. However, better today.. Continue 5mg amlodipine. (7) Anemia Status: Chronic Assessment & Plan: Chronic. Stable. Previously had a low iron and B12. Will follow. No evidence of bleeding. If the patient isn't going to comfort care, will do more investigation. Exam Sepsis Risk: No Definite Risk Problem Qualifiers (1) Altered mental state: Altered mental status type: unspecified Qualified Codes: R41.82 - Altered mental status, unspecified ANISH WASHINGTON DO Sep 02, 2018 09:09
--- NOTE | 2018-09-02 09:23 | Medical Nutrition Therapy ---
Nutrition Anthropometrics Height (Inches): 67.00 Height (Calculated Centimeters: 170.132156 Weight (Pounds): 149 Weight (Calculated Kilograms): 67.585 BMI: 23.3 Vinicius Nutrition Score: Adequate Vinicius Nutrition Risk Score: 15 Dietary Referral Nutrition Risk Factors: Unplanned Loss >10lbs Nutrition Risk Comment: TASTE HAS BEEN POOR. On Dysphagia III diet. Physical Findings Physical Appearance: WNR Skin Appearance Skin Appearance: Edema Edema Location Modifier: Edema Location: Type of Edema: Degree of Edema: Gastrointestinal Symptoms GI Symtoms: Tube Present: Bowel Sounds: Recent Bowel Pattern: Stool Characteristics: Nutritional Diagnosis Nutritional Risk Acuity 2: Head/Neck/GI Cancer Nutritional Risk Acuity 3: Cancer Past Medical History: Hx of hypothroidism, afib, otitis media, seizures, HTN, DM, sm cell lung cancer, and brain metastasis. Nutritional Acuity: 2-Moderate Nutrition Diagnosis: Increased Nutrient Needs Nutrition Etiology: Physiological Causes Nutrition Problem/Etiology/Sym: Increased Nutrient Needs related to physiological causes increasing nutrient needs, AEB by Stage 4 lung cancer with metastisis indicating increased stress and increased metabolic needs. Energy Requirement: 1850 ([place]-St Jeor: Actual BW X 1.5) Protein Requirement: 68 (Actual BW Kg X 1.0) Fluid Requirement: 1850 Diet Type: Diet as Tolerated CHARLEE/REG Nutrition Intervention: Cont diet as ordered Nutrition Monitoring & Eval Nutrition Goals: Eat 90-100% Meal RD Patient Assessment Time: [address] Assessment Type: RD Assessment Patient Nutrition Acuity: 2-Moderate Follow Up Date: Sep 05, 2018 Nutritional Comment: 08/31/18 Pt admitted with weakness. History of non-SCLC with brain metastases, previously underwent chemotherapy and whole brain radiation. Within normal wt range with BMI of 23.3. Alb 3.8, Glu 113. Expect dexamethaxone to increase glucose levels. Receiving CHARLEE with no reports of intake at present. Follow labs, intake, etc. -ИРИНА 09/02/18 Alb 3.1, Glu 251. notes that "there are no more therapeutic options" for pt. Consumption of meals observed at 50-75%. Follow clinical progression, intake, etc. -ELIEL VALDOVINOS Sep 02, 2018 09:22
[2018-09-02 19:13] VITALS: BP 152/57
[2018-09-02 20:00] VITALS: BP 155/59
[2018-09-03 01:30] VITALS: BP 154/68
[2018-09-03] MEDS: DEXAMETHASONE 4 MG TAB PO SCH ×3 (01:50→20:31)
[2018-09-03] MEDS: LEVOTHYROXINE SOD 0.05 MG TAB PO SCH (05:43)
[2018-09-03 08:17] VITALS: BP 196/74
[2018-09-03] MEDS: ENOXAPARIN 40 MG/0.4ML SYR SC SCH (08:21)
[2018-09-03] MEDS: levETIRAcetam 500 MG TAB PO SCH ×2 (08:21→20:31)
[2018-09-03] MEDS: amLODIPine BESYL(*) 5 MG TAB PO SCH (08:21)
[2018-09-03] MEDS: INSULIN HUM LISPRO 100 UN/ML 3 ML VIAL SUBQ PRN ×4 (08:22→20:32)
--- NOTE | 2018-09-03 09:42 | Hospitalist Progress Note ---
Subjective Progress Notes Subjective She denies any specific complaints this AM. Appetite good. Mobility is slow/difficult. Physical Exam Vital Signs Date Time Temp Pulse Resp B/P (MAP) Pulse Ox O2 Delivery O2 Flow Rate FiO2 09/03/18 08:17 98.6 57 16 196/74 (114) 96 Nasal Cannula 0.5 Intake and Output 09/03/18 07:00 Intake Total 1140 ml Balance 1140 ml Intake Oral 1140 ml # Voids 7 General Appearance: Alert, Awake, Other (answers all questions albeit slowly) Neuro: Other (generalized weakness) Cardiovascular: Regular Rate and Rhythm Respiratory: Clear to Auscultation GI: Soft and Non-Tender Extremities: Warm, Perfused Result Diagram: 09/02/1850709/02/18 050 Assessment and Plan Problems: (1) Brain metastases Status: Chronic Assessment & Plan: Her CT scan has shown an enlarging mass involving the right frontal, temporal, and into the right basal ganglia. Surrounding edema and mass effect were also noted. She is receiving dexamethasone for this (now on oral). Plan at this point will be transition to comfort care. Patient/family/SW looking for places. (2) Small cell lung cancer Status: Chronic Assessment & Plan: Metastatic, progressing. See above. (3) Hyperglycemia Status: Acute Assessment & Plan: This is likely secondary to the steroids. She has been on sliding scale insulin. Continue to monitor and modify regimen as needed. (4) Altered mental state Status: Resolved Assessment & Plan: Improved. Most likely due to cerebral edema. Some slowing of speech still present, but this is probably near her baseline. (5) Femoral neck fracture Status: Chronic Assessment & Plan: Post repair, likely contributing to her poor performance status. (6) HTN (hypertension) Status: Chronic Assessment & Plan: Initially, elevated possibly due to cerebral edema. Continue amlodipine. (7) Anemia Status: Chronic Assessment & Plan: Chronic. Stable. Previously had a low iron and B12. Will follow. No evidence of acute bleeding. If the patient decides against going to comfort care, will do more investigation. (8) Urinary tract infection Status: Acute Assessment & Plan: E. coli that has multiple resistance. Will place on Bactrim DS one PO BID. Exam Sepsis Risk: No Definite Risk Problem Qualifiers (1) Altered mental state: Altered mental status type: unspecified Qualified Codes: R41.82 - Altered mental status, unspecified SMITH,MARTEN A MD Sep 03, 2018 09:42
[2018-09-03] MEDS ORDERED: LEVOFLOXACIN 500 MG TAB PO SCH (10:00)
[2018-09-03] MEDS: TRIMETH/SULFA DS 160-800MG TAB PO SCH ×2 (10:09→20:31)
--- NOTE | 2018-09-03 10:10 | Antimicrobial Stewardship ---
Antimicrobial Stewardship Approriate Cultures done: Yes Gram stain show Microbs: Yes Organism identified: Yes Review the antibiotic sensitiv: Yes (E. coli with multiple resistance. Placed on Bactrim DS po bid.) Reviewed for Drug Interaction: Yes Monitored for Toxicities: Yes IV to PO Opportunity: Yes Determine cumulative duration: 3 days uncomplicated; 7-14 days for complicated JOSE LUIS STEVENSON Sep 03, 2018 10:10
[2018-09-03 10:15] VITALS: BP 158/66
[2018-09-03 16:40] VITALS: BP 144/62
[2018-09-03 20:00] VITALS: BP 164/67
[2018-09-04 01:20] VITALS: BP 150/78
[2018-09-04] MEDS: LEVOTHYROXINE SOD 0.05 MG TAB PO SCH (05:33)
[2018-09-04 07:38] VITALS: BP 156/69
[2018-09-04] MEDS: amLODIPine BESYL(*) 5 MG TAB PO SCH (08:19)
[2018-09-04] MEDS: levETIRAcetam 500 MG TAB PO SCH ×2 (08:19→20:31)
[2018-09-04] MEDS: DEXAMETHASONE 4 MG TAB PO SCH ×2 (08:19→20:31)
[2018-09-04] MEDS: ENOXAPARIN 40 MG/0.4ML SYR SC SCH (08:19)
[2018-09-04] MEDS: TRIMETH/SULFA DS 160-800MG TAB PO SCH ×2 (08:19→20:31)
[2018-09-04] MEDS: INSULIN HUM LISPRO 100 UN/ML 3 ML VIAL SUBQ PRN ×4 (08:22→20:32)
--- NOTE | 2018-09-04 10:49 | Hospitalist Progress Note ---
Subjective Progress Notes Subjective No concerns from the patient or staff. She reports sleeping well and has eaten a good part of her breakfast. She denies nausea or pain. Physical Exam Vital Signs Date Time Temp Pulse Resp B/P (MAP) Pulse Ox O2 Delivery O2 Flow Rate FiO2 09/04/18 07:52 98 Nasal Cannula 1.0 09/04/18 07:38 98.5 57 16 156/69 (98) Intake and Output 09/04/18 06:59 Intake Total 1000 ml Balance 1000 ml Intake Oral 1000 ml # Voids 8 General Appearance: Alert, Awake, No Acute Distress Result Diagram: 09/02/18 05009/02/18 050 Assessment and Plan Problems: (1) Brain metastases Status: Chronic Assessment & Plan: Her CT scan has shown an enlarging mass involving the right frontal, temporal, and into the right basal ganglia. Surrounding edema and mass effect were also noted. She is receiving dexamethasone for this (now on oral). Plan at this point will be transition to comfort care. Patient/family/SW looking for places. (2) Small cell lung cancer Status: Chronic Assessment & Plan: Metastatic, progressing. See above. (3) Hyperglycemia Status: Acute Assessment & Plan: This is likely secondary to the steroids. She has been on sliding scale insulin. Continue to monitor and modify regimen as needed. (4) Altered mental state Status: Resolved Assessment & Plan: Improved. Most likely due to cerebral edema. Some slowing of speech still present, but this is probably near her baseline. (5) Femoral neck fracture Status: Chronic Assessment & Plan: Post repair, likely contributing to her poor performance status. (6) HTN (hypertension) Status: Chronic Assessment & Plan: Initially, elevated possibly due to cerebral edema. Continue amlodipine. (7) Anemia Status: Chronic Assessment & Plan: Chronic. Stable. Previously had a low iron and B12. Will follow. No evidence of acute bleeding. If the patient decides against going to comfort care, will do more investigation. (8) Urinary tract infection Status: Acute Assessment & Plan: E. coli that has multiple resistance. Will place on Bactrim DS one PO BID. Exam Sepsis Risk: No Definite Risk Problem Qualifiers (1) Altered mental state: Altered mental status type: unspecified Qualified Codes: R41.82 - Altered mental status, unspecified STEPH GUNDERSON MD Sep 04, 2018 10:49
[2018-09-04 19:18] VITALS: BP 162/77
[2018-09-05] MEDS: LEVOTHYROXINE SOD 0.05 MG TAB PO SCH (05:30)
[2018-09-05] MEDS: ENOXAPARIN 40 MG/0.4ML SYR SC SCH (08:24)
[2018-09-05] MEDS: levETIRAcetam 500 MG TAB PO SCH ×2 (08:24→20:15)
[2018-09-05] MEDS: TRIMETH/SULFA DS 160-800MG TAB PO SCH ×2 (08:24→20:15)
[2018-09-05] MEDS: amLODIPine BESYL(*) 5 MG TAB PO SCH (08:24)
[2018-09-05] MEDS: DEXAMETHASONE 4 MG TAB PO SCH ×2 (08:25→20:13)
[2018-09-05] MEDS: INSULIN HUM LISPRO 100 UN/ML 3 ML VIAL SUBQ PRN ×4 (08:25→20:16)
[2018-09-05 08:35] VITALS: BP 150/75
[2018-09-05] MEDS ORDERED: CALCIUM CARBONATE 500 MG CHEW PO PRN (09:20)
--- NOTE | 2018-09-05 11:01 | Hospitalist Progress Note ---
Subjective Progress Notes Subjective She has some complaints of nausea this morning, likely related to her breakfast burrito and salsa. Otherwise, she has no complaints. Patient Complains of: Cardiovascular: No: Chest Pain Respiratory: No: Shortness of Breath Gastrointestinal: Nausea Physical Exam Vital Signs Date Time Temp Pulse Resp B/P (MAP) Pulse Ox O2 Delivery O2 Flow Rate FiO2 09/05/18 08:35 98.1 62 16 150/75 (100) 94 Room Air 09/04/18 07:52 1.0 Intake and Output 09/05/18 00:00 Intake Total 780 ml Balance 780 ml Intake Oral 780 ml # Voids 7 General Appearance: Alert, Awake, No Acute Distress, Afebrile Neuro: No Gross deficits Cardiovascular: Regular Rate and Rhythm Respiratory: No Respiratory Distress, Clear to Auscultation GI: Soft and Non-Tender Psych: Alert & Oriented X3, Appropriate Mood & Affect Result Diagram: 09/02/18 0508 09/02/18 0508 Assessment and Plan Problems: (1) Brain metastases Status: Chronic Assessment & Plan: Her CT scan has shown an enlarging mass involving the right frontal, temporal, and into the right basal ganglia. Surrounding edema and mass effect were also noted. She is receiving dexamethasone for this (now on oral). Plan at this point will be transition to comfort care. Patient/family/SW looking for places. (2) Small cell lung cancer Status: Chronic Assessment & Plan: Metastatic, progressing. See above. (3) Hyperglycemia Status: Acute Assessment & Plan: This is likely secondary to the steroids. She has been on sliding scale insulin. Continue to monitor and modify regimen as needed. (4) Altered mental state Status: Resolved Assessment & Plan: Improved. Most likely due to cerebral edema. Some slowing of speech still present, but this is probably near her baseline. (5) Femoral neck fracture Status: Chronic Assessment & Plan: Post repair, likely contributing to her poor performance status. (6) HTN (hypertension) Status: Chronic Assessment & Plan: Initially, elevated possibly due to cerebral edema. Continue amlodipine. (7) Anemia Status: Chronic Assessment & Plan: Chronic. Stable. Previously had a low iron and B12. Will follow. No evidence of acute bleeding. If the patient decides against going to comfort care, will do more investigation. (8) Urinary tract infection Status: Acute Assessment & Plan: E. coli that has multiple resistance. Will place on Bactrim DS one PO BID. (9) Nausea Status: Acute Assessment & Plan: She will receive oral Zofran. Likely related to her breakfast, continue to monitor. Exam Sepsis Risk: No Definite Risk Problem Qualifiers (1) Altered mental state: Altered mental status type: unspecified Qualified Codes: R41.82 - Altered mental status, unspecified GUI [facility] Sep 05, 2018 11:01
--- NOTE | 2018-09-05 13:47 | Medical Nutrition Therapy ---
Nutrition Anthropometrics Height (Inches): 67.00 Height (Calculated Centimeters: 170.369234 Weight (Pounds): 149 Weight (Calculated Kilograms): 67.585 BMI: 23.3 Vinicius Nutrition Score: Probably Inadequate Vinicius Nutrition Risk Score: 15 Dietary Referral Nutrition Risk Factors: Unplanned Loss >10lbs Nutrition Risk Comment: TASTE HAS BEEN POOR. On Dysphagia III diet. Nutritional Diagnosis Nutritional Risk Acuity 2: Head/Neck/GI Cancer Nutritional Risk Acuity 3: Cancer Past Medical History: Hx of hypothroidism, afib, otitis media, seizures, HTN, DM, sm cell lung cancer, and brain metastasis. Nutritional Acuity: 2-Moderate Nutrition Diagnosis: Increased Nutrient Needs Nutrition Etiology: End of Life Care Nutrition Problem/Etiology/Sym: Increased Nutrient Needs related to physiological causes increasing nutrient needs, AEB by Stage 4 lung cancer with metastisis indicating increased stress and increased metabolic needs. Energy Requirement: 1850 ([place]-St Jeor: Actual BW X 1.5) Protein Requirement: 68 (Actual BW Kg X 1.0) Fluid Requirement: 1850 Diet Type: Diet as Tolerated CHARLEE/REG Nutrition Intervention: Cont diet as ordered Nutrition Monitoring & Eval Nutritional Goals Comment: Pt will consume food and fluids as appropriate for comfort care. RD Patient Assessment Time: [address] Assessment Type: RD Re-Assessment Patient Nutrition Acuity: 2-Moderate Follow Up Date: Sep 09, 2018 Nutritional Comment: 08/31/18 Pt admitted with weakness. History of non-SCLC with brain metastases, previously underwent chemotherapy and whole brain radiation. Within normal wt range with BMI of 23.3. Alb 3.8, Glu 113. Expect dexamethaxone to increase glucose levels. Receiving CHARLEE with no reports of intake at present. Follow labs, intake, etc. -DRT 09/02/18 Alb 3.1, Glu 251. notes that "there are no more therapeutic options" for pt. Consumption of meals observed at 50-75%. Follow clinical progression, intake, etc. -DRT 09/05 Pt transitioning to comfort care. Pt cont on regular diet and intake average 48% of small portions. BG cont elevated 200-400. Pt is recieving insulin. Will cont to monitor. BISMARK ARROYO Sep 05, 2018 13:47
[2018-09-05 18:38] VITALS: BP 165/65
[2018-09-06] MEDS: ONDANSETRON 4 MG ODT TABDP SL PRN ×2 (03:47→16:46)
[2018-09-06] MEDS: LEVOTHYROXINE SOD 0.05 MG TAB PO SCH (05:56)
[2018-09-06 07:41] VITALS: BP 139/111
[2018-09-06] MEDS: DEXAMETHASONE 4 MG TAB PO SCH (08:13)
[2018-09-06] MEDS: INSULIN HUM LISPRO 100 UN/ML 3 ML VIAL SUBQ PRN ×2 (08:15→11:50)
[2018-09-06] MEDS: amLODIPine BESYL(*) 5 MG TAB PO SCH (08:16)
[2018-09-06] MEDS: levETIRAcetam 500 MG TAB PO SCH (08:16)
[2018-09-06] MEDS: TRIMETH/SULFA DS 160-800MG TAB PO SCH (08:16)
[2018-09-06] MEDS: ENOXAPARIN 40 MG/0.4ML SYR SC SCH (08:21)
--- NOTE | 2018-09-06 10:21 | Hospitalist Progress Note ---
Subjective Progress Notes Subjective No concerns overnight. The patient denies pain or nausea. Physical Exam Vital Signs Date Time Temp Pulse Resp B/P (MAP) Pulse Ox O2 Delivery O2 Flow Rate FiO2 09/06/18 07:41 98.7 57 16 139/111 (120) 90 Room Air 09/04/18 07:52 1.0 Intake and Output 09/06/18 07:00 Intake Total 556 ml Balance 556 ml Intake Oral 556 ml # Voids 6 # Emeses 1 General Appearance: Alert, Awake, No Acute Distress Extremities: No Edema Result Diagram: 09/02/18 0508 09/02/18 0508 Assessment and Plan Problems: (1) Brain metastases Status: Chronic Assessment & Plan: Her CT scan has shown an enlarging mass involving the right frontal, temporal, and into the right basal ganglia. Surrounding edema and mass effect were also noted. She is receiving dexamethasone for this (now on oral). Plan at this point will be transitioned to a rehab facility. Patient/family/SW looking for places. (2) Small cell lung cancer Status: Chronic Assessment & Plan: Metastatic, progressing. See above. (3) Hyperglycemia Status: Acute Assessment & Plan: This is likely secondary to the steroids. She has been on sliding scale insulin. Continue to monitor and modify regimen as needed. (4) Altered mental state Status: Resolved Assessment & Plan: Improved. Most likely due to cerebral edema. Some slowing of speech still present, but this is probably near her baseline. (5) Femoral neck fracture Status: Chronic Assessment & Plan: Post repair, likely contributing to her poor performance status. (6) HTN (hypertension) Status: Chronic Assessment & Plan: Initially, elevated possibly due to cerebral edema. Continue amlodipine. (7) Anemia Status: Chronic Assessment & Plan: Chronic. Stable. Previously had a low iron and B12. Will follow. No evidence of acute bleeding. (8) Urinary tract infection Status: Acute Assessment & Plan: E. coli that has multiple resistance. Will place on Bactrim DS one PO BID. (9) Nausea Status: Acute Assessment & Plan: She will receive oral Zofran. Likely related to her breakfast, continue to monitor. Exam Sepsis Risk: No Definite Risk Problem Qualifiers (1) Altered mental state: Altered mental status type: unspecified Qualified Codes: R41.82 - Altered mental status, unspecified STEPH GUNDERSON MD Sep 06, 2018 10:21
[2018-09-06] MEDS ORDERED: MAG HYD/AL HYD/SIMETH 30ML UDC PO PRN (10:40)
[2018-09-06 11:04] VITALS: BP 144/72
--- NOTE | 2018-09-06 16:09 | Hospitalist Depart ---
Discharge Summary Reason for Hosp/Final Diag: (1) Brain metastases Status: Chronic Hospital Course & Plan: Her CT scan has shown an enlarging mass involving the right frontal, temporal, and into the right basal ganglia. Surrounding edema and mass effect were also noted. She is receiving dexamethasone for this (now on oral). She has been tapered down to 4mg bid. Plan at this point will be transitioned to ECF until a disposition can be secured. (2) Small cell lung cancer Status: Chronic Hospital Course & Plan: Metastatic, progressing. See above. (3) Hyperglycemia Status: Acute Hospital Course & Plan: This is likely secondary to the steroids. She has been on sliding scale insulin. Continue to monitor and modify regimen as needed. (4) Altered mental state Status: Resolved Hospital Course & Plan: Improved. Most likely due to cerebral edema. Some slowing of speech still present, but this is probably near her baseline. (5) Femoral neck fracture Status: Chronic Hospital Course & Plan: Post repair, likely contributing to her poor performance status. (6) HTN (hypertension) Status: Chronic Hospital Course & Plan: Initially, elevated possibly due to cerebral edema. Continue amlodipine. (7) Anemia Status: Chronic Hospital Course & Plan: Chronic. Stable. Previously had a low iron and B12. Will follow. No evidence of acute bleeding. (8) Urinary tract infection Status: Acute Hospital Course & Plan: E. coli that has multiple resistance. Will place on Bactrim DS one PO BID will do 4 more days to make a 7 day course. (9) Nausea Status: Acute Hospital Course & Plan: She will receive oral Zofran prn Departure Weight (Pounds): 149 Weight (Ounces): 8.0 Result Diagram: 09/02/18 0508 09/02/18 0508 Item Value Date Time Sodium Level 140 mmol/L 08/31/18 0000 Sodium Level 133 mmol/L L 09/01/18 0524 Blood Urea Nitrogen 20 mg/dl H 09/01/18 0524 Creatinine 0.70 mg/dl 09/01/18 0524 Blood Urea Nitrogen 16 mg/dl 08/31/18 0000 Creatinine 0.90 mg/dl 08/31/18 0000 Calcium Level 9.8 mg/dl 08/31/18 0000 Total Bilirubin 0.7 mg/dl 08/31/18 0000 Aspartate Amino Transf (AST/SGOT) 41 U/L H 08/31/18 0000 Alanine Aminotransferase (ALT/SGPT) 32 U/L 08/31/18 0000 Alkaline Phosphatase 86 U/L 08/31/18 0000 Alkaline Phosphatase 81 U/L 09/01/18 0524 Alanine Aminotransferase (ALT/SGPT) 43 U/L 09/01/18 0524 Aspartate Amino Transf (AST/SGOT) 27 U/L 09/01/18 0524 Total Bilirubin 0.4 mg/dl 09/01/18 0524 Calcium Level 9.0 mg/dl 09/01/18 0524 Random Glucose 299 mg/dl H 09/01/18 0524 Random Glucose 113 mg/dl H 08/31/18 0000 Hemoglobin 13.0 g/dL 08/31/18 0000 Hemoglobin 10.8 g/dL L 09/01/18 0524 Hemoglobin 10.5 g/dL L 09/02/18 0508 Platelet Count 264 K/uL 09/02/18 0508 Platelet Count 265 K/uL 09/01/18 0524 Platelet Count 337 K/uL 08/31/18 0000 Neutrophils (%) (Auto) 67.9 % 08/31/18 0000 Neutrophils (%) (Auto) 86.7 % H 09/01/18 0524 Neutrophils (%) (Auto) 91.4 % H 09/02/18 0508 Urine RBC 2 /HPF 08/31/18 0144 Urine WBC 24 /HPF 08/31/18 0144 Urine WBC Clumps Few /HPF 08/31/18 0144 Urine Squamous Epithelial Cells Many /LPF H 08/31/18 0144 Urine Transitional Epithelial Cells Few /LPF 08/31/18 0144 Urine Bacteria Many /HPF H 08/31/18 0144 Urine Mucus Few /HPF 08/31/18 0144 Urine Leukocyte Esterase Small H 08/31/18 0144 Urine Bilirubin Negative 08/31/18 0144 SPEC #: [id number] JUSTINO: 09/01/18 STATUS: COMP REQ #: [id number] RECD: 09/01/[address]: VITO SMITH MD SOURCE: TRISH ENTR: 09/01/[address] [facility] [address]: GHADA CASTILLO MD SPDESC: EDEN LAZARO DO ORDERED: CULT URINE COMMENTS: Has specimen been collected/obtained? Y Procedure Result Verified URINE CULTURE Final 09/03/18-0853 Organism 1 ESCHERICHIA COLI >100,000 COL/ML Organism 2 LACTOBACILLUS 10-25,000 COL/ML NOTE: This isolate exhibits Extended Spectrum Beta Lactamase (ESBL) activity. Isolates possessing ESBL should be considered resistant to all penicillins, cephalosporins, and aztreonam. These isolates may still be susceptible to cephamycins and penicillin/inhibitor combinations. ESC COLI M.I.C. RX --------- --- AMPICILLIN >=32 R AMPICILLIN/SULBACTAM >=32 R CEFAZOLIN >=64 R CEFTAZIDIME 16 R CEFTRIAXONE >=64 R CEFEPIME >=64 R CEFOXITIN 16 I ERTAPENEM <=0.5 S CIPROFLOXACIN >=4 R GENTAMICIN >=16 R IMIPENEM <=0.25 S LEVOFLOXACIN >=8 R NITROFURANTOIN <=16 S PIPERACILLIN/TAZOBACTAM 64 I TOBRAMYCIN 8 I TRIMETHOPRIM/SULFAMETHOXAZOLE <=20 S Imaging 08/31/18 CXR - 1. Increase in size of the left pulmonary nodule. 2. No acute cardiopulmonary process. 08/31/[address] - 1. Enlarging mass in the right frontal and temporal lobes, including the right basal ganglia, with new extension into the suprasellar cistern. There is greater surrounding edema and there is worsening midline shift, now 10 mm from right to left. 2. Interval increase in size of the cystic mass in the superior right cerebellum. There is new peripheral calcification, and there is new or worsening edema surrounding it. 3. No convincing new lesion on noncontrast head CT. . Expansile lesion in the left sphenoid sinus does not appear changed and may be a mucocele versus a polyp.5. Stable mastoid fluid and stable fluid in the right middle ear. This could be benign fluid or due to uncomplicated otomastoiditis. Findings of enlarging masses in the right frontal lobe and superior right cerebellum with worsening edema were discussed by phone with TAMARA CARDOSO on 08/31/2018 1:55 AM. EKG Vent. Rate : 054 BPM Atrial Rate : 053 BPM P-R Int : 160 ms QRS Dur : 148 ms QT Int : 484 ms P-R-T Axes : 111 -49 003 degrees QTc Int : 458 ms Sinus bradycardia Right bundle branch block Septal infarct , age undetermined Abnormal ECG When compared with ECG of 10-JUN-2018 10:53, No significant change was found Confirmed by Eden Lazaro ([id number]) on 08/31/2018 3:36:29 AM Condition: Improved [facility] Follow Up For: PT For Strengthening, OT For ADL's, PT Evaluation and Treat, OT Evaluation and Treat Discharge Code Status: DNR, DNI Discharge Instructions Home Meds Active Scripts Amlodipine Besylate (AMLODIPINE BESYLATE) 5 Mg Tablet, 5 MG PO QDAY, #30 TAB Prov:GUI CHAMPION BALLROOM DANCE INSTRUCTOR 06/24/18 Levetiracetam (LEVETIRACETAM) 500 Mg Tablet, 500 MG PO BID, #60 TAB Prov:MILTON SMITH MD 03/27/18 Acetaminophen (ACETAMINOPHEN) 500 Mg Tablet, 1000 MG PO Q8H PRN for PAIN for 1 Day, Prov:STEPH GUNDERSON MD 08/18/17 Reported Medications [paroxetine] No Conflict Check, 1 TAB 08/31/18 Sodium Chloride/Sodium Bicarb (SINUS RINSE PREMIXED PACKET) 1 Each Packet, 1 EACH NS TID, PACKET START TOMORROW 08/12/18 Lactobacillus Acidophilus (PROBIOTIC) 1 Each Capsule, 1 EACH PO DAILY, CAPSULE 04/27/18 Ubidecarenone (COQ-10) 100 Mg Capsule, 200 MG PO HS, CAPSULE 04/27/18 Ascorbic Acid (VITAMIN C) 500 Mg Tablet, 500 MG PO HS, TAB 04/27/18 Vitamin E Acid Succinate (VITAMIN E) 400 Unit Tablet, 500 UNIT PO HS 04/27/18 Garlic (GARLIC) 1 Each Tablet, 1 EACH PO DAILY 04/27/18 Levothyroxine Sodium (LEVOTHYROXINE SODIUM) 50 Mcg Tablet, 1 TAB PO DAILY 03/27/18 Oxygen (OXYGEN) Inha, 3.5 L INH, L 3.5 L CPAP 05/19/17 Multivitamin (DAILY MULTIPLE VITAMIN) 1 Each Tablet, 1 TAB PO DAILY 05/19/17 Estropipate (ESTROPIPATE) 1.5 Mg Tablet, 1.5 MG PO QDAY for 90 Days Take 1 pill by mouth daily for 90 days 05/19/17 Discontinued Reported Medications Cefuroxime Axetil (CEFUROXIME) 500 Mg Tablet, 500 MG PO BID for 7 Days, #14 TAB 08/12/18 Discontinued Scripts Pantoprazole Sodium (PANTOPRAZOLE SODIUM) 40 Mg Tablet., 40 MG PO QDAY, #30 TAB Prov:MILTON SMITH MD 03/27/18 Diet: Diabetic Activity: As Tolerated Copies to: SIS ALANIZ MD; GHADA CASTILLO MD ; Venous Thromboembolism Antithrombotics Is Pt On Any Antithrombotics?: Yes Problem Qualifiers (1) Altered mental state: Altered mental status type: unspecified Qualified Codes: R41.82 - Altered mental status, unspecified STEPH GUNDERSON MD Sep 06, 2018 16:09
[2018-09-06] MEDS ORDERED: MAGNESIUM HYDROXIDE* 30ML UDCP PO ONE (16:20)
== END 2018-09-06 16:55 | DRG 54 ==
LOC: ER 23:38 → MED 08-31 02:35
PROVIDERS: ADMIT Internal Medicine; ATTEND Internal Medicine
DX: C79.31 Secondary malignant neoplasm of brain (principal); G93.6 Cerebral edema; C34.92 Malignant neoplasm of unspecified part of left bronchus or lung; N39.0 Urinary tract infection, site not specified; I10 Essential (primary) hypertension; R53.1 Weakness; Z51.5 Encounter for palliative care; R73.9 Hyperglycemia, unspecified; T38.0X5A Adverse effect of glucocorticoids and synthetic analogues, initial encounter; D64.9 Anemia, unspecified; B96.20 Unspecified Escherichia coli [E. coli] as the cause of diseases classified elsewhere; S72.002D Fracture of unspecified part of neck of left femur, subsequent encounter for closed fracture with routine healing; Z87.891 Personal history of nicotine dependence; Z92.21 Personal history of antineoplastic chemotherapy; Z92.3 Personal history of irradiation; Z88.8 Allergy status to other drugs, medicaments and biological substances
CPT/HCPCS: 36415; 36416; 70450; 71045; 81001; 82040; 82247; 82310; 82374; 82435; 82565; 82947; 82948; 84075; 84132; 84155; 84295; 84450; 84460; 84520; 85025; 87077; 87088; 87186; 93005; 97162; 97166; 99285; A4353; J0360; J1100; J1650; J8540; S0119

== ENCOUNTER 2018-09-06 16:55 | Inpatient (IN) | payer MEDICARE ==
[2018-06-09 11:07] VITALS: Ht 170.2 cm; Wt 66.7 kg
[~2018-09-06] VITALS: Ht 170.2 cm; Wt 66.7 kg
[~2018-09-06 16:55] MED LIST changes: +paroxetine
[2018-09-06] MEDS ORDERED: LEVOTHYROXINE SOD 0.05 MG TAB PO SCH (17:16)
[2018-09-06] MEDS ORDERED: ACETAMINOPHEN 325 MG TAB PO PRN (17:16)
[2018-09-06] MEDS ORDERED: DEXAMETHASONE 4 MG TAB PO SCH (17:16)
[2018-09-06] MEDS ORDERED: MAG HYD/AL HYD/SIMETH 30ML UDC PO PRN (17:16)
[2018-09-06] MEDS ORDERED: ONDANSETRON 4 MG ODT TABDP SL PRN (17:16)
[2018-09-06] MEDS ORDERED: MAGNESIUM HYDROXIDE* 30ML UDCP PO PRN (17:25)
--- NOTE | 2018-09-06 17:52 | Consultant Pharmacy Review ---
Leasing Coordinator Review Medication Review Do All Mecications have a Diag: Yes Other General Cautions Lexicomp Interaction Analysis A = No known interaction C = Monitor therapy X = Avoid combination B = No action needed D = Consider therapy modification Drugs in this analysis: Acetaminophen; Bactrim DS; Calcium Carbonate, Magnesium Hydroxide, and Simethicone; Dexamethasone (Systemic); Docusate Sodium (SYN); HumaLOG; Keppra; Levothyroxine; Lovenox; Magnesium Hydroxide; MiraLax [OTC]; Norvasc; Zofran * Drug-Drug Interactions * D Calcium Carbonate, Magnesium Hydroxide, and Simethicone (Antacids) Dexamethasone (Systemic) (Corticosteroids (Oral)) D Calcium Carbonate, Magnesium Hydroxide, and Simethicone (Magnesium Salts) Levothyroxine Depends on Route D Dexamethasone (Systemic) (Corticosteroids (Oral)) Magnesium Hydroxide (Antacids) D Levothyroxine Magnesium Hydroxide (Magnesium Salts) Depends on Route C Bactrim DS (Hypoglycemia-Associated Agents) HumaLOG (Antidiabetic Agents) C Bactrim DS (Hypoglycemia-Associated Agents) HumaLOG (Hypoglycemia-Associated Agents) C Calcium Carbonate, Magnesium Hydroxide, and Simethicone (Calcium Salts) Norvasc (Calcium Channel Blockers) C Calcium Carbonate, Magnesium Hydroxide, and Simethicone (Magnesium Salts) No rvasc (Calcium Channel Blockers) C Dexamethasone (Systemic) (Hyperglycemia-Associated Agents) HumaLOG (Antidiabetic Agents) C Magnesium Hydroxide (Magnesium Salts) Norvasc (Calcium Channel Blockers) Pneumococcal Vaccine HX Pneumo Vac ([id number]): Yes (07/04/2015) HX Pneumo Vac (Pneumovax): Yes (11/25/2010 and 07/09/2016) MILTON SEN Sep 06, 2018 17:52
[2018-09-06 19:35] VITALS: BP 158/71
[2018-09-06] MEDS: DEXAMETHASONE 4 MG TAB PO SCH (20:20)
[2018-09-06] MEDS: INSULIN HUM LISPRO 100 UN/ML 3 ML VIAL SUBQ PRN (20:20)
[2018-09-06] MEDS: levETIRAcetam 500 MG TAB PO SCH (20:20)
[2018-09-06] MEDS: TRIMETH/SULFA DS 160-800MG TAB PO SCH (20:20)
[2018-09-06] MEDS: DOCUSATE SODIUM 100 MG CAP PO SCH (20:20)
[2018-09-07] MEDS: LEVOTHYROXINE SOD 0.05 MG TAB PO SCH (05:45)
[2018-09-07 08:20] VITALS: BP 152/93
[2018-09-07] MEDS: DOCUSATE SODIUM 100 MG CAP PO SCH ×2 (09:06→20:45)
[2018-09-07] MEDS: amLODIPine BESYL(*) 5 MG TAB PO SCH (09:06)
[2018-09-07] MEDS: TRIMETH/SULFA DS 160-800MG TAB PO SCH ×2 (09:06→20:45)
[2018-09-07] MEDS: ENOXAPARIN 40 MG/0.4ML SYR SC SCH (09:06)
[2018-09-07] MEDS: levETIRAcetam 500 MG TAB PO SCH ×2 (09:06→20:45)
[2018-09-07] MEDS: POLYETHYLENE GLYCOL 17 GM PKT PO SCH (09:06)
[2018-09-07] MEDS: DEXAMETHASONE 4 MG TAB PO SCH ×2 (09:07→20:00)
[2018-09-07] MEDS: INSULIN HUM LISPRO 100 UN/ML 3 ML VIAL SUBQ PRN ×4 (09:07→21:11)
[2018-09-07] MEDS: PATIENT'S OWN MED PO PRN ×2 (17:03→23:22)
[2018-09-07 17:28] VITALS: BP 142/72
[2018-09-08] MEDS: LEVOTHYROXINE SOD 0.05 MG TAB PO SCH ×3 (05:53→06:00)
[2018-09-08] MEDS: DEXAMETHASONE 4 MG TAB PO SCH (08:00)
[2018-09-08 08:20] VITALS: BP 183/101
[2018-09-08] MEDS: amLODIPine BESYL(*) 5 MG TAB PO SCH (08:42)
[2018-09-08] MEDS: PATIENT'S OWN MED PO PRN (08:43)
[2018-09-08] MEDS: DOCUSATE SODIUM 100 MG CAP PO SCH ×2 (09:00→21:00)
[2018-09-08] MEDS: POLYETHYLENE GLYCOL 17 GM PKT PO SCH (09:00)
[2018-09-08] MEDS: TRIMETH/SULFA DS 160-800MG TAB PO SCH ×3 (10:00→21:00)
[2018-09-08 10:06] VITALS: BP 124/46
[2018-09-08] MEDS: levETIRAcetam 500 MG TAB PO SCH ×2 (10:11→21:00)
[2018-09-08] MEDS: ENOXAPARIN 40 MG/0.4ML SYR SC SCH (10:25)
[2018-09-08 13:05] VITALS: BP 116/66
[2018-09-08] MEDS ORDERED: PARO-46 PO (13:30)
[2018-09-08] MEDS ORDERED: SODCTAB PO (13:30)
--- NOTE | 2018-09-08 14:16 | Hospitalist Progress Note ---
Subjective Progress Notes Subjective Mrs. Peralta has developed N/V, BLAS, further generalized weakness. We had lengthy discussion with the patient and her regarding their wishes for ongoing care. Physical Exam Vital Signs Date Time Temp Pulse Resp B/P (MAP) Pulse Ox O2 Delivery O2 Flow Rate FiO2 09/08/18 13:05 126 116/66 (83) 92 Nasal Cannula 1.0 09/08/18 08:20 98.8 18 Intake and Output 09/08/18 07:00 Intake Total 120 ml Balance 120 ml Intake Oral 120 ml # Voids 5 General Appearance: Alert, Awake, Other (she reponds slowly) Assessment and Plan Problems: (1) Small cell lung cancer Status: Chronic Assessment & Plan: She appears to have progressive deterioration in her status. The patient and her have now decided to transition into comfort ca re/end-of-life care. This certainly seems reasonable given her diagnosis/prognosis. Will move her to the [facility] Beta Suite. Will place on IV analgesics, antiemetics, anxiolytics. Will also place on IV Decadron (she was previously on oral) to help with symptom control. (2) Brain metastases Status: Chronic VITO SMITH MD Sep 08, 2018 14:16
--- NOTE | 2018-09-08 14:30 | Medical Nutrition Therapy ---
Nutrition Anthropometrics Height (Inches): 67.00 Height (Calculated Centimeters: 170.138866 Weight (Pounds): 147 Weight (Calculated Kilograms): 66.735 BMI: 23 Vinicius Nutrition Score: Vinicius Nutrition Risk Score: Dietary Referral Nutrition Risk Factors: Unplanned Loss >10lbs Nutrition Risk Comment: TASTE HAS BEEN POOR. On Dysphagia III diet. Nutritional Diagnosis Nutritional Risk Acuity 2: Head/Neck/GI Cancer Past Medical History: Hx of hypothroidism, afib, otitis media, seizures, HTN, DM, sm cell lung cancer, and brain metastasis. Nutrition Diagnosis: Inadequate Food Intake Nutrition Etiology: End of Life Care Nutrition Problem/Etiology/Sym: AEB intake of 1-2 items only at meals Energy Requirement: 1850 ([place]-St Jeor: Actual BW X 1.5) Protein Requirement: 87 (1.3gm/kg) Fluid Requirement: 1850 (1ml/kcal) Diet Type: Diet as Tolerated CHARLEE/REG Nutrition Intervention: Cont diet as ordered Nutrition Monitoring & Eval Nutritional Goals Comment: Pt will consume food and fluids as appropriate for comfort care. RD Patient Assessment Time: [address] Assessment Type: RD Assessment Patient Nutrition Acuity: 2-Moderate Follow Up Date: Sep 13, 2018 Nutritional Comment: 09/08/18 Pt admitted for comfort care with dx of lung Ca with mets to brain. Pt on CHARLEE and taking small amounts. Will cont to offer food and fluids as pt desires for comfort care. BISMARK ARROYO Sep 08, 2018 14:30
[2018-09-08] MEDS: DEXAMETHASONE SOD 4 MG/ML VIAL IVP SCH (15:00)
[2018-09-08] MEDS: LORazepam 2 MG/ML VIAL IVP PRN (16:03)
--- NOTE | 2018-09-08 16:14 | OT ECF NOTE ---
Type of Note: Initial Note Primary Medical Diagnosis: Generalized weakness s/p small cell lung cancer and brain metastases Occupational Therapy Evaluation Date: 09/07/18 SUBJECTIVE: Prior Hospitalization: [facility] 08/31/18 thru 09/06/18 Prior Level of Function: 19/04 care at home for assist with ADLs/IADLs. Prior Living Status: Single level house Spouse Assist by family Assist by friends Community Services: Support adequate No known needs Home Accessibility: Stairs with rails All needs on one level Walk-in shower Equipment Owned: Front wheeled walker Rollator Toilet riser Bedside commode Tub/shower chair Wheelchair Medical Complications/Past Medical History: Please refer to EMR Psychosocial Support: Supportive spouse "Luis Alberto" Pain Scale (0-10): No report of pain upon initial evaluation. Constant c/o of nausea at rest. Vomiting with movement. OBJECTIVE: Strength: MMT: Right Left Shoulder Flexion [*] [*] Elbow Flexion [*] [*] Wrist Extension [*] [*] Valve Seater Operator [*] [*] (5= normal, 4= good, 3= fair, 2= poor, 1= trace) ROM: Both upper extremities, Moderately limited Functional Transfer: Assistive Device: Front wheeled walker Transfer Ability: Moderate assistance, 2-person assist ADL: Upper body dressing: Assistive device: Upper body dressing ability: N/T Lower body dressing: Assistive device: Lower body dressing ability: N/T Toileting: Assistive device: Bedside Commode Toileting ability: Maximum assistance x1-2 Grooming/hygiene: Assistive device: Grooming ability: N/T Bathing: Assistive device: Bathing ability: N/T Standardized Assessment: Fabiola Index of Activities of Daily Livin/20 upon initial evaluation (09/08/18). ASSESSMENT: Lucy presents to [facility] with significant weakness and decreased independence for ADLs and functional mobility. Pt and spouse desire rehab services to maintain strength for ADLs and maintain minimal assist for stand pivot transfers in order to improve quality of life and decrease caregiver burden. Lucy is at risk for pressure sores and rapid deconditioning, thus skilled OT services are indicated to determine appropriate intervention and provide necessary caregiver education and training. Problem List/Current Limitations: Pain Decreased activity tolerance Decreased strength Decreased ROM Decreased coordination Decreased balance Generalized weakness Poor safety awareness Memory deficits Decreased problem solving Confusion Short Term Goals: 1. Pt will tolerate stand pivot transfers with Min A in order to transition to BSC for toileting. 2. Pt will be Mod A for toileting task. Electronic Publishing Specialist Goals: Family plans to transfer to a long-term care facility in [place], [place]. Patient Goals: Not addressed at this time. Rehabilitation Prognosis: Poor Barriers to Discharge: Medical prognoses PLAN: The patient will benefit from skilled occupational therapy services 5 times per week for 2 weeks including: Ther ex ADL training Safety training Ther act IADL training Transfer training Adaptive equip training Bed mobility Energy conservation Thank you for this referral. If you have any questions, concerns, or comments about this report or plan, please contact me at . Yasmine Zhou MS, OTR/L Occupational Therapist [place]
[2018-09-09] MEDS: LORazepam 2 MG/ML VIAL IVP PRN ×2 (01:07→20:06)
[2018-09-09] MEDS: PROMETHAZINE 25 MG/ML 1 ML AMP IVP PRN ×3 (01:08→20:05)
[2018-09-09] MEDS: MORPHINE 2 MG/ML SYR IVP PRN ×3 (01:15→20:05)
[2018-09-09] MEDS: DEXAMETHASONE SOD 4 MG/ML VIAL IVP SCH ×2 (03:13→15:20)
[2018-09-09] MEDS: LEVOTHYROXINE SOD 0.05 MG TAB PO SCH (04:51)
[2018-09-09] MEDS: INSULIN HUM LISPRO 100 UN/ML 3 ML VIAL SUBQ PRN (08:52)
[2018-09-09] MEDS: DOCUSATE SODIUM 100 MG CAP PO SCH ×2 (08:54→19:33)
[2018-09-09] MEDS: POLYETHYLENE GLYCOL 17 GM PKT PO SCH (08:54)
[2018-09-09] MEDS: levETIRAcetam 500 MG TAB PO SCH ×2 (09:00→19:33)
[2018-09-09] MEDS: TRIMETH/SULFA DS 160-800MG TAB PO SCH ×2 (09:00→19:33)
--- NOTE | 2018-09-09 09:26 | PT ECF NOTE ---
Type of Note: Initial Note Primary Medical Diagnosis: Weakness, cancer Physical Therapy Evaluation Date: 09/07/18 SUBJECTIVE: Prior Hospitalization: [facility] acute, see EMR for details Prior Level of Function: 24 hour care at home with and 2 caregivers Prior Living Status: Single level house, Spouse, Assist by family, Assist by friends Community Services: Support adequate, No known needs Home Accessibility: Stairs with rails, All needs on one level, Walk-in shower Equipment Owned: Front wheeled walker, Rollator, Toilet riser, Bedside commode, Tub/shower chair, Wheelchair Medical Complications/Past Medical History: Extensive, metastatic cancer. Psychosocial Support: supportive Pain Scale (0-10): Pt denies pain OBJECTIVE: Bed Mobility: Mod A x2 Transfers: Moderate assistance 2-person assist for bed>commode>chair Assistive Device: Front wheeled walker *Pt with vomiting after transfer ASSESSMENT: Pt presents with declining functional status as a result of progressive cancer. Pt will benefit from skilled PT to attempt to get her to a functional level where she can consistently perform stand pivot transfers with Min A using a RW with nursing staff in order to maintain functional strength with nursing as well as decreasing risk of skin breakdown as Pt is incontinent and will require frequent brief changes. Pt will require 24 hour care upon DC, Pt and are aware and working with social work on placement. Problem List/Current Limitations: Decreased activity tolerance, Decreased strength, Decreased coordination, Decreased balance, Generalized weakness, Poor safety awareness, Memory deficits, Decreased problem solving, Confusion Short Term Goals: 1. Pt able to perform stand pivot transfer with Min A using RW consistently with staff in order to maintain LE/functional strength to slow decline associated with her medical condition. Commercial Lines Manager Goals: Maintain functional strength as long as possible. Patient Goals: Pt is unable to identify any goals. Rehabilitation Prognosis: Poor Barriers for Discharge: declining medical status PLAN: The patient will benefit from skilled physical therapy services 5 times per week for 2 weeks including: Therapeutic Exercise, Therapeutic Activities, Transfer Training, Safety Training, Neuromuscular Re-educ., Pt/Caregiver Training, Bed Mobility. Will re-evaluate Pt frequently to ensure Pt continues to benefit from skilled PT. It Pt reaches a point of needing assisted care only, will discharge therapy services at that time. Thank you for this referral. If you have any questions, concerns, or comments about this report or plan, please contact me at . Padmini Noguera, PT, DPT, GCS MTDD
[2018-09-09] MEDS: SCOPOLAMINE 1.5 MG PATCH TD SCH (10:50)
--- NOTE | 2018-09-09 13:42 | PT ECF NOTE ---
Type of Note: Discharge Summary Primary Medical Diagnosis: Weakness, cancer Physical Therapy Evaluation Date: 09/07/18 SUBJECTIVE: Prior Hospitalization: [facility] acute, see EMR for details Prior Level of Function: 24 hour care at home with and 2 caregivers Prior Living Status: Single level house, Spouse, Assist by family, Assist by friends Community Services: Support adequate, No known needs Home Accessibility: Stairs with rails, All needs on one level, Walk-in shower Equipment Owned: Front wheeled walker, Rollator, Toilet riser, Bedside commode, Tub/shower chair, Wheelchair Medical Complications/Past Medical History: Extensive, metastatic cancer. Psychosocial Support: supportive Pain Scale (0-10): Pt denies pain OBJECTIVE: Bed Mobility: Mod A x2 Transfers: Moderate assistance 2-person assist for bed>commode>chair Assistive Device: Front wheeled walker *Pt with vomiting after transfer ASSESSMENT: Pt has declined over the last 24 hours and is now on comfort care. Problem List/Current Limitations: Decreased activity tolerance, Decreased strength, Decreased coordination, Decreased balance, Generalized weakness, Poor safety awareness, Memory deficits, Decreased problem solving, Confusion Short Term Goals: 1. Pt able to perform stand pivot transfer with Min A using RW consistently with staff in order to maintain LE/functional strength to slow decline associated with her medical condition. Usp Goals: Maintain functional strength as long as possible. Patient Goals: Pt is unable to identify any goals. Rehabilitation Prognosis: Poor Barriers for Discharge: declining medical status PLAN: Pt has declined over the last 24 hours and is now on comfort care. Thank you for this referral. If you have any questions, concerns, or comments about this report or plan, please contact me at . Padmini Noguera, PT, DPT, GCS MTDD
[2018-09-10] MEDS: DEXAMETHASONE SOD 4 MG/ML VIAL IVP SCH ×2 (03:23→14:50)
[2018-09-10] MEDS: MORPHINE 2 MG/ML SYR IVP PRN ×2 (03:23→16:45)
[2018-09-10] MEDS: LEVOTHYROXINE SOD 0.05 MG TAB PO SCH (05:03)
[2018-09-10] MEDS: POLYETHYLENE GLYCOL 17 GM PKT PO SCH (09:00)
[2018-09-10] MEDS: levETIRAcetam 500 MG TAB PO SCH ×2 (09:00→20:19)
[2018-09-10] MEDS: TRIMETH/SULFA DS 160-800MG TAB PO SCH ×2 (09:00→20:19)
[2018-09-10] MEDS: DOCUSATE SODIUM 100 MG CAP PO SCH ×2 (09:00→20:19)
[2018-09-10] MEDS: PROMETHAZINE 25 MG/ML 1 ML AMP IVP PRN (14:49)
[2018-09-11] MEDS: DEXAMETHASONE SOD 4 MG/ML VIAL IVP SCH ×2 (03:29→15:26)
[2018-09-11] MEDS: LORazepam 2 MG/ML VIAL IVP PRN ×3 (03:29→20:16)
[2018-09-11] MEDS: LEVOTHYROXINE SOD 0.05 MG TAB PO SCH (06:00)
[2018-09-11] MEDS: MORPHINE 2 MG/ML SYR IVP PRN (06:09)
[2018-09-11] MEDS: POLYETHYLENE GLYCOL 17 GM PKT PO SCH (09:00)
[2018-09-11] MEDS: DOCUSATE SODIUM 100 MG CAP PO SCH ×2 (09:08→20:15)
[2018-09-11] MEDS: levETIRAcetam 500 MG TAB PO SCH ×2 (09:08→20:15)
[2018-09-12] MEDS: DEXAMETHASONE SOD 4 MG/ML VIAL IVP SCH ×2 (03:38→14:36)
[2018-09-12] MEDS: LEVOTHYROXINE SOD 0.05 MG TAB PO SCH (06:00)
[2018-09-12] MEDS: DOCUSATE SODIUM 100 MG CAP PO SCH ×2 (09:00→20:32)
[2018-09-12] MEDS: POLYETHYLENE GLYCOL 17 GM PKT PO SCH (09:00)
[2018-09-12] MEDS: levETIRAcetam 500 MG TAB PO SCH ×2 (09:00→20:32)
[2018-09-12] MEDS: PATCH REMOVAL 1 EA TP SCH (09:00)
[2018-09-12] MEDS: SCOPOLAMINE 1.5 MG PATCH TD SCH (09:17)
[2018-09-12] MEDS: LORazepam 2 MG/ML VIAL IVP PRN (09:19)
[2018-09-12] MEDS: MORPHINE 2 MG/ML SYR IVP PRN (17:22)
[2018-09-13] MEDS: LORazepam 2 MG/ML VIAL IVP PRN (03:33)
[2018-09-13] MEDS: DEXAMETHASONE SOD 4 MG/ML VIAL IVP SCH ×2 (03:33→14:27)
[2018-09-13] MEDS: LEVOTHYROXINE SOD 0.05 MG TAB PO SCH (06:00)
[2018-09-13] MEDS: MORPHINE 2 MG/ML SYR IVP PRN ×3 (08:47→17:04)
[2018-09-13] MEDS: DOCUSATE SODIUM 100 MG CAP PO SCH ×2 (09:00→20:45)
[2018-09-13] MEDS: levETIRAcetam 500 MG TAB PO SCH ×2 (09:00→20:45)
[2018-09-13] MEDS: POLYETHYLENE GLYCOL 17 GM PKT PO SCH (09:00)
--- NOTE | 2018-09-13 10:33 | Medical Nutrition Therapy ---
Nutrition Anthropometrics Height (Inches): 67.00 Height (Calculated Centimeters: 170.574104 Weight (Pounds): 147 Weight (Calculated Kilograms): 66.735 BMI: 23 Vinicius Nutrition Score: Very Poor Vinicius Nutrition Risk Score: 11 Dietary Referral Nutrition Risk Factors: Unplanned Loss >10lbs Nutrition Risk Comment: TASTE HAS BEEN POOR. On Dysphagia III diet. Nutritional Diagnosis Nutritional Risk Acuity 2: Head/Neck/GI Cancer Past Medical History: Hx of hypothroidism, afib, otitis media, seizures, HTN, DM, sm cell lung cancer, and brain metastasis. Nutrition Diagnosis: Inadequate Food Intake Nutrition Etiology: End of Life Care Nutrition Problem/Etiology/Sym: AEB intake of 1-2 items only at meals Energy Requirement: 1850 (Charles-St Jeor: Actual BW X 1.5) Protein Requirement: 87 (1.3gm/kg) Fluid Requirement: 1850 (1ml/kcal) Diet Type: Diet as Tolerated CHARLEE/REG Nutrition Intervention: Cont diet as ordered Nutrition Monitoring & Eval Nutritional Goals Comment: Pt will consume food and fluids as appropriate for comfort care. RD Patient Assessment Time: [address] Assessment Type: RD Re-Assessment Patient Nutrition Acuity: 2-Moderate Follow Up Date: Sep 21, 2018 Nutritional Comment: 09/08/18 Pt admitted for comfort care with dx of lung Ca with mets to brain. Pt on CHARLEE and taking small amounts. Will cont to offer food and fluids as pt desires for comfort care. ALMA 09/13 Pt cont on comfort care. Nurses are provideing food and fluids as pt desires. Will cont to monitor. BISMARK ARROYO Sep 13, 2018 10:33
[2018-09-14] MEDS: DEXAMETHASONE SOD 4 MG/ML VIAL IVP SCH ×2 (03:26→14:51)
[2018-09-14] MEDS: MORPHINE 2 MG/ML SYR IVP PRN (03:27)
[2018-09-14] MEDS: LEVOTHYROXINE SOD 0.05 MG TAB PO SCH (03:51)
[2018-09-14] MEDS: levETIRAcetam 500 MG TAB PO SCH ×2 (09:00→20:33)
[2018-09-14] MEDS ORDERED: MORPHINE 1 MG/ML 30 ML PCA IV PRN (13:40)
--- NOTE | 2018-09-14 13:51 | Hospitalist Progress Note ---
Subjective Progress Notes Subjective Patient denies pain. States she doesn't need anything right now. Physical Exam Vital Signs Date Time Temp Pulse Resp B/P (MAP) Pulse Ox O2 Delivery O2 Flow Rate FiO2 09/14/18 05:50 16 86 Room Air 09/12/18 15:25 96.1 09/11/18 16:22 82 09/11/18 08:15 2.0 Intake and Output 09/14/18 07:00 Intake Total 0 ml Balance 0 ml Intake Oral 0 ml # Voids 2 # Bowel Movements 0 General Appearance: Other (Sleepy but awakens and answers questions.) Cardiovascular: Other (Tachy, regular.) Respiratory: Clear to Auscultation (Anteriorly.) GI: Soft and Non-Tender Extremities: Warm, Perfused, Other (No edema.) Psych: Appropriate Mood & Affect Assessment and Plan Problems: (1) Small cell lung cancer Status: Chronic Assessment & Plan: She appears to have progressive deterioration in her status. The patient and her have now decided to transition into comfort care/end-of-life care. This certainly seems reasonable given her diagnosis/prognosis. She was transferred to the [facility]. Will continue on IV analgesics, antiemetics, anxiolytics. Will also continue IV Decadron (she was previously on oral) to help with symptom control. (2) Brain metastases Status: Chronic Time Spent on Plan of Care: < 30 min MILTON SMITH MD Sep 14, 2018 13:51
[2018-09-14] MEDS: LORazepam 2 MG/ML VIAL IVP PRN ×2 (14:51→20:33)
[2018-09-15] MEDS: MORPHINE 2 MG/ML SYR IVP PRN ×2 (00:48→03:34)
[2018-09-15] MEDS: LORazepam 2 MG/ML VIAL IVP PRN (00:48)
[2018-09-15] MEDS: DEXAMETHASONE SOD 4 MG/ML VIAL IVP SCH ×2 (03:34→14:39)
[2018-09-15] MEDS: levETIRAcetam 500 MG TAB PO SCH ×2 (09:00→21:00)
[2018-09-15] MEDS: SCOPOLAMINE 1.5 MG PATCH TD SCH (13:35)
[2018-09-15] MEDS: PATCH REMOVAL 1 EA TP SCH (13:35)
[2018-09-16] MEDS: MORPHINE 2 MG/ML SYR IVP PRN (00:57)
[2018-09-16] MEDS: LORazepam 2 MG/ML VIAL IVP PRN ×2 (00:58→11:38)
[2018-09-16] MEDS: DEXAMETHASONE SOD 4 MG/ML VIAL IVP SCH (03:31)
[2018-09-16] MEDS: levETIRAcetam 500 MG TAB PO SCH (09:00)
--- NOTE | 2018-09-16 17:53 | Death Summary ---
Pronounced Date: Sep 16, 2018 Pronounced Time: 15:15 Preliminary Cause of : Respiratory arrest Assessment: Small cell lung cancer Brain metastasis History of Present Illness Please see admission history and physical for details. ANISH WASHINGTON DO Sep 16, 2018 17:53
== END 2018-09-16 15:15 | disposition expired | DRG 181 ==
LOC: ECF 16:55
PROVIDERS: ADMIT Internal Medicine; ATTEND Internal Medicine
DX: C34.92 Malignant neoplasm of unspecified part of left bronchus or lung (principal); C79.31 Secondary malignant neoplasm of brain; Z51.5 Encounter for palliative care; I10 Essential (primary) hypertension; R09.2 Respiratory arrest; Z92.21 Personal history of antineoplastic chemotherapy; Z87.891 Personal history of nicotine dependence; Z88.8 Allergy status to other drugs, medicaments and biological substances
CPT/HCPCS: 36416; 82948; 97163; 97166; J1100; J1650; J2060; J2270; J2550; J8540; S0119